=== PATIENT | female | born 1950 | race Caucasian/White ===

== ENCOUNTER → 2020-01-25 15:07 | Outpatient (BNVA) | payer MEDICARE, SELFPAY | PROVIDERS: Visit Provider Hospitalist | DX: J96.10 Chronic respiratory failure, unspecified whether with hypoxia or hypercapnia (principal); J44.9 Chronic obstructive pulmonary disease, unspecified; J84.9 Interstitial pulmonary disease, unspecified; D86.9 Sarcoidosis, unspecified; G47.33 Obstructive sleep apnea (adult) (pediatric); Z99.89 Dependence on other enabling machines and devices | CPT/HCPCS: 99212 ==

== ENCOUNTER 2020-02-02 22:46 | Emergency (ER) | payer MEDICARE, SELFPAY ==
[2020-02-02 22:48] VITALS: BP 177/61; PULSE 82; RESP 18; TEMP 37; O2SAT 97; BMI 47.2
[2020-02-03] VITALS: BP 178/67; PULSE 79; RESP 16; O2SAT 98
--- NOTE | 2020-02-03 00:11 | ECG_ITS ---
Test Reason : CP Blood Pressure : / mmHG Vent. Rate : 078 BPM Atrial Rate : 078 BPM P-R Int : 114 ms QRS Dur : 100 ms QT Int : 404 ms P-R-T Axes : 021 -44 052 degrees QTc Int : 460 ms Normal sinus rhythm Left anterior fascicular block Otherwise normal ECG Heart rate has decreased Referred By: Luciana Cisneros Electronically Signed By:TYRONE ECHEVERRIA MD
--- NOTE | 2020-02-03 00:16 | ED.CHESTPAIN ---
HPI - Chest Pain General Chief Complaint: Chest Pain Stated Complaint: CHEST PAIN Time Seen by Provider: 02/03/20 00:02 Source: patient Mode of arrival: EMS Limitations: language barrier History of Present Illness HPI narrative: Ivorian-speaking patient comes to the emergency room complaining worsening shortness of breath for 1 week. Patient states she has history of COPD and sarcoidosis, usually has baseline shortness of breath, but today got much worse. Patient noticed that the shortness of breath started getting bad approximately 1 week ago. also, patient has substernal chest pain that is worse with inspiration. Patient states the reason she came today was because she was at home, her insurance usually she since paramedics to check on her, she was found to be hypertensive and hyperglycemic, blood pressure above 200. The patient's PCP was called and due to her ongoing symptoms and the high blood pressure she was advised to come to the emergency room. Patient also states that for 1 week she has noticed that her legs have been gotten more swollen than usual. patient states she went to [facility] yesterday for the same symptoms, however she waited for almost 11 hours and could not be seen, patient decided to go home MD complaint: chest discomfort Related Data Home Medications Medication Instructions Recorded Confirmed CPAP Mask DX: G47.33 Sleep Apnea #1 ea 01/25/20 01/25/20 clonazepam 0.5 mg tablet 0.25 mg PO BEDTIME 01/25/20 01/25/20 cyclobenzaprine 10 mg tablet 10 mg PO BEDTIME 01/25/20 01/25/20 diltiazem HCl 360 mg capsule,24 360 mg PO DAILY 01/25/20 01/25/20 hr,extended release dulaglutide 0.75 mg/0.5 mL 0.75 mg SUBCUT QWEEK 01/25/20 01/25/20 subcutaneous pen injector empagliflozin 10 mg tablet 10 mg PO DAILY 01/25/20 01/25/20 ezetimibe 10 mg tablet 10 mg PO DAILY 01/25/20 01/25/20 fluticasone fur. 100 mcg-umeclid 1 inh INHALATION DAILY 01/25/20 01/25/20 62.5 mcg-vilant 25 mcg inhalat.powder ibuprofen 600 mg tablet 600 mg PO Q8H PRN 01/25/20 01/25/20 levalbuterol tartrate 45 2 puff INHALATION Q4-6H PRN 01/25/20 01/25/20 mcg/actuation aerosol inhaler mycophenolate mofetil 500 mg tablet 500 mg PO BID 01/25/20 01/25/20 omeprazole 20 mg capsule,delayed 20 mg PO DAILY 01/25/20 01/25/20 release rosuvastatin 10 mg tablet 10 mg PO DAILY 01/25/20 01/25/20 sertraline 50 mg tablet 50 mg PO DAILY 01/25/20 01/25/20 Previous Rx's Medication Instructions Recorded modafinil 100 mg tablet 100 mg PO DAILY 30 Days #30 tab 12/24/19 baclofen 10 mg tablet 10 mg PO TID 30 Days #90 tab 01/25/20 humidifiers #1 ea 01/25/20 roflumilast 250 mcg tablet 250 mcg PO DAILY 30 Days #30 tab 01/25/20 prednisone 10 mg tablet 10 mg PO DAILY #30 tab 02/01/20 Allergies Allergy/AdvReac Type Severity Reaction Status Date / Time albuterol [ALBUTEROL] Allergy Severe TACHYCARDIA Verified 01/25/20 17:15 codeine [Codeine] Allergy Severe ANAPHYLAXIS Verified 01/25/20 17:15 /HEADACHE Review of Systems Review of Systems: Constitutional : No Weight loss, No Fever, No Chills, No Night Sweats, No Fatigue, No Malaise ENT/Mouth : No Hearing loss, No Ear Pain, No Nasal Congestion, No Sinus Pain, No Hoarseness, No sore throat, No Rhinorrhea, No Swallowing Difficulty Eyes: No Eye Pain, No Swelling, No Redness, No Foreign Body, No Discharge, No Vision Changes Cardiovascular : Patient complaining of substernal chest pain, shortness of breath chronically but worsened, chronic orthopnea Respiratory : No Cough, No Sputum, No Wheezing Gastrointestinal : No Nausea, No Vomiting, No Diarrhea, No Constipation, No abdominal Pain, No Hematochezia, No Melena Genitourinary : no irregular bleeding, No Dysuria, No Urinary Frequency, No Hematuria, No Urinary Incontinence, No Urgency, No Flank Pain, No Urinary Flow Changes, No Hesitancy Musculoskeletal : No joint pain, No Myalgias, No Joint Swelling Skin : No Skin Lesions, No rash Neuro : No Weakness, No Numbness, No Paresthesias, No Loss of Consciousness, No Dizziness, No Headache Psych : No Anxiety/Panic, No Depression, No SI/HI/AH/VH, No Social Issues, Heme/Lymph: No Bruising, No Bleeding,No Lymphadenopathy Endocrine : No Polyuria, No Polydipsia, No Temperature Intolerance [facility] Past Medical History Medical History (Updated 02/03/20 @ 04:39 by Luciana Cisneros MD) CHF (congestive heart failure) Chronic respiratory failure COPD (chronic obstructive pulmonary disease) HTN (hypertension) ILD (interstitial lung disease) Muscle spasm JOVANNY on CPAP Sarcoidosis Social History Social History (Updated 01/25/20 @ 15:26 by Trina Cardenas MA) Alcohol intake: never Smoking Status: Never smoker Smoked in Last 30 Days: No Use of substances other than those prescribed or required for medical reasons: No Advance Directives: No Physical Exam Vital Signs: Vital Signs: Last Vital Signs Temp 98.5 F 02/03/20 02:00 Pulse 86 02/03/20 03:35 Resp 18 02/03/20 03:35 BP 139/73 02/03/20 03:35 Pulse Ox 96 02/03/20 03:35 Body Mass Index 47.2 Appearance: Alert. Oriented X3. No acute distress. Eyes: Pupils equal, round and reactive to light. ENT: Pharynx normal. Neck: Normal inspection. Neck supple. No lymph nodes noted. No crepitus CVS: Normal heart rate and rhythm. Pulses normal. Normal S1 and S2 Respiratory: no respiratory distress, on 2 L at baseline, bilateral wheezing rales and crackles, moderate air movement Abdomen: Soft and nontender. No rigidity. No distention. good BS x4 Skin: Skin warm and dry. acanthosis nigricans in the neck Extremities: bilateral lower extremity pitting edema +2 Neuro: Oriented X 3. No motor deficit. No sensory deficit. Moving all extermities. No slurred speech. Course Course Course Narrative: patient's troponin is 21.2, higher than her average. Patient's baseline is approximately 11. at this moment, patient has no significant chest pain, no shortness of breath, sitting comfortably at the edge of the bed. Patient was informed that the plan is to repeat troponin at 03:45 in the morning. 2nd troponin came back at the same level as the 1st 1, patient's EKG unchanged from the 1st 1. Patient asymptomatic at this time, states she has no chest pain. Patient's dyspnea is likely chronic secondary to COPD without exacerbation and sarcoidosis. Patient instructed to follow-up with her registered diet technician. Patient's D-dimer less than 200, at this time PE is not suspected. I discussed with the patient if he continues having chest pains, patient will likely need a stress test. MDM - Chest Pain Lab Data Result diagrams: 02/03/20 00:45 02/03/20 00:45 Labs: Lab Results 02/03/20 02/03/20 02/03/20 Range/Units 00:32 00:45 00:45 WBC 10.7 (4.8-10.8) X10*3/uL RBC 4.46 (4.20-5.50) X10*6/uL Hgb 13.2 (12.0-16.0) g/dl Hct 40.6 (37-47) % MCV 91.0 (80-98) fL MCH 29.6 (27.0-33.0) pg MCHC 32.5 (31.0-35.0) g/dl RDW 13.5 (11.0-16.0) % Plt Count 218 (160-400) X10*3/uL MPV 9.2 L (9.4-12.3) fL Immature Gran % (Auto) 0.8 H (0.0-0.4) % Neut % (Auto) 62.7 (45-73) % Lymph % (Auto) 25.9 (20-40) % [place] % (Auto) 7.6 (2-11) % Eos % (Auto) 2.6 (0-4) % Baso % (Auto) 0.4 (0-2) % Lymph # (Auto) 2.8 (1.2-4.9) X10*3/uL [place] # (Auto) 0.8 (0.1-1.2) X10*3/uL Eos # (Auto) 0.3 (0.0-0.4) X10*3/uL Baso # (Auto) 0.0 (0.0-0.2) X10*3/uL Abs Immat Gran (auto) 0.08 H (0.00-0.03) X10*3/uL Absolute Neuts (auto) 6.7 (2.0-8.3) X10*3/uL Absolute Nucleated RBC 0.000 (0.0-0.012) X10*3/uL Nucleated RBC % (auto) 0.0 (0.0-0.2) /100WBC D-Dimer < 200 NG/ML Sodium (135-145) mmol/L Potassium (3.3-5.1) mmol/l Chloride (96-108) mmol/L Carbon Dioxide (22-29) mmol/L Anion Gap (12-20) BUN (9-16) mg/dL Creatinine (0.5-1.4) mg/dL Estim Creat Clear Calc Estimated GFR POC Glucose 277 H (60-115) mg/dL Random Glucose (60-115) mg/dL Calcium (8.4-10.2) mg/dL Total Bilirubin (0.0-1.0) mg/dL Direct Bilirubin (0.0-0.5) mg/dL AST (5-31) U/L ALT (0-31) U/L Alkaline Phosphatase (39-117) U/L Troponin I High Sens (<3.5-17.0) ng/L B-Natriuretic Peptide (<100) pg/mL Total Protein (6.5-8.0) g/dL Albumin (3.5-5.0) g/dL 02/03/20 02/03/20 02/03/20 Range/Units 00:45 00:45 00:45 WBC (4.8-10.8) X10*3/uL RBC (4.20-5.50) X10*6/uL Hgb (12.0-16.0) g/dl Hct (37-47) % MCV (80-98) fL MCH (27.0-33.0) pg MCHC (31.0-35.0) g/dl RDW (11.0-16.0) % Plt Count (160-400) X10*3/uL MPV (9.4-12.3) fL Immature Gran % (Auto) (0.0-0.4) % Neut % (Auto) (45-73) % Lymph % (Auto) (20-40) % [place] % (Auto) (2-11) % Eos % (Auto) (0-4) % Baso % (Auto) (0-2) % Lymph # (Auto) (1.2-4.9) X10*3/uL [place] # (Auto) (0.1-1.2) X10*3/uL Eos # (Auto) (0.0-0.4) X10*3/uL Baso # (Auto) (0.0-0.2) X10*3/uL Abs Immat Gran (auto) (0.00-0.03) X10*3/uL Absolute Neuts (auto) (2.0-8.3) X10*3/uL Absolute Nucleated RBC (0.0-0.012) X10*3/uL Nucleated RBC % (auto) (0.0-0.2) /100WBC D-Dimer NG/ML Sodium 138 (135-145) mmol/L Potassium 3.1 L (3.3-5.1) mmol/l Chloride 96 (96-108) mmol/L Carbon Dioxide 31 H (22-29) mmol/L Anion Gap 14 (12-20) BUN 32 H (9-16) mg/dL Creatinine 1.15 (0.5-1.4) mg/dL Estim Creat Clear Calc 54.7 Estimated GFR 47 POC Glucose (60-115) mg/dL Random Glucose 307 H (60-115) mg/dL Calcium 8.5 (8.4-10.2) mg/dL Total Bilirubin 0.2 (0.0-1.0) mg/dL Direct Bilirubin 0.2 (0.0-0.5) mg/dL AST 15 (5-31) U/L ALT 27 (0-31) U/L Alkaline Phosphatase 86 (39-117) U/L Troponin I High Sens 21.2 H (<3.5-17.0) ng/L B-Natriuretic Peptide 46 (<100) pg/mL Total Protein 6.1 L (6.5-8.0) g/dL Albumin 3.9 (3.5-5.0) g/dL 02/03/20 Range/Units 03:32 WBC (4.8-10.8) X10*3/uL RBC (4.20-5.50) X10*6/uL Hgb (12.0-16.0) g/dl Hct (37-47) % MCV (80-98) fL MCH (27.0-33.0) pg MCHC (31.0-35.0) g/dl RDW (11.0-16.0) % Plt Count (160-400) X10*3/uL MPV (9.4-12.3) fL Immature Gran % (Auto) (0.0-0.4) % Neut % (Auto) (45-73) % Lymph % (Auto) (20-40) % [place] % (Auto) (2-11) % Eos % (Auto) (0-4) % Baso % (Auto) (0-2) % Lymph # (Auto) (1.2-4.9) X10*3/uL [place] # (Auto) (0.1-1.2) X10*3/uL Eos # (Auto) (0.0-0.4) X10*3/uL Baso # (Auto) (0.0-0.2) X10*3/uL Abs Immat Gran (auto) (0.00-0.03) X10*3/uL Absolute Neuts (auto) (2.0-8.3) X10*3/uL Absolute Nucleated RBC (0.0-0.012) X10*3/uL Nucleated RBC % (auto) (0.0-0.2) /100WBC D-Dimer NG/ML Sodium (135-145) mmol/L Potassium (3.3-5.1) mmol/l Chloride (96-108) mmol/L Carbon Dioxide (22-29) mmol/L Anion Gap (12-20) BUN (9-16) mg/dL Creatinine (0.5-1.4) mg/dL Estim Creat Clear Calc Estimated GFR POC Glucose (60-115) mg/dL Random Glucose (60-115) mg/dL Calcium (8.4-10.2) mg/dL Total Bilirubin (0.0-1.0) mg/dL Direct Bilirubin (0.0-0.5) mg/dL AST (5-31) U/L ALT (0-31) U/L Alkaline Phosphatase (39-117) U/L Troponin I High Sens 20.1 H (<3.5-17.0) ng/L B-Natriuretic Peptide (<100) pg/mL Total Protein (6.5-8.0) g/dL Albumin (3.5-5.0) g/dL ABG Data Attestation: I personally reviewed and interpreted this ABG as follows: ECG Data ECG #1: Attestation: I personally reviewed and interpreted this ECG as follows: ( heart rate 78, sinus rhythm, no T-wave inversions, no ST segment elevations or depressions.) ECG #2: Attestation: I personally reviewed and interpreted this ECG as follows: ( sinus rhythm, heart rate 82, QTC 455, no ST segment depressions or elevations, no changes from previous EKG) Discharge Plan Discharge Clinical Impression: Chronic dyspnea, Atypical chest pain Patient Disposition: Home, Self-Care Instructions: Chest Pain (ED) Additional Instructions: please follow-up with her primary care physician and with your registered diet technician. Prescriptions: No Action modafinil 100 mg tablet 100 mg PO DAILY 30 Days Qty: 30 RF: 3 mycophenolate mofetil [CellCept] 500 mg tablet 500 mg PO BID RF: 0 levalbuterol tartrate [Xopenex HFA] 45 mcg/actuation HFA aerosol inhaler 2 puff inhalation Q4-6H PRNRF: 0 Trelegy Ellipta 100-62.5-25 mcg blister with device 1 inh inhalation DAILY RF: 0 (DME) CPAP Mask DX: G47.33 Sleep Apnea 0 .Route .MEDSUPPLY Qty: 1 RF: 0 ibuprofen 600 mg tablet 600 mg PO Q8H PRNRF: 0 ezetimibe [Zetia] 10 mg tablet 10 mg PO DAILY RF: 0 clonazepam 0.5 mg tablet 0.25 mg PO BEDTIME RF: 0 diltiazem HCl 360 mg capsule,extended release 24 hr 360 mg PO DAILY RF: 0 Trulicity 0.75 mg/0.5 mL pen injector 0.75 mg subcut QWEEK RF: 0 rosuvastatin 10 mg tablet 10 mg PO DAILY RF: 0 Jardiance 10 mg tablet 10 mg PO DAILY RF: 0 sertraline 50 mg tablet 50 mg PO DAILY RF: 0 cyclobenzaprine 10 mg tablet 10 mg PO BEDTIME RF: 0 omeprazole 20 mg capsule,delayed release(DR/EC) 20 mg PO DAILY RF: 0 Daliresp 250 mcg tablet 250 mcg PO DAILY 30 Days Qty: 30 RF: 11 baclofen 10 mg tablet 10 mg PO TID 30 Days Qty: 90 RF: 3 (DME) humidifiers Misc See Rx Instructions .ROUTE .MEDSUPPLY Qty: 1 RF: 0 prednisone 10 mg tablet 10 mg PO DAILY Qty: 30 RF: 1
[2020-02-03 00:36] LABS: Glucose, Whole Blood 277 mg/dL (60-115)
[2020-02-03 00:53] LABS: MANUAL DIFF FLAG NO
[2020-02-03 00:54] LABS: Basophils Percent Auto 0.4 % (0-2); Eosinophils Absolute Auto 0.3 X10*3/uL (0.0-0.4); Eosinophils Percent Auto 2.6 % (0-4); Hematocrit 40.6 % (37-47); Hemoglobin 13.2 g/dl (12.0-16.0); Imm Gran Abs Auto 0.08 X10*3/uL (0.00-0.03); Imm Gran Pct Auto 0.8 % (0.0-0.4); Lymphocytes Absolute Auto 2.8 X10*3/uL (1.2-4.9); Lymphocytes Percent Auto 25.9 % (20-40); Mean Corpuscular HGB Conc 32.5 g/dl (31.0-35.0); Mean Corpuscular Hemoglobin 29.6 pg (27.0-33.0); Mean Platelet Volume 9.2 fL (9.4-12.3); Monocytes Absolute Auto 0.8 X10*3/uL (0.1-1.2); Monocytes Percent Auto 7.6 % (2-11); Neutrophils Absolute Auto 6.7 X10*3/uL (2.0-8.3); Neutrophils Percent Auto 62.7 % (45-73); Platelet Count 218 X10*3/uL (160-400); Red Blood Count 4.46 X10*6/uL (4.20-5.50); Red Cell Distribution Width 13.5 % (11.0-16.0); White Blood Count 10.7 X10*3/uL (4.8-10.8)
[2020-02-03 01:04] LABS: D Dimer < 200 NG/ML
--- NOTE | 2020-02-03 01:16 | CT_ITS ---
EXAMINATION: CT CHEST WITHOUT CONTRAST CLINICAL INFORMATION: Shortness of breath. COPD. Sarcoidosis. COMPARISON: Multiple prior exams are reviewed. The most recent is from 07/25/2019. TECHNIQUE: Contiguous axial thin section helical images of the chest were performed without contrast. The data set was reformatted in the coronal and sagittal planes and reviewed on an independent workstation. DLP: 369 mGy-cm. FINDINGS: The heart is of normal size. There is no pericardial effusion. There is neither mediastinal, hilar nor axillary lymphadenopathy. There are no chest wall masses. There is a small hiatal hernia. Review of lung windows demonstrates that there are neither pleural effusions nor pneumothoraces. The degree of interstitial lung disease is similar to the most recent chest CT of 02/23/2019. There are no consolidations. There are no pulmonary parenchymal nodules. Images of the upper abdomen demonstrate that the liver is of normal size and attenuation without focal lesions. Normal adrenal glands are identified. Bone windows: Neither sclerotic nor lytic bone lesions are identified. CT/CT chest wo con IMPRESSION: No acute airspace disease. Stable degree of interstitial lung disease. Small hiatal hernia. Automated exposure control (Care Dose) Adjustment of the mA and/or kv according to patient size (this includes techniques or standardized protocols for targeted exams where dose is matched to indication / reason for exam; i.e. extremities or head).
[2020-02-03 01:24] LABS: Alanine Aminotransferase 27 U/L (0-31); Albumin Level 3.9 g/dL (3.5-5.0); Alkaline Phosphatase 86 U/L (39-117); Anion Gap 14 (12-20); Aspartate Amino Transferase 15 U/L (5-31); Bilirubin Direct 0.2 mg/dL (0.0-0.5); Bilirubin Total 0.2 mg/dL (0.0-1.0); Blood Urea Nitrogen 32 mg/dL (9-16); Calcium 8.5 mg/dL (8.4-10.2); Carbon Dioxide 31 mmol/L (22-29); Chloride 96 mmol/L (96-108); Creatinine Clr Calc Pharmacy 54.7; Estimated Glomerular Filt Rate 47; Glucose Random 307 mg/dL (60-115); Potassium 3.1 mmol/l (3.3-5.1); Sodium 138 mmol/L (135-145); Total Protein 6.1 g/dL (6.5-8.0)
[2020-02-03 01:30] LABS: B Type Natriuretic Peptide 46 pg/mL (<100)
[2020-02-03 01:33] LABS: Troponin-I High Sensitivity 21.2 ng/L (<3.5-17.0)
[2020-02-03 02:00] VITALS: BP 142/56; PULSE 86; RESP 23; TEMP 36.9; O2SAT 98
[2020-02-03] MEDS: Potassium Chloride Packet 20 MEQ PACKET 40 MEQ PO (02:15)
[2020-02-03] MEDS: Aspirin Enteric Coated 325 MG TABLET.DR PO (02:16)
[2020-02-03 03:35] VITALS: BP 139/73; PULSE 86; RESP 18; O2SAT 96
[2020-02-03 04:18] LABS: Troponin-I High Sensitivity 20.1 ng/L (<3.5-17.0)
--- NOTE | 2020-02-03 04:35 | ECG_ITS ---
Test Reason : REPEAT FOR HIGH TROPONIN Blood Pressure : / mmHG Vent. Rate : 082 BPM Atrial Rate : 082 BPM P-R Int : 144 ms QRS Dur : 096 ms QT Int : 382 ms P-R-T Axes : 021 -38 050 degrees QTc Int : 446 ms Normal sinus rhythm Left anterior fascicular block Otherwise normall ECG When compared with ECG of 23-OCT-2019 00:06, No significant change was found Referred By: Luciana Cisneros Electronically Signed By: TYRONE ECHEVERRIA MD [facility]
== END 2020-02-03 05:32 | disposition home or self-care (01) ==
PROVIDERS: Emergency Provider Emergency Medicine
DX: R07.89 Other chest pain (principal); R06.00 Dyspnea, unspecified; M54.6 Pain in thoracic spine; I10 Essential (primary) hypertension; I25.10 Atherosclerotic heart disease of native coronary artery without angina pectoris; Z79.899 Other long term (current) drug therapy
CPT/HCPCS: 36415; 71250; 80048; 80076; 82947; 83880; 84484; 85025; 85379; 93005; 99284

== ENCOUNTER 2020-02-29 15:00 | Outpatient (REF) | payer MEDICARE, SELFPAY ==
[2020-02-29 17:00] LABS: MANUAL DIFF FLAG NO
[2020-02-29 17:07] LABS: Basophils Percent Auto 0.2 % (0-2); Eosinophils Percent Auto 0.4 % (0-4); Hematocrit 42.4 % (37-47); Hemoglobin 13.7 g/dl (12.0-16.0); Imm Gran Abs Auto 0.06 X10*3/uL (0.00-0.03); Imm Gran Pct Auto 0.7 % (0.0-0.4); Lymphocytes Absolute Auto 1.1 X10*3/uL (1.2-4.9); Lymphocytes Percent Auto 11.7 % (20-40); Mean Corpuscular HGB Conc 32.3 g/dl (31.0-35.0); Mean Corpuscular Hemoglobin 29.5 pg (27.0-33.0); Mean Corpuscular Volume 91.4 fL (80-98); Mean Platelet Volume 9.5 fL (9.4-12.3); Monocytes Absolute Auto 0.6 X10*3/uL (0.1-1.2); Monocytes Percent Auto 6.2 % (2-11); Neutrophils Absolute Auto 7.5 X10*3/uL (2.0-8.3); Neutrophils Percent Auto 80.8 % (45-73); Platelet Count 258 X10*3/uL (160-400); Red Blood Count 4.64 X10*6/uL (4.20-5.50); Red Cell Distribution Width 13.1 % (11.0-16.0); White Blood Count 9.2 X10*3/uL (4.8-10.8)
[2020-02-29 17:32] LABS: Anion Gap 18 (12-20); Blood Urea Nitrogen 23 mg/dL (9-16); Calcium 8.6 mg/dL (8.4-10.2); Carbon Dioxide 30 mmol/L (22-29); Chloride 95 mmol/L (96-108); Estimated Glomerular Filt Rate 56; Potassium 3.8 mmol/l (3.3-5.1); Sodium 139 mmol/L (135-145)
[2020-02-29 17:48] LABS: Erythrocyte Sedimentation Rate 25 MM/HR (0-20)
[2020-02-29 18:14] LABS: Glucose Random 421 mg/dL (60-115)
== END 2020-02-29 15:01 | disposition home or self-care (01) ==
LOC: HO.LAB 15:00
PROVIDERS: Visit Provider Hospitalist
DX: J84.9 Interstitial pulmonary disease, unspecified (principal); J44.9 Chronic obstructive pulmonary disease, unspecified; J96.11 Chronic respiratory failure with hypoxia; G47.33 Obstructive sleep apnea (adult) (pediatric); D86.9 Sarcoidosis, unspecified; M62.838 Other muscle spasm; Z99.89 Dependence on other enabling machines and devices
CPT/HCPCS: 36415; 80048; 85025; 85652; 99212

== ENCOUNTER 2020-03-24 15:44 | Outpatient (REF) | payer MEDICARE, SELFPAY ==
--- NOTE | 2020-03-24 16:06 | XR_ITS ---
EXAMINATION: XR CHEST CLINICAL INFORMATION: Condition lung disease. Follow-up. COMPARISON: Chest 07/25/2019 TECHNIQUE: 2 views of the chest were obtained. FINDINGS: Lungs are hyperexpanded with diffuse prominent interstitial markings slightly worsened previous study. The heart size and pulmonary vascularity is normal. No gross bony abnormality seen. XR/XR chest 2V IMPRESSION: Diffuse prominent interstitial markings consistent with interstitial pneumonitis or edema, worse since 07/25/2019
[2020-03-24 17:25] LABS: Hematocrit 36.4 % (37-47); Hemoglobin 11.7 g/dl (12.0-16.0); Mean Corpuscular HGB Conc 32.1 g/dl (31.0-35.0); Mean Corpuscular Hemoglobin 29.6 pg (27.0-33.0); Mean Corpuscular Volume 92.2 fL (80-98); Platelet Count 281 X10*3/uL (160-400); Red Blood Count 3.95 X10*6/uL (4.20-5.50); Red Cell Distribution Width 12.6 % (11.0-16.0)
== END 2020-03-24 15:45 | disposition home or self-care (01) ==
LOC: HO.LAB 15:44
PROVIDERS: Visit Provider Internal Medicine Geriatric Medicine
DX: I48.91 Unspecified atrial fibrillation (principal); J84.9 Interstitial pulmonary disease, unspecified
CPT/HCPCS: 36415; 71046; 85027

== ENCOUNTER → 2020-04-07 14:54 | Outpatient (BNVA) | payer MEDICARE, SELFPAY | PROVIDERS: PCP Internal Medicine Geriatric Medicine; Visit Provider Hospitalist | DX: J84.9 Interstitial pulmonary disease, unspecified (principal); J96.11 Chronic respiratory failure with hypoxia; G47.33 Obstructive sleep apnea (adult) (pediatric); D86.9 Sarcoidosis, unspecified; J41.0 Simple chronic bronchitis; I50.9 Heart failure, unspecified; M62.838 Other muscle spasm; Z99.89 Dependence on other enabling machines and devices | CPT/HCPCS: 99212 ==

== ENCOUNTER 2020-04-09 23:00 | Emergency (ER) | payer MEDICARE, SELFPAY ==
[2020-04-09 23:02] VITALS: BP 157/56; PULSE 84; RESP 16; TEMP 36.6; O2SAT 100; BMI 43.0
--- NOTE | 2020-04-10 03:03 | ECG_ITS ---
Test Reason : SOB Blood Pressure : / mmHG Vent. Rate : 092 BPM Atrial Rate : 092 BPM P-R Int : 138 ms QRS Dur : 096 ms QT Int : 386 ms P-R-T Axes : 008 -47 054 degrees QTc Int : 477 ms Normal sinus rhythm Left anterior fascicular block Abnormal ECG When compared with ECG of 03-FEB-2020 05:03, No significant change was found Referred By: Em Garcia Electronically Signed By:VERONIQUE ANDERSON MD
--- NOTE | 2020-04-10 03:03 | XR_ITS ---
EXAMINATION: XR CHEST CLINICAL INFORMATION: SOB COMPARISON: 03/24/2020 TECHNIQUE: Frontal view of the chest was obtained. FINDINGS: Lung volumes are low. Diffuse patchy interstitial opacities throughout both lungs are not significantly changed from prior. No new superimposed consolidation. Cardiac and mediastinal contours are unchanged. No pneumothorax or pleural effusion. No acute osseous findings. XR/XR chest 1V IMPRESSION: Low lung volumes with chronic diffuse interstitial airspace opacities in both lungs, consistent with an underlying interstitial lung disease. No new superimposed consolidation is identified.
--- NOTE | 2020-04-10 03:04 | US_ITS ---
EXAMINATION: US VENOUS ULTRASOUND WITH DOPPLER LOWER EXTREMITY, RIGHT CLINICAL INFORMATION: Swelling, pain. COMPARISON: 01/27/2015 TECHNIQUE: Ultrasound of the deep veins is performed from the hip to the calf with compression sonography and color and pulse Doppler assessment. Spectral analysis with color-flow imaging is performed. FINDINGS: There is normal venous compression and respiratory variation and augmented flow. The visualized common femoral vein, superficial femoral vein, profunda femoral vein, popliteal vein, and the trifurcation region shows no evidence of deep venous thrombosis. There is no significant popliteal fossa cyst. If the patient's symptoms persist, followup ultrasound in 5 days 7 days might be of value to exclude proximal propagation from a non-visualized calf vein. US/US venous duplex LE RT IMPRESSION: No DVT demonstrated in the right lower extremity.
--- NOTE | 2020-04-10 03:06 | XR_ITS ---
EXAMINATION: XR FINGER, RIGHT CLINICAL INFORMATION: 4th digit pain on ROM COMPARISON: None TECHNIQUE: Three views of the right ring finger. FINDINGS: No acute fracture or malalignment. Calcific atherosclerosis is present in the hands and digits. Minimal osteoarthritis is present at the interphalangeal joints, characterized by nonuniform joint space narrowing and tiny marginal osteophytes. No erosions. Bone mineralization is normal. XR/XR finger RT min 2V IMPRESSION: No acute fracture or malalignment at the ring finger. No acute osseous findings Minimal osteoarthritis in the interphalangeal joints.
--- NOTE | 2020-04-10 03:06 | ED.SOB ---
HPI - SOB/Dyspnea General Chief Complaint: Wound/Laceration Stated Complaint: Finger wound Time Seen by Provider: 04/09/20 23:20 Source: patient and translator and interpreter Mode of arrival: ambulatory History of Present Illness HPI Narrative: This is a 69-year-old female presents with complaints regarding concerns about the tip of her right 4th digit that she states turned black in color and is due to her frequent sugar checks. In addition, patient is complaining of increased shortness of breath on exertion without fevers, chills, nausea, vomiting, diarrhea, or urinary pain/burning/frequency. She states that her right lower extremity is more swollen than the left and that despite being on water pills she feels that they have stopped working. Related Data Home Medications Medication Instructions Recorded Confirmed CPAP Mask DX: G47.33 Sleep Apnea #1 ea 01/25/20 04/07/20 clonazepam 0.5 mg tablet 0.25 mg PO BEDTIME 01/25/20 04/07/20 diltiazem HCl 360 mg capsule,24 360 mg PO DAILY 01/25/20 04/07/20 hr,extended release dulaglutide 0.75 mg/0.5 mL 0.75 mg SUBCUT QWEEK 01/25/20 04/07/20 subcutaneous pen injector empagliflozin 10 mg tablet 10 mg PO DAILY 01/25/20 04/07/20 ezetimibe 10 mg tablet 10 mg PO DAILY 01/25/20 04/07/20 fluticasone fur. 100 mcg-umeclid 1 inh INHALATION DAILY 01/25/20 04/07/20 62.5 mcg-vilant 25 mcg inhalat.powder ibuprofen 600 mg tablet 600 mg PO Q8H PRN 01/25/20 04/07/20 levalbuterol tartrate 45 2 puff INHALATION Q4-6H PRN 01/25/20 04/07/20 mcg/actuation aerosol inhaler omeprazole 20 mg capsule,delayed 20 mg PO DAILY 01/25/20 04/07/20 release rosuvastatin 10 mg tablet 10 mg PO DAILY 01/25/20 04/07/20 sertraline 50 mg tablet 50 mg PO DAILY 01/25/20 04/07/20 zolpidem 10 mg tablet PO 02/29/20 04/07/20 Previous Rx's Medication Instructions Recorded humidifiers #1 ea 01/25/20 roflumilast 250 mcg tablet 250 mcg PO DAILY 30 Days #30 tab 01/25/20 prednisone 10 mg tablet 10 mg PO DAILY #30 tab 02/01/20 baclofen 10 mg tablet 20 mg PO TID 30 Days #180 tab 02/29/20 modafinil 100 mg tablet 200 mg PO DAILY 30 Days #60 tab 02/29/20 mycophenolate mofetil 500 mg tablet 500 mg PO BID 30 Days #60 tab 04/07/20 spironolactone 50 mg tablet 50 mg PO DAILY 30 Days #30 tab 04/07/20 Allergies Allergy/AdvReac Type Severity Reaction Status Date / Time albuterol [ALBUTEROL] Allergy Severe TACHYCARDIA Verified 04/07/20 15:55 codeine [Codeine] Allergy Severe ANAPHYLAXIS Verified 04/07/20 15:55 /HEADACHE Review of Systems Review of Systems: Pertinent positives and negatives as stated in HPI 10 point review systems is otherwise negative. [facility] Past Medical History Source: nursing notes reviewed Medical History CHF (congestive heart failure) CHF (congestive heart failure) Chronic respiratory failure COPD (chronic obstructive pulmonary disease) HTN (hypertension) ILD (interstitial lung disease) Muscle spasm JOVANNY on CPAP Sarcoidosis Family History Family History Other Diabetes Social History Social History Alcohol intake: never Smoking Status: Never smoker Advance Directives: No Physical Exam Vital Signs: Vital Signs: Last Vital Signs Temp 98.1 F 04/10/20 07:15 Pulse 96 04/10/20 07:15 Resp 16 04/10/20 07:15 BP 157/49 H 04/10/20 07:15 Pulse Ox 98 04/10/20 07:15 Body Mass Index 43.0 VITAL SIGNS: Reviewed. GENERAL: Well developed, well nourished, in no acute distress. HEAD: Normocephalic/atraumatic, EYES: PERRLA, EOMI EARS: Ext canals without abnormality NOSE: Nares patent bilateral OROPHARYNX: no oral lesions noted, posterior pharynx clear NECK: Supple, no adenopathy LUNGS: Normal breath sounds. SpO2<100> on supplemental nasal cannula CARDIOVASCULAR: Regular rate and rhythm without noted murmurs, no JVD and noted bilateral lower leg pitting edema right worse than left ABDOMEN: Soft, non-tender, non-distended with bowel sounds. No rigidity. No guarding. No palpable masses or hernias noted RIGHT 4TH DIGIT: There is a small black injury on the 5th of the finger without erythema, induration, crepitus NEUROLOGIC: Alert and oriented x 4. 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 All investigations reviewed and there is no evidence systemic infection or anemia, VBG is not consistent with COPD exacerbation, BNP and clinical exam as well as chest x-ray are inconsistent with CHF exacerbation, venous duplex conducted of the right lower extremity is negative for DVT, and COVID-19 testing is negative. Patient further endorses that she has a follow-up appointment with her primary care provider on 04/20 as well as a pending appointment with Cardiology. She was reassured that there are no acute findings today she was strongly encouraged to follow-up with cardiology as well as her primary care provider. MDM - SOB/Dyspnea Lab Data Result diagrams: 04/10/20 04:28 04/10/20 04:28 Labs: Lab Results 04/10/20 04/10/20 04/10/20 Range/Units 04:28 04:28 04:28 WBC 9.6 (4.8-10.8) X10*3/uL RBC 4.64 (4.20-5.50) X10*6/uL Hgb 13.5 (12.0-16.0) g/dl Hct 41.6 (37-47) % MCV 89.7 (80-98) fL MCH 29.1 (27.0-33.0) pg MCHC 32.5 (31.0-35.0) g/dl RDW 12.7 (11.0-16.0) % Plt Count 297 (160-400) X10*3/uL MPV 9.4 (9.4-12.3) fL Immature Gran % (Auto) 0.4 (0.0-0.4) % Neut % (Auto) 58.2 (45-73) % Lymph % (Auto) 30.2 (20-40) % Woods % (Auto) 9.1 (2-11) % Eos % (Auto) 1.8 (0-4) % Baso % (Auto) 0.3 (0-2) % Lymph # (Auto) 2.9 (1.2-4.9) X10*3/uL Woods # (Auto) 0.9 (0.1-1.2) X10*3/uL Eos # (Auto) 0.2 (0.0-0.4) X10*3/uL Baso # (Auto) 0.0 (0.0-0.2) X10*3/uL Abs Immat Gran (auto) 0.04 H (0.00-0.03) X10*3/uL Absolute Neuts (auto) 5.6 (2.0-8.3) X10*3/uL Absolute Nucleated RBC 0.000 (0.0-0.012) X10*3/uL Nucleated RBC % (auto) 0.0 (0.0-0.2) /100WBC VBG pH (7.32-7.43) VBG pCO2 mmHg VBG pO2 mmHg VBG HCO3 mmol/L VBG O2 Saturation % VBG Base Excess mmol/L Sodium 142 (135-145) mmol/L Potassium 3.7 (3.3-5.1) mmol/l Chloride 95 L (96-108) mmol/L Carbon Dioxide 30 H (22-29) mmol/L Anion Gap 21 H (12-20) BUN 24 H (9-16) mg/dL Creatinine 1.16 (0.5-1.4) mg/dL Estim Creat Clear Calc 53.2 Estimated GFR 46 Random Glucose 290 H (60-115) mg/dL Calcium 9.3 D (8.4-10.2) mg/dL Magnesium 2.4 (1.6-2.6) mg/dL Total Bilirubin 0.2 (0.0-1.0) mg/dL AST 22 D (5-31) U/L ALT 19 (0-31) U/L Alkaline Phosphatase 103 (39-117) U/L B-Natriuretic Peptide 60 (<100) pg/mL Total Protein 6.9 (6.5-8.0) g/dL Albumin 4.1 (3.5-5.0) g/dL Urine Color Urine Appearance Urine pH (5.0-8.0) Ur Specific Erwin (1.005-1.025) Urine Protein (NEG-TRACE) MG/DL Urine Glucose (UA) (NEG) MG/DL Urine Ketones (NEG) MG/DL Urine Blood (NEG) Urine Nitrite (NEG) Ur Leukocyte Esterase (NEG) Urine RBC (0) /HPF Urine WBC (0-4) /HPF Ur Squamous Epith Cells /LPF Urine Bacteria /LPF Coronavirus (PCR) (Negative) Influenza Type A (PCR) (Negative) Influenza Type B (PCR) (Negative) RSV RNA Qual (PCR) (Negative) 04/10/20 04/10/20 04/10/20 Range/Units 04:28 04:28 06:34 WBC (4.8-10.8) X10*3/uL RBC (4.20-5.50) X10*6/uL Hgb (12.0-16.0) g/dl Hct (37-47) % MCV (80-98) fL MCH (27.0-33.0) pg MCHC (31.0-35.0) g/dl RDW (11.0-16.0) % Plt Count (160-400) X10*3/uL MPV (9.4-12.3) fL Immature Gran % (Auto) (0.0-0.4) % Neut % (Auto) (45-73) % Lymph % (Auto) (20-40) % Woods % (Auto) (2-11) % Eos % (Auto) (0-4) % Baso % (Auto) (0-2) % Lymph # (Auto) (1.2-4.9) X10*3/uL Woods # (Auto) (0.1-1.2) X10*3/uL Eos # (Auto) (0.0-0.4) X10*3/uL Baso # (Auto) (0.0-0.2) X10*3/uL Abs Immat Gran (auto) (0.00-0.03) X10*3/uL Absolute Neuts (auto) (2.0-8.3) X10*3/uL Absolute Nucleated RBC (0.0-0.012) X10*3/uL Nucleated RBC % (auto) (0.0-0.2) /100WBC VBG pH 7.48 H (7.32-7.43) VBG pCO2 49 mmHg VBG pO2 82 mmHg VBG HCO3 37 mmol/L VBG O2 Saturation 94.0 % VBG Base Excess 12.1 mmol/L Sodium (135-145) mmol/L Potassium (3.3-5.1) mmol/l Chloride (96-108) mmol/L Carbon Dioxide (22-29) mmol/L Anion Gap (12-20) BUN (9-16) mg/dL Creatinine (0.5-1.4) mg/dL Estim Creat Clear Calc Estimated GFR Random Glucose (60-115) mg/dL Calcium (8.4-10.2) mg/dL Magnesium (1.6-2.6) mg/dL Total Bilirubin (0.0-1.0) mg/dL AST (5-31) U/L ALT (0-31) U/L Alkaline Phosphatase (39-117) U/L B-Natriuretic Peptide (<100) pg/mL Total Protein (6.5-8.0) g/dL Albumin (3.5-5.0) g/dL Urine Color COLORLESS Urine Appearance CLEAR Urine pH 6.0 (5.0-8.0) Ur Specific Erwin <= 1.005 (1.005-1.025) Urine Protein NEG (NEG-TRACE) MG/DL Urine Glucose (UA) >=1000 H (NEG) MG/DL Urine Ketones NEG (NEG) MG/DL Urine Blood NEG (NEG) Urine Nitrite NEG (NEG) Ur Leukocyte Esterase NEG (NEG) Urine RBC 0 (0) /HPF Urine WBC 0 (0-4) /HPF Ur Squamous Epith Cells NONE /LPF Urine Bacteria NONE /LPF Coronavirus (PCR) NEGATIVE (Negative) Influenza Type A (PCR) NEGATIVE (Negative) Influenza Type B (PCR) NEGATIVE (Negative) RSV RNA Qual (PCR) NEGATIVE (Negative) ECG Data Attestation: I personally reviewed and interpreted this ECG as follows: Prior ECG tracings: available for review (02/03/2020 no acute changes on comparison) Interpretation: Normal sinus rhythm, HR-92, no evidence of acute ischemia, HI/QRS/QTC are within normal limits. Discharge Plan Discharge Clinical Impression: Chronic obstructive pulmonary disease Qualifiers: COPD type: unspecified COPD Qualified Code(s): J44.9 - Chronic obstructive pulmonary disease, unspecified Patient Disposition: Home, Self-Care Instructions: COPD (Chronic Obstructive Pulmonary Disease) (ED), Nutrition Guidelines for People with COPD (ED) Additional Instructions: 1. Por favor, reanude todos alfonso medicamentos caseros recetados. 2. Dom un seguimiento con adams proveedor de atenci?n primaria seg?n lo programado. 3. Contin?e el seguimiento con Cardiolog?a. No dude en volver a esta mic de emergencias si presenta un empeoramiento narayan o nuevos s?ntomas. Prescriptions: No Action zolpidem [Ambien] 10 mg tablet PO RF: 0 baclofen 10 mg tablet 20 mg PO TID 30 Days Qty: 180 RF: 3 modafinil 100 mg tablet 200 mg PO DAILY 30 Days Qty: 60 RF: 3 mycophenolate mofetil [CellCept] 500 mg tablet 500 mg PO BID 30 Days Qty: 60 RF: 3 spironolactone [Aldactone] 50 mg tablet 50 mg PO DAILY 30 Days Qty: 30 RF: 5 levalbuterol tartrate [Xopenex HFA] 45 mcg/actuation HFA aerosol inhaler 2 puff inhalation Q4-6H PRNRF: 0 Trelegy Ellipta 100-62.5-25 mcg blister with device 1 inh inhalation DAILY RF: 0 (DME) CPAP Mask DX: G47.33 Sleep Apnea 0 .Route .MEDSUPPLY Qty: 1 RF: 0 ibuprofen 600 mg tablet 600 mg PO Q8H PRNRF: 0 ezetimibe [Zetia] 10 mg tablet 10 mg PO DAILY RF: 0 clonazepam 0.5 mg tablet 0.25 mg PO BEDTIME RF: 0 diltiazem HCl 360 mg capsule,extended release 24 hr 360 mg PO DAILY RF: 0 Trulicity 0.75 mg/0.5 mL pen injector 0.75 mg subcut QWEEK RF: 0 rosuvastatin 10 mg tablet 10 mg PO DAILY RF: 0 Jardiance 10 mg tablet 10 mg PO DAILY RF: 0 sertraline 50 mg tablet 50 mg PO DAILY RF: 0 omeprazole 20 mg capsule,delayed release(DR/EC) 20 mg PO DAILY RF: 0 Daliresp 250 mcg tablet 250 mcg PO DAILY 30 Days Qty: 30 RF: 11 (DME) humidifiers Misc See Rx Instructions .ROUTE .MEDSUPPLY Qty: 1 RF: 0 prednisone 10 mg tablet 10 mg PO DAILY Qty: 30 RF: 1 Referrals: Physician,Unknown [Primary Care Provider] - 2 days Print Language: Tamazight
[2020-04-10 04:43] LABS: Basophils Percent Auto 0.3 % (0-2); Eosinophils Absolute Auto 0.2 X10*3/uL (0.0-0.4); Eosinophils Percent Auto 1.8 % (0-4); Hematocrit 41.6 % (37-47); Hemoglobin 13.5 g/dl (12.0-16.0); Imm Gran Abs Auto 0.04 X10*3/uL (0.00-0.03); Imm Gran Pct Auto 0.4 % (0.0-0.4); Lymphocytes Absolute Auto 2.9 X10*3/uL (1.2-4.9); Lymphocytes Percent Auto 30.2 % (20-40); Mean Corpuscular HGB Conc 32.5 g/dl (31.0-35.0); Mean Corpuscular Hemoglobin 29.1 pg (27.0-33.0); Mean Corpuscular Volume 89.7 fL (80-98); Mean Platelet Volume 9.4 fL (9.4-12.3); Monocytes Absolute Auto 0.9 X10*3/uL (0.1-1.2); Monocytes Percent Auto 9.1 % (2-11); Neutrophils Absolute Auto 5.6 X10*3/uL (2.0-8.3); Neutrophils Percent Auto 58.2 % (45-73); Platelet Count 297 X10*3/uL (160-400); Red Blood Count 4.64 X10*6/uL (4.20-5.50); Red Cell Distribution Width 12.7 % (11.0-16.0); White Blood Count 9.6 X10*3/uL (4.8-10.8)
[2020-04-10 04:44] LABS: Glucose Urine UA >=1000 MG/DL (NEG); Leukocyte Esterase Urine NEG (NEG); MANUAL DIFF FLAG NO; Nitrite Urine NEG (NEG); Specific Gravity - Urine <= 1.005 (1.005-1.025); Urine Blood NEG (NEG); Urine Ketones NEG (NEG); Urine Protein NEG (NEG-TRACE)
[2020-04-10 04:53] LABS: Appearance Urine CLEAR; Color Urine COLORLESS
[2020-04-10 05:19] LABS: Alanine Aminotransferase 19 U/L (0-31); Albumin Level 4.1 g/dL (3.5-5.0); Alkaline Phosphatase 103 U/L (39-117); Anion Gap 21 (12-20); Aspartate Amino Transferase 22 U/L (5-31); Bilirubin Total 0.2 mg/dL (0.0-1.0); Blood Urea Nitrogen 24 mg/dL (9-16); Calcium 9.3 mg/dL (8.4-10.2); Carbon Dioxide 30 mmol/L (22-29); Chloride 95 mmol/L (96-108); Creatinine Clr Calc Pharmacy 53.2; Estimated Glomerular Filt Rate 46; Glucose Random 290 mg/dL (60-115); Magnesium 2.4 mg/dL (1.6-2.6); Potassium 3.7 mmol/l (3.3-5.1); Sodium 142 mmol/L (135-145); Total Protein 6.9 g/dL (6.5-8.0)
[2020-04-10 05:22] LABS: B Type Natriuretic Peptide 60 pg/mL (<100)
[2020-04-10 05:26] LABS: Influenza A PCR NEGATIVE (Negative); Influenza B PCR NEGATIVE (Negative); RBC Urine 0 /HPF (0); Resp Syncy Virus RNA Qual PCR NEGATIVE (Negative); SARS COV2 PCR INHOUSE NEGATIVE (Negative); WBC Urine 0 /HPF (0-4)
[2020-04-10 06:42] LABS: Base Excess VBG 12.1 mmol/L; HCO3 VBG 37 mmol/L; PCO2 VBG 49 mmHg; PO2 VBG 82 mmHg; pH VBG 7.48 (7.32-7.43)
[2020-04-10 07:15] VITALS: BP 157/49; PULSE 96; RESP 16; TEMP 36.7; O2SAT 98
== END 2020-04-10 07:53 | disposition home or self-care (01) ==
PROVIDERS: Emergency Provider Student in an Organized Health Care Education/Training Program
DX: J44.9 Chronic obstructive pulmonary disease, unspecified (principal); M79.644 Pain in right finger(s); R60.0 Localized edema; Z20.822 Contact with and (suspected) exposure to COVID-19; Z79.899 Other long term (current) drug therapy
CPT/HCPCS: 0241U; 36415; 71045; 73140; 80053; 81001; 82803; 83735; 83880; 85025; 93005; 93971; 99283; 99284

== ENCOUNTER 2020-04-17 16:56 | Emergency (ER) | payer MEDICARE, SELFPAY ==
[2020-04-17 17:04] VITALS: BP 147/66; PULSE 96; RESP 20; TEMP 36.9; O2SAT 95; BMI 42.0
--- NOTE | 2020-04-17 17:18 | XR_ITS ---
EXAMINATION: CHEST 1 VIEW CLINICAL INFORMATION: Chest pain. COMPARISON: April 10, 2020. TECHNIQUE: An AP view of the chest is provided. FINDINGS: The cardiac silhouette is not enlarged. The mediastinal and hilar contours are unremarkable. There are neither pleural effusions nor pneumothoraces. Mild interstitial prominence throughout both lungs is similar to prior exams. There are no consolidations. The osseous structures are stable. XR/XR chest 1V IMPRESSION: No evidence for acute airspace disease. Stable interstitial disease throughout both lungs..
--- NOTE | 2020-04-17 17:18 | ED.GENADULT ---
HPI - General Adult General Chief complaint: General Medical Stated complaint: RIGHT ARM/CHEST PAIN SINCE THIS AM Time Seen by Provider: 04/17/20 20:40 Source: patient Mode of arrival: ambulatory Limitations: language barrier History of Present Illness HPI narrative: 69-year-old female with past medical history of CHF, history of respiratory failure, JOVANNY on CPAP, interstitial lung disease, sarcoidosis, COPD, hypertension, hyperlipidemia and diabetes presents with 2 weeks of chest pain and diffuse abdominal pain with 1 day of radiation to the right arm. She also reports coldness and tingling to her bilateral hands and has a wound to the tip of the right 4th finger. She states the pain is worse in her chest when she takes a deep breath or moves, that the abdominal pain does not change with eating, drinking or position, and denies nausea, vomiting, dysuria, hematuria, and edema. Onset (ago): week(s) (2) Location: chest, abdomen, right and upper extremity Severity: moderate Severity scale (1-10): 7 Quality: aching and constant Pain Consistency: constant Relieving factors: none Exacerbating factors: movement Associated symptoms: chest pain Related Data Home Medications Medication Instructions Recorded Confirmed CPAP Mask DX: G47.33 Sleep Apnea #1 ea 01/25/20 04/07/20 clonazepam 0.5 mg tablet 0.25 mg PO BEDTIME 01/25/20 04/07/20 diltiazem HCl 360 mg capsule,24 360 mg PO DAILY 01/25/20 04/07/20 hr,extended release dulaglutide 0.75 mg/0.5 mL 0.75 mg SUBCUT QWEEK 01/25/20 04/07/20 subcutaneous pen injector empagliflozin 10 mg tablet 10 mg PO DAILY 01/25/20 04/07/20 ezetimibe 10 mg tablet 10 mg PO DAILY 01/25/20 04/07/20 fluticasone fur. 100 mcg-umeclid 1 inh INHALATION DAILY 01/25/20 04/07/20 62.5 mcg-vilant 25 mcg inhalat.powder ibuprofen 600 mg tablet 600 mg PO Q8H PRN 01/25/20 04/07/20 levalbuterol tartrate 45 2 puff INHALATION Q4-6H PRN 01/25/20 04/07/20 mcg/actuation aerosol inhaler omeprazole 20 mg capsule,delayed 20 mg PO DAILY 01/25/20 04/07/20 release rosuvastatin 10 mg tablet 10 mg PO DAILY 01/25/20 04/07/20 sertraline 50 mg tablet 50 mg PO DAILY 01/25/20 04/07/20 zolpidem 10 mg tablet PO 02/29/20 04/07/20 Previous Rx's Medication Instructions Recorded humidifiers #1 ea 01/25/20 roflumilast 250 mcg tablet 250 mcg PO DAILY 30 Days #30 tab 01/25/20 prednisone 10 mg tablet 10 mg PO DAILY #30 tab 02/01/20 baclofen 10 mg tablet 20 mg PO TID 30 Days #180 tab 02/29/20 modafinil 100 mg tablet 200 mg PO DAILY 30 Days #60 tab 02/29/20 mycophenolate mofetil 500 mg tablet 500 mg PO BID 30 Days #60 tab 04/07/20 spironolactone 50 mg tablet 50 mg PO DAILY 30 Days #30 tab 04/07/20 Allergies Allergy/AdvReac Type Severity Reaction Status Date / Time albuterol [ALBUTEROL] Allergy Severe TACHYCARDIA Verified 04/07/20 15:55 codeine [Codeine] Allergy Severe ANAPHYLAXIS Verified 04/07/20 15:55 /HEADACHE Review of Systems Review of Systems: Constitutional: No Weight loss, No Fever, No Chills, No Night Sweats, No Fatigue, No Malaise ENT/Mouth: No Hearing loss, No Ear Pain, No Nasal Congestion, No Sinus Pain, No Hoarseness, No sore throat, No Rhinorrhea, No Swallowing Difficulty Eyes: No Eye Pain, No Swelling, No Redness, No Foreign Body, No Discharge, No Vision Changes Cardiovascular: pos Chest Pain, pos SOB, no Dyspnea on Exertion, No Orthopnea, No Edema, No Palpitations Respiratory: No Cough, No Sputum, No Wheezing, No Smoke Exposure, No Dyspnea Gastrointestinal: pos Nausea, No Vomiting, No Diarrhea, pos abdominal Pain, No Hematochezia, No Melena Genitourinary: No irregular bleeding, No Dysuria, No Urinary Frequency, No Hematuria, No Urinary Incontinence, No Urgency, No Flank Pain, No Urinary Flow Changes, No Hesitancy Musculoskeletal: No joint pain, No Myalgias, No Joint Swelling Skin: No Skin Lesions, No rash Neuro: No Weakness, No Numbness, No Paresthesias, No Loss of Consciousness, No Dizziness, No Headache Psych: No Anxiety/Panic, No Depression, No SI/HI/AH/VH Heme/Lymph: No Bruising, No Bleeding,No Lymphadenopathy Endocrine: No Polyuria, No Polydipsia, No Temperature Intolerance Yes all other systems are reviewed and are negative [facility] Past Medical History Medical History CHF (congestive heart failure) CHF (congestive heart failure) Chronic respiratory failure COPD (chronic obstructive pulmonary disease) HTN (hypertension) ILD (interstitial lung disease) Muscle spasm JOVANNY on CPAP Sarcoidosis Family History Family History Other Diabetes Social History Social History Alcohol intake: never Smoking Status: Never smoker Smoked in Last 30 Days: No Use of substances other than those prescribed or required for medical reasons: No Advance Directives: No Advance Directives Information Provided: No Physical Exam Vital Signs: Vital Signs: Last Vital Signs Temp 98.5 F 04/17/20 17:04 Pulse 80 04/17/20 21:25 Resp 16 04/17/20 21:25 BP 131/47 L 04/17/20 21:25 Pulse Ox 99 04/17/20 21:25 Body Mass Index 42.0 Appearance: Alert. Oriented X3. No acute distress. Eyes: Pupils equal, round and reactive to light. ENT: Pharynx normal. Neck: Normal inspection. Neck supple. CVS: Normal heart rate and rhythm. Pulses normal. Respiratory: No respiratory distress. Breath sounds normal. Abdomen: Soft and tender to palpation to the epigastric and right upper quadrants. Skin: Skin warm and dry. Normal skin color. Normal skin turgor. Extremities: No lower extremity edema. Neuro: No motor deficit. No sensory deficit. Course Course Course Narrative: 69-year-old female with past medical history of CHF, history of respiratory failure, JOVANNY on CPAP, interstitial lung disease, sarcoidosis, COPD, hypertension, hyperlipidemia and diabetes presents with 2 weeks of chest pain and diffuse abdominal pain with 1 day of radiation to the right arm. She also reports coldness and tingling to her bilateral hands and has a wound to the tip of the right 4th finger. Will rule out ACS, order CT of chest and abdomen, CBC Chem 7 and urinalysis. CBC unremarkable, potassium 3.0 we will replete with 40 mEq p.o., glucose 264 will give 5 units of subcu insulin. First troponin elevated at 24 will repeat 2nd 1 in 3 hours per algorithm. EKG is normal sinus with left anterior fascicular block and prolonged QT. No indication of ST elevation or depression. BNP negative, urinalysis negative. It is suspected that the coldness, and tingling to bilateral hands are secondary to diabetic neuropathy. She does state that she was on gabapentin but she could not tolerate that medication. Will give 2 mg of morphine IV for pain management COVID-19 test is negative. Plan is to discharge home and for patient follow-up with primary care physician. japanese interpreter utilized for all correspondence. Google translate utilized for discharge instructions. Medical Decision Making Differential Diagnosis Differential Diagnosis: CA, pneumonia, COVID, acute abdomen Medical Records Medical records reviewed: Yes I reviewed the patient's medical records. Lab Data Lab results reviewed: Yes I reviewed the patient's lab results. Result diagrams: 04/17/20 18:01 04/17/20 18:01 Labs: Lab Results 04/17/20 04/17/20 04/17/20 Range/Units 18:01 18:01 18:01 WBC 10.1 (4.8-10.8) X10*3/uL RBC 5.02 (4.20-5.50) X10*6/uL Hgb 14.8 (12.0-16.0) g/dl Hct 43.6 (37-47) % MCV 86.9 (80-98) fL MCH 29.5 (27.0-33.0) pg MCHC 33.9 (31.0-35.0) g/dl RDW 12.6 (11.0-16.0) % Plt Count 301 (160-400) X10*3/uL MPV 9.4 (9.4-12.3) fL Immature Gran % (Auto) 0.7 H (0.0-0.4) % Neut % (Auto) 75.5 H (45-73) % Lymph % (Auto) 12.1 L (20-40) % [place] % (Auto) 9.3 (2-11) % Eos % (Auto) 1.9 (0-4) % Baso % (Auto) 0.5 (0-2) % Lymph # (Auto) 1.2 (1.2-4.9) X10*3/uL [place] # (Auto) 0.9 (0.1-1.2) X10*3/uL Eos # (Auto) 0.2 (0.0-0.4) X10*3/uL Baso # (Auto) 0.1 (0.0-0.2) X10*3/uL Abs Immat Gran (auto) 0.07 H (0.00-0.03) X10*3/uL Absolute Neuts (auto) 7.6 (2.0-8.3) X10*3/uL Absolute Nucleated RBC 0.000 (0.0-0.012) X10*3/uL Nucleated RBC % (auto) 0.0 (0.0-0.2) /100WBC PT 19.6 H (10.8-13.0) SEC INR 1.6 H (0.9-1.1) APTT 37.0 (24.1-38.0) SEC Sodium 141 (135-145) mmol/L Potassium 3.0 L (3.3-5.1) mmol/l Chloride 95 L (96-108) mmol/L Carbon Dioxide 31 H (22-29) mmol/L Anion Gap 18 (12-20) BUN 14 (9-16) mg/dL Creatinine 0.95 (0.5-1.4) mg/dL Estim Creat Clear Calc 64.2 Estimated GFR 58 POC Glucose (60-115) mg/dL Random Glucose 236 H (60-115) mg/dL Calcium 9.6 (8.4-10.2) mg/dL Magnesium 2.0 (1.6-2.6) mg/dL Total Bilirubin 0.7 (0.0-1.0) mg/dL Direct Bilirubin 0.2 (0.0-0.5) mg/dL AST 19 (5-31) U/L ALT 14 (0-31) U/L Alkaline Phosphatase 100 (39-117) U/L Troponin I High Sens (<3.5-17.0) ng/L B-Natriuretic Peptide (<100) pg/mL Total Protein 6.8 (6.5-8.0) g/dL Albumin 4.1 (3.5-5.0) g/dL Lipase 22 (8-78) U/L Urine Color Urine Appearance Urine pH (5.0-8.0) Ur Specific [place] (1.005-1.025) Urine Protein (NEG-TRACE) MG/DL Urine Glucose (UA) (NEG) MG/DL Urine Ketones (NEG) MG/DL Urine Blood (NEG) Urine Nitrite (NEG) Ur Leukocyte Esterase (NEG) Urine RBC (0) /HPF Urine WBC (0-4) /HPF Ur Squamous Epith Cells /LPF Urine Bacteria /LPF COVID-19 ([facility]) (Negative) COVID-19 Clin Com 04/17/20 04/17/20 04/17/20 Range/Units 18:01 18:01 18:01 WBC (4.8-10.8) X10*3/uL RBC (4.20-5.50) X10*6/uL Hgb (12.0-16.0) g/dl Hct (37-47) % MCV (80-98) fL MCH (27.0-33.0) pg MCHC (31.0-35.0) g/dl RDW (11.0-16.0) % Plt Count (160-400) X10*3/uL MPV (9.4-12.3) fL Immature Gran % (Auto) (0.0-0.4) % Neut % (Auto) (45-73) % Lymph % (Auto) (20-40) % [place] % (Auto) (2-11) % Eos % (Auto) (0-4) % Baso % (Auto) (0-2) % Lymph # (Auto) (1.2-4.9) X10*3/uL [place] # (Auto) (0.1-1.2) X10*3/uL Eos # (Auto) (0.0-0.4) X10*3/uL Baso # (Auto) (0.0-0.2) X10*3/uL Abs Immat Gran (auto) (0.00-0.03) X10*3/uL Absolute Neuts (auto) (2.0-8.3) X10*3/uL Absolute Nucleated RBC (0.0-0.012) X10*3/uL Nucleated RBC % (auto) (0.0-0.2) /100WBC PT (10.8-13.0) SEC INR (0.9-1.1) APTT (24.1-38.0) SEC Sodium (135-145) mmol/L Potassium (3.3-5.1) mmol/l Chloride (96-108) mmol/L Carbon Dioxide (22-29) mmol/L Anion Gap (12-20) BUN (9-16) mg/dL Creatinine (0.5-1.4) mg/dL Estim Creat Clear Calc Estimated GFR POC Glucose (60-115) mg/dL Random Glucose (60-115) mg/dL Calcium (8.4-10.2) mg/dL Magnesium (1.6-2.6) mg/dL Total Bilirubin (0.0-1.0) mg/dL Direct Bilirubin (0.0-0.5) mg/dL AST (5-31) U/L ALT (0-31) U/L Alkaline Phosphatase (39-117) U/L Troponin I High Sens 21.3 H (<3.5-17.0) ng/L B-Natriuretic Peptide 41 (<100) pg/mL Total Protein (6.5-8.0) g/dL Albumin (3.5-5.0) g/dL Lipase (8-78) U/L Urine Color Urine Appearance Urine pH (5.0-8.0) Ur Specific [place] (1.005-1.025) Urine Protein (NEG-TRACE) MG/DL Urine Glucose (UA) (NEG) MG/DL Urine Ketones (NEG) MG/DL Urine Blood (NEG) Urine Nitrite (NEG) Ur Leukocyte Esterase (NEG) Urine RBC (0) /HPF Urine WBC (0-4) /HPF Ur Squamous Epith Cells /LPF Urine Bacteria /LPF COVID-19 ([facility]) Negative (Negative) COVID-19 Clin Com See Note 04/17/20 04/17/20 04/17/20 Range/Units 19:26 19:33 21:01 WBC (4.8-10.8) X10*3/uL RBC (4.20-5.50) X10*6/uL Hgb (12.0-16.0) g/dl Hct (37-47) % MCV (80-98) fL MCH (27.0-33.0) pg MCHC (31.0-35.0) g/dl RDW (11.0-16.0) % Plt Count (160-400) X10*3/uL MPV (9.4-12.3) fL Immature Gran % (Auto) (0.0-0.4) % Neut % (Auto) (45-73) % Lymph % (Auto) (20-40) % [place] % (Auto) (2-11) % Eos % (Auto) (0-4) % Baso % (Auto) (0-2) % Lymph # (Auto) (1.2-4.9) X10*3/uL [place] # (Auto) (0.1-1.2) X10*3/uL Eos # (Auto) (0.0-0.4) X10*3/uL Baso # (Auto) (0.0-0.2) X10*3/uL Abs Immat Gran (auto) (0.00-0.03) X10*3/uL Absolute Neuts (auto) (2.0-8.3) X10*3/uL Absolute Nucleated RBC (0.0-0.012) X10*3/uL Nucleated RBC % (auto) (0.0-0.2) /100WBC PT (10.8-13.0) SEC INR (0.9-1.1) APTT (24.1-38.0) SEC Sodium (135-145) mmol/L Potassium (3.3-5.1) mmol/l Chloride (96-108) mmol/L Carbon Dioxide (22-29) mmol/L Anion Gap (12-20) BUN (9-16) mg/dL Creatinine (0.5-1.4) mg/dL Estim Creat Clear Calc Estimated GFR POC Glucose 264 H (60-115) mg/dL Random Glucose (60-115) mg/dL Calcium (8.4-10.2) mg/dL Magnesium (1.6-2.6) mg/dL Total Bilirubin (0.0-1.0) mg/dL Direct Bilirubin (0.0-0.5) mg/dL AST (5-31) U/L ALT (0-31) U/L Alkaline Phosphatase (39-117) U/L Troponin I High Sens 25.5 H (<3.5-17.0) ng/L B-Natriuretic Peptide (<100) pg/mL Total Protein (6.5-8.0) g/dL Albumin (3.5-5.0) g/dL Lipase (8-78) U/L Urine Color YELLOW Urine Appearance CLEAR Urine pH 6.0 (5.0-8.0) Ur Specific [place] <= 1.005 (1.005-1.025) Urine Protein NEG (NEG-TRACE) MG/DL Urine Glucose (UA) >=1000 H (NEG) MG/DL Urine Ketones NEG (NEG) MG/DL Urine Blood NEG (NEG) Urine Nitrite NEG (NEG) Ur Leukocyte Esterase NEG (NEG) Urine RBC 1-4 (0) /HPF Urine WBC 0-2 (0-4) /HPF Ur Squamous Epith Cells TRACE /LPF Urine Bacteria NONE /LPF COVID-19 ([facility]) (Negative) COVID-19 Clin Com Imaging Data CT abdomen pelvis chest: Attestation: I personally reviewed and interpreted this imaging study as follows: ECG Data Attestation: I personally reviewed and interpreted this ECG as follows: Interpretation: EXAMINATION: CT CHEST, ABDOMEN AND PELVIS WITHOUT CONTRAST CLINICAL INFORMATION: Abdominal pain, right upper quadrant and epigastric tenderness. COMPARISON: CT chest 02/03/[address] abdomen and pelvis 10/22/2018. TECHNIQUE: Multidetector volumetric imaging was performed from the thoracic inlet through the pubic symphysis without IV contrast. Sagittal and coronal reformatted images were obtained on the technologist's workstation. This CT examination was performed using dose optimization techniques as appropriate, variously including the following: *Automated exposure control. *Adjustment of mA and/or kV according to patient size (this includes techniques or standardized protocols for targeted exams where dose is matched to indication/reason for exam; i.e. extremities or head). *Use of iterative reconstruction technique. DLP: 1446 mGy-cm FINDINGS: CHEST: Lung: Interstitial lung disease is present with peripheral honeycombing and septal thickening with increased reticular nodular densities. Findings appear slightly more prominent than noted previously and superimposed CHF cannot be entirely excluded. No suspicious focal mass is seen. Mediastinum: Aortic atherosclerotic changes are present without aneurysm. Dense calcification noted in the mitral annulus. Coronary calcifications are seen. No mediastinal or hilar lymphadenopathy is seen. A small unchanged hiatal hernia is present. Pericardium/Pleura: No significant effusion. No pleural mass or thickening. Chest Wall/Axilla: Unremarkable. ABDOMEN/PELVIS: Peritoneal Space: No significant free air or free fluid identified. Liver, Gallbladder, Biliary Tree: The liver is normal in size, shape, and attenuation. No focal hepatic lesion or biliary ductal dilatation is present. The gallbladder is unremarkable with no evidence of radiopaque gallstones, gallbladder wall thickening, or obvious pericholecystic inflammatory changes. The previously seen questionable gallstones are not appreciated on the current study. Pancreas: Unremarkable. Spleen: Unremarkable. Adrenal Glands: Unremarkable. Kidneys and Ureters: The kidneys are normal in size, shape, and attenuation. Extensive renal vascular calcifications are seen. No hydronephrosis, hydroureter, or calculi seen. No perinephric stranding. Bladder: Unremarkable. Gastrointestinal Tract: The small and large bowel are unremarkable. The appendix is not seen but there is no evidence of appendicitis. Abdominal Wall: Again seen is a small ventral hernia with an unchanged small fluid collection just in front of the right lower quadrant abdominal wall. Lymph Nodes: No retroperitoneal lymphadenopathy seen. Vascular: Marked atherosclerotic change present in the aorta and iliofemoral vessels. Visceral branch vessels also have significant atherosclerotic change. The IVC is collapsed and slit-like suggesting hypovolemia. PELVIC VISCERA: An anteverted uterus is present. A densely calcified 1 cm cyst is noted in the left ovary and is unchanged. No other adnexal mass is present. No free intraperitoneal fluid is seen. OSSEUS STRUCTURES: Degenerative changes present throughout the spine. Grade 1 anterolisthesis L4 upon L5. CT/CT abdomen pelvis wo con IMPRESSION: 1. Interstitial lung disease with question of slightly more increased interstitial prominence which could represent some superimposed pulmonary vascular congestion. However, the vena cava is slit-like and collapsed indicating hypovolemia rather than volume overload. 2. Fluid collection in the lower right anterior abdominal wall is unchanged. 3. Incidental note made of extensive atherosclerotic vascular disease, small unchanged ventral hernia and densely rim calcified presumed left ovarian cyst, stable Scores Heart Score History: -1- moderately suspicious ECG: -1- non specific repolarization disturbance Age: -2- > or = 65 Risk factory: -1- 1 or 2 risk factors Troponin: -1- >1 - <3x normal limit Score: 6 Risk: 16.6% Critical Care Time Critical Care Time Critical Care Time: Yes Total Critical Care Time: 35 Attestation: I have personally provided critical care time exclusive of time spent on separately billable procedures. Time includes review of laboratory data, radiology results, discussion with consultants, and monitoring for potential decompensation. Interventions were performed as documented. Discharge Plan Discharge Clinical Impression: Sarcoidosis, Chest pain, Abdominal pain Patient Disposition: Home, Self-Care Instructions: Chest Pain (ED), Abdominal Pain (ED) Additional Instructions: Se le evalu? el dolor tor?cico, el dolor abdominal y el dolor de christopher. La tomograf?a computarizada del abdomen y el t?rax es negativa para los hallazgos agudos. El dolor de christopher puede estar relacionado con la neuropat?a diab?rai. Por favor, tiffany un seguimiento con el m?dico de atenci?n primaria y / o endocrin?logo para m?s atenci?n. Adams electrocardiograma era un ritmo sinusal normal sin indicaci?n de elevaci?n o depresi?n de ST. Las enzimas card?acas est?n ligeramente elevadas, lo que podr?a ser consistente con la enfermedad renal y de CHF. Usted debe hacer un seguimiento con adams m?dico de atenci?n primaria en las pr?ximas 2 semanas. Sulaiman por elegir bharat departamento de emergencias para la evaluaci?n. Por favor, tiffany un seguimiento con el m?dico de atenci?n primaria seg?n sea necesario. Regrese al servicio de urgencias para cualquier s?ntoma nuevo, preocupante o que empeore. You were evaluated for chest pain, abdominal pain, and hand pain. CT scan of the abdomen and chest are negative for acute findings. The hand pain may be related to diabetic neuropathy. Please follow-up with primary care physician and/or research worker kitchen for further care. Your EKG was a normal sinus rhythm without indication of ST elevation or depression. Your cardiac enzymes are mildly elevated which could be consistent with your CHF and kidney disease. You must follow-up with her primary care physician in the next 2 weeks. Thank you for choosing this emergency department for evaluation. Please follow-up with primary care physician as needed. Return to the emergency department for any new, concerning, or worsening symptoms. Prescriptions: No Action zolpidem [Ambien] 10 mg tablet PO RF: 0 baclofen 10 mg tablet 20 mg PO TID 30 Days Qty: 180 RF: 3 modafinil 100 mg tablet 200 mg PO DAILY 30 Days Qty: 60 RF: 3 mycophenolate mofetil [CellCept] 500 mg tablet 500 mg PO BID 30 Days Qty: 60 RF: 3 spironolactone [Aldactone] 50 mg tablet 50 mg PO DAILY 30 Days Qty: 30 RF: 5 levalbuterol tartrate [Xopenex HFA] 45 mcg/actuation HFA aerosol inhaler 2 puff inhalation Q4-6H PRNRF: 0 Trelegy Ellipta 100-62.5-25 mcg blister with device 1 inh inhalation DAILY RF: 0 (DME) CPAP Mask DX: G47.33 Sleep Apnea 0 .Route .MEDSUPPLY Qty: 1 RF: 0 ibuprofen 600 mg tablet 600 mg PO Q8H PRNRF: 0 ezetimibe [Zetia] 10 mg tablet 10 mg PO DAILY RF: 0 clonazepam 0.5 mg tablet 0.25 mg PO BEDTIME RF: 0 diltiazem HCl 360 mg capsule,extended release 24 hr 360 mg PO DAILY RF: 0 Trulicity 0.75 mg/0.5 mL pen injector 0.75 mg subcut QWEEK RF: 0 rosuvastatin 10 mg tablet 10 mg PO DAILY RF: 0 Jardiance 10 mg tablet 10 mg PO DAILY RF: 0 sertraline 50 mg tablet 50 mg PO DAILY RF: 0 omeprazole 20 mg capsule,delayed release(DR/EC) 20 mg PO DAILY RF: 0 Daliresp 250 mcg tablet 250 mcg PO DAILY 30 Days Qty: 30 RF: 11 (DME) humidifiers Misc See Rx Instructions .ROUTE .MEDSUPPLY Qty: 1 RF: 0 prednisone 10 mg tablet 10 mg PO DAILY Qty: 30 RF: 1 Interventions: ED Discharge Assessment Last Done: 04/17/20 22:36 Discharge Date/Time: 04/17/20 22:58
[2020-04-17 18:08] LABS: MANUAL DIFF FLAG NO
[2020-04-17 18:17] LABS: Basophils Absolute Auto 0.1 X10*3/uL (0.0-0.2); Basophils Percent Auto 0.5 % (0-2); Eosinophils Absolute Auto 0.2 X10*3/uL (0.0-0.4); Eosinophils Percent Auto 1.9 % (0-4); Hematocrit 43.6 % (37-47); Hemoglobin 14.8 g/dl (12.0-16.0); Imm Gran Abs Auto 0.07 X10*3/uL (0.00-0.03); Imm Gran Pct Auto 0.7 % (0.0-0.4); Lymphocytes Absolute Auto 1.2 X10*3/uL (1.2-4.9); Lymphocytes Percent Auto 12.1 % (20-40); Mean Corpuscular HGB Conc 33.9 g/dl (31.0-35.0); Mean Corpuscular Hemoglobin 29.5 pg (27.0-33.0); Mean Corpuscular Volume 86.9 fL (80-98); Mean Platelet Volume 9.4 fL (9.4-12.3); Monocytes Absolute Auto 0.9 X10*3/uL (0.1-1.2); Monocytes Percent Auto 9.3 % (2-11); Neutrophils Absolute Auto 7.6 X10*3/uL (2.0-8.3); Neutrophils Percent Auto 75.5 % (45-73); Platelet Count 301 X10*3/uL (160-400); Red Blood Count 5.02 X10*6/uL (4.20-5.50); Red Cell Distribution Width 12.6 % (11.0-16.0); White Blood Count 10.1 X10*3/uL (4.8-10.8)
[2020-04-17 18:19] LABS: INTERNATIONAL NORM RATIO 1.6 (0.9-1.1); Prothrombin Time 19.6 SEC (10.8-13.0)
[2020-04-17 18:30] LABS: COVID-19 Test Negative (Negative)
[2020-04-17 18:34] LABS: B Type Natriuretic Peptide 41 pg/mL (<100)
[2020-04-17 18:37] LABS: Alanine Aminotransferase 14 U/L (0-31); Albumin Level 4.1 g/dL (3.5-5.0); Alkaline Phosphatase 100 U/L (39-117); Anion Gap 18 (12-20); Aspartate Amino Transferase 19 U/L (5-31); Bilirubin Direct 0.2 mg/dL (0.0-0.5); Bilirubin Total 0.7 mg/dL (0.0-1.0); Blood Urea Nitrogen 14 mg/dL (9-16); Calcium 9.6 mg/dL (8.4-10.2); Carbon Dioxide 31 mmol/L (22-29); Chloride 95 mmol/L (96-108); Creatinine Clr Calc Pharmacy 64.2; Estimated Glomerular Filt Rate 58; Glucose Random 236 mg/dL (60-115); Lipase 22 U/L (8-78); Sodium 141 mmol/L (135-145); Total Protein 6.8 g/dL (6.5-8.0)
[2020-04-17 18:39] LABS: Troponin-I High Sensitivity 21.3 ng/L (<3.5-17.0)
--- NOTE | 2020-04-17 19:14 | PC.NURSE ---
Pt medicated per MAR, aware of plan to repeat Trop @ 2100. Pt assisted to the bathroom to provide urine sample.
--- NOTE | 2020-04-17 19:37 | PC.NURSE ---
Pt requesting food/drink. POC 264 mg/dl. 1 li NS hung per verbal order by CENTRALIZED TRAFFIC CONTROL OPERATOR.
[2020-04-17 19:38] LABS: Glucose, Whole Blood 264 mg/dL (60-115)
[2020-04-17 19:39] LABS: Glucose Urine UA >=1000 MG/DL (NEG); Leukocyte Esterase Urine NEG (NEG); Nitrite Urine NEG (NEG); Specific Gravity - Urine <= 1.005 (1.005-1.025); Urine Blood NEG (NEG); Urine Ketones NEG (NEG); Urine Protein NEG (NEG-TRACE)
[2020-04-17 19:40] LABS: Appearance Urine CLEAR; Color Urine YELLOW
[2020-04-17] MEDS: 0.9 % Sodium Chloride 1,000 ML 999 ML IVCONT (19:41)
[2020-04-17 19:46] LABS: Squamous Epithelial Cell Urine TRACE /LPF; WBC Urine 0-2 /HPF (0-4)
[2020-04-17] MEDS: Insulin Regular, Human 100 UNIT/ML 3 ML VIAL SUBCUT (20:40)
[2020-04-17] MEDS: Morphine Sulfate 2 MG/ML CARTRIDGE IVPUSH (20:55)
[2020-04-17 21:25] VITALS: BP 131/47; PULSE 80; RESP 16; O2SAT 99
[2020-04-17 21:37] LABS: Troponin-I High Sensitivity 25.5 ng/L (<3.5-17.0)
--- NOTE | 2020-04-17 22:35 | PC.NURSE ---
Pet pt, to call [facility] for a ride home, . [facility] able to come give pt a ride home. IV remved, pt provided with DC instructions.
== END 2020-04-17 22:58 | disposition home or self-care (01) ==
PROVIDERS: Nurse Practitioner Family; Emergency Provider Emergency Medicine Emergency Medical Services
DX: D86.9 Sarcoidosis, unspecified (principal); R07.89 Other chest pain; R10.9 Unspecified abdominal pain; Z79.899 Other long term (current) drug therapy; Z20.822 Contact with and (suspected) exposure to COVID-19
CPT/HCPCS: 36415; 71045; 71250; 74176; 80048; 80076; 81001; 82947; 83690; 83735; 83880; 84484; 85025; 85610; 85730; 87635; 96361; 96374; 99284; 99291; J2270

== ENCOUNTER → 2020-04-20 14:01 | Outpatient (BNVA) | payer MEDICARE, SELFPAY | PROVIDERS: PCP Internal Medicine Geriatric Medicine; Visit Provider Internal Medicine | DX: Z13.89 Encounter for screening for other disorder (principal) | CPT/HCPCS: Q3014 ==

== ENCOUNTER 2020-04-25 13:06 | Emergency (ER) | payer MEDICARE, SELFPAY ==
[2020-04-25] VITALS (7 sets, daily range): BP systolic 121–149; BP diastolic 56–66; PULSE 87–105; RESP 19–22; TEMP 36.8–37.2; O2SAT 98–100; BMI 39.3
--- NOTE | 2020-04-25 14:31 | ECG_ITS ---
Test Reason : SOB Blood Pressure : / mmHG Vent. Rate : 094 BPM Atrial Rate : 094 BPM P-R Int : 128 ms QRS Dur : 102 ms QT Int : 372 ms P-R-T Axes : 011 -47 086 degrees QTc Int : 465 ms Normal sinus rhythm Left anterior fascicular block Nonspecific ST and T wave abnormality Abnormal ECG When compared with ECG of 10-APR-2020 05:34, No significant change was found Referred By: Gila Camacho Electronically Signed By:VERONIQUE ANDERSON MD
--- NOTE | 2020-04-25 14:32 | XR_ITS ---
EXAMINATION: XR CHEST CLINICAL INFORMATION: Dyspnea COMPARISON: Previous chest x-ray and chest CT 04/17/2020 TECHNIQUE: Frontal view of the chest was obtained. FINDINGS: The cardiac and mediastinal contours are stable. The lung volumes are low. There are increased interstitial markings suggestive of interstitial lung disease. This is similar to previous exams. There is no pleural effusion or pneumothorax. No acute bone abnormality is seen. XR/XR chest 1V IMPRESSION: Low lung volumes and interstitial lung disease. No change from recent exams.
--- NOTE | 2020-04-25 14:34 | ED.SOB ---
HPI - SOB/Dyspnea General Chief Complaint: Dyspnea Stated Complaint: DIFF BREATHING Time Seen by Provider: 04/25/20 14:18 Source: patient and old records reviewed Mode of arrival: ambulatory Limitations: no limitations History of Present Illness HPI Narrative: 69 yo female with sarcodoisis, afib on xarelto, anxiety, GERD, DM comes in with 3 days of chest pain and fatigue, also notes nausea and body aches the patient reports compliance with medications sent by clinic states her sats were in the low 80s there on arrival here she was not hypoxic MD elicited complaint: shortness of breath and chest pain Pertinent past history: COPD, congestive heart failure and diabetes Onset (ago): day(s) (3) Context: recent illness Timing: constant Severity: moderate Exacerbating factors: exertion Related Data Home Medications Medication Instructions Recorded Confirmed CPAP Mask DX: G47.33 Sleep Apnea #1 ea 01/25/20 04/07/20 ezetimibe 10 mg tablet 10 mg PO DAILY 01/25/20 04/25/20 rosuvastatin 10 mg tablet 10 mg PO DAILY 01/25/20 04/25/20 ammonium lactate 1 applic TOPICAL DAILY 04/25/20 04/25/20 betamethasone dipropionate 1 appl TOPICAL DIRECTED 04/25/20 04/25/20 bisacodyl 5 mg PO BID PRN 04/25/20 04/25/20 clonazepam 1 mg PO BID PRN 04/25/20 04/25/20 diltiazem HCl 240 mg PO BID 04/25/20 04/25/20 doxycycline hyclate 100 mg PO BID 04/25/20 04/25/20 dulaglutide [Trulicity] 1.5 mg SUBCUT QWEEK 04/25/20 04/25/20 duloxetine 60 mg PO DAILY 04/25/20 04/25/20 empagliflozin [Jardiance] 10 mg PO DAILY 04/25/20 04/25/20 folic acid 1 mg PO DAILY 04/25/20 04/25/20 furosemide 80 mg PO BID 04/25/20 04/25/20 insulin aspart U-100 [Novolog 40 unit SUBCUT BIDAC 04/25/20 04/25/20 Flexpen U-100 Insulin] insulin degludec [Tresiba 80 unit SUBCUT BEDTIME 04/25/20 04/25/20 FlexTouch U-100] ivabradine [Corlanor] 5 mg PO BID 04/25/20 04/25/20 linaclotide [Linzess] 290 mcg PO DAILY 04/25/20 04/25/20 metoprolol tartrate 50 mg PO BID 04/25/20 04/25/20 modafinil 200 mg PO DAILY 04/25/20 04/25/20 mometasone 1 appl TOPICAL BID 04/25/20 04/25/20 mycophenolate mofetil 500 mg PO BID 04/25/20 04/25/20 nortriptyline 25 mg PO DAILY 04/25/20 04/25/20 omeprazole 40 mg PO DAILY 04/25/20 04/25/20 potassium chloride 30 meq PO BIDAC 04/25/20 04/25/20 prednisone 10 mg PO DAILY 04/25/20 04/25/20 rivaroxaban [Xarelto] 20 mg PO DAILY 04/25/20 04/25/20 sertraline 75 mg PO DAILY 04/25/20 04/25/20 spironolactone 50 mg PO DAILY 04/25/20 04/25/20 zolpidem 10 mg PO BEDTIME 04/25/20 04/25/20 Previous Rx's Medication Instructions Recorded humidifiers #1 ea 01/25/20 roflumilast 250 mcg tablet 250 mcg PO DAILY 30 Days #30 tab 01/25/20 baclofen 10 mg tablet 20 mg PO TID 30 Days #180 tab 02/29/20 Allergies Allergy/AdvReac Type Severity Reaction Status Date / Time albuterol [ALBUTEROL] Allergy Severe TACHYCARDIA Verified 04/25/20 14:18 codeine [Codeine] Allergy Severe ANAPHYLAXIS Verified 04/25/20 14:18 /HEADACHE Review of Systems Review of Systems: Constitutional : No Weight loss, No Fever, No Chills ENT/Mouth : No sore throat, No Rhinorrhea Eyes: No Eye Pain, No Swelling Cardiovascular : pos Chest Pain, pos SOB, no Dyspnea on Exertion, No Orthopnea, No Edema, No Palpitations Respiratory : No Cough, No Sputum Gastrointestinal : pos Nausea, No Vomiting, No Diarrhea, No abdominal Pain, No Hematochezia, No Melena Genitourinary : No Dysuria, No Urinary Frequency Musculoskeletal : No joint pain, pos Myalgias, No Joint Swelling Skin : No Skin Lesions, No rash Neuro : No Weakness, No Numbness, No Dizziness, No Headache Psych : No Anxiety/Panic, No Depression Heme/Lymph: No Bruising, No Lymphadenopathy Endocrine : No Polyuria, No Polydipsia All other systems reviewed and are negative ON LICENSE OF [facility] Past Medical History Medical History (Updated 04/25/20 @ 16:37 by Gila Camacho DO) CHF (congestive heart failure) CHF (congestive heart failure) Chronic respiratory failure COPD (chronic obstructive pulmonary disease) HTN (hypertension) ILD (interstitial lung disease) Leg edema Muscle spasm JOVANNY on CPAP Sarcoidosis Family History Family History Other Diabetes Social History Social History Alcohol intake: never Smoking Status: Never smoker Advance Directives: No Advance Directives Information Provided: No Physical Exam Vital Signs: Vital Signs: Last Vital Signs Temp 98.6 F 04/25/20 14:21 Pulse 98 04/25/20 15:58 Resp 22 H 04/25/20 14:21 BP 136/58 L 04/25/20 14:21 Pulse Ox 100 04/25/20 14:21 Body Mass Index 39.3 Appearance: Alert. Oriented X3. No acute distress. Eyes: Pupils equal, round and reactive to light. ENT: Pharynx normal. Neck: Normal inspection. Neck supple. CVS: Normal heart rate and rhythm. Pulses normal. Respiratory: No respiratory distress. Breath sounds scant wheezing exp very faint Abdomen: Soft and nontender. Skin: Skin warm and dry. Normal skin color. Normal skin turgor. Extremities: No lower extremity edema (no signs of edema). No calf ttp Neuro: Oriented X 3. No motor deficit. No sensory deficit. Course Course Course Narrative: troponin and BNP lower than baseline, K normal at this time there are no acute findings in the ED, her O2 has been 100% she is on thinners doubt PE patient deconditioned, has had repeat visits for not feeling well may need rehab MDM - SOB/Dyspnea MDM Narrative Medical decision making narrative: patient sent by clinic for shortness of breath and body aches they report her sats were in 80s but in ED she is 100%, she is not in distress has no LE edema, just had CT scan of abdomen for nausea and pain last week, worried her K is low, normally on home O2, she states every day her body bothers her with a new complaint, she can barely get around her house, she has had constant chest pain x 3 days as well. will need labs, neb treatment, CXR, COVID swab if workup negative may benefit from rehab Lab Data Result diagrams: 04/25/20 15:15 04/25/20 15:15 Labs: Lab Results 04/25/20 04/25/20 04/25/20 Range/Units 15:15 15:15 15:15 WBC 8.0 (4.8-10.8) X10*3/uL RBC 5.14 (4.20-5.50) X10*6/uL Hgb 14.8 (12.0-16.0) g/dl Hct 45.6 (37-47) % MCV 88.7 (80-98) fL MCH 28.8 (27.0-33.0) pg MCHC 32.5 (31.0-35.0) g/dl RDW 12.5 (11.0-16.0) % Plt Count 321 (160-400) X10*3/uL MPV 9.5 (9.4-12.3) fL Immature Gran % (Auto) 0.5 H (0.0-0.4) % Neut % (Auto) 61.2 (45-73) % Lymph % (Auto) 23.0 (20-40) % [place] % (Auto) 10.1 (2-11) % Eos % (Auto) 4.6 H (0-4) % Baso % (Auto) 0.6 (0-2) % Lymph # (Auto) 1.9 (1.2-4.9) X10*3/uL [place] # (Auto) 0.8 (0.1-1.2) X10*3/uL Eos # (Auto) 0.4 (0.0-0.4) X10*3/uL Baso # (Auto) 0.1 (0.0-0.2) X10*3/uL Abs Immat Gran (auto) 0.04 H (0.00-0.03) X10*3/uL Absolute Neuts (auto) 4.9 (2.0-8.3) X10*3/uL Absolute Nucleated RBC 0.000 (0.0-0.012) X10*3/uL Nucleated RBC % (auto) 0.0 (0.0-0.2) /100WBC PT 18.7 H (10.8-13.0) SEC INR 1.6 H (0.9-1.1) APTT 40.2 H (24.1-38.0) SEC Sodium 135 (135-145) mmol/L Potassium 4.1 (3.3-5.1) mmol/L Chloride 94 L (96-108) mmol/L Carbon Dioxide 28 (22-29) mmol/L Anion Gap 17 (12-20) BUN 15 (9-16) mg/dL Creatinine 0.93 (0.5-1.4) mg/dL Estim Creat Clear Calc 63.1 Estimated GFR 60 Random Glucose 220 H (60-115) mg/dL Lactic Acid (0.5-2.0) mmol/L Calcium 9.6 (8.4-10.2) mg/dL Magnesium 2.5 (1.6-2.6) mg/dL Total Bilirubin 0.3 (0.0-1.0) mg/dL Direct Bilirubin 0.2 (0.0-0.5) mg/dL AST 17 (5-31) U/L ALT 16 (0-31) U/L Alkaline Phosphatase 121 H D (39-117) U/L Lactate Dehydrogenase 291 H (122-220) U/L Troponin I High Sens (<3.5-17.0) ng/L B-Natriuretic Peptide (<100) pg/mL Total Protein 7.1 (6.5-8.0) g/dL Albumin 4.3 (3.5-5.0) g/dL Lipase (8-78) U/L COVID-19 ([facility]) (Negative) COVID-19 Clin Com 04/25/20 04/25/20 04/25/20 Range/Units 15:15 15:15 15:15 WBC (4.8-10.8) X10*3/uL RBC (4.20-5.50) X10*6/uL Hgb (12.0-16.0) g/dl Hct (37-47) % MCV (80-98) fL MCH (27.0-33.0) pg MCHC (31.0-35.0) g/dl RDW (11.0-16.0) % Plt Count (160-400) X10*3/uL MPV (9.4-12.3) fL Immature Gran % (Auto) (0.0-0.4) % Neut % (Auto) (45-73) % Lymph % (Auto) (20-40) % [place] % (Auto) (2-11) % Eos % (Auto) (0-4) % Baso % (Auto) (0-2) % Lymph # (Auto) (1.2-4.9) X10*3/uL [place] # (Auto) (0.1-1.2) X10*3/uL Eos # (Auto) (0.0-0.4) X10*3/uL Baso # (Auto) (0.0-0.2) X10*3/uL Abs Immat Gran (auto) (0.00-0.03) X10*3/uL Absolute Neuts (auto) (2.0-8.3) X10*3/uL Absolute Nucleated RBC (0.0-0.012) X10*3/uL Nucleated RBC % (auto) (0.0-0.2) /100WBC PT (10.8-13.0) SEC INR (0.9-1.1) APTT (24.1-38.0) SEC Sodium (135-145) mmol/L Potassium (3.3-5.1) mmol/L Chloride (96-108) mmol/L Carbon Dioxide (22-29) mmol/L Anion Gap (12-20) BUN (9-16) mg/dL Creatinine (0.5-1.4) mg/dL Estim Creat Clear Calc Estimated GFR Random Glucose (60-115) mg/dL Lactic Acid 1.6 (0.5-2.0) mmol/L Calcium (8.4-10.2) mg/dL Magnesium (1.6-2.6) mg/dL Total Bilirubin (0.0-1.0) mg/dL Direct Bilirubin (0.0-0.5) mg/dL AST (5-31) U/L ALT (0-31) U/L Alkaline Phosphatase (39-117) U/L Lactate Dehydrogenase (122-220) U/L Troponin I High Sens 7.1 D (<3.5-17.0) ng/L B-Natriuretic Peptide 22 (<100) pg/mL Total Protein (6.5-8.0) g/dL Albumin (3.5-5.0) g/dL Lipase 24 (8-78) U/L COVID-19 ([facility]) (Negative) COVID-19 Clin Com 04/25/20 Range/Units 15:16 WBC (4.8-10.8) X10*3/uL RBC (4.20-5.50) X10*6/uL Hgb (12.0-16.0) g/dl Hct (37-47) % MCV (80-98) fL MCH (27.0-33.0) pg MCHC (31.0-35.0) g/dl RDW (11.0-16.0) % Plt Count (160-400) X10*3/uL MPV (9.4-12.3) fL Immature Gran % (Auto) (0.0-0.4) % Neut % (Auto) (45-73) % Lymph % (Auto) (20-40) % [place] % (Auto) (2-11) % Eos % (Auto) (0-4) % Baso % (Auto) (0-2) % Lymph # (Auto) (1.2-4.9) X10*3/uL [place] # (Auto) (0.1-1.2) X10*3/uL Eos # (Auto) (0.0-0.4) X10*3/uL Baso # (Auto) (0.0-0.2) X10*3/uL Abs Immat Gran (auto) (0.00-0.03) X10*3/uL Absolute Neuts (auto) (2.0-8.3) X10*3/uL Absolute Nucleated RBC (0.0-0.012) X10*3/uL Nucleated RBC % (auto) (0.0-0.2) /100WBC PT (10.8-13.0) SEC INR (0.9-1.1) APTT (24.1-38.0) SEC Sodium (135-145) mmol/L Potassium (3.3-5.1) mmol/L Chloride (96-108) mmol/L Carbon Dioxide (22-29) mmol/L Anion Gap (12-20) BUN (9-16) mg/dL Creatinine (0.5-1.4) mg/dL Estim Creat Clear Calc Estimated GFR Random Glucose (60-115) mg/dL Lactic Acid (0.5-2.0) mmol/L Calcium (8.4-10.2) mg/dL Magnesium (1.6-2.6) mg/dL Total Bilirubin (0.0-1.0) mg/dL Direct Bilirubin (0.0-0.5) mg/dL AST (5-31) U/L ALT (0-31) U/L Alkaline Phosphatase (39-117) U/L Lactate Dehydrogenase (122-220) U/L Troponin I High Sens (<3.5-17.0) ng/L B-Natriuretic Peptide (<100) pg/mL Total Protein (6.5-8.0) g/dL Albumin (3.5-5.0) g/dL Lipase (8-78) U/L COVID-19 ([facility]) Negative (Negative) COVID-19 Clin Com See Note ECG Data Attestation: I personally reviewed and interpreted this ECG as follows: ECG interpretation date: 04/25/20 ECG interpretation time: 14:45 Interpretation: Rate: 94 Rhythm: NSR Pool: left Normal P waves. Normal DANI. widened QRS complex. poor R wave progression ST T wave : normal no YANETH qTC: normal prior studies: no acute ischemia, unchanged The study has been interpreted contemporaneously by me. . Discharge Plan Discharge Clinical Impression: Weakness Prescriptions: No Action insulin aspart U-100 [Novolog Flexpen U-100 Insulin] 100 unit/mL (3 mL) insulin pen 40 unit subcut BIDAC RF: 0 furosemide 40 mg tablet 80 mg PO BID RF: 0 potassium chloride 10 mEq capsule, extended release 30 meq PO BIDAC RF: 0 prednisone 10 mg tablet 10 mg PO DAILY RF: 0 diltiazem HCl 240 mg capsule,extended release 24hr 240 mg PO BID RF: 0 clonazepam 1 mg tablet 1 mg PO BID PRN (Reason: Anxiety) RF: 0 omeprazole 40 mg capsule,delayed release(DR/EC) 40 mg PO DAILY RF: 0 mycophenolate mofetil 500 mg tablet 500 mg PO BID RF: 0 nortriptyline 25 mg capsule 25 mg PO DAILY RF: 0 metoprolol tartrate 50 mg tablet 50 mg PO BID RF: 0 folic acid 1 mg tablet 1 mg PO DAILY RF: 0 ammonium lactate 12 % cream 1 applic topical DAILY RF: 0 bisacodyl 5 mg tablet,delayed release (DR/EC) 5 mg PO BID PRN (Reason: Constipation) RF: 0 mometasone 0.1 % ointment 1 appl topical BID RF: 0 zolpidem 10 mg tablet 10 mg PO BEDTIME RF: 0 betamethasone dipropionate 0.05 % ointment 1 appl topical DIRECTED RF: 0 sertraline 50 mg tablet 75 mg PO DAILY RF: 0 doxycycline hyclate 100 mg tablet 100 mg PO BID RF: 0 spironolactone 50 mg tablet 50 mg PO DAILY RF: 0 modafinil 100 mg tablet 200 mg PO DAILY RF: 0 duloxetine 60 mg capsule,delayed release(DR/EC) 60 mg PO DAILY RF: 0 Xarelto 20 mg tablet 20 mg PO DAILY RF: 0 Corlanor 5 mg tablet 5 mg PO BID RF: 0 Linzess 290 mcg capsule 290 mcg PO DAILY RF: 0 Tresiba FlexTouch U-100 100 unit/mL (3 mL) insulin pen 80 unit subcut BEDTIME RF: 0 Jardiance 10 mg tablet 10 mg PO DAILY RF: 0 Trulicity 1.5 mg/0.5 mL pen injector 1.5 mg subcut QWEEK RF: 0 baclofen 10 mg tablet 20 mg PO TID 30 Days Qty: 180 RF: 3 (DME) CPAP Mask DX: G47.33 Sleep Apnea 0 .Route .MEDSUPPLY Qty: 1 RF: 0 ezetimibe [Zetia] 10 mg tablet 10 mg PO DAILY RF: 0 rosuvastatin 10 mg tablet 10 mg PO DAILY RF: 0 Daliresp 250 mcg tablet 250 mcg PO DAILY 30 Days Qty: 30 RF: 11 (DME) humidifiers Misc See Rx Instructions .ROUTE .MEDSUPPLY Qty: 1 RF: 0
[2020-04-25] MEDS: methylPREDNISolone Sod Succ/PF 125 MG/2 ML VIAL 60 MG IVPUSH (15:07)
[2020-04-25 15:32] LABS: MANUAL DIFF FLAG NO
[2020-04-25 15:35] LABS: Basophils Absolute Auto 0.1 X10*3/uL (0.0-0.2); Basophils Percent Auto 0.6 % (0-2); Eosinophils Absolute Auto 0.4 X10*3/uL (0.0-0.4); Eosinophils Percent Auto 4.6 % (0-4); Hematocrit 45.6 % (37-47); Hemoglobin 14.8 g/dl (12.0-16.0); Imm Gran Abs Auto 0.04 X10*3/uL (0.00-0.03); Imm Gran Pct Auto 0.5 % (0.0-0.4); Lymphocytes Absolute Auto 1.9 X10*3/uL (1.2-4.9); Mean Corpuscular HGB Conc 32.5 g/dl (31.0-35.0); Mean Corpuscular Hemoglobin 28.8 pg (27.0-33.0); Mean Corpuscular Volume 88.7 fL (80-98); Mean Platelet Volume 9.5 fL (9.4-12.3); Monocytes Absolute Auto 0.8 X10*3/uL (0.1-1.2); Monocytes Percent Auto 10.1 % (2-11); Neutrophils Absolute Auto 4.9 X10*3/uL (2.0-8.3); Neutrophils Percent Auto 61.2 % (45-73); Platelet Count 321 X10*3/uL (160-400); Red Blood Count 5.14 X10*6/uL (4.20-5.50); Red Cell Distribution Width 12.5 % (11.0-16.0)
[2020-04-25 15:41] LABS: INTERNATIONAL NORM RATIO 1.6 (0.9-1.1); Prothrombin Time 18.7 SEC (10.8-13.0)
--- NOTE | 2020-04-25 15:42 | PC.NURSE ---
RT called for updraft
[2020-04-25 15:44] LABS: Partial Thromboplastin Time 40.2 SEC (24.1-38.0)
[2020-04-25 15:58] LABS: Alanine Aminotransferase 16 U/L (0-31); Albumin Level 4.3 g/dL (3.5-5.0); Alkaline Phosphatase 121 U/L (39-117); Anion Gap 17 (12-20); Aspartate Amino Transferase 17 U/L (5-31); Bilirubin Direct 0.2 mg/dL (0.0-0.5); Bilirubin Total 0.3 mg/dL (0.0-1.0); Blood Urea Nitrogen 15 mg/dL (9-16); Calcium 9.6 mg/dL (8.4-10.2); Carbon Dioxide 28 mmol/L (22-29); Chloride 94 mmol/L (96-108); Creatinine Clr Calc Pharmacy 63.1; Estimated Glomerular Filt Rate 60; Glucose Random 220 mg/dL (60-115); Lactate Dehydrogenase 291 U/L (122-220); Magnesium 2.5 mg/dL (1.6-2.6); Potassium 4.1 mmol/L (3.3-5.1); Sodium 135 mmol/L (135-145); Total Protein 7.1 g/dL (6.5-8.0)
[2020-04-25 15:59] LABS: Lipase 24 U/L (8-78)
[2020-04-25 16:03] LABS: COVID-19 Test Negative (Negative)
[2020-04-25 16:08] LABS: Lactic Acid 1.6 mmol/L (0.5-2.0)
[2020-04-25 16:15] LABS: B Type Natriuretic Peptide 22 pg/mL (<100); Troponin-I High Sensitivity 7.1 ng/L (<3.5-17.0)
[2020-04-25 16:19] LABS: Ferritin 116 ng/mL (10-250)
[2020-04-25 20:27] LABS: Glucose, Whole Blood 288 mg/dL (60-115)
[2020-04-25] MEDS: Insulin Glargine,Hum.rec.anlog 100 UNIT/ML 10 ML VIAL 40 UNIT SUBCUT (20:38)
[2020-04-25] MEDS: Metoprolol Tartrate 50 MG TABLET PO (20:38)
[2020-04-25] MEDS: Baclofen 10 MG TABLET 20 MG PO (20:38)
[2020-04-25] MEDS: Zolpidem Tartrate 5 MG TABLET 10 MG PO (20:39)
[2020-04-25] MEDS: Furosemide 40 MG TABLET 80 MG PO (20:39)
[2020-04-25] MEDS: Atorvastatin Calcium 40 MG TABLET PO (20:40)
[2020-04-25] MEDS: dilTIAZem HCL CD 240 MG CAP.ER.DEG PO (20:40)
[2020-04-25] MEDS: mycophenolate mofetiL 250 MG CAPSULE 500 MG PO (20:40)
--- NOTE | 2020-04-25 20:56 | MHC.CM.ED ---
Attempted to meet with pt. Poor vietnamese. Will need an coating inspector. Awaiting interpretive services. Pt to have PT evaluation in the morning. CM to follow for d/c needs.
--- NOTE | 2020-04-25 21:23 | PC.NURSE ---
CM at bedside.
[2020-04-25 22:08] LABS: Glucose, Whole Blood 289 mg/dL (60-115)
--- NOTE | 2020-04-25 22:08 | MHC.CM.ED ---
Met with patient via billing collections specialist. Pt Monegasque speaking. PCP is Dr. Josephine Rangel. Pt. has [facility] and had PCP services through [facility]-30 hr/week days and 14 hours/wk at night. Uses a cane walker and shower chair. Uses home O2 via [employer]. Uses a CPAP machine at night. Awaiting PT evaluation in the am. Requesting to have PT at night, as she is a poor sleeper and sleeps during the day. Explained to pt that PT rehabilitation normally takes place during the day, but perhaps she can request to have her therapy in the afternoons, instead of am. Pt has been to rehab before and requests NOT to be referred to [facility]. Otherwise, she asks that we refer her locally. States her daughter, Jess Byrnes, is her HCP ([phone]). CM to follow for d/c needs
[2020-04-25] MEDS: Insulin Lispro 100 UNIT/ML 3 ML VIAL SUBCUT (22:13)
--- NOTE | 2020-04-25 22:17 | MHC.CM.ED ---
HCP not on file. Per conversation with pt., will complete HCP with Jess Byrnes has HCP.
[2020-04-26] VITALS (7 sets, daily range): BP systolic 123–166; BP diastolic 60–109; PULSE 58–102; RESP 16–20; TEMP 36.7; O2SAT 97–100
--- NOTE | 2020-04-26 07:43 | PC.NURSE ---
REPORT FROM NICK. PT SLEEPING. PT CONSULT PENDING. WILL GIVE MORNING MEDS SHORTLY
[2020-04-26] MEDS: Spironolactone 25 MG TABLET 50 MG PO (08:34)
[2020-04-26] MEDS: Furosemide 40 MG TABLET 80 MG PO (08:34)
[2020-04-26] MEDS: predniSONE 10 MG TABLET PO (08:34)
[2020-04-26] MEDS: Baclofen 10 MG TABLET 20 MG PO (08:35)
[2020-04-26] MEDS: Folic Acid 1 MG TABLET PO (08:35)
[2020-04-26] MEDS: Metoprolol Tartrate 50 MG TABLET PO (08:35)
[2020-04-26] MEDS: Nortriptyline HCl 25 MG CAPSULE PO (08:35)
[2020-04-26] MEDS: Omeprazole 40 MG CAPSULE.DR PO (08:35)
[2020-04-26] MEDS: Ezetimibe 10 MG TABLET PO (08:35)
[2020-04-26] MEDS: DULoxetine HCl 60 MG CAPSULE.DR PO (08:35)
[2020-04-26 08:53] LABS: Glucose, Whole Blood 246 mg/dL (60-115)
[2020-04-26] MEDS: Insulin Lispro 100 UNIT/ML 3 ML VIAL SUBCUT (08:53)
--- NOTE | 2020-04-26 09:48 | MHC.CM.PN ---
CM met with pt with sign language interpreter to discuss be offoer, pt encouraged to go to STR however pt is declining STR and insistant on going home with services, CM given permission to speak with daughter/HCP and daughter is in agreement with pt and wants pt to also go home with services. Pt and daughter have no preference on VNA, referrals made to [facility], [facility] and [facility] per insurance provider.
--- NOTE | 2020-04-26 09:55 | PC.NURSE ---
PT WILL BE PICKED UP BY DAUGHTER AT 1045. PT/FAMILY DECLINES STR PLACEMENT
--- NOTE | 2020-04-26 09:58 | MHC.CM.PN ---
Addendum entered by Briana Potter RN 04/26/20 10:30: Pt accepted by [facility]. Original Note: Pt will discharge home with [facility], home OT/PT, daughter will transport pt at 10:45am.
== END 2020-04-26 10:45 | disposition home or self-care (01) ==
PROVIDERS: Emergency Medicine; Emergency Provider Emergency Medicine Emergency Medical Services
DX: R53.1 Weakness (principal); Z20.822 Contact with and (suspected) exposure to COVID-19; I11.0 Hypertensive heart disease with heart failure; I50.9 Heart failure, unspecified; J44.9 Chronic obstructive pulmonary disease, unspecified; D86.9 Sarcoidosis, unspecified; Z79.4 Long term (current) use of insulin; Z79.899 Other long term (current) drug therapy
CPT/HCPCS: 36415; 71045; 80048; 80076; 82728; 82947; 83605; 83615; 83690; 83735; 83880; 84484; 85025; 85610; 85730; 87040; 87635; 93005; 94640; 96374; 97162; 99284; 99285; J2930

== ENCOUNTER → 2020-05-10 14:35 | Outpatient (BNVA) | payer MEDICARE, SELFPAY | PROVIDERS: Visit Provider Hospitalist | DX: S69.91XA Unspecified injury of right wrist, hand and finger(s), initial encounter (principal); J96.11 Chronic respiratory failure with hypoxia; I50.9 Heart failure, unspecified; G47.33 Obstructive sleep apnea (adult) (pediatric); J84.9 Interstitial pulmonary disease, unspecified; D86.9 Sarcoidosis, unspecified; J41.0 Simple chronic bronchitis; Z99.89 Dependence on other enabling machines and devices | CPT/HCPCS: 99212 ==

== ENCOUNTER → 2020-05-16 14:37 | Outpatient (BNVA) | payer MEDICARE, SELFPAY | PROVIDERS: Visit Provider Surgery | DX: K59.00 Constipation, unspecified (principal); Z86.010 Personal history of colon polyps | CPT/HCPCS: 99212 ==

== ENCOUNTER 2020-05-23 13:29 | Outpatient (REF) | payer MEDICARE, SELFPAY | END 2020-05-23 13:30 | disposition home or self-care (01) | LOC: HO.HOSX 13:29 | PROVIDERS: Visit Provider Orthopaedic Surgery | DX: S61.204A Unspecified open wound of right ring finger without damage to nail, initial encounter (principal); I99.8 Other disorder of circulatory system; E11.9 Type 2 diabetes mellitus without complications | CPT/HCPCS: 99202 ==

== ENCOUNTER → 2020-06-09 14:02 | Outpatient (BNVA) | payer MEDICARE, SELFPAY | PROVIDERS: Visit Provider Surgery | DX: Z86.010 Personal history of colon polyps (principal) | CPT/HCPCS: 99212 ==

== ENCOUNTER → 2020-06-21 08:22 | Outpatient (REF) | payer MEDICARE, SELFPAY ==
--- NOTE | ~2020-06-21 | NM_ITS ---
Lexiscan Myocardial perfusion study Indication: Shortness of breath, abnormal EKG, assess for coronary disease and ischemia Technique: The patient was brought in for a Lexiscan perfusion study on 06/21/2020 and was injected 0.4 mg of Lexiscan intravenously. Within a minute of this injection 30 mCi of sestamibi was given intravenously. Images were obtained using the SPECT gamma camera interlaced with the gating device. Images were obtained in supine position. Resting perfusion study was performed on 06/27/2020. Patient was administered 30 mCi of sestamibi intravenously at rest. Images were then obtained in supine position. Total DLP 125mGy-cm. Images were processed with the software and compared side to side in short axis, horizontal long axis and vertical long axis views. Findings: Raw acquisition was reviewed. The stress perfusion study showed mildly diminished tracer uptake in the mid inferolateral wall. With CT attenuation correction this improves significantly suggestive of diaphragmatic attenuation artifact. The gated study shows normal LV systolic function with calculated LVEF of 71%. LV cavity is normal in size. The gated study shows normal wall thickening and contraction of segments. Resting study shows no significant perfusion abnormality. Gating at rest reveals normal wall motion with ejection fraction at >70%. The findings are consistent with no definite reversible or fixed perfusion defects. NM/NM chandni perf SPECT rest & str Impression: 1. Myocardial perfusion imaging study shows normal myocardial perfusion. No evidence of any ischemia or infarction. 2. Gated LVEF is > 70% during stress and rest. 3. Transient ischemic dilatation not present. EKG component of the test reported separately.
--- NOTE | 2020-06-21 08:30 | CA_ITS ---
Acquisition Time: 2020-06-21 08:33:23 Total Exercise Time: 00:02:00 Test Indications: Dyspnea Medications: SEE H Protocol: LEXISCAN Max HR: 092 BPM 60% of Pred: 152 BPM Max BP: 122/064 mmHG Max Work Load: 1.0 METS Pharmacological stress test using Lexiscan while sitting and kicking her feet. Pt tolerated well, denies any anginal sx. EKG with no arrhythmias, non-diagnostic for ischemia. Nuclear images to follow. Normotensive response to test. Test reviewed with Dr. Herr Referred By: Mick Garcia Overread By: Lynne Gayle NP
== END ==
LOC: HO.CARD 08:22
PROVIDERS: Visit Provider Internal Medicine Cardiovascular Disease
DX: I25.10 Atherosclerotic heart disease of native coronary artery without angina pectoris (principal)
CPT/HCPCS: 78452; 93017; J0280; J2785

== ENCOUNTER → 2020-06-22 10:26 | Outpatient (BNVA) | payer MEDICARE, SELFPAY | PROVIDERS: Visit Provider Hospitalist | DX: Z01.811 Encounter for preprocedural respiratory examination (principal); S69.90XA Unspecified injury of unspecified wrist, hand and finger(s), initial encounter; S61.209A Unspecified open wound of unspecified finger without damage to nail, initial encounter; I99.8 Other disorder of circulatory system; J41.0 Simple chronic bronchitis; D86.9 Sarcoidosis, unspecified; J84.9 Interstitial pulmonary disease, unspecified; G47.33 Obstructive sleep apnea (adult) (pediatric); I50.9 Heart failure, unspecified; R60.0 Localized edema; J96.11 Chronic respiratory failure with hypoxia; Z99.89 Dependence on other enabling machines and devices; Z79.899 Other long term (current) drug therapy | CPT/HCPCS: 99212 ==

== ENCOUNTER → 2020-07-20 14:36 | Outpatient (BNVA) | payer MEDICARE, SELFPAY | PROVIDERS: PCP Internal Medicine Geriatric Medicine; Visit Provider Nurse Practitioner Family | DX: Z13.89 Encounter for screening for other disorder (principal) | CPT/HCPCS: Q3014 ==

== ENCOUNTER 2020-07-31 14:26 | Emergency (ER) | payer MEDICARE, SELFPAY ==
--- NOTE | ~2020-07-31 | XR_ITS ---
EXAMINATION: XR HAND, RIGHT CLINICAL INFORMATION: Rule out osteomyelitis second finger. COMPARISON: X-ray 04/10/2020. TECHNIQUE: PA, lateral, and oblique views of the right hand. FINDINGS: In the second digit, no evidence of erosions, periosteal changes or bony destructive changes to suggest definite osteomyelitis. 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 Amputation of the fourth digit at the level of the middle phalanx. Scattered mild arthritic changes otherwise present. Ulnar negative variance. Prominent vascular calcification. XR/XR hand RT min 3V IMPRESSION: 1. No radiographic evidence of acute osteomyelitis of the second finger. MRI is more sensitive for osteomyelitis, and can be obtained as clinically warranted. 2. Fourth digit amputation at the level of the middle phalanx. 3. Arthritic changes as above.
[2020-07-31 14:42] VITALS: BP 143/62; PULSE 90; RESP 16; TEMP 36.4; O2SAT 96; BMI 39.3
[2020-07-31] MEDS: oxyCODONE HCl Immed Release 5 MG TABLET PO (15:06)
--- NOTE | 2020-07-31 16:10 | ED.EXTPRO ---
HPI - Extremity Problem General Chief complaint: Extremity Injury, Upper Stated complaint: rt hand pain (finger) Time Seen by Provider: 07/31/20 14:55 History of Present Illness HPI Narrative: Patient complains of right hand pain as well as right 4th finger pain for many weeks and months, she has had 2 surgeries for bad circulation with amputations of parts of the right 4th finger, she has seen a vascular surgeon as well as a orthopedic hand surgeon for this problem has a has an appointment with her orthopedic surgeon this week for removal of stitches and wound evaluation Her complaint is that the color of the finger is gradually getting darker and that pain has not been relieved with these amputations and she has lots of chronic pain in the hand and the finger, she denies any fever no chills Related Data Home Medications Medication Instructions Recorded Confirmed CPAP Mask DX: G47.33 Sleep Apnea #1 ea 01/25/20 06/22/20 ezetimibe 10 mg tablet 10 mg PO DAILY 01/25/20 06/22/20 rosuvastatin 10 mg tablet 10 mg PO DAILY 01/25/20 06/22/20 ammonium lactate 1 applic TOPICAL DAILY 04/25/20 06/22/20 betamethasone dipropionate 1 appl TOPICAL DIRECTED 04/25/20 06/22/20 bisacodyl 5 mg PO BID PRN 04/25/20 06/22/20 clonazepam 1 mg PO BID PRN 04/25/20 06/22/20 diltiazem HCl 240 mg PO BID 04/25/20 06/22/20 doxycycline hyclate 100 mg PO BID 04/25/20 06/09/20 dulaglutide [Trulicity] 1.5 mg SUBCUT QWEEK 04/25/20 06/22/20 duloxetine 60 mg PO DAILY 04/25/20 06/22/20 empagliflozin [Jardiance] 10 mg PO DAILY 04/25/20 06/09/20 folic acid 1 mg PO DAILY 04/25/20 06/22/20 furosemide 80 mg PO BID 04/25/20 06/22/20 insulin aspart U-100 [Novolog 40 unit SUBCUT BIDAC 04/25/20 06/22/20 Flexpen U-100 Insulin] insulin degludec [Tresiba 80 unit SUBCUT BEDTIME 04/25/20 06/22/20 FlexTouch U-100] ivabradine [Corlanor] 5 mg PO BID 04/25/20 06/22/20 linaclotide [Linzess] 290 mcg PO DAILY 04/25/20 06/22/20 metoprolol tartrate 50 mg PO BID 04/25/20 06/22/20 mometasone 1 appl TOPICAL BID 04/25/20 06/22/20 nortriptyline 25 mg PO DAILY 04/25/20 06/22/20 omeprazole 40 mg PO DAILY 04/25/20 06/22/20 potassium chloride 30 meq PO BIDAC 04/25/20 06/22/20 rivaroxaban [Xarelto] 20 mg PO DAILY 04/25/20 06/09/20 sertraline 75 mg PO DAILY 04/25/20 06/22/20 spironolactone 50 mg PO DAILY 04/25/20 06/22/20 zolpidem 10 mg PO BEDTIME 04/25/20 06/22/20 buprenorphine 5 mcg/hour weekly 1 patch TOPICAL QWEEK 06/22/20 06/22/20 transdermal patch Previous Rx's Medication Instructions Recorded humidifiers #1 ea 01/25/20 roflumilast 250 mcg tablet 250 mcg PO DAILY 30 Days #30 tab 01/25/20 prednisone 10 mg tablet 10 mg PO DAILY #28 tab 05/10/20 amoxicillin 875 mg-potassium 1 tab PO BID #20 tab 05/23/20 clavulanate 125 mg tablet baclofen 10 mg tablet 20 mg PO TID 30 Days #180 tab 06/07/20 modafinil 100 mg tablet 200 mg PO DAILY 28 Days #56 tab 06/07/20 doxycycline hyclate 100 mg capsule 100 mg PO BID 14 Days #28 cap 06/22/20 ipratropium bromide 0.02 % 1.25 ml INHALATION Q8H PRN #62.5 ml 07/04/20 solution for inhalation mycophenolate mofetil 500 mg tablet 500 mg PO BID #56 tab 07/04/20 sennosides 8.6 mg tablet 8.6 mg PO BEDTIME PRN #30 tab 07/20/20 doxycycline hyclate 100 mg PO BID 7 Days #14 cap 07/31/20 oxycodone 5 mg PO Q6H PRN #14 tab 07/31/20 Allergies Allergy/AdvReac Type Severity Reaction Status Date / Time albuterol [ALBUTEROL] Allergy Severe TACHYCARDIA Verified 07/20/20 14:38 codeine [Codeine] Allergy Severe ANAPHYLAXIS Verified 07/20/20 14:38 /HEADACHE Review of Systems Review of Systems: Positive his right hand and finger pain as well as discoloration of right ring finger and parts of the right hand Negatives are no fever no chills no dizziness no weakness no chest pain no shortness of breath no abdominal pain Yes all other systems are reviewed and are negative [facility] Past Medical History Source: nursing notes reviewed Medical History (Updated 07/31/20 @ 16:20 by MAYRA Friend) Arrhythmia CHF (congestive heart failure) Chronic respiratory failure Constipation COPD (chronic obstructive pulmonary disease) History of adenomatous polyp of colon HTN (hypertension) Hx of flexible sigmoidoscopy ILD (interstitial lung disease) Leg edema Muscle spasm On anticoagulant therapy JOVANNY on CPAP Pre-op chest exam Sarcoidosis Surgical History H/O colonoscopy Family History Family History Other Diabetes Social History Social History Alcohol intake: never Smoking Status: Never smoker Advance Directives: No Advance Directives Information Provided: Yes Physical Exam Vital Signs: Vital Signs: Last Vital Signs Temp 97.5 F 07/31/20 14:42 Pulse 90 07/31/20 14:42 Resp 16 07/31/20 14:42 BP 143/62 H 07/31/20 14:42 Pulse Ox 96 07/31/20 14:42 Body Mass Index 39.3 Distress Head is normocephalic atraumatic Neck is supple Respiratory no distress Extremity exam the right 4th finger has a partial amputation and a surgical wound with sutures in place, there is also a surgical wound in the palm of the hand, the color is a dusky bluish purplish dark color, there is some watery fluid a scant amount coming from the suture line on the palm, there is disc creased sensation in all fingertips Course Course Course Narrative: Patient has venous insufficiency in her hand as well as the right 4th finger and has had 2 surgeries with progressive amputation and will follow with both vascular surgeon and hand surgeon, she has hand surgery appointment this week for further evaluation X-ray did not reveal any osteomyelitis, there was no significant redness, and as there was some scant discharge of a yellowish watery fluid I started doxycycline antibiotic and patient will follow with her specialists Discharge Plan Discharge Clinical Impression: Venous insufficiency Patient Disposition: Home, Self-Care Additional Instructions: I am concerned about the color and I am worried that the circulation is very poor As there was a little bit of drainage we started antibiotic doxycycline It is very important that you follow with the hand surgeon this week Return any time for fever or chills or any worse condition For 2nd opinion you can follow with Dr. Rome hand doctor for improved medication for pain control follow with hand surgeon, or pain management or primary doctor Prescriptions: New oxycodone 5 mg tablet 5 mg PO Q6H PRN (Reason: pain) Qty: 14 RF: 0 doxycycline hyclate 100 mg capsule 100 mg PO BID 7 Days Qty: 14 RF: 0 No Action prednisone 10 mg tablet 10 mg PO DAILY Qty: 28 RF: 8 baclofen 10 mg tablet 20 mg PO TID 30 Days Qty: 180 RF: 4 modafinil 100 mg tablet 200 mg PO DAILY 28 Days Qty: 56 RF: 3 ipratropium bromide 0.02 % solution 1.25 ml inhalation Q8H PRN (Reason: shortness of breath or wheezing) Qty: 62.5 RF: 0 mycophenolate mofetil 500 mg tablet 500 mg PO BID Qty: 56 RF: 3 insulin aspart U-100 [Novolog Flexpen U-100 Insulin] 100 unit/mL (3 mL) insulin pen 40 unit subcut BIDAC RF: 0 furosemide 40 mg tablet 80 mg PO BID RF: 0 potassium chloride 10 mEq capsule, extended release 30 meq PO BIDAC RF: 0 diltiazem HCl 240 mg capsule,extended release 24hr 240 mg PO BID RF: 0 clonazepam 1 mg tablet 1 mg PO BID PRN (Reason: Anxiety) RF: 0 omeprazole 40 mg capsule,delayed release(DR/EC) 40 mg PO DAILY RF: 0 nortriptyline 25 mg capsule 25 mg PO DAILY RF: 0 metoprolol tartrate 50 mg tablet 50 mg PO BID RF: 0 folic acid 1 mg tablet 1 mg PO DAILY RF: 0 ammonium lactate 12 % cream 1 applic topical DAILY RF: 0 bisacodyl 5 mg tablet,delayed release (DR/EC) 5 mg PO BID PRN (Reason: Constipation) RF: 0 mometasone 0.1 % ointment 1 appl topical BID RF: 0 zolpidem 10 mg tablet 10 mg PO BEDTIME RF: 0 betamethasone dipropionate 0.05 % ointment 1 appl topical DIRECTED RF: 0 sertraline 50 mg tablet 75 mg PO DAILY RF: 0 doxycycline hyclate 100 mg tablet 100 mg PO BID RF: 0 spironolactone 50 mg tablet 50 mg PO DAILY RF: 0 duloxetine 60 mg capsule,delayed release(DR/EC) 60 mg PO DAILY RF: 0 Xarelto 20 mg tablet 20 mg PO DAILY RF: 0 Corlanor 5 mg tablet 5 mg PO BID RF: 0 Linzess 290 mcg capsule 290 mcg PO DAILY RF: 0 Tresiba FlexTouch U-100 100 unit/mL (3 mL) insulin pen 80 unit subcut BEDTIME RF: 0 Jardiance 10 mg tablet 10 mg PO DAILY RF: 0 Trulicity 1.5 mg/0.5 mL pen injector 1.5 mg subcut QWEEK RF: 0 amoxicillin-pot clavulanate [Augmentin] 875-125 mg tablet 1 tab PO BID Qty: 20 RF: 0 sennosides [Natural Senna Laxative] 8.6 mg tablet 8.6 mg PO BEDTIME PRN (Reason: constipation) Qty: 30 RF: 1 (DME) CPAP Mask DX: G47.33 Sleep Apnea 0 .Route .MEDSUPPLY Qty: 1 RF: 0 ezetimibe [Zetia] 10 mg tablet 10 mg PO DAILY RF: 0 rosuvastatin 10 mg tablet 10 mg PO DAILY RF: 0 Daliresp 250 mcg tablet 250 mcg PO DAILY 30 Days Qty: 30 RF: 11 (DME) humidifiers Misc See Rx Instructions .ROUTE .MEDSUPPLY Qty: 1 RF: 0 buprenorphine 5 mcg/hour patch weekly 1 patch topical QWEEK RF: 0 doxycycline hyclate 100 mg capsule 100 mg PO BID 14 Days Qty: 28 RF: 0
[2020-07-31 16:22] VITALS: BP 120/38; PULSE 92; RESP 14; TEMP 36.6; O2SAT 96
[2020-07-31 16:36] VITALS: BP 128/56
== END 2020-07-31 16:37 | disposition home or self-care (01) ==
PROVIDERS: Emergency Provider Emergency Medicine Emergency Medical Services
DX: I87.2 Venous insufficiency (chronic) (peripheral) (principal); M79.641 Pain in right hand; Z79.899 Other long term (current) drug therapy
CPT/HCPCS: 73130; 99284

== ENCOUNTER → 2020-08-05 14:40 | Outpatient (BNVA) | payer MEDICARE, SELFPAY | PROVIDERS: Visit Provider Hospitalist | DX: R60.0 Localized edema (principal); I50.9 Heart failure, unspecified; J96.11 Chronic respiratory failure with hypoxia; G47.33 Obstructive sleep apnea (adult) (pediatric); J84.9 Interstitial pulmonary disease, unspecified; D86.9 Sarcoidosis, unspecified; J41.0 Simple chronic bronchitis; Z99.89 Dependence on other enabling machines and devices | CPT/HCPCS: 99212 ==

== ENCOUNTER 2020-08-12 07:56 | Day surgery (SDC) | payer MEDICARE, SELFPAY ==
--- NOTE | 2020-08-11 09:09 | P.CONAN_ITS ---
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 Breathing is at baseline, same as yesterday at Pulmo appointment. Pt speaking in short sentences without obvious dyspnea. No cough. Case reviewed with Dr Crook. 06/24/20 - Pt family cx'd d/t pt admit overnight to [facility] - gangrenous finger/amputation. Readmitted for I&D/abx. COVID + 07/24/20 while inpt. Negative repeat test 07/24, but already put with COVID + roommate. Quarantine finished 08/03/20 Chronic opioids PMFSH Active Problems Active Problems: All Active Problems (Updated 08/08/20 @ 09:17 by Brayan Espinoza MD) Pre-op chest exam (Acute) Wound, open, finger, complicated (Acute) Vascular insufficiency of extremity (Acute) Finger injury (Acute) Constipation (Acute) History of adenomatous polyp of colon (Acute) Leg edema (Acute) CHF (congestive heart failure) (Acute) Chronic respiratory failure (Acute) JOVANNY on CPAP (Acute) ILD (interstitial lung disease) (Acute) Sarcoidosis (Acute) Muscle spasm (Acute) COPD (chronic obstructive pulmonary disease) (Acute) Past Medical History Medical History Arrhythmia CHF (congestive heart failure) Chronic respiratory failure Constipation COPD (chronic obstructive pulmonary disease) Diabetes History of adenomatous polyp of colon HTN (hypertension) Hx of flexible sigmoidoscopy ILD (interstitial lung disease) Leg edema Muscle spasm On anticoagulant therapy JOVANNY on CPAP Pre-op chest exam Sarcoidosis Family History Family History Other Diabetes Surgical History Surgical History H/O colonoscopy Hx of appendectomy Hx of section Hx of umbilical hernia repair Social History Social History Alcohol intake: never Smoking Status: Former smoker Use of substances other than those prescribed or required for medical reasons: No Are you DNR?: No Advance Directives: No Advance Directives Information Provided: Yes Meds Allergies Allergy/AdvReac Type Severity Reaction Status Date / Time albuterol [ALBUTEROL] Allergy Severe TACHYCARDIA Verified 08/12/20 08:08 codeine [Codeine] Allergy Severe ANAPHYLAXIS Verified 08/12/20 08:08 /HEADACHE Home Medications Medication Instructions Recorded Confirmed Last Taken Type CPAP Mask DX: G47.33 Sleep Apnea #1 ea 01/25/20 08/08/20 Unknown History ezetimibe 10 mg tablet 10 mg PO DAILY 01/25/20 08/08/20 Unknown History rosuvastatin 10 mg tablet 10 mg PO DAILY 01/25/20 08/08/20 Unknown History ammonium lactate 1 applic TOPICAL DAILY 04/25/20 08/08/20 Unknown History betamethasone dipropionate 1 appl TOPICAL DIRECTED 04/25/20 08/08/20 Unknown History bisacodyl 5 mg PO BID PRN 04/25/20 08/08/20 Unknown History clonazepam 1 mg PO BID PRN 04/25/20 08/08/20 Unknown History diltiazem HCl 240 mg PO BID 04/25/20 08/08/20 Unknown History doxycycline hyclate 100 mg PO BID 04/25/20 08/08/20 Unknown History dulaglutide [Trulicity] 1.5 mg SUBCUT QWEEK 04/25/20 08/08/20 Unknown History duloxetine 60 mg PO DAILY 04/25/20 08/08/20 Unknown History empagliflozin [Jardiance] 10 mg PO DAILY 04/25/20 08/08/20 Unknown History folic acid 1 mg PO DAILY 04/25/20 08/08/20 Unknown History furosemide 80 mg PO BID 04/25/20 08/08/20 Unknown History insulin aspart U-100 [Novolog 40 unit SUBCUT BIDAC 04/25/20 08/08/20 Unknown History Flexpen U-100 Insulin] insulin degludec [Tresiba 80 unit SUBCUT BEDTIME 04/25/20 08/08/20 Unknown History FlexTouch U-100] ivabradine [Corlanor] 5 mg PO BID 04/25/20 08/08/20 Unknown History linaclotide [Linzess] 290 mcg PO DAILY 04/25/20 08/08/20 Unknown History metoprolol tartrate 50 mg PO BID 04/25/20 08/08/20 Unknown History mometasone 1 appl TOPICAL BID 04/25/20 08/08/20 Unknown History nortriptyline 25 mg PO DAILY 04/25/20 08/08/20 Unknown History omeprazole 40 mg PO DAILY 04/25/20 08/08/20 Unknown History potassium chloride 30 meq PO BIDAC 04/25/20 08/08/20 Unknown History rivaroxaban [Xarelto] 20 mg PO DAILY 04/25/20 08/08/20 Unknown History sertraline 75 mg PO DAILY 04/25/20 08/08/20 Unknown History spironolactone 50 mg PO DAILY 04/25/20 08/08/20 Unknown History zolpidem 10 mg PO BEDTIME 04/25/20 08/08/20 Unknown History buprenorphine 5 mcg/hour weekly 1 patch TOPICAL QWEEK 06/22/20 08/08/20 Unknown History transdermal patch Exam Exam Date and Time: August 11, 2020 0909 Pertinent Lab Results Pertinent Lab Results: Laboratory Tests 04/25/20 04/25/20 15:15 15:15 WBC 8.0 Hgb 14.8 Hct 45.6 Plt Count 321 Sodium 135 Potassium 4.1 Chloride 94 L Carbon Dioxide 28 BUN 15 Creatinine 0.93 Narrative Narrative: EKG 04/2020 Vent. Rate : 094 BPM Atrial Rate : 094 BPM P-R Int : 128 ms QRS Dur : 102 ms QT Int : 372 ms P-R-T Axes : 011 -47 086 degrees QTc Int : 465 ms Normal sinus rhythm Left anterior fascicular block Nonspecific ST and T wave abnormality Abnormal ECG When compared with ECG of 10-APR-2020 05:34, No significant change was found Lexiscan stress 06/21/20 Pharmacological stress test using Lexiscan while sitting and kicking her feet. Pt tolerated well, denies any anginal sx. EKG with no arrhythmias, non-diagnostic for ischemia. Nuclear images to follow. Normotensive response to test. Test reviewed with Dr. Herr Echo 02/2020 Endocardium not well visualized, therefore cannot exclude WMA. Severe concentric LVH. Nml LV function LV sys function is hyperdynamic with EF >70% Indeterminate diastolic function No previous Echo for comparison Assessment and Plan Assessment Anesthesia Assessment: Chart Reviewed Documented by User: Ora Rubio 08/12/20 08:41 PMFSH Past Medical History Medical History Arrhythmia CHF (congestive heart failure) Chronic respiratory failure Constipation COPD (chronic obstructive pulmonary disease) Diabetes History of adenomatous polyp of colon HTN (hypertension) Hx of flexible sigmoidoscopy ILD (interstitial lung disease) Leg edema Muscle spasm On anticoagulant therapy JOVANNY on CPAP Pre-op chest exam Sarcoidosis Family History Family History Other Diabetes Family history of problems with anesthesia: No Surgical History Surgical History H/O colonoscopy Hx of appendectomy Hx of section Hx of umbilical hernia repair History of Problems with Anesthesia: No Social History Social History Alcohol intake: never Smoking Status: Former smoker Use of substances other than those prescribed or required for medical reasons: No Are you DNR?: No Advance Directives: No Advance Directives Information Provided: Yes Meds Allergies Allergy/AdvReac Type Severity Reaction Status Date / Time albuterol [ALBUTEROL] Allergy Severe TACHYCARDIA Verified 08/12/20 08:08 codeine [Codeine] Allergy Severe ANAPHYLAXIS Verified 08/12/20 08:08 /HEADACHE Home Medications Medication Instructions Recorded Confirmed Last Taken Type CPAP Mask DX: G47.33 Sleep Apnea #1 ea 01/25/20 08/08/20 Unknown History ezetimibe 10 mg tablet 10 mg PO DAILY 01/25/20 08/08/20 Unknown History rosuvastatin 10 mg tablet 10 mg PO DAILY 01/25/20 08/08/20 Unknown History ammonium lactate 1 applic TOPICAL DAILY 04/25/20 08/08/20 Unknown History betamethasone dipropionate 1 appl TOPICAL DIRECTED 04/25/20 08/08/20 Unknown History bisacodyl 5 mg PO BID PRN 04/25/20 08/08/20 Unknown History clonazepam 1 mg PO BID PRN 04/25/20 08/08/20 Unknown History diltiazem HCl 240 mg PO BID 04/25/20 08/08/20 Unknown History doxycycline hyclate 100 mg PO BID 04/25/20 08/08/20 Unknown History dulaglutide [Trulicity] 1.5 mg SUBCUT QWEEK 04/25/20 08/08/20 Unknown History duloxetine 60 mg PO DAILY 04/25/20 08/08/20 Unknown History empagliflozin [Jardiance] 10 mg PO DAILY 04/25/20 08/08/20 Unknown History folic acid 1 mg PO DAILY 04/25/20 08/08/20 Unknown History furosemide 80 mg PO BID 04/25/20 08/08/20 Unknown History insulin aspart U-100 [Novolog 40 unit SUBCUT BIDAC 04/25/20 08/08/20 Unknown History Flexpen U-100 Insulin] insulin degludec [Tresiba 80 unit SUBCUT BEDTIME 04/25/20 08/08/20 Unknown History FlexTouch U-100] ivabradine [Corlanor] 5 mg PO BID 04/25/20 08/08/20 Unknown History linaclotide [Linzess] 290 mcg PO DAILY 04/25/20 08/08/20 Unknown History metoprolol tartrate 50 mg PO BID 04/25/20 08/08/20 Unknown History mometasone 1 appl TOPICAL BID 04/25/20 08/08/20 Unknown History nortriptyline 25 mg PO DAILY 04/25/20 08/08/20 Unknown History omeprazole 40 mg PO DAILY 04/25/20 08/08/20 Unknown History potassium chloride 30 meq PO BIDAC 04/25/20 08/08/20 Unknown History rivaroxaban [Xarelto] 20 mg PO DAILY 04/25/20 08/08/20 Unknown History sertraline 75 mg PO DAILY 04/25/20 08/08/20 Unknown History spironolactone 50 mg PO DAILY 04/25/20 08/08/20 Unknown History zolpidem 10 mg PO BEDTIME 04/25/20 08/08/20 Unknown History buprenorphine 5 mcg/hour weekly 1 patch TOPICAL QWEEK 06/22/20 08/08/20 Unknown History transdermal patch Exam Height,Weight and Vital Signs: Vital Signs Temp Pulse Resp BP Pulse Ox 05/21/21 08:27 97.6 F 98 18 158/69 H 97 Pertinent Lab Results Pertinent Lab Results: Lab Results 08/12/20 Range/Units 08:29 POC Glucose 236 H (60-115) mg/dL Airway Mallampati Class: II TM Dist: >3cm Neck ROM: Full Denture: Upper Heart: RRR Lungs: CTAB Assessment and Plan Assessment Anesthesia Assessment: Anesthesia Plan Discussed and Chart Reviewed Final Anesthetic Review NPO: Yes ASA Class: III Final Preanesthetic Review: No Changes in Pt Med Stat, Meds/Allgs Chart Reviewed, Consent Obtained/Reviewed and Anes Risks/Benef Reviewed Patient Risk: High Procedure Risk: Low Assessment/Block/Sedation in SS: Assess/Block/Sedation-SS Anesthetic Plan Anesthetic Plan: MAC: Disposition: Standard PACU
[2020-08-12 08:27] VITALS: BP 158/69; PULSE 98; RESP 18; TEMP 36.4; O2SAT 97; BMI 37.1
[2020-08-12 08:33] LABS: Glucose, Whole Blood 236 mg/dL (60-115)
--- NOTE | 2020-08-12 08:38 | MHC.SHP ---
Pre-Procedural Eval Section A The patient is an INPATIENT: No The History & Physical has been completed within 30 days and I have reviewed it.: No Section B Chief Complaint: hx of colonic polyps,constipation Details of Present Illness: has hx of malignant polyp removed from rectum flex sig in November 2019 unremarkable Relevant Family History (Specify if Yes): No Relevant Social History: None Present Medications: see Short Stay Collaborative assessment Medical History: Significant History (obeisyt, CHF, chronic resp failure) History of Previous Operations: No relevant previous surgery Allergies: Allergies Allergy/AdvReac Type Severity Reaction Status Date / Time albuterol [ALBUTEROL] Allergy Severe TACHYCARDIA Verified 08/12/20 08:08 codeine [Codeine] Allergy Severe ANAPHYLAXIS Verified 08/12/20 08:08 /HEADACHE Review of Systems Sugical H&P ROS: Negative: Constitution, Cardiovascular, Neurological, Psychiatric, Hem-Onc, Allergic/Immunologic, Gastrointestinal, Genitourinary, Musculoskeletal, Integumentary, Endocrine and Eyes/Ears/Nose/Throat and Yes, Specify: Respiratory (chronic SOB) Exam Surgical H&P Exam: Normal: HEENT, Normal: Heart, Normal: Lungs, Normal: Extremities, Normal: Abdomen, Normal: Skin and Normal: Neurological Plan Diagnosis/Plan: Unchanged I have reviewed the history and physical and performed a pertinent physical examination on my patient. No changes have occurred unless specified.
[2020-08-12] MEDS: Lactated Ringers 1,000 ML 20 ML IVCONT (08:39)
[2020-08-12 09:26] VITALS: BP 115/54; PULSE 88; RESP 16; TEMP 37.1; O2SAT 93
--- NOTE | 2020-08-12 09:27 | P.OP_ITS ---
Operative Note Operative Note Date of Service: 08/12/20 Narrative: Preop diagnosis: History of malignant rectal polyp Postop diagnose: Normal flexible sigmoidoscopy findings, no lesions or any recurrent polyp seen up to level 30 cm Procedure: Flexible sigmoidoscopy to level 30 cm Surgeon: Maurice Molina MD The patient is a 70-year-old female who had undergone polypectomy last year in [place] for polyp that turned out to be a malignant rectal polyp. I had done a flexible sigmoidoscopy last November 2019. I had her to have another follow-up sigmoidoscopy which was scheduled for May of this year. She was unable to do this because of her anxiety with regards all her medical problems. She understood the technique of flexible sigmoidoscopy and she was aware of the risks, benefits and alternatives. She was brought to the operating room and placed in left lateral decubitus position under monitored anesthesia care. A surgical time-out was done. A full digital rectal was done and there were no palpable anal canal lesions. The tip of the umbilicus colonoscopy gently introduced all the way to level 30 cm. Then proceeded to withdraw this slowly with careful examination of the colonic mucosa being done from this level all the way to the rectum and anus. She did have some stools in the rectal vault and I had to do irrigation to clear this. I did not see any lesions or any evidence of any recurrent polyp. I made several passes throughout the rectum and the sigmoid. I felt I had adequately IUD colonic mucosa and it was unlikely that any lesion may have been missed. I withdrew the scope with desufflation. The procedure was then completed The patient tolerated the procedure well. There were no complications noted. I will see her in the office about the findings and plan on repeating the flexible sigmoidoscopy in about 6 months.
[2020-08-12 09:41] VITALS: BP 150/61; PULSE 95; RESP 16; TEMP 37.1; O2SAT 99
== END 2020-08-12 10:25 | disposition home or self-care (01) ==
PROVIDERS: Visit Provider Surgery
PROC: 0DJD8ZZ Inspection of Lower Intestinal Tract, Via Natural or Artificial Opening Endoscopic (ICD-10-PCS; CPT 45330; principal; 2020-08-12 09:00)
DX: Z12.11 Encounter for screening for malignant neoplasm of colon (principal); Z85.048 Personal history of other malignant neoplasm of rectum, rectosigmoid junction, and anus; Z86.010 Personal history of colon polyps; K59.00 Constipation, unspecified; I50.32 Chronic diastolic (congestive) heart failure; I11.0 Hypertensive heart disease with heart failure; I48.0 Paroxysmal atrial fibrillation; J96.10 Chronic respiratory failure, unspecified whether with hypoxia or hypercapnia; J44.9 Chronic obstructive pulmonary disease, unspecified; E11.9 Type 2 diabetes mellitus without complications; D86.9 Sarcoidosis, unspecified; Z79.01 Long term (current) use of anticoagulants; G47.33 Obstructive sleep apnea (adult) (pediatric); Z99.89 Dependence on other enabling machines and devices; Z88.8 Allergy status to other drugs, medicaments and biological substances; Z79.4 Long term (current) use of insulin; Z79.899 Other long term (current) drug therapy
CPT/HCPCS: 45330; 82947

== ENCOUNTER → 2020-08-18 10:47 | Outpatient (BNVA) | payer MEDICARE, SELFPAY | PROVIDERS: PCP Internal Medicine Geriatric Medicine; Visit Provider Surgery | DX: Z86.010 Personal history of colon polyps (principal) | CPT/HCPCS: 99212 ==

== ENCOUNTER → 2020-08-25 09:29 | Outpatient (BNVA) | payer MEDICARE, SELFPAY | PROVIDERS: Visit Provider Nurse Practitioner Family | DX: Z13.89 Encounter for screening for other disorder (principal) | CPT/HCPCS: Q3014 ==

== ENCOUNTER 2020-09-19 13:14 | Emergency (ER) | payer MEDICARE, SELFPAY ==
--- NOTE | ~2020-09-19 | CT_ITS ---
EXAMINATION: CT OF THE HEAD WITHOUT CONTRAST CLINICAL INFORMATION: Weakness and fatigue COMPARISON: 07/24/2019 TECHNIQUE: Noncontrast CT scan of the head was obtained from the base of the skull to the vertex. This CT examination was performed using dose optimization techniques as appropriate, variously including the following: *Automated exposure control *Adjustment of mA and/or kV according to patient size (this includes techniques or standardized protocols for targeted exams where dose is matched to indication/reason for exam; i.e. extremities or head) *Use of iterative reconstruction technique DLP: 797 mGy-cm FINDINGS: The ventricles and cisterns are normal in size, shape and configuration. There are no extra-axial surface collections or evidence of hemorrhage. Midline structures are central. The hernandez/white differentiation is maintained. The orbits appear normal bilaterally. The paranasal sinuses are clear. No fractures are seen. CT/CT abdomen pelvis w con IMPRESSION: Unremarkable examination. EXAMINATION: CT ABDOMEN AND PELVIS WITH CONTRAST CLINICAL INFORMATION: Fatigue, pain. Question colitis. COMPARISON: 04/17/2020. TECHNIQUE: Contiguous axial thin section helical images of the abdomen and pelvis were performed following the administration of oral contrast and 85 mL of intravenous Omnipaque 350. The data set was reformatted in the coronal and sagittal planes and reviewed on an independent workstation. FINDINGS: LUNG BASES: Advanced interstitial lung disease at the lung bases with early honeycombing.. LIVER, GALLBLADDER, BILIARY TREE: Within normal limits. No focal lesion. PANCREAS: No mass or inflammatory changes. SPLEEN: No focal lesion or enlargement. ADRENAL GLANDS AND KIDNEYS: No focal lesion. No mass, calculus or hydronephrosis. PELVIS: There is no pelvic mass. Pelvic organs within normal limits. URETERS AND BLADDER: Nonspecific bladder wall thickening. No stones or discrete lesion.. BOWEL LOOPS: Nonspecific thickening of the distal esophagus partially imaged. Nonspecific thickening of the gastric wall circumferentially diffusely. No definitive findings of acute inflammatory changes within the small and large bowel.. LYMPHOVASCULAR STRUCTURES: No pathologic enlargement. BONES: No lytic or sclerotic lesions. No fracture. Anterior abdominal wall postsurgical changes with small triangular collection noted in the midline superficially similar to baseline. Nonspecific subcutaneous infiltration noted as well. Small eventration with ventral herniation of small bowel only. IMPRESSION: No definitive findings of colitis. Stable fluid collection anterior abdominal wall. Nonspecific thickening of the distal esophagus and gastric wall. Recommend endoscopic correlation. No new findings.
--- NOTE | ~2020-09-19 | XR_ITS ---
EXAMINATION: XR ABDOMEN WITH DECUBITUS VIEWS CLINICAL INDICATION: Evaluate for perforation COMPARISON: Previous chest x-ray most recent April 2020 TECHNIQUE: PA chest and supine and upright views of the abdomen and pelvis FINDINGS: Chest: The cardiac and mediastinal contours are stable. The lung volumes are low. There are increased interstitial markings suggestive of interstitial lung disease. There is no pleural effusion or pneumothorax. There is no evidence of free air. There are degenerative changes of the spine. Abdominal series There is a nonspecific bowel gas pattern with air-fluid levels seen in nondilated small and large bowel.There is no evidence of free air. There are vascular calcifications. There are degenerative changes of the spine. XR/XR abdomen w decubitus IMPRESSION: Chest: Interstitial lung disease. No evidence for acute disease in the chest. Abdomen and pelvis: No evidence of free air. Nonspecific bowel gas pattern with air-fluid levels seen in nondilated bowel.
[2020-09-19 13:31] VITALS: BP 118/47; BP 98/63; PULSE 0; PULSE 103; RESP 18; TEMP 37.1; O2SAT 97; BMI 37.5
--- NOTE | 2020-09-19 14:58 | ECG_ITS ---
Test Reason : WEAKNESS Blood Pressure : / mmHG Vent. Rate : 102 BPM Atrial Rate : 102 BPM P-R Int : 134 ms QRS Dur : 102 ms QT Int : 358 ms P-R-T Axes : 009 -48 109 degrees QTc Int : 466 ms Sinus tachycardia Left anterior fascicular block Septal infarct , age undetermined ST & T wave abnormality, consider lateral ischemia Abnormal ECG When compared with ECG of 25-APR-2020 14:40, No significant change was found Referred By: Thuan Sampson Electronically Signed By:VERONIQUE ANDERSON MD
--- NOTE | 2020-09-19 15:19 | PC.NURSE ---
Pt resting quietly. Family at bedside. Tech drawing blood work. VSS
[2020-09-19 15:29] VITALS: BP 149/60; PULSE 105; RESP 18; O2SAT 93
[2020-09-19 15:38] LABS: MANUAL DIFF FLAG NO
[2020-09-19 15:43] LABS: Basophils Percent Auto 0.4 % (0-2); Eosinophils Absolute Auto 0.4 X10*3/uL (0.0-0.4); Eosinophils Percent Auto 5.6 % (0-4); Hematocrit 38.2 % (37-47); Hemoglobin 12.4 g/dl (12.0-16.0); Imm Gran Abs Auto 0.02 X10*3/uL (0.00-0.03); Imm Gran Pct Auto 0.3 % (0.0-0.4); Lymphocytes Absolute Auto 1.9 X10*3/uL (1.2-4.9); Lymphocytes Percent Auto 25.7 % (20-40); Mean Corpuscular HGB Conc 32.5 g/dl (31.0-35.0); Mean Corpuscular Hemoglobin 28.8 pg (27.0-33.0); Mean Corpuscular Volume 88.6 fL (80-98); Mean Platelet Volume 8.7 fL (9.4-12.3); Monocytes Absolute Auto 0.7 X10*3/uL (0.1-1.2); Monocytes Percent Auto 9.8 % (2-11); Neutrophils Absolute Auto 4.3 X10*3/uL (2.0-8.3); Neutrophils Percent Auto 58.2 % (45-73); Platelet Count 217 X10*3/uL (160-400); Red Blood Count 4.31 X10*6/uL (4.20-5.50); Red Cell Distribution Width 13.3 % (11.0-16.0); White Blood Count 7.3 X10*3/uL (4.8-10.8)
[2020-09-19 15:52] LABS: INTERNATIONAL NORM RATIO 1.6 (0.9-1.1); Prothrombin Time 18.6 SEC (10.8-13.0)
[2020-09-19 15:54] LABS: OBS1 NEGATIVE (NEGATIVE)
[2020-09-19 15:54] LABS: Partial Thromboplastin Time 34.2 SEC (24.1-38.0)
[2020-09-19 15:55] LABS: OBS Int Ctl Valid YES
[2020-09-19] MEDS: Famotidine/PF 20 MG/2 ML VIAL IVPUSH (16:00)
[2020-09-19] MEDS: 0.9 % Sodium Chloride 1,000 ML 999 ML IV (16:00)
[2020-09-19 16:05] LABS: Alanine Aminotransferase 14 U/L (0-31); Albumin Level 3.5 g/dL (3.5-5.0); Alkaline Phosphatase 123 U/L (39-117); Anion Gap 22 (12-20); Aspartate Amino Transferase 19 U/L (5-31); Bilirubin Direct 0.2 mg/dL (0.0-0.5); Bilirubin Total 0.2 mg/dL (0.0-1.0); Blood Urea Nitrogen 21 mg/dL (9-16); Calcium 9.1 mg/dL (8.4-10.2); Carbon Dioxide 22 mmol/L (22-29); Chloride 98 mmol/L (96-108); Creatinine Clr Calc Pharmacy 76.2; Estimated Glomerular Filt Rate > 60; Glucose Random 311 mg/dL (60-115); Lipase 22 U/L (8-78); Potassium 3.6 mmol/L (3.3-5.1); Sodium 138 mmol/L (135-145); Total Protein 5.6 g/dL (6.5-8.0)
[2020-09-19 16:21] VITALS: BP 132/34; PULSE 104; RESP 16; O2SAT 95
--- NOTE | 2020-09-19 17:06 | ED_ITS ---
HPI - General Adult General Chief complaint: Weakness Stated complaint: increased weakness x 3 days Time Seen by Provider: 09/19/20 14:00 Source: patient Mode of arrival: ambulatory Limitations: no limitations History of Present Illness HPI narrative: patient presents to ED for weakness for couple days due to abdo geraldo pain with green diarrhea. Patient states diarrhea resolved yesterday. Patient states this morning she vomited twice. Patient states abdominal pain. Patient states history of gastritis. Related Data Home Medications Medication Instructions Recorded Confirmed CPAP Mask DX: G47.33 Sleep Apnea #1 ea 01/25/20 08/18/20 ezetimibe 10 mg tablet 10 mg PO DAILY 01/25/20 08/18/20 rosuvastatin 10 mg tablet 10 mg PO DAILY 01/25/20 08/18/20 betamethasone dipropionate 1 appl TOPICAL DIRECTED 04/25/20 08/18/20 bisacodyl 5 mg PO BID PRN 04/25/20 08/18/20 clonazepam 1 mg PO BID PRN 04/25/20 08/18/20 diltiazem HCl 240 mg PO BID 04/25/20 08/18/20 doxycycline hyclate 100 mg PO BID 04/25/20 08/18/20 dulaglutide [Trulicity] 1.5 mg SUBCUT QWEEK 04/25/20 08/18/20 duloxetine 60 mg PO DAILY 04/25/20 08/18/20 folic acid 1 mg PO DAILY 04/25/20 08/18/20 furosemide 80 mg PO BID 04/25/20 08/18/20 insulin aspart U-100 [Novolog 40 unit SUBCUT BIDAC 04/25/20 08/18/20 Flexpen U-100 Insulin] insulin degludec [Tresiba 80 unit SUBCUT BEDTIME 04/25/20 08/18/20 FlexTouch U-100] ivabradine [Corlanor] 5 mg PO BID 04/25/20 08/18/20 linaclotide [Linzess] 290 mcg PO DAILY 04/25/20 08/18/20 metoprolol tartrate 50 mg PO BID 04/25/20 08/18/20 mometasone 1 appl TOPICAL BID 04/25/20 08/18/20 nortriptyline 25 mg PO DAILY 04/25/20 08/18/20 omeprazole 40 mg PO DAILY 04/25/20 08/18/20 potassium chloride 30 meq PO BIDAC 04/25/20 08/18/20 rivaroxaban [Xarelto] 20 mg PO DAILY 04/25/20 08/18/20 sertraline 75 mg PO DAILY 04/25/20 08/18/20 spironolactone 50 mg PO DAILY 04/25/20 08/18/20 zolpidem 10 mg PO BEDTIME 04/25/20 08/18/20 buprenorphine 5 mcg/hour weekly 1 patch TOPICAL QWEEK 06/22/20 08/18/20 transdermal patch Previous Rx's Medication Instructions Recorded humidifiers #1 ea 01/25/20 roflumilast 250 mcg tablet 250 mcg PO DAILY 30 Days #30 tab 01/25/20 prednisone 10 mg tablet 10 mg PO DAILY #28 tab 05/10/20 amoxicillin 875 mg-potassium 1 tab PO BID #20 tab 05/23/20 clavulanate 125 mg tablet baclofen 10 mg tablet 20 mg PO TID 30 Days #180 tab 06/07/20 modafinil 100 mg tablet 200 mg PO DAILY 28 Days #56 tab 06/07/20 doxycycline hyclate 100 mg capsule 100 mg PO BID 14 Days #28 cap 06/22/20 ipratropium bromide 0.02 % 1.25 ml INHALATION Q8H PRN #62.5 ml 07/04/20 solution for inhalation mycophenolate mofetil 500 mg tablet 500 mg PO BID #56 tab 07/04/20 doxycycline hyclate 100 mg PO BID 7 Days #14 cap 07/31/20 doxycycline hyclate 100 mg PO BID 7 Days #14 cap 07/31/20 oxycodone 5 mg PO Q6H PRN #14 tab 07/31/20 oxycodone 5 mg PO Q6H PRN #14 tab 07/31/20 naloxegol 12.5 mg tablet 12.5 mg PO QAM #30 tab 08/25/20 sennosides 8.6 mg tablet 8.6 mg PO BEDTIME PRN #60 tab 08/25/20 Allergies Allergy/AdvReac Type Severity Reaction Status Date / Time albuterol [ALBUTEROL] Allergy Severe TACHYCARDIA Verified 08/25/20 09:30 codeine [Codeine] Allergy Severe ANAPHYLAXIS Verified 08/25/20 09:30 /HEADACHE Review of Systems Review of Systems: Yes all other systems are reviewed and are negative Constitutional: Constitutional: Reports as per HPI and Reports no additional constitutional complaints Eyes: Eyes: Reports as per HPI and Reports no additional eye complaints ENT: Reports system reviewed and no additional complaints, except as documented and Reports as per HPI Cardiovascular: Cardiovascular: Reports as per HPI and Reports no additional cardiovascular complaints Respiratory: Respiratory: Reports as per HPI and Reports no additional respiratory complaints Gastrointestinal: Gastrointestinal: Reports as per HPI, Reports no additional gastrointestinal complaints, Reports abdominal pain, Reports diarrhea (green. resolved), Reports nausea and Reports vomiting Genitourinary: Genitourinary: Reports no additional female genitourinary complaints and Reports as per HPI Musculoskeletal: Musculoskeletal: Reports no additional musculoskeletal complaints and Reports as per HPI Neurologic: Reports system reviewed and no additional complaints, except as documented and Reports as per HPI Psychiatric: Psychiatric: Reports no additional psychiatric complaints and Reports as per HPI PMFSH Past Medical History Medical History Arrhythmia CHF (congestive heart failure) Chronic respiratory failure Constipation COPD (chronic obstructive pulmonary disease) Diabetes History of adenomatous polyp of colon HTN (hypertension) Hx of flexible sigmoidoscopy ILD (interstitial lung disease) Leg edema Muscle spasm On anticoagulant therapy JOVANNY on CPAP Pre-op chest exam Sarcoidosis Surgical History H/O colonoscopy Hx of appendectomy Hx of section Hx of umbilical hernia repair Family History Family History Other Diabetes Social History Social History Alcohol intake: never Advance Directives: No Advance Directives Information Provided: No Physical Exam Vital Signs: Vital Signs: Last Vital Signs Temp 98.8 F 09/19/20 13:31 Pulse 100 09/19/20 20:00 Resp 18 09/19/20 20:00 BP 115/55 L 09/19/20 20:00 Pulse Ox 97 09/19/20 20:00 Body Mass Index 37.5 Const: General: cooperative, healthy appearing, comfortable, no acute distress, well developed, alert, awake and Physically active Orientation/co nsciousness: patient oriented x3 HENMT: Head: Yes normal to inspection, Yes No palpable skull fracture present, Yes normocephalic, Yes atraumatic and No abrasion Eyes: General: appearance normal, both eyes and all related structures Neck: Neck: Yes normal visual inspection, Yes full ROM, Yes no lymphadenopathy, Yes no meningeal signs, Yes trachea midline, Yes supple and No tender Chest: Chest palpation & inspection: normal inspection of the chest and normal palpation of entire chest wall Resp: Effort & Inspection: normal respiratory effort and able to speak in complete sentences Auscultation: clear to auscultation bilaterally Cardio: Jugular venous distension: no JVD Heart sounds: S1 normal heart sound present and S2 normal heart sound present GI: Inspection: Yes normal to inspection and No abdominal wall ecchymosis Palpation (GI): Soft to palpation, not firm, Tenderness to palpation present (GI) in the epigastrum, no guarding and not rigid : General: No CVA tenderness Back/Spine/Pelvis: Back: no CVA tenderness, No CVA tenderness and No back tenderness Skin: General skin exam: no rashes or lesions noted and elasticity normal Neuro: Other: negative facial droop. Negative for slurred speech. General: patient oriented x3, gait normal, moves all extremities, Normal light touch and pain sensation, no meningeal signs, no focal motor deficits and CN's II-XI intact bilaterally Cranial nerves: Yes CN's II-XII intact bilaterally Extrem: General: Yes normal to inspection and Yes full ROM Psych: Appearance: grossly normal, well kempt and not disheveled Course Course Course Narrative: Patient will have medical evaluation and be giving PPI and fluids. Patient with history of ulcers/gastritis abdominal pain was due KUB supine upright check for perforation. Rectal exam negative for black stool or noé blood. Rectal exam due to patient stating abdominal pain with ulcers in the past. Reevaluation(s) Reevaluation #1: Patient 1st troponin came back positive. EKG negative STEMI. H&H is stable. Vital signs are stable. Patient is hemodynamically stable. Waiting for C diff results. Patient will be sent for CT scan to rule out any colitis. Patient would like to eat food. Patient given GI cocktail. Time: 15:27 Reevaluation #2: C diff came back negative. Stool guaiac came back negative. Abdominal CT came back normal. UA negative for UTI. Head CT came back normal. Patient ready to be discharged. patient ate three sandwiches and drink soda in the ER Time: 22:03 Medical Decision Making MDM Narrative Medical decision making narrative: gastritis Lab Data Result diagrams: 09/19/20 15:27 09/19/20 15:27 Labs: Lab Results 09/19/20 09/19/20 09/19/20 Range/Units 15:21 15:27 15:27 WBC 7.3 (4.8-10.8) X10*3/uL RBC 4.31 (4.20-5.50) X10*6/uL Hgb 12.4 (12.0-16.0) g/dl Hct 38.2 (37-47) % MCV 88.6 (80-98) fL MCH 28.8 (27.0-33.0) pg MCHC 32.5 (31.0-35.0) g/dl RDW 13.3 (11.0-16.0) % Plt Count 217 D (160-400) X10*3/uL MPV 8.7 L (9.4-12.3) fL Immature Gran % (Auto) 0.3 (0.0-0.4) % Neut % (Auto) 58.2 (45-73) % Lymph % (Auto) 25.7 (20-40) % [place] % (Auto) 9.8 (2-11) % Eos % (Auto) 5.6 H (0-4) % Baso % (Auto) 0.4 (0-2) % Lymph # (Auto) 1.9 (1.2-4.9) X10*3/uL [place] # (Auto) 0.7 (0.1-1.2) X10*3/uL Eos # (Auto) 0.4 (0.0-0.4) X10*3/uL Baso # (Auto) 0.0 (0.0-0.2) X10*3/uL Abs Immat Gran (auto) 0.02 (0.00-0.03) X10*3/uL Absolute Neuts (auto) 4.3 (2.0-8.3) X10*3/uL Absolute Nucleated RBC 0.000 (0.0-0.012) X10*3/uL Nucleated RBC % (auto) 0.0 (0.0-0.2) /100WBC PT 18.6 H (10.8-13.0) SEC INR 1.6 H (0.9-1.1) APTT 34.2 (24.1-38.0) SEC Sodium (135-145) mmol/L Potassium (3.3-5.1) mmol/L Chloride (96-108) mmol/L Carbon Dioxide (22-29) mmol/L Anion Gap (12-20) BUN (9-16) mg/dL Creatinine (0.5-1.4) mg/dL Estim Creat Clear Calc Estimated GFR Random Glucose (60-115) mg/dL Calcium (8.4-10.2) mg/dL Total Bilirubin (0.0-1.0) mg/dL Direct Bilirubin (0.0-0.5) mg/dL AST (5-31) U/L ALT (0-31) U/L Alkaline Phosphatase (39-117) U/L Troponin I High Sens (<3.5-17.0) ng/L Total Protein (6.5-8.0) g/dL Albumin (3.5-5.0) g/dL Lipase (8-78) U/L Urine Color Urine Appearance Urine pH (5.0-8.0) Ur Specific [place] (1.005-1.025) Urine Protein (NEG-TRACE) MG/DL Urine Glucose (UA) (NEG) MG/DL Urine Ketones (NEG) MG/DL Urine Blood (NEG) Urine Nitrite (NEG) Ur Leukocyte Esterase (NEG) Urine RBC (0) /HPF Urine WBC (0-4) /HPF Ur Squamous Epith Cells /LPF Amorphous Sediment /LPF Urine Bacteria /LPF Stool Occult Blood NEGATIVE (NEGATIVE) Stool Leukocytes, Qual (NEGATIVE) C. difficile Tox B Gene (Negative) Blood Type Antibody Screen 09/19/20 09/19/20 09/19/20 Range/Units 15:27 15:27 15:56 WBC (4.8-10.8) X10*3/uL RBC (4.20-5.50) X10*6/uL Hgb (12.0-16.0) g/dl Hct (37-47) % MCV (80-98) fL MCH (27.0-33.0) pg MCHC (31.0-35.0) g/dl RDW (11.0-16.0) % Plt Count (160-400) X10*3/uL MPV (9.4-12.3) fL Immature Gran % (Auto) (0.0-0.4) % Neut % (Auto) (45-73) % Lymph % (Auto) (20-40) % [place] % (Auto) (2-11) % Eos % (Auto) (0-4) % Baso % (Auto) (0-2) % Lymph # (Auto) (1.2-4.9) X10*3/uL [place] # (Auto) (0.1-1.2) X10*3/uL Eos # (Auto) (0.0-0.4) X10*3/uL Baso # (Auto) (0.0-0.2) X10*3/uL Abs Immat Gran (auto) (0.00-0.03) X10*3/uL Absolute Neuts (auto) (2.0-8.3) X10*3/uL Absolute Nucleated RBC (0.0-0.012) X10*3/uL Nucleated RBC % (auto) (0.0-0.2) /100WBC PT (10.8-13.0) SEC INR (0.9-1.1) APTT (24.1-38.0) SEC Sodium 138 (135-145) mmol/L Potassium 3.6 (3.3-5.1) mmol/L Chloride 98 (96-108) mmol/L Carbon Dioxide 22 (22-29) mmol/L Anion Gap 22 H (12-20) BUN 21 H (9-16) mg/dL Creatinine 0.74 (0.5-1.4) mg/dL Estim Creat Clear Calc 76.2 Estimated GFR > 60 Random Glucose 311 H D (60-115) mg/dL Calcium 9.1 (8.4-10.2) mg/dL Total Bilirubin 0.2 (0.0-1.0) mg/dL Direct Bilirubin 0.2 (0.0-0.5) mg/dL AST 19 (5-31) U/L ALT 14 (0-31) U/L Alkaline Phosphatase 123 H (39-117) U/L Troponin I High Sens 18.8 H* (<3.5-17.0) ng/L Total Protein 5.6 L D (6.5-8.0) g/dL Albumin 3.5 (3.5-5.0) g/dL Lipase 22 (8-78) U/L Urine Color Urine Appearance Urine pH (5.0-8.0) Ur Specific [place] (1.005-1.025) Urine Protein (NEG-TRACE) MG/DL Urine Glucose (UA) (NEG) MG/DL Urine Ketones (NEG) MG/DL Urine Blood (NEG) Urine Nitrite (NEG) Ur Leukocyte Esterase (NEG) Urine RBC (0) /HPF Urine WBC (0-4) /HPF Ur Squamous Epith Cells /LPF Amorphous Sediment /LPF Urine Bacteria /LPF Stool Occult Blood (NEGATIVE) Stool Leukocytes, Qual (NEGATIVE) C. difficile Tox B Gene (Negative) Blood Type O Positive Antibody Screen NEGATIVE 09/19/20 09/19/20 09/19/20 Range/Units 18:44 19:39 19:39 WBC (4.8-10.8) X10*3/uL RBC (4.20-5.50) X10*6/uL Hgb (12.0-16.0) g/dl Hct (37-47) % MCV (80-98) fL MCH (27.0-33.0) pg MCHC (31.0-35.0) g/dl RDW (11.0-16.0) % Plt Count (160-400) X10*3/uL MPV (9.4-12.3) fL Immature Gran % (Auto) (0.0-0.4) % Neut % (Auto) (45-73) % Lymph % (Auto) (20-40) % [place] % (Auto) (2-11) % Eos % (Auto) (0-4) % Baso % (Auto) (0-2) % Lymph # (Auto) (1.2-4.9) X10*3/uL [place] # (Auto) (0.1-1.2) X10*3/uL Eos # (Auto) (0.0-0.4) X10*3/uL Baso # (Auto) (0.0-0.2) X10*3/uL Abs Immat Gran (auto) (0.00-0.03) X10*3/uL Absolute Neuts (auto) (2.0-8.3) X10*3/uL Absolute Nucleated RBC (0.0-0.012) X10*3/uL Nucleated RBC % (auto) (0.0-0.2) /100WBC PT (10.8-13.0) SEC INR (0.9-1.1) APTT (24.1-38.0) SEC Sodium (135-145) mmol/L Potassium (3.3-5.1) mmol/L Chloride (96-108) mmol/L Carbon Dioxide (22-29) mmol/L Anion Gap (12-20) BUN (9-16) mg/dL Creatinine (0.5-1.4) mg/dL Estim Creat Clear Calc Estimated GFR Random Glucose (60-115) mg/dL Calcium (8.4-10.2) mg/dL Total Bilirubin (0.0-1.0) mg/dL Direct Bilirubin (0.0-0.5) mg/dL AST (5-31) U/L ALT (0-31) U/L Alkaline Phosphatase (39-117) U/L Troponin I High Sens 16.7 (<3.5-17.0) ng/L Total Protein (6.5-8.0) g/dL Albumin (3.5-5.0) g/dL Lipase (8-78) U/L Urine Color YELLOW Urine Appearance CLEAR Urine pH 6.0 (5.0-8.0) Ur Specific [place] 1.010 (1.005-1.025) Urine Protein NEG (NEG-TRACE) MG/DL Urine Glucose (UA) >=1000 H (NEG) MG/DL Urine Ketones >=80 (NEG) MG/DL Urine Blood NEG (NEG) Urine Nitrite NEG (NEG) Ur Leukocyte Esterase NEG (NEG) Urine RBC 0 (0) /HPF Urine WBC 0 (0-4) /HPF Ur Squamous Epith Cells NONE /LPF Amorphous Sediment TRACE /LPF Urine Bacteria NONE /LPF Stool Occult Blood (NEGATIVE) Stool Leukocytes, Qual (NEGATIVE) C. difficile Tox B Gene NEGATIVE (Negative) Blood Type Antibody Screen 09/19/20 Range/Units 19:39 WBC (4.8-10.8) X10*3/uL RBC (4.20-5.50) X10*6/uL Hgb (12.0-16.0) g/dl Hct (37-47) % MCV (80-98) fL MCH (27.0-33.0) pg MCHC (31.0-35.0) g/dl RDW (11.0-16.0) % Plt Count (160-400) X10*3/uL MPV (9.4-12.3) fL Immature Gran % (Auto) (0.0-0.4) % Neut % (Auto) (45-73) % Lymph % (Auto) (20-40) % [place] % (Auto) (2-11) % Eos % (Auto) (0-4) % Baso % (Auto) (0-2) % Lymph # (Auto) (1.2-4.9) X10*3/uL [place] # (Auto) (0.1-1.2) X10*3/uL Eos # (Auto) (0.0-0.4) X10*3/uL Baso # (Auto) (0.0-0.2) X10*3/uL Abs Immat Gran (auto) (0.00-0.03) X10*3/uL Absolute Neuts (auto) (2.0-8.3) X10*3/uL Absolute Nucleated RBC (0.0-0.012) X10*3/uL Nucleated RBC % (auto) (0.0-0.2) /100WBC PT (10.8-13.0) SEC INR (0.9-1.1) APTT (24.1-38.0) SEC Sodium (135-145) mmol/L Potassium (3.3-5.1) mmol/L Chloride (96-108) mmol/L Carbon Dioxide (22-29) mmol/L Anion Gap (12-20) BUN (9-16) mg/dL Creatinine (0.5-1.4) mg/dL Estim Creat Clear Calc Estimated GFR Random Glucose (60-115) mg/dL Calcium (8.4-10.2) mg/dL Total Bilirubin (0.0-1.0) mg/dL Direct Bilirubin (0.0-0.5) mg/dL AST (5-31) U/L ALT (0-31) U/L Alkaline Phosphatase (39-117) U/L Troponin I High Sens (<3.5-17.0) ng/L Total Protein (6.5-8.0) g/dL Albumin (3.5-5.0) g/dL Lipase (8-78) U/L Urine Color Urine Appearance Urine pH (5.0-8.0) Ur Specific [place] (1.005-1.025) Urine Protein (NEG-TRACE) MG/DL Urine Glucose (UA) (NEG) MG/DL Urine Ketones (NEG) MG/DL Urine Blood (NEG) Urine Nitrite (NEG) Ur Leukocyte Esterase (NEG) Urine RBC (0) /HPF Urine WBC (0-4) /HPF Ur Squamous Epith Cells /LPF Amorphous Sediment /LPF Urine Bacteria /LPF Stool Occult Blood (NEGATIVE) Stool Leukocytes, Qual NEGATIVE (NEGATIVE) C. difficile Tox B Gene (Negative) Blood Type Antibody Screen ECG Data Interpretation: sinus tachycardia. Ventricular rate 102. QRS 102. ID interval 134. QTC 466. Left anterior fascicular block. Negative STEMI Discharge Plan Discharge Clinical Impression: Gastroenteritis, Gastritis Patient Disposition: Home, Self-Care Instructions: Gastritis (ED), Gastroenteritis (ED) Additional Instructions: Pinto electrocardiograma y an?lisis de allison resultaron negativos para un ataque card?aco. La tomograf?a computarizada abdominal result? normal. Tu diferencia de C result? negativa. El an?lisis de orina result? negativo para UTI. La tomograf?a computarizada de la cris result? normal. Recomiende paul dieta para mocosos que consista en pl?woody, pur? de manzana, tostadas y arroz. Regrese al servicio de urgencias de inmediato si tiene ca?da facial, dolor abdominal intenso, p?rdida de la visi?n, par?lisis de las extremidades, dificultad para hablar, allison en las heces, v?mitos con allison, emesis de caf? molido, orina c on allison o cualquier otro s?ntoma preocupante. Please follow-up with PCP Prescriptions: No Action prednisone 10 mg tablet 10 mg PO DAILY Qty: 28 RF: 8 baclofen 10 mg tablet 20 mg PO TID 30 Days Qty: 180 RF: 4 modafinil 100 mg tablet 200 mg PO DAILY 28 Days Qty: 56 RF: 3 ipratropium bromide 0.02 % solution 1.25 ml inhalation Q8H PRN (Reason: shortness of breath or wheezing) Qty: 62.5 RF: 0 mycophenolate mofetil 500 mg tablet 500 mg PO BID Qty: 56 RF: 3 insulin aspart U-100 [Novolog Flexpen U-100 Insulin] 100 unit/mL (3 mL) insulin pen 40 unit subcut BIDAC RF: 0 furosemide 40 mg tablet 80 mg PO BID RF: 0 potassium chloride 10 mEq capsule, extended release 30 meq PO BIDAC RF: 0 diltiazem HCl 240 mg capsule,extended release 24hr 240 mg PO BID RF: 0 clonazepam 1 mg tablet 1 mg PO BID PRN (Reason: Anxiety) RF: 0 omeprazole 40 mg capsule,delayed release(DR/EC) 40 mg PO DAILY RF: 0 nortriptyline 25 mg capsule 25 mg PO DAILY RF: 0 metoprolol tartrate 50 mg tablet 50 mg PO BID RF: 0 folic acid 1 mg tablet 1 mg PO DAILY RF: 0 bisacodyl 5 mg tablet,delayed release (DR/EC) 5 mg PO BID PRN (Reason: Constipation) RF: 0 mometasone 0.1 % ointment 1 appl topical BID RF: 0 zolpidem 10 mg tablet 10 mg PO BEDTIME RF: 0 betamethasone dipropionate 0.05 % ointment 1 appl topical DIRECTED RF: 0 sertraline 50 mg tablet 75 mg PO DAILY RF: 0 doxycycline hyclate 100 mg tablet 100 mg PO BID RF: 0 spironolactone 50 mg tablet 50 mg PO DAILY RF: 0 duloxetine 60 mg capsule,delayed release(DR/EC) 60 mg PO DAILY RF: 0 Xarelto 20 mg tablet 20 mg PO DAILY RF: 0 Corlanor 5 mg tablet 5 mg PO BID RF: 0 Linzess 290 mcg capsule 290 mcg PO DAILY RF: 0 Tresiba FlexTouch U-100 100 unit/mL (3 mL) insulin pen 80 unit subcut BEDTIME RF: 0 Trulicity 1.5 mg/0.5 mL pen injector 1.5 mg subcut QWEEK RF: 0 oxycodone 5 mg tablet 5 mg PO Q6H PRN (Reason: pain) Qty: 14 RF: 0 doxycycline hyclate 100 mg capsule 100 mg PO BID 7 Days Qty: 14 RF: 0 oxycodone 5 mg tablet 5 mg PO Q6H PRN (Reason: pain) Qty: 14 RF: 0 doxycycline hyclate 100 mg capsule 100 mg PO BID 7 Days Qty: 14 RF: 0 amoxicillin-pot clavulanate [Augmentin] 875-125 mg tablet 1 tab PO BID Qty: 20 RF: 0 (DME) CPAP Mask DX: G47.33 Sleep Apnea 0 .Route .MEDSUPPLY Qty: 1 RF: 0 ezetimibe [Zetia] 10 mg tablet 10 mg PO DAILY RF: 0 rosuvastatin 10 mg tablet 10 mg PO DAILY RF: 0 Daliresp 250 mcg tablet 250 mcg PO DAILY 30 Days Qty: 30 RF: 11 (DME) humidifiers Misc See Rx Instructions .ROUTE .MEDSUPPLY Qty: 1 RF: 0 buprenorphine 5 mcg/hour patch weekly 1 patch topical QWEEK RF: 0 doxycycline hyclate 100 mg capsule 100 mg PO BID 14 Days Qty: 28 RF: 0 Movantik 12.5 mg tablet 12.5 mg PO QAM Qty: 30 RF: 0 sennosides [Natural Senna Laxative] 8.6 mg tablet 8.6 mg PO BEDTIME PRN (Reason: constipation) Qty: 60 RF: 1
[2020-09-19] MEDS: iohexoL 350 MG/ML 100 ML INFUS..BTL IV (17:37)
[2020-09-19] MEDS: PHENobarb/Hyoscy/Atropine/Scop 10 ML ELIXIR PO (18:03)
[2020-09-19] MEDS: Magnesium Hydrox/Alum Hydrox 30 ML ORAL.SUSP PO (18:04)
[2020-09-19] MEDS: Lidocaine HCl Viscous 2 % 15 ML SOLUTION MUCOUS MEM (18:04)
--- NOTE | 2020-09-19 18:06 | PC.NURSE ---
GI cocktail given. Pt appears to be in NAD. Resting in bed. Awaiting results of CT scan.
--- NOTE | 2020-09-19 19:12 | PC.NURSE ---
pt up to restroom for stool sample. Pt ambulating slowly with steady even gait to restroom. with pt Pt in NAD.
[2020-09-19 19:14] LABS: Troponin-I High Sensitivity 16.7 ng/L (<3.5-17.0)
[2020-09-19 19:50] LABS: Glucose Urine UA >=1000 MG/DL (NEG); Leukocyte Esterase Urine NEG (NEG); Nitrite Urine NEG (NEG); Urine Blood NEG (NEG); Urine Ketones >=80 MG/DL (NEG); Urine Protein NEG (NEG-TRACE)
[2020-09-19 19:53] LABS: Appearance Urine CLEAR; Color Urine YELLOW
[2020-09-19 19:56] LABS: Troponin-I High Sensitivity 18.8 ng/L (<3.5-17.0)
[2020-09-19 20:00] VITALS: BP 115/55; PULSE 100; RESP 18; O2SAT 97
[2020-09-19 20:00] LABS: Amorphous Sediment Urine TRACE /LPF; RBC Urine 0 /HPF (0); WBC Urine 0 /HPF (0-4)
[2020-09-19 20:49] LABS: Leukocytes Stool Qualitative NEGATIVE (NEGATIVE)
[2020-09-19 21:15] LABS: CDiff Gene PCR NEGATIVE (Negative)
--- NOTE | 2020-09-19 21:38 | PC.NURSE ---
PT IS AWAITING FOR DISCHARGE. NS INFUSED W/O DIFFICULTY. WILL CONTINUE TO MONITOR PT.
--- NOTE | 2020-09-19 22:23 | PC.NURSE ---
PA IN ROOM FOR INSTRUCTIONS WITH PRECISE WINDER AT BEDSIDE TO TRANSLATE. IV REMOVED INTACT. PT LEFT WITH FAMILY TO WR IN NAD.
== END 2020-09-19 22:25 | disposition home or self-care (01) ==
PROVIDERS: Physician Assistant; Emergency Provider Internal Medicine; PCP Internal Medicine Geriatric Medicine
DX: K52.9 Noninfective gastroenteritis and colitis, unspecified (principal); K29.70 Gastritis, unspecified, without bleeding; E11.9 Type 2 diabetes mellitus without complications; I11.0 Hypertensive heart disease with heart failure; I50.9 Heart failure, unspecified; J44.9 Chronic obstructive pulmonary disease, unspecified; Z79.4 Long term (current) use of insulin; Z79.899 Other long term (current) drug therapy
CPT/HCPCS: 36415; 70450; 74021; 74177; 80053; 80076; 81001; 82248; 82272; 83690; 84484; 85025; 85610; 85730; 86850; 86900; 86901; 87045; 87046; 87493; 89055; 93005; 96361; 96374; 99284; 99285; Q9967

== ENCOUNTER → 2020-09-23 10:02 | Outpatient (BNVA) | payer MEDICARE, SELFPAY | PROVIDERS: PCP Internal Medicine Geriatric Medicine; Visit Provider Nurse Practitioner Family | DX: K59.00 Constipation, unspecified (principal); K21.9 Gastro-esophageal reflux disease without esophagitis; R19.7 Diarrhea, unspecified | CPT/HCPCS: 99212 ==

== ENCOUNTER → 2020-10-10 14:39 | Outpatient (BNVA) | payer MEDICARE, SELFPAY | PROVIDERS: PCP Internal Medicine Geriatric Medicine; Visit Provider Hospitalist | DX: J41.0 Simple chronic bronchitis (principal); J84.9 Interstitial pulmonary disease, unspecified; J96.11 Chronic respiratory failure with hypoxia; D86.9 Sarcoidosis, unspecified; G47.33 Obstructive sleep apnea (adult) (pediatric); Z99.89 Dependence on other enabling machines and devices | CPT/HCPCS: 99212 ==

== ENCOUNTER 2020-10-26 21:37 | Inpatient (IN) | payer MEDICARE, SELFPAY ==
--- NOTE | ~2020-10-26 | XR_ITS ---
EXAMINATION: XR CHEST CLINICAL INFORMATION: Hypoxia, sinus tachycardia COMPARISON: Chest 11/06/2020 TECHNIQUE: Frontal view of the chest was obtained. FINDINGS: There is diffuse patchy airspace disease both lungs worse since 11/06/2020. Right jugular central catheter, endotracheal tube and enteric tube are in satisfactory position. Heart size is normal. No gross bony abnormality seen. There is bilateral neck subcutaneous emphysema and right chest wall emphysema. A small 10% right pneumothorax is noted. XR/XR chest 1V IMPRESSION: There is a small right pneumothorax and bilateral subcutaneous emphysema. There is bilateral subcutaneous emphysema. Support lines and catheters are stable.
--- NOTE | ~2020-10-26 | XR_ITS ---
EXAMINATION: XR CHEST CLINICAL INFORMATION: High peak pressures COMPARISON: Chest radiograph earlier today at 11:[address] scan chest earlier today TECHNIQUE: Frontal view of the chest was obtained. FINDINGS: ET tube about 1.7 cm above the pastora. NG tube with tip below diaphragm. Right IJ line with tip in SVC see RA junction. A right-sided chest tube is present with tip abutting the mediastinum. There is mild cardiac enlargement. Pneumomediastinum is not as apparent on current study. Subcutaneous emphysema has decreased slightly. The large right-sided pneumothorax seen on the CT scan has resolved with placement of above mentioned chest tube. Heart size remains upper limits of normal in size. Bilateral airspace disease has decreased when compared to the chest radiograph earlier today XR/XR chest 1V IMPRESSION: 1. ET tube 1.7 cm above pastora. 2. Resolved right-sided pneumothorax status post chest tube placement. 3. Continued presence of subcutaneous emphysema. 4. Decrease in extent of bilateral airspace disease.
--- NOTE | ~2020-10-26 | CT_ITS ---
EXAMINATION: CT HEAD WITHOUT CONTRAST CLINICAL INFORMATION: Altered mental status COMPARISON: Previous exam most recent 11/09/2020 TECHNIQUE: Contiguous axial imaging was performed from the skull base to vertex without intravenous administration of contrast. This CT examination was performed using dose optimization techniques as appropriate, variously including the following: *Automated exposure control *Adjustment of mA and/or kV according to patient size (this includes techniques or standardized protocols for targeted exams where dose is matched to indication/reason for exam; i.e. extremities or head) *Use of iterative reconstruction technique DLP: 1973 mGy-cm FINDINGS: There is no evidence of an extra-axial collection. There is no evidence of intra-axial or extra-axial hemorrhage. Ventricles and extra-axial CSF spaces are appropriate. There is mild nonspecific periventricular white matter disease. No mass, mass effect or infarct is seen. There is soft tissue opacification of the bilateral mastoid air cells and middle ear is suggestive of otomastoiditis. Visualized paranasal sinuses are clear. No skull fracture or bone lesion is seen. CT/CT head/brain wo con IMPRESSION: No acute findings. Mild nonspecific periventricular white matter disease and bilateral otomastoiditis.
--- NOTE | ~2020-10-26 | XR_ITS ---
EXAMINATION: XR CHEST CLINICAL INFORMATION: Tube placement. COMPARISON: Chest radiograph done earlier the same day. TECHNIQUE: Frontal view of the chest was obtained. FINDINGS: Redemonstration of an endotracheal tube with its tip approximately 2.1 cm proximal to the pastora. Interval placement of a right-sided central venous catheter with its tip in the region of the right atrium. No pleural effusion or pneumothorax. Diffuse bilateral airspace opacities are redemonstrated. Stable cardiomediastinal silhouette. XR/XR chest 1V IMPRESSION: 1. Endotracheal tube with its tip approximately 2.1 cm proximal to the pastora. 2. Interval placement of a right-sided central venous catheter with its tip in the region of the right atrium. No pleural effusion or pneumothorax. 3. Diffuse bilateral airspace opacities appear unchanged.
--- NOTE | ~2020-10-26 | XR_ITS ---
EXAMINATION: XR CHEST CLINICAL INFORMATION: Chest tube follow-up. COMPARISON: Chest x-ray 11/10/2020 at 3:17 PM TECHNIQUE: Frontal view of the chest was obtained. FINDINGS: The defibrillator patch has been removed from the right upper lobe. There is no visible pneumothorax seen. There is a right chest tube along the medial right upper lobe, stable. Right central venous catheter, endotracheal tube and enteric tube are stable. There are bilateral patchy opacities seen in hypoexpanded lungs with no focal infiltrate. XR/XR chest 1V IMPRESSION: No visible right pneumothorax. No cyst change in support lines and catheters and right chest tube. Hypoexpanded lungs with bilateral patchy opacities in both lungs likely infiltrates are stable.
--- NOTE | ~2020-10-26 | CT_ITS ---
EXAMINATION: CT CHEST WITHOUT CONTRAST CLINICAL INFORMATION: Follow-up pneumothorax. COMPARISON: Chest radiographs dated 11/08/2020; CT chest dated 11/03/2020. TECHNIQUE: Multidetector volumetric CT imaging of the chest was done. Axial MIP volume rendering provided. Sagittal and coronal reformatted images were obtained. This CT examination was performed using dose optimization techniques as appropriate, variously including the following: *Automated exposure control *Adjustment of mA and/or kV according to patient size (this includes techniques or standardized protocols for targeted exams where dose is matched to indication/reason for exam; i.e. extremities or head) *Use of iterative reconstruction technique DLP: 627 mGy-cm FINDINGS: LUNGS: There are moderate right and small to moderate left pneumothoraces. The lungs are partially collapsed bilaterally, with diffuse groundglass change. There is mosaic attenuation at the bases. There are paraseptal emphysematous changes, most pronounced at the posterior left base. The central airways appear patent. An endotracheal tube is seen, with tip positioned approximately 2.5 cm superior to the pastora. MEDIASTINUM: There is a large pneumomediastinum, with extension from the upper mediastinum caudal circumferential to the suprarenal abdominal aorta. No thoracic aortic aneurysm is seen. There is moderate atherosclerotic calcification of the great vessel origins, thoracic aorta and coronary arteries. There appears to have been a prior mitral valvuloplasty. There are stable enlarged mediastinal lymph nodes, one of the largest in the subcarinal region showing a short axis diameter 1.9 cm (2:30). No hilar lymphadenopathy is seen. PLEURA: There is no significant right pleural effusion. A minimal left pleural effusion is seen towards the medial apex. No pleural mass or thickening. AXILLA: There is moderately severe subcutaneous emphysema seen within the bilateral cervical regions and within the upper bilateral chest wall regions, right greater than left. UPPER ABDOMEN: The adrenal glands are unremarkable. There are extensive bilateral renal vascular calcifications. A nasogastric tube is seen, with tip situated within the gastric body. There are subcutaneous calcifications in the right paramedian back soft tissues, possibly related to remote trauma. OSSEOUS STRUCTURES: There is multi-level marked thoracic spondylosis and degenerative disc disease. No acute or aggressive osseous abnormality is seen. CT/CT chest wo con IMPRESSION: Findings are consistent with moderate right and small to moderate left pneumothoraces. There is partial collapse of the bilateral lungs, with areas of diffuse groundglass attenuation and mosaic attenuation change towards the bases. There appear to be underlying paraseptal emphysematous changes. There is moderately severe pneumomediastinum. There is moderately severe subcutaneous emphysema within the bilateral cervical regions and within the bilateral upper chest wall regions, right greater than left. The endotracheal tube tip resides approximately 2.5 cm superior to the pastora. This critical result was discussed with Mikey Caballero M.D. at 10:45 AM on 11/08/2020, and it was ascertained that the content and urgency of the report was understood at the time of direct communication.
--- NOTE | ~2020-10-26 | CT_ITS ---
CT head/brain wo con CLINICAL INFORMATION: Reason for Exam lethargy COMPARISON: No prior CT scan available for comparison. TECHNIQUE: Department standard protocol. This CT examination was performed using dose optimization techniques as appropriate, variously including the following: *Automated exposure control *Adjustment of mA and/or kV according to patient size (this includes techniques or standardized protocols for targeted exams where dose is matched to indication/reason for exam; i.e. extremities or head) *Use of iterative reconstruction technique DLP: 735 mGy-cm FINDINGS: CEREBRAL HEMISPHERES: There is no evidence of intra-axial or extra-axial mass, hemorrhage or acute infarct. BRAIN PARENCHYMA: Normal hernandez-white matter differentiation. SUBDURAL SPACE: No bleed. BASAL GANGLIA AND PINEAL GLAND: Unremarkable VENTRICLES: Symmetric and normal in size. CEREBELLUM AND BRAINSTEM: No space-occupying mass, hemorrhage or acute infarct. CEREBELLOPONTINE ANGLES: No lesion found. ORBITS: No intraorbital mass. VESSELS: Unremarkable SKULL BASE: Unremarkable INCLUDED SINUSES AT SKULL BASE: Clear SKULL AND SKIN: No fracture or bone lesion found. CT/CT head/brain wo con IMPRESSION: No CT evidence of intracranial space-occupying mass, bleed or infarct. Normal CT scan does not rule out the possibility of hyperacute infarct in the first 12 hours. If patient symptoms persist may consider correlation with MRI, which is more sensitive for early acute infarct.
--- NOTE | ~2020-10-26 | CT_ITS ---
EXAMINATION: CT HEAD WITH/WITHOUT CONTRAST CLINICAL INFORMATION: History of herpes pneumonia. Rule out herpes encephalitis. COMPARISON: None TECHNIQUE: Contiguous axial imaging was performed from the skull base to vertex before and after the administration of 100 mL of Omnipaque [address] examination was performed using dose optimization techniques as appropriate, variously including the following: *Automated exposure control *Adjustment of mA and/or kV according to patient size (this includes techniques or standardized protocols for targeted exams where dose is matched to indication/reason for exam; i.e. extremities or head) *Use of iterative reconstruction technique DLP: 1940 mGy-cm FINDINGS: There is no evidence of acute intracranial hemorrhage or territorial infarction. No abnormal mass effect or midline shift is seen. Arriaga to white matter differentiation is well preserved. No extra-axial fluid collections are identified. There is no abnormal enhancement. The ventricles are normal in size. Postcontrast there is no abnormal attenuation seen in the brain parenchyma especially in the basal ganglia or the temporal lobes. No dural enhancement seen either. Normal enhancement is seen in major intracranial vessels. Bone windows reveal benign hyperostosis frontalis interna. No scalp soft tissue swelling seen. There is complete opacification of bilateral middle ear and mastoid sinuses from otomastoiditis. The paranasal sinuses are well-aerated and clear. CT/CT head/brain wo/w con IMPRESSION: No acute intracranial process seen. No enhancing mass, mass effect or edema. Bilateral otomastoiditis.
--- NOTE | ~2020-10-26 | XR_ITS ---
EXAMINATION: XR CHEST CLINICAL INFORMATION: Pneumonia. Pneumothorax. COMPARISON: 11/11/2020 TECHNIQUE: Frontal view of the chest was obtained. FINDINGS: Endotracheal tube terminates 2 cm above the pastora. Enteric tube extends into the stomach. Cardiac leads overlie the chest. Right internal jugular central venous catheter terminates near the cavoatrial junction. Lung volumes are low. Diffuse bilateral opacities are noted, increased in the right lung when compared to prior. No pleural effusion or pneumothorax. The cardiomediastinal silhouette is unchanged, with a calcified aorta. XR/XR chest 1V IMPRESSION: Endotracheal tube terminating 2 cm above the pastora. Diffuse bilateral opacities which are increased on the right when compared to prior.
--- NOTE | ~2020-10-26 | XR_ITS ---
EXAMINATION: XR CHEST CLINICAL INFORMATION: Intubated. COMPARISON: CT chest dated 11/03/2020. TECHNIQUE: Frontal view of the chest was obtained. FINDINGS: Endotracheal tube with its tip approximately 2 cm proximal to the pastora. Diffuse prominent bilateral airspace opacities, increased when compared to the prior CT. No pleural effusion or pneumothorax. Stable cardiomediastinal silhouette. XR/XR chest 1V IMPRESSION: 1. Diffuse dense bilateral airspace consolidations, increased when compared to the prior CT. Findings can be seen in the setting of an infectious or inflammatory process, including viral pneumonia. 2. Endotracheal tube with its tip approximately 2 cm proximal to the pastora.
--- NOTE | ~2020-10-26 | XR_ITS ---
EXAMINATION: XR CHEST CLINICAL INFORMATION: Hypoxia COMPARISON: November 13, 2020 and November 11, 2020 TECHNIQUE: AP portable view of the chest was obtained. FINDINGS: Right internal jugular central venous catheter seen with tip in the superior right atrium. Enteric tube is seen traversing below the diaphragm. Endotracheal tube is seen with its tip 3 cm above the pastora. Heart normal size. No pneumothorax or significant pleural effusion is seen. There are again noted to be patchy regions of parenchymal density most prominent within the upper lobes and in the right lower lung which have improved some degree compared to study of November 13, 2020. XR/XR chest 1V IMPRESSION: Bilateral regions of patchy parenchymal disease which have improved to some degree since previous study but still remain. Support catheters in place.
--- NOTE | ~2020-10-26 | CT_ITS ---
EXAMINATION: CT ANGIOGRAM OF THE CHEST WITH AND WITHOUT CONTRAST (CT PULMONARY ANGIOGRAM FOR PE) CLINICAL INFORMATION: Reason for Exam Fever, hypoxia, elevated D-dimer rule out PE COMPARISON: 04/17/2020 TECHNIQUE: Prior to contrast administration, noncontrast localization images were obtained. Subsequently, multidetector volumetric imaging was performed from the thoracic inlet to below the diaphragms following the administration of 65 mL Omnipaque 350 intravenous contrast. No contrast reaction reported Sagittal, coronal, and MIP oblique sagittal reformatted images were obtained on the CT workstation, uploaded to PACS, and reviewed. This CT examination was performed using dose optimization techniques as appropriate, variously including the following: *Automated exposure control *Adjustment of mA and/or kV according to patient size (this includes techniques or standardized protocols for targeted exams where dose is matched to indication/reason for exam; i.e. extremities or head) *Use of iterative reconstruction technique Total exam dose-length product 507 mGy-cm FINDINGS: QUALITY OF STUDY/CONTRAST BOLUS: Satisfactory. PULMONARY ARTERIES: No central or segmental pulmonary emboli. THORACIC AORTA: No aneurysm or dissection. LUNG: Again seen is diffuse interlobular and intralobular septal thickening with subpleural reticulation, without significant architectural distortion, honeycombing or traction bronchiectasis. Bilateral stents of geographic groundglass opacities are new from the prior examination having the appearance of the 'crazy paving.' PLEURA: Trace bilateral pleural effusions. No pneumothorax. MEDIASTINUM: Cardiomegaly. Triple vessel coronary calcifications. No evidence of septal bowing or right heart strain. cNo reflux of contrast into the hepatic veins to suggest elevated right heart pressures. There is an enlarged subcarinal lymph node, measuring at least 1.2 cm short axis. No additional pathologically enlarged mediastinal or hilar lymph nodes are evident by size criteria. CHEST WALL/AXILLA: No axillary or internal mammary lymphadenopathy. OSSEOUS STRUCTURES: No acute or suspicious osseous abnormality. UPPER ABDOMEN: Small sliding-type hiatal hernia. CT/CT angio chest PE protocol IMPRESSION: * No evidence of pulmonary embolism. * New bilateral geographic groundglass opacities complicate the patient's chronic interstitial lung disease creating a crazy paving appearance. This finding is nonspecific and can be seen in the setting of nonspecific interstitial pneumonitis,, atypical infections, pulmonary edema, pulmonary hemorrhage, and addition to the classic pulmonary alveolar proteinosis. * Mildly enlarged subcarinal lymph nodes likely reactive. VTE: negative
--- NOTE | ~2020-10-26 | XR_ITS ---
EXAMINATION: XR CHEST CLINICAL INFORMATION: Status of pneumo. COMPARISON: 11/09/2020 TECHNIQUE: Frontal view of the chest was obtained. FINDINGS: Endotracheal tube terminates 3.5 cm above the pastora. Enteric tube extends into the stomach. Cardiac leads overlie the chest. Right-sided pigtail catheter in place. Right internal jugular central venous catheter terminates near the cavoatrial junction. Lung volumes are low. Diffuse patchy bilateral airspace opacities are again seen, similar in appearance to prior. No pneumothorax. No effusion. The cardiomediastinal silhouette is unchanged. XR/XR chest 1V IMPRESSION: Endotracheal tube terminating 3.5 cm above the pastora. Similar appearance of diffuse bilateral airspace opacities.
--- NOTE | ~2020-10-26 | XR_ITS ---
EXAMINATION: XR CHEST CLINICAL INFORMATION: Worsening hypoxemia, new leukocytosis. COMPARISON: Chest radiographs and 04/10/2020 TECHNIQUE: Portable upright AP view of the chest was obtained. FINDINGS: Patient slightly rotated and radiograph mildly underpenetrated. There are low lung volumes. Diffuse bilateral pulmonary opacities are present. No overt effusion appreciated. Cardiopericardial silhouette upper limits of normal size. XR/XR chest 1V IMPRESSION: Low lung volumes with diffuse bilateral pulmonary opacities.
--- NOTE | ~2020-10-26 | XR_ITS ---
EXAMINATION: XR CHEST CLINICAL INFORMATION: Trouble ventilating. Hypoxia. COMPARISON: 11/10/2020 TECHNIQUE: Frontal view of the chest was obtained. FINDINGS: Endotracheal tube terminates 2 cm above the pastora. Enteric tube extends into the stomach. Cardiac leads overlie the chest. Right internal jugular central venous catheter terminates near the cavoatrial junction. The right-sided chest tube has been removed. Lung volumes are low. Patchy diffuse bilateral airspace opacities. These are similar to prior. No pleural effusion. No pneumothorax. The cardiomediastinal silhouette is unchanged, with a calcified aorta. XR/XR chest 1V IMPRESSION: Endotracheal tube terminating 2 cm above the pastora. Low lung volumes with diffuse bilateral airspace opacities, similar in appearance to previous.
--- NOTE | ~2020-10-26 | XR_ITS ---
EXAMINATION: XR CHEST CLINICAL INFORMATION: Repositioned on the chest tube. COMPARISON: Chest 11/08/2020. TECHNIQUE: Frontal view of the chest was obtained. FINDINGS: The lungs are hypoexpanded with diffuse patchy infiltrates in both lungs. Heart size is normal. Pulmonary vascularity is normal. Position of right chest tube, right jugular central catheter, endotracheal tube and enteric tube are in satisfactory position. There is no pneumothorax. The subcutaneous emphysema is improved. XR/XR chest 1V IMPRESSION: Stable exam. No change.
--- NOTE | ~2020-10-26 | XR_ITS ---
EXAMINATION: XR CHEST CLINICAL INFORMATION: OG tube placement. COMPARISON: Most recent chest radiograph dated 11/05/2020. TECHNIQUE: Frontal view of the chest was obtained. FINDINGS: Endotracheal tube with its tip approximately 2.4 cm proximal to the pastora. Enterogastric tube in appropriate position with the tip extending beneath the left hemidiaphragm and beyond the imaged field of view. Redemonstration of a right-sided central venous catheter with its tip in the region of the cavoatrial junction, unchanged. Diffuse patchy bilateral airspace opacities are redemonstrated, slightly decreased in prominence when compared to the prior examination. No pleural effusion or pneumothorax. Stable cardiac mediastinal silhouette. XR/XR chest 1V IMPRESSION: 1. Interval placement of an enterogastric tube in appropriate position with its tip beneath the left hemidiaphragm and extending beyond the imaged field of view. 2. Endotracheal tube with its tip approximately 2.4 cm proximal to the pastora. Right-sided central venous catheter in appropriate position. 3. Diffuse bilateral airspace opacities, decreased when compared to the prior examination. Findings can be seen in the setting of an infectious or inflammatory process, including viral pneumonia.
--- NOTE | ~2020-10-26 | CT_ITS ---
EXAMINATION: CT CHEST WITHOUT CONTRAST CLINICAL INFORMATION: Follow up interstitial lung disease exacerbation. COMPARISON: Most recent chest radiograph dated 11/02/2020 and CTA chest dated 10/27/2020. TECHNIQUE: Multidetector volumetric CT imaging of the chest was done. Axial MIP volume rendering provided. Sagittal and coronal reformatted images were obtained. This CT examination was performed using dose optimization techniques as appropriate, variously including the following: *Automated exposure control *Adjustment of mA and/or kV according to patient size (this includes techniques or standardized protocols for targeted exams where dose is matched to indication/reason for exam; i.e. extremities or head) *Use of iterative reconstruction technique DLP: 350 mGy-cm FINDINGS: INFECTION CONTROL MANAGER: Diffuse bilateral airspace opacities. LUNGS: Diffuse bilateral ground-glass airspace opacities, increased when compared to the prior examination and now comprising near the entirety of the lung pace. No large, confluent airspace consolidation. Bronchiectasis and mild cystic spaces are redemonstrated. No large pulmonary mass. MEDIASTINUM: Stable heart size. Redemonstration of a valvuloplasty. No pericardial effusion. No thoracic aortic dilatation. Atherosclerotic calcifications. Redemonstration of superior mediastinal lymphadenopathy with the largest in the subcarinal region measuring 2 x 3.2 cm, unchanged. Small amount of air within the superior mediastinum. PLEURA: Resolution of the previously seen trace bilateral pleural effusions. No pneumothorax. AXILLA: No lymphadenopathy. UPPER ABDOMEN: Prominent vascular calcifications. OSSEOUS STRUCTURES: Unremarkable. CT/CT chest wo con IMPRESSION: 1. Diffuse bilateral ground-glass airspace opacities, increased when compared to the prior examination and now involving nearly the entirety of the lung pace. Findings can be seen in the setting of an infectious or inflammatory process. 2. Small amount of pneumomediastinum, new when compared to the prior examination. Findings could indicate the sequela of peripheral bronchial injury. No pneumothorax. 3. Resolution of previously seen trace bilateral pleural effusions.
--- NOTE | ~2020-10-26 | XR_ITS ---
EXAMINATION: XR CHEST CLINICAL INFORMATION: Status post left chest tube placement. COMPARISON: CT chest and chest radiograph of the same date. TECHNIQUE: Frontal view of the chest was obtained. The patient is somewhat rotated. FINDINGS: There is at least top normal cardiac size. There is atherosclerotic calcification of the thoracic aorta. Again, there is a pneumomediastinum. An approximately 5% right apical pneumothorax is seen. There is a trace left apical pneumothorax suspected. A right thoracostomy tube is seen, with tip situated in the medial right hemithorax. There is stable position of further support tubes and catheters, with the endotracheal tube tip situated approximately 3.0 cm superior to the pastora. There is diffuse groundglass attenuation within the lung pace. Cervical and chest wall subcutaneous emphysema is redemonstrated. XR/XR chest 1V IMPRESSION: There is a diminished right pneumothorax status-post right thoracostomy tube placement, now measuring approximately 5%. A trace left pneumothorax is noted. There is pneumomediastinum and cervical and chest wall emphysema. Diffuse groundglass changes are again seen in the lungs.
--- NOTE | ~2020-10-26 | XR_ITS ---
EXAMINATION: XR CHEST CLINICAL INFORMATION: Chest tube follow-up. COMPARISON: Chest 11/10/2020 and chest 11/09/2020. TECHNIQUE: Frontal view of the chest was obtained. FINDINGS: There is a right anterior chest wall catheter, stable. Endotracheal tube, nasogastric tube and the right central catheter is stable. Both lungs are hypoexpanded. No visible pneumothorax seen. The subcutaneous emphysema has completely resolved. XR/XR chest 1V IMPRESSION: Stable lines and catheters. No visible pneumothorax.
[2020-10-26 21:47] VITALS: BP 156/60; PULSE 120; RESP 26; TEMP 39.3; O2SAT 94; BMI 35.3
[2020-10-26 22:05] VITALS: BP 138/48; PULSE 118; RESP 22; TEMP 38.3
--- NOTE | 2020-10-26 22:07 | ECG_ITS ---
Test Reason : SHORTNESS OF BREATH Blood Pressure : / mmHG Vent. Rate : 121 BPM Atrial Rate : 121 BPM P-R Int : 126 ms QRS Dur : 100 ms QT Int : 326 ms P-R-T Axes : 014 -47 080 degrees QTc Int : 462 ms Sinus tachycardia Left anterior fascicular block Nonspecific ST and T wave abnormality Abnormal ECG When compared with ECG of 19-SEP-2020 15:16, No significant changes seen Referred By: Drew Bailey Electronically Signed By:Tr Colon
--- NOTE | 2020-10-26 22:09 | ED_ITS ---
HPI - General Adult General Chief complaint: Dyspnea Stated complaint: Sob Time Seen by Provider: 10/26/20 22:05 Source: patient and family (Cousin, Austyn) Mode of arrival: ambulatory Limitations: no limitations History of Present Illness HPI narrative: 70-year-old female who presents emergency department for evalu ation of fever, cough and shortness of breath x2 days. Patient states that she has a cough which is productive of green sputum and occasionally red sputum. She states that she has had shortness of breath which is gotten progressively worse and dyspnea on exertion which is also got progressively worse. She complains of a tightness in the center of her chest which is moderate in intensity worse with breathing. She states she has had shaking chills as well. The patient does have a history of COPD, sarcoidosis of the lungs and interstitial lung disease. On presentation to the emergency department was found to be febrile with a temperature of 102.7?, tachycardic with a pulse of 120, to tachypneic with respiratory of 26. Blood pressure was 156/60. O2 saturation was 80% on 2 L of oxygen and 94% on a 100% non-rebreather mask. Related Data Home Medications Medication Instructions Recorded Confirmed CPAP Mask DX: G47.33 Sleep Apnea #1 ea 01/25/20 10/10/20 ezetimibe 10 mg tablet (Zetia) 10 mg PO DAILY 01/25/20 10/10/20 rosuvastatin 10 mg tablet 10 mg PO DAILY 01/25/20 10/10/20 betamethasone dipropionate 0.05 % 1 appl TOPICAL DIRECTED 04/25/20 10/10/20 topical ointment bisacodyl 5 mg tablet,delayed 5 mg PO BID PRN 04/25/20 10/10/20 release clonazepam 1 mg tablet 1 mg PO BID PRN 04/25/20 10/10/20 diltiazem HCl 240 mg 240 mg PO BID 04/25/20 10/10/20 capsule,extended release 24 hr doxycycline hyclate 100 mg tablet 100 mg PO BID 04/25/20 10/10/20 dulaglutide 1.5 mg/0.5 mL 1.5 mg SUBCUT QWEEK 04/25/20 10/10/20 subcutaneous pen injector ([facility]) duloxetine 60 mg capsule,delayed 60 mg PO DAILY 04/25/20 10/10/20 release folic acid 1 mg tablet 1 mg PO DAILY 04/25/20 10/10/20 furosemide 40 mg tablet 80 mg PO BID 04/25/20 10/10/20 insulin aspart U-100 100 unit/mL 40 unit SUBCUT BIDAC 04/25/20 10/10/20 (3 mL) subcutaneous pen (Novolog Flexpen U-100 Insulin aspart) insulin degludec 100 unit/mL (3 80 unit SUBCUT BEDTIME 04/25/20 10/10/20 mL) subcutaneous pen (Tresiba FlexTouch U-100 insulin) ivabradine 5 mg tablet (Corlanor) 5 mg PO BID 04/25/20 10/10/20 metoprolol tartrate 50 mg tablet 50 mg PO BID 04/25/20 10/10/20 mometasone 0.1 % topical ointment 1 appl TOPICAL BID 04/25/20 10/10/20 nortriptyline 25 mg capsule 25 mg PO DAILY 04/25/20 10/10/20 potassium chloride 10 mEq 30 meq PO BIDAC 04/25/20 10/10/20 capsule,extended release rivaroxaban 20 mg tablet (Xarelto) 20 mg PO DAILY 04/25/20 10/10/20 sertraline 50 mg tablet 75 mg PO DAILY 04/25/20 10/10/20 zolpidem 10 mg tablet 10 mg PO BEDTIME 04/25/20 10/10/20 buprenorphine 5 mcg/hour weekly 1 patch TOPICAL QWEEK 06/22/20 10/10/20 transdermal patch clopidogrel 75 mg tablet 75 mg PO DAILY 10/10/20 10/10/20 fluticasone fur. 200 mcg-umeclid ea INHALATION DAILY 10/10/20 10/10/20 62.5 mcg-vilant 25 mcg inhalat.powder Previous Rx's Medication Instructions Recorded humidifiers #1 ea 01/25/20 prednisone 10 mg tablet 10 mg PO DAILY #28 tab 05/10/20 baclofen 10 mg tablet 20 mg PO TID 30 Days #180 tab 06/07/20 doxycycline hyclate 100 mg capsule 100 mg PO BID 14 Days #28 cap 06/22/20 ipratropium bromide 0.02 % 1.25 ml INHALATION Q8H PRN #62.5 ml 07/04/20 solution for inhalation doxycycline hyclate 100 mg capsule 100 mg PO BID 7 Days #14 cap 07/31/20 doxycycline hyclate 100 mg capsule 100 mg PO BID 7 Days #14 cap 07/31/20 oxycodone 5 mg tablet 5 mg PO Q6H PRN #14 tab 07/31/20 oxycodone 5 mg tablet 5 mg PO Q6H PRN #14 tab 07/31/20 famotidine 20 mg tablet (Pepcid) 20 mg PO BEDTIME #30 tab 09/23/20 lubiprostone 24 mcg capsule 24 mcg PO DAILY #30 cap 09/23/20 (Amitiza) pantoprazole 40 mg tablet,delayed 40 mg PO DAILY #30 tab 09/23/20 release modafinil 100 mg tablet 200 mg PO DAILY 28 Days #56 tab 09/27/20 spironolactone 50 mg tablet 50 mg PO DAILY #28 tab 09/27/20 pregabalin 50 mg capsule (Lyrica) 50 mg PO BEDTIME 30 Days #30 cap 10/10/20 mycophenolate mofetil 500 mg tablet 500 mg PO BID #56 tab 10/24/20 Allergies Allergy/AdvReac Type Severity Reaction Status Date / Time albuterol [ALBUTEROL] Allergy Severe TACHYCARDIA Verified 10/10/20 15:13 Review of Systems Review of Systems: Yes all other systems are reviewed and are negative PMFSH Past Medical History Medical History Amputated great toe of left foot Amputation of right ring finger Arrhythmia CHF (congestive heart failure) Chronic respiratory failure Constipation COPD (chronic obstructive pulmonary disease) Diabetes History of adenomatous polyp of colon HTN (hypertension) Hx of flexible sigmoidoscopy ILD (interstitial lung disease) Leg edema Muscle spasm On anticoagulant therapy JOVANNY on CPAP Pre-op chest exam Sarcoidosis Surgical History H/O colonoscopy Hx of appendectomy Hx of section Hx of umbilical hernia repair Family History Family History Other Diabetes Social History Social History Alcohol intake: never Patient Tobacco Use Status: Former Tobacco user Tobacco use type: Cigarette Years Smoked: 32 years Advance Directives: No Advance Directives Information Provided: Yes Physical Exam Vital Signs: Vital Signs: Last Vital Signs Temp 98.4 F 10/27/20 01:08 Pulse 104 H 10/27/20 01:08 Resp 19 10/27/20 01:08 BP 123/55 L 10/27/20 01:08 Pulse Ox 100 10/27/20 01:08 Body Mass Index 35.3 Const: General: cooperative, alert, awake and other (In acute respiratory distress) Orientation/consciousness: oriented to person Limitations: no limitations HENMT: Head: Yes normal to inspection, Yes normocephalic and Yes atraumatic Ears: external ears normal General nose exam: Normal external nose present Face and sinus: Yes normal facial exam Mouth: Normal oral and palatal mucosa present Throat: Yes posterior oropharynx normal Eyes: General: appearance normal, both eyes and all related structures Pupils: Equal, round and reactive pupils present Neck: Neck: Yes normal visual inspection, Yes no lymphadenopathy, Yes trachea midline and Yes supple Chest: Chest palpation & inspection: normal inspection of the chest and normal palpation of entire chest wall Resp: Effort & Inspection: respiratory distress, tachypneic and uses accessory muscles Auscultation: crackles (Diffuse), rhonchi (Diffuse), no wheezes and diminished lung sounds (Bilaterally at the bases) Cardio: Rate: tachycardic Rhythm: regular rhythm Heart sounds: S1 normal heart sound present, S2 normal heart sound present and no murmurs GI: Inspection: Yes normal to inspection Palpation (GI): Soft to palpation, nontender and no guarding Auscultation: normal bowel sounds : General: Yes no CVA tenderness Back/Spine/Pelvis: Back: no CVA tenderness Skin: General skin exam: no rashes or lesions noted Neuro: General: oriented to person Cranial nerves: Yes CN's II-XII intact bilaterally and Yes Equal, round and reactive pupils present Cognition (Neuro): normal cognition Motor exam (neuro): 5/5 motor strength present throughout Extrem: General: Yes normal to inspection Psych: Appearance: grossly normal Speech and movement: Normal speech and movement present Affect: normal affect Attitude: cooperative Course Course Course Narrative: 70-year-old female who presents emergency department for evaluation of fever, cough, worsening shortness of breath and dyspnea on exertion x2 days. Patient has history of COPD, interstitial lung disease, sarcoidosis CHF and obstructive sleep apnea. The patient has not been vaccinated for COVID-19. On presentation the patient was in respiratory dist ress with tachypnea and using accessory muscles. She was severely hypoxic with an O2 saturation of 80% on on 2 L of oxygen with improvement to 94% on 100% non rebreather mask. Patient was also tachycardic. Lung exam revealed diffuse rhonchi and crackles with diminished sounds at the bases. Differential includes was not limited to pulmonary edema, COPD exacerbation, COVID-19 pneumonia, bacterial pneumonia. Laboratory evaluation was ordered. Patient will be placed on high-flow oxygen and treated with ceftriaxone and azithromycin IV. Also give the patient fluid bolus of 30 milliliters/kilogram. 0142: The following laboratory values were elevated WBC 12.4, lactic acid 2.4, glucose 200, AST 35, alk-phos 141, troponin I high sensitivity 439, BNP 464, D- dimer 1875. The patient's COVID-[address] pulmonary angiogram PE protocol was negative for pulmonary embolism however the patient had new bilateral geographic ground-glass opacities complicating the patient's chronic interstitial lung disease creating increasing paving appearance. This is consistent with an atypical pneumonia versus viral pneumonia. The patient's COVID-19 test was negative. The patient was treated with IV ceftriaxone and IV Zithromax. The patient gait improved on high-flow oxygen. I will discuss the patient's presentation with the covering hospitalist. 0154: I did discuss the patient's presentation with the covering hospitalist, given her underlying lung disease, he requested that I present the patient to the covering service transformer repair supervisor. 0208: The patient was accepted into the ICU by . At this time, he recommended against giving dexamethasone. Medical Decision Making Lab Data Result diagrams: 10/26/20 22:27 10/26/20 22:27 Labs: Lab Results 10/26/20 10/26/20 10/26/20 Range/Units 22:26 22:26 22:27 WBC 12.4 H (4.8-10.8) X10*3/uL RBC 4.22 (4.20-5.50) X10*6/uL Hgb 12.4 (12.0-16.0) g/dl Hct 37.9 (37-47) % MCV 89.8 (80-98) fL MCH 29.4 (27.0-33.0) pg MCHC 32.7 (31.0-35.0) g/dl RDW 14.0 (11.0-16.0) % Plt Count 208 (160-400) X10*3/uL MPV 9.0 L (9.4-12.3) fL Immature Gran % (Auto) 0.6 H (0.0-0.4) % Neut % (Auto) 84.2 H (45-73) % Lymph % (Auto) 5.3 L (20-40) % Jenkins % (Auto) 9.2 (2-11) % Eos % (Auto) 0.5 (0-4) % Baso % (Auto) 0.2 (0-2) % Lymph # (Auto) 0.7 L (1.2-4.9) X10*3/uL Jenkins # (Auto) 1.1 (0.1-1.2) X10*3/uL Eos # (Auto) 0.1 (0.0-0.4) X10*3/uL Baso # (Auto) 0.0 (0.0-0.2) X10*3/uL Abs Immat Gran (auto) 0.07 H (0.00-0.03) X10*3/uL Absolute Neuts (auto) 10.5 H (2.0-8.3) X10*3/uL Absolute Nucleated RBC 0.000 (0.0-0.012) X10*3/uL Nucleated RBC % (auto) 0.0 (0.0-0.2) /100WBC PT 13.2 H (9.9-13.0) SEC INR 1.2 H (0.9-1.1) APTT 28.2 (24.1-38.0) SEC D-Dimer 1875 NG/ML Sodium (135-145) mmol/L Potassium (3.3-5.1) mmol/L Chloride (96-108) mmol/L Carbon Dioxide (22-29) mmol/L Anion Gap (12-20) BUN (9-16) mg/dL Creatinine (0.5-1.4) mg/dL Estim Creat Clear Calc Estimated GFR Random Glucose (60-115) mg/dL Lactic Acid 2.4 H* (0.5-2.0) mmol/L Calcium (8.4-10.2) mg/dL Total Bilirubin (0.0-1.0) mg/dL Direct Bilirubin (0.0-0.5) mg/dL AST (5-31) U/L ALT (0-31) U/L Alkaline Phosphatase (39-117) U/L Troponin I High Sens (<3.5-17.0) ng/L B-Natriuretic Peptide (<100) pg/mL Total Protein (6.5-8.0) g/dL Albumin (3.5-5.0) g/dL COVID-19 ([facility]) (Negative) COVID-19 Clin Com 10/26/20 10/26/20 10/26/20 Range/Units 22:27 22:27 22:27 WBC (4.8-10.8) X10*3/uL RBC (4.20-5.50) X10*6/uL Hgb (12.0-16.0) g/dl Hct (37-47) % MCV (80-98) fL MCH (27.0-33.0) pg MCHC (31.0-35.0) g/dl RDW (11.0-16.0) % Plt Count (160-400) X10*3/uL MPV (9.4-12.3) fL Immature Gran % (Auto) (0.0-0.4) % Neut % (Auto) (45-73) % Lymph % (Auto) (20-40) % Jenkins % (Auto) (2-11) % Eos % (Auto) (0-4) % Baso % (Auto) (0-2) % Lymph # (Auto) (1.2-4.9) X10*3/uL Jenkins # (Auto) (0.1-1.2) X10*3/uL Eos # (Auto) (0.0-0.4) X10*3/uL Baso # (Auto) (0.0-0.2) X10*3/uL Abs Immat Gran (auto) (0.00-0.03) X10*3/uL Absolute Neuts (auto) (2.0-8.3) X10*3/uL Absolute Nucleated RBC (0.0-0.012) X10*3/uL Nucleated RBC % (auto) (0.0-0.2) /100WBC PT (9.9-13.0) SEC INR (0.9-1.1) APTT (24.1-38.0) SEC D-Dimer NG/ML Sodium 136 (135-145) mmol/L Potassium 3.9 (3.3-5.1) mmol/L Chloride 91 L (96-108) mmol/L Carbon Dioxide 31 H (22-29) mmol/L Anion Gap 18 (12-20) BUN 14 (9-16) mg/dL Creatinine 0.75 (0.5-1.4) mg/dL Estim Creat Clear Calc 72.7 Estimated GFR > 60 Random Glucose 200 H D (60-115) mg/dL Lactic Acid (0.5-2.0) mmol/L Calcium 8.9 (8.4-10.2) mg/dL Total Bilirubin 0.8 (0.0-1.0) mg/dL Direct Bilirubin 0.5 (0.0-0.5) mg/dL AST 35 H D (5-31) U/L ALT 28 (0-31) U/L Alkaline Phosphatase 141 H (39-117) U/L Troponin I High Sens 439.6 H* D (<3.5-17.0) ng/L B-Natriuretic Peptide 464 H (<100) pg/mL Total Protein 6.4 L (6.5-8.0) g/dL Albumin 3.6 (3.5-5.0) g/dL COVID-19 ([facility]) Negative (Negative) COVID-19 Clin Com See Note ECG Data Attestation: I personally reviewed and interpreted this ECG as follows: Interpretation: 2151: Sinus tachycardia with a rate of 121, normal DC, prolonged QRS of 100 milliseconds, normal QTC interval, no ST segment elevation or depression, no PACs, no PVCs, no T-wave abnormalities. Critical Care Time Critical Care Time Total Critical Care Time: 75 Attestation: Critical Care: The patient was critically ill with a high probability of imminent or life threatening deterioration. I spent greater than 30 minutes of discontinuous time evaluating the patient,delivering critical care at the bedside, discussing and evaluating pertinent data with consultants. Critical care time does not include time spent performing separately billable procedures or teaching. Total time spent performing critical care was 75 minutes. Discharge Plan Discharge Patient Disposition: Admitted As Inpatient Prescriptions: No Action prednisone 10 mg tablet 10 mg PO DAILY Qty: 28 RF: 8 baclofen 10 mg tablet 20 mg PO TID 30 Days Qty: 180 RF: 4 ipratropium bromide 0.02 % solution 1.25 ml inhalation Q8H PRN (Reason: shortness of breath or wheezing) Qty: 62.5 RF: 0 modafinil 100 mg tablet 200 mg PO DAILY 28 Days Qty: 56 RF: 3 spironolactone 50 mg tablet 50 mg PO DAILY Qty: 28 RF: 6 mycophenolate mofetil 500 mg tablet 500 mg PO BID Qty: 56 RF: 3 insulin aspart U-100 [Novolog Flexpen U-100 Insulin] 100 unit/mL (3 mL) insulin pen 40 unit subcut BIDAC RF: 0 furosemide 40 mg tablet 80 mg PO BID RF: 0 potassium chloride 10 mEq capsule, extended release 30 meq PO BIDAC RF: 0 diltiazem HCl 240 mg capsule,extended release 24hr 240 mg PO BID RF: 0 clonazepam 1 mg tablet 1 mg PO BID PRN (Reason: Anxiety) RF: 0 nortriptyline 25 mg capsule 25 mg PO DAILY RF: 0 metoprolol tartrate 50 mg tablet 50 mg PO BID RF: 0 folic acid 1 mg tablet 1 mg PO DAILY RF: 0 bisacodyl 5 mg tablet,delayed release (DR/EC) 5 mg PO BID PRN (Reason: Constipation) RF: 0 mometasone 0.1 % ointment 1 appl topical BID RF: 0 zolpidem 10 mg tablet 10 mg PO BEDTIME RF: 0 betamethasone dipropionate 0.05 % ointment 1 appl topical DIRECTED RF: 0 sertraline 50 mg tablet 75 mg PO DAILY RF: 0 doxycycline hyclate 100 mg tablet 100 mg PO BID RF: 0 duloxetine 60 mg capsule,delayed release(DR/EC) 60 mg PO DAILY RF: 0 Xarelto 20 mg tablet 20 mg PO DAILY RF: 0 Corlanor 5 mg tablet 5 mg PO BID RF: 0 Tresiba FlexTouch U-100 100 unit/mL (3 mL) insulin pen 80 unit subcut BEDTIME RF: 0 Trulicity 1.5 mg/0.5 mL pen injector 1.5 mg subcut QWEEK RF: 0 oxycodone 5 mg tablet 5 mg PO Q6H PRN (Reason: pain) Qty: 14 RF: 0 doxycycline hyclate 100 mg capsule 100 mg PO BID 7 Days Qty: 14 RF: 0 oxycodone 5 mg tablet 5 mg PO Q6H PRN (Reason: pain) Qty: 14 RF: 0 doxycycline hyclate 100 mg capsule 100 mg PO BID 7 Days Qty: 14 RF: 0 lubiprostone [Amitiza] 24 mcg capsule 24 mcg PO DAILY Qty: 30 RF: 3 pantoprazole 40 mg tablet,delayed release (DR/EC) 40 mg PO DAILY Qty: 30 RF: 4 famotidine [Pepcid] 20 mg tablet 20 mg PO BEDTIME Qty: 30 RF: 3 clopidogrel 75 mg tablet 75 mg PO DAILY RF: 0 Trelegy Ellipta 200-62.5-25 mcg blister with device inhalation DAILY RF: 0 pregabalin [Lyrica] 50 mg capsule 50 mg PO BEDTIME 30 Days Qty: 30 RF: 3 (DME) CPAP Mask DX: G47.33 Sleep Apnea 0 .Route .MEDSUPPLY Qty: 1 RF: 0 ezetimibe [Zetia] 10 mg tablet 10 mg PO DAILY RF: 0 rosuvastatin 10 mg tablet 10 mg PO DAILY RF: 0 (DME) humidifiers Misc See Rx Instructions .ROUTE .MEDSUPPLY Qty: 1 RF: 0 buprenorphine 5 mcg/hour patch weekly 1 patch topical QWEEK RF: 0 doxycycline hyclate 100 mg capsule 100 mg PO BID 14 Days Qty: 28 RF: 0
--- NOTE | 2020-10-26 22:37 | PC.NURSE ---
pt is now on 50%/40L high flow O2, pts o2 sat 93%
--- NOTE | 2020-10-26 22:43 | PC.NURSE ---
patients fio2 increased to 55%/ 40%O2- patients O2 sat now 94%
[2020-10-26 22:53] VITALS: PULSE 115; RESP 20; O2SAT 95
[2020-10-26 22:53] LABS: Basophils Percent Auto 0.2 % (0-2); Eosinophils Absolute Auto 0.1 X10*3/uL (0.0-0.4); Eosinophils Percent Auto 0.5 % (0-4); Hematocrit 37.9 % (37-47); Hemoglobin 12.4 g/dl (12.0-16.0); Imm Gran Abs Auto 0.07 X10*3/uL (0.00-0.03); Imm Gran Pct Auto 0.6 % (0.0-0.4); Lymphocytes Absolute Auto 0.7 X10*3/uL (1.2-4.9); Lymphocytes Percent Auto 5.3 % (20-40); MANUAL DIFF FLAG NO; Mean Corpuscular HGB Conc 32.7 g/dl (31.0-35.0); Mean Corpuscular Hemoglobin 29.4 pg (27.0-33.0); Mean Corpuscular Volume 89.8 fL (80-98); Monocytes Absolute Auto 1.1 X10*3/uL (0.1-1.2); Monocytes Percent Auto 9.2 % (2-11); Neutrophils Absolute Auto 10.5 X10*3/uL (2.0-8.3); Neutrophils Percent Auto 84.2 % (45-73); Platelet Count 208 X10*3/uL (160-400); Red Blood Count 4.22 X10*6/uL (4.20-5.50); White Blood Count 12.4 X10*3/uL (4.8-10.8)
[2020-10-26 22:56] LABS: INTERNATIONAL NORM RATIO 1.2 (0.9-1.1); Prothrombin Time 13.2 SEC (9.9-13.0)
[2020-10-26 22:58] LABS: Partial Thromboplastin Time 28.2 SEC (24.1-38.0)
[2020-10-26] MEDS: cefTRIAXone sodium 1 GM in 0.9 % Sodium Chloride 100 ML IV (22:58)
[2020-10-26] MEDS: Acetaminophen 325 MG TABLET 975 MG PO (22:58)
--- NOTE | 2020-10-26 23:01 | PC.NURSE ---
iv inserted labs drawn, ginner helper sinus tach 117, pt currently 55%fio2, 40% O2 with a O2 sat of 96%, pressure stable, 1st bag of NS hanging, ceftriaxone running per order, covid swab obtained, will continue to monitor.
[2020-10-26 23:03] LABS: COVID-19 Test Negative (Negative)
[2020-10-26 23:08] LABS: D Dimer 1875 NG/ML
[2020-10-26 23:12] LABS: Alanine Aminotransferase 28 U/L (0-31); Albumin Level 3.6 g/dL (3.5-5.0); Alkaline Phosphatase 141 U/L (39-117); Anion Gap 18 (12-20); Aspartate Amino Transferase 35 U/L (5-31); Bilirubin Direct 0.5 mg/dL (0.0-0.5); Bilirubin Total 0.8 mg/dL (0.0-1.0); Blood Urea Nitrogen 14 mg/dL (9-16); Calcium 8.9 mg/dL (8.4-10.2); Carbon Dioxide 31 mmol/L (22-29); Chloride 91 mmol/L (96-108); Creatinine Clr Calc Pharmacy 72.7; Estimated Glomerular Filt Rate > 60; Glucose Random 200 mg/dL (60-115); Potassium 3.9 mmol/L (3.3-5.1); Sodium 136 mmol/L (135-145); Total Protein 6.4 g/dL (6.5-8.0)
[2020-10-26 23:15] LABS: Lactic Acid 2.4 mmol/L (0.5-2.0)
[2020-10-26 23:40] LABS: Troponin-I High Sensitivity 439.6 ng/L (<3.5-17.0)
[2020-10-26] MEDS: Azithromycin 500 MG in 0.9 % Sodium Chloride 250 ML 125 MG IV (23:41)
[2020-10-26 23:43] VITALS: BP 125/55; PULSE 116; RESP 24; TEMP 37.4; O2SAT 100
[2020-10-27] VITALS (32 sets, daily range): BP systolic 112–169; BP diastolic 36–80; PULSE 100–126; RESP 18–38; TEMP 36.1–37.6; O2SAT 88–100; BMI 35.6
[2020-10-27 00:08] LABS: B Type Natriuretic Peptide 464 pg/mL (<100)
--- NOTE | 2020-10-27 00:17 | PC.NURSE ---
pt off to CT scan
--- NOTE | 2020-10-27 00:45 | PC.NURSE ---
pt back from CT
[2020-10-27 00:46] LABS: Reflex Lactate? Lactic Acid Added
[2020-10-27] MEDS: iohexoL 350 MG/ML 100 ML INFUS..BTL 65 ML IV (00:49)
[2020-10-27 02:59] LABS: Venous Blood Gas Refer to POC result
[2020-10-27 03:01] LABS: VBG Base Excess 1.3 mmol/L; VBG HCO3 25 mmol/L (22-26); VBG pCO2 38 mmHg; VBG pH 7.42 (7.32-7.43); VBG pO2 41 mmHg
--- NOTE | 2020-10-27 03:03 | PC.NURSE ---
nurse to nurse report given to Asia AGRAWAL in ICU
--- NOTE | 2020-10-27 03:05 | PC.NURSE ---
this nurse spoke with RT regarding transporting pt to ICU, RT says per ICU PROCESS SUPERVISOR pt to be put on non-rebreather 15L/min for transport and to be reconnected to high-flow 02 upon arrival to ICU. This nurse awaiting RT to help transport pt.
--- NOTE | 2020-10-27 03:07 | PM.CCHP ---
History of Present Illness Date of Service: 10/27/20 Chief Complaint: Dyspnea This is a 70-year-old female with a past medical history of COPD (2 L at home ), sarcoidosis,? interstitial lung disease,? JOVANNY, congestive heart failure,? hypertension, and diabetes who presented to the emergency room with complaints of dyspnea.? She also reported fever, cough and shortness of breath x2 days.? On presentation to the emergency room patient was febrile? to 102.7 tachypneic,? tachycardic,? and hypoxic requiring high-flow. Laboratory data significant for WBC? 12.4,? D-Dimer 1875, Troponin 439.6 , BNP 464, lactic 2.4.? EKG: Sinus tachycardia Chest CTA:? 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 Arrhythmia CHF (congestive heart failure) Chronic respiratory failure Constipation COPD (chronic obstructive pulmonary disease) Diabetes History of adenomatous polyp of colon HTN (hypertension) Hx of flexible sigmoidoscopy ILD (interstitial lung disease) Leg edema Muscle spasm On anticoagulant therapy JOVANNY on CPAP Pre-op chest exam Sarcoidosis Family History Family History Other Diabetes Surgical History Surgical History H/O colonoscopy Hx of appendectomy Hx of section Hx of umbilical hernia repair Social History Social History Alcohol intake: never Patient Tobacco Use Status: Former Tobacco user Tobacco use type: Cigarette Years Smoked: 32 years Advance Directives: No Advance Directives Information Provided: Yes Meds Allergies Allergy/AdvReac Type Severity Reaction Status Date / Time albuterol [ALBUTEROL] Allergy Severe TACHYCARDIA Verified 10/10/20 15:13 Active Medications: Current Medications Generic Name Dose Route Start Last Admin Trade Name Freq PRN Reason Stop Dose Admin Furosemide 40 mg 10/27/20 02:55 Furosemide 40 Mg/4 Ml Vial IVPUSH 10/27/20 02:56 ONCE ONE Protocol Heparin Sodium (Porcine) 5,000 unit 10/27/20 03:00 Heparin Sodium,Porcine 5,000 Unit/Ml Vial SUBCUT Q8H [facility] Home Medications Medication Instructions Recorded Confirmed Last Taken Type CPAP Mask DX: G47.33 Sleep Apnea #1 ea 01/25/20 10/10/20 Unknown History ezetimibe 10 mg tablet (Zetia) 10 mg PO DAILY 01/25/20 10/10/20 Unknown History rosuvastatin 10 mg tablet 10 mg PO DAILY 01/25/20 10/10/20 Unknown History betamethasone dipropionate 0.05 % 1 appl TOPICAL DIRECTED 04/25/20 10/10/20 Unknown History topical ointment bisacodyl 5 mg tablet,delayed 5 mg PO BID PRN 04/25/20 10/10/20 Unknown History release clonazepam 1 mg tablet 1 mg PO BID PRN 04/25/20 10/10/20 Unknown History diltiazem HCl 240 mg 240 mg PO BID 04/25/20 10/10/20 Unknown History capsule,extended release 24 hr doxycycline hyclate 100 mg tablet 100 mg PO BID 04/25/20 10/10/20 Unknown History dulaglutide 1.5 mg/0.5 mL 1.5 mg SUBCUT QWEEK 04/25/20 10/10/20 Unknown History subcutaneous pen injector (Trulicity) duloxetine 60 mg capsule,delayed 60 mg PO DAILY 04/25/20 10/10/20 Unknown History release folic acid 1 mg tablet 1 mg PO DAILY 04/25/20 10/10/20 Unknown History furosemide 40 mg tablet 80 mg PO BID 04/25/20 10/10/20 Unknown History insulin aspart U-100 100 unit/mL 40 unit SUBCUT BIDAC 04/25/20 10/10/20 Unknown History (3 mL) subcutaneous pen (Novolog Flexpen U-100 Insulin aspart) insulin degludec 100 unit/mL (3 80 unit SUBCUT BEDTIME 04/25/20 10/10/20 Unknown History mL) subcutaneous pen (Tresiba FlexTouch U-100 insulin) ivabradine 5 mg tablet (Corlanor) 5 mg PO BID 04/25/20 10/10/20 Unknown History metoprolol tartrate 50 mg tablet 50 mg PO BID 04/25/20 10/10/20 Unknown History mometasone 0.1 % topical ointment 1 appl TOPICAL BID 04/25/20 10/10/20 Unknown History nortriptyline 25 mg capsule 25 mg PO DAILY 04/25/20 10/10/20 Unknown History potassium chloride 10 mEq 30 meq PO BIDAC 04/25/20 10/10/20 Unknown History capsule,extended release rivaroxaban 20 mg tablet (Xarelto) 20 mg PO DAILY 04/25/20 10/10/20 08/10/20 History sertraline 50 mg tablet 75 mg PO DAILY 04/25/20 10/10/20 Unknown History zolpidem 10 mg tablet 10 mg PO BEDTIME 04/25/20 10/10/20 Unknown History buprenorphine 5 mcg/hour weekly 1 patch TOPICAL QWEEK 06/22/20 10/10/20 Unknown History transdermal patch clopidogrel 75 mg tablet 75 mg PO DAILY 10/10/20 10/10/20 Unknown History fluticasone fur. 200 mcg-umeclid ea INHALATION DAILY 10/10/20 10/10/20 Unknown History 62.5 mcg-vilant 25 mcg inhalat.powder Physical Exam Vital Signs: Vital Signs: Last Vital Signs Temp 98.4 F 10/27/20 01:08 Pulse 104 H 10/27/20 01:08 Resp 19 10/27/20 01:08 BP 123/55 L 10/27/20 01:08 Pulse Ox 100 10/27/20 01:08 Body Mass Index 35.3 HEENT: PERRLA, EOMI.? External ears normal, hearing decreased.? Nose patent.? Mouth with moist mucous membranes. ?Neck: Supple, Full range of motion. ?Lungs: Scattered crackles on auscultation. ?Heart: Tachycardic, S1 S2 regular. No murmurs, rubs or gallops. ?Abdomen: Soft, positive bowel sounds.? No masses or tenderness. ?Extremities: Trace edema bilaterally, amp of right ring finger, amp great left toe. ?Skin: Warm and dry, no rash. ?Neuro: Alert and oriented x 3. Moves all extremities symmetrically. ?Psych: Normal mood and affect Results Labs CBC and Chem 7: 10/26/20 22:27 10/27/20 02:49 Labs: Laboratory Results - last 24 hr 10/26/20 10/26/20 10/26/20 22:26 22:26 22:27 MCV 89.8 MCH 29.4 MCHC 32.7 RDW 14.0 Plt Count 208 MPV 9.0 L Immature Gran % (Auto) 0.6 H Neut % (Auto) 84.2 H Lymph % (Auto) 5.3 L Pender % (Auto) 9.2 Eos % (Auto) 0.5 Baso % (Auto) 0.2 Lymph # (Auto) 0.7 L Pender # (Auto) 1.1 Eos # (Auto) 0.1 Baso # (Auto) 0.0 Abs Immat Gran (auto) 0.07 H Absolute Neuts (auto) 10.5 H Absolute Nucleated RBC 0.000 Nucleated RBC % (auto) 0.0 PT 13.2 H INR 1.2 H APTT 28.2 D-Dimer 1875 VBG pH VBG pCO2 VBG pO2 VBG HCO3 VBG O2 Saturation VBG Base Excess Anion Gap Estim Creat Clear Calc Estimated GFR Random Glucose Lactic Acid 2.4 H* Calcium Total Bilirubin Direct Bilirubin AST ALT Alkaline Phosphatase Troponin I High Sens B-Natriuretic Peptide Total Protein Albumin COVID-19 ([facility]) COVID-[employer] Com 10/26/20 10/26/20 10/26/20 22:27 22:27 22:27 MCV MCH MCHC RDW Plt Count MPV Immature Gran % (Auto) Neut % (Auto) Lymph % (Auto) Pender % (Auto) Eos % (Auto) Baso % (Auto) Lymph # (Auto) Pender # (Auto) Eos # (Auto) Baso # (Auto) Abs Immat Gran (auto) Absolute Neuts (auto) Absolute Nucleated RBC Nucleated RBC % (auto) PT INR APTT D-Dimer VBG pH VBG pCO2 VBG pO2 VBG HCO3 VBG O2 Saturation VBG Base Excess Anion Gap 18 Estim Creat Clear Calc 72.7 Estimated GFR > 60 Random Glucose 200 H D Lactic Acid Calcium 8.9 Total Bilirubin 0.8 Direct Bilirubin 0.5 AST 35 H D ALT 28 Alkaline Phosphatase 141 H Troponin I High Sens 439.6 H* D B-Natriuretic Peptide 464 H Total Protein 6.4 L Albumin 3.6 COVID-19 ([facility]) Negative COVID-19 Clin Com See Note 10/27/20 02:52 MCV MCH MCHC RDW Plt Count MPV Immature Gran % (Auto) Neut % (Auto) Lymph % (Auto) Pender % (Auto) Eos % (Auto) Baso % (Auto) Lymph # (Auto) Pender # (Auto) Eos # (Auto) Baso # (Auto) Abs Immat Gran (auto) Absolute Neuts (auto) Absolute Nucleated RBC Nucleated RBC % (auto) PT INR APTT D-Dimer VBG pH 7.42 VBG pCO2 38 VBG pO2 41 VBG HCO3 25 VBG O2 Saturation 61.0 VBG Base Excess 1.3 Anion Gap Estim Creat Clear Calc Estimated GFR Random Glucose Lactic Acid Calcium Total Bilirubin Direct Bilirubin AST ALT Alkaline Phosphatase Troponin I High Sens B-Natriuretic Peptide Total Protein Albumin COVID-19 ([facility]) COVID-19 Clin Com Imaging Radiologist's Impressions: Impressions Chest CTA 10/27/20 00:00 IMPRESSION: * No evidence of pulmonary embolism. * New bilateral geographic groundglass opacities complicate the patient's chronic interstitial lung disease creating a crazy paving appearance. This finding is nonspecific and can be seen in the setting of nonspecific interstitial pneumonitis,, atypical infections, pulmonary edema, pulmonary hemorrhage, and addition to the classic pulmonary alveolar proteinosis. * Mildly enlarged subcarinal lymph nodes likely reactive. VTE: negative Assessment and Plan (1) Acute respiratory failure with hypoxemia: Status: Acute This is a? 70-year-old with a significant past medical history of lung diseases? including COPD, sarcoidosis and interstitial lung disease? who was admitted with multifocal pneumonia and heart failure exacerbation Neuro:? No acute issues.?? Cardiac:?? ?Congestive heart failure exacerbation:? patient?s BNP elevated? as well as elevated troponin.? No changes in the EKG. Will give lasix. Repeat troponin to rule out NSTEMI vs demand ischemia elevated lactic:? likely related to? heart failure exacerbation.? There is no evidence of septic shock at this time ?Pulmonary:?? ?Acute hypoxic respiratory failure: She was tachypneic as well as hypoxic to the 70s in the emergency room ? Requiring high-flow. ? Her D-dimer was significantly elevated.? CTA negative for pulmonary embolism, but did show some significant bilateral? ground-glass opacities.? COVID testing was negative,? but due to? significant changes in the CT as well as patient presentation there is a high chance of false negative. will continue to have COVID isolation. Repeat covid testing at a later time.? Renal:? ? ? No acute issues??? Endo:? ? History of diabetes mellitus - Check POCS as protocol . GI: ? No acute issues ID:? multifocal pneumonia. Received Ceftriaxone and? azithromycin in ED. Will cont abx. Heme/Onc:? No acute issues. Psych:? No acute issues. Miscellaneous:? No acute issues. Prophylaxis: Heparin,? does not require? GI prophylaxis at this time Diet: ? diabetic diet ?Critical care time: x 60 minutes of critical care time? Case discussed with attending Dr Richardson (2) Atypical pneumonia: Status: Acute (3) Acute exacerbation of CHF (congestive heart failure): Status: Acute (4) Elevated troponin: Status: Acute (5) Wound, open, finger, complicated: Status: Acute (6) COPD (chronic obstructive pulmonary disease): Qualifiers: COPD type: chronic bronchitis Chronic bronchitis type: simple Qualified Code(s): J41.0 - Simple chronic bronchitis Status: Acute Critical Care Time Critical Care Time (minutes): 60
[2020-10-27 03:14] LABS: Appearance Urine HAZY; Color Urine AMBER; Glucose Urine UA 500 MG/DL (NEG); Leukocyte Esterase Urine NEG (NEG); Nitrite Urine NEG (NEG); UACC Culture Trigger NO; Urine Blood NEG (NEG); Urine Ketones 40 MG/DL (NEG); Urine Protein 2+ MG/DL (NEG-TRACE)
[2020-10-27 03:20] LABS: Amorphous Sediment Urine 1+ /LPF; Bacteria Urine 1+ /LPF; RBC Urine 0-2 /HPF (0); Squamous Epithelial Cell Urine 2+ /LPF; UACC CULT YES
[2020-10-27 03:25] LABS: Troponin-I High Sensitivity 597.8 ng/L (<3.5-17.0)
--- NOTE | 2020-10-27 03:30 | PC.NURSE ---
Troponin 597.8 HOSIERY KNITTER Asia paige ICU CUSTOMER RESPONSE REPRESENTATIVE Javy paige
[2020-10-27 03:32] LABS: Anion Gap 15 (12-20); Blood Urea Nitrogen 15 mg/dL (9-16); Calcium 8.1 mg/dL (8.4-10.2); Carbon Dioxide 31 mmol/L (22-29); Chloride 93 mmol/L (96-108); Creatinine Clr Calc Pharmacy 71.7; Estimated Glomerular Filt Rate > 60; Glucose Random 276 mg/dL (60-115); Magnesium 1.9 mg/dL (1.6-2.6); Phosphorus 3.6 mg/dL (2.7-4.5); Potassium 4.2 mmol/L (3.3-5.1); Sodium 135 mmol/L (135-145)
[2020-10-27] MEDS: Heparin Sodium,Porcine 5,000 UNIT/ML VIAL 5000 UNIT SUBCUT ×2 (04:08→10:58)
[2020-10-27] MEDS: Furosemide 40 MG/4 ML VIAL IVPUSH (04:09)
--- NOTE | 2020-10-27 08:25 | PHA.MEDREC ---
Pharmacy Consult ? Medication Reconciliation Pharmacy has completed the medication reconciliation. 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 She did not know how to contact her SECURITY SYSTEM TECHNICIAN. Patient was able to verify that she takes Trulicity, tresiba and novolog. Patient said to call her pharmacy for the rest of the medication. She does have a recent claim history for most of her medications. Sara Dennison, LaxmiD
--- NOTE | 2020-10-27 09:30 | MHC.IC ---
PATIENT ADMITTED WITH NEGATIVE COVID TEST, BUT CHEST IMAGING AND SYMPTOMS SUSPICIOUS FOR COVID. KEEP PATIENT ON [place] AND CONTACT PRECAUTIONS AT THIS TIME. MD WILL RE TEST IN NEAR FUTURE
--- NOTE | 2020-10-27 09:39 | P.CDIC_ITS ---
CDI Concurrent Query Service Date: 10/27/20 Documentation Clarification: Please clarify if you are treating a proba ble/suspected/likely or confirmed: Acute diastolic and/or systolic Congestive heart failure Acute on chronic diastolic and/or systolic Congestive heart failure Chronic diastolic and/or systolic Congestive heart failure Please specify if known, or undetermined Provider Response: Other Other Diagnosis: Acute on chronic diastolic congestive heart failure PLEASE DO NOT DELETE/MODIFY EXISTING CONTENT Additional information is needed in order to code to the highest accuracy and appropriate Severity of Illness (SOI). Please clarify the information noted below in your progress notes and discharge summary. Risk Factors/Clinical Indicators/Treatments Acute CHF BNP 464 H History of Congestive heart failure Home med: Furosemide 80 mg PO BID Oxygen, Ceftriaxone, Azithromycin, IV Furosemide CDS: Vanessa Marshall CCS, CDIS Contact Number: [phone] Please Review the information above and exercise your independent professional judgment in responding to the query. If you concur, pleas document in the PROGRESS NOTES and DISCHARGE SUMMARY. If you do not agree with the query, please document in the query above. THIS QUERY IS PART OF THE PERMANENT MEDICAL RECORD
--- NOTE | 2020-10-27 09:45 | CA_ITS ---
Transthoracic Echocardiogram Patient (Last, First, Middle): Leena Lundberg M Gender: Female Date of : 1950 Age: 70 Procedure Date: 10/27/2020 Procedure Type: Transthoracic Echocardiogram Location: ICU Height: 157.48 cm Weight: 88. kg BSA: 1.89 m2 Heart Rate: bpm BP: 112 / 49 mmHg Crane Hoist Or Lift Operator: DESMOND Referring MD: Ho Richardson MD Symptoms: hypoxia Study Quality: Fair Conclusions: - Normal left ventricular size and systolic function. There is mildly increased left ventricular wall thickness. - Normal right ventricular cavity size and systolic function. - Left atrium is mild to moderately dilated. The right atrium is mildly dilated. - There is mild aortic valve stenosis. - There is mean gradient across mitral valve of 12 mm Hg at a heart rate of 124 beats per minute. The gradient is exaggerated due to tachycardia and limited echo should be repeated to reassess for mitral stenosis as heart rate improves. - There is mild tricuspid valve regurgitation. - Moderate to severe pulmonary hypertension is present. Findings Left Ventricle Normal left ventricular size and systolic function. There is mildly increased left ventricular wall thickness. The visually estimated ejection fraction is between 65-70%. There is no evidence of regional wall motion abnormalities. Abnormal diastolic function is noted. Spectral Doppler is indicative of an impaired relaxation filling pattern. Filling pressures are indeterminate, Right Ventricle Normal right ventricular cavity size and systolic function. Atria Left atrium is mild to moderately dilated. The right atrium is mildly dilated. Aortic Valve There is mild calcification of the aortic valve. There is mild aortic valve stenosis. There is no aortic valve regurgitation. Mitral Valve There is no mitral valve regurgitation. There is moderate to severe mitral annular calcification present. There is mean gradient across mitral valve of 12 mm Hg at a heart rate of 124 beats per minute. The gradient is exaggerated due to tachycardia and limited echo should be repeated to reassess for mitral stenosis as heart rate improves. Pulmonic Valve The pulmonic valve is likely normal. Tricuspid Valve Normal tricuspid valve structure. There is mild tricuspid valve regurgitation. Normal right atrial pressure. Moderate to severe pulmonary hypertension is present. Great Vessels All visible segments of the aorta are normal in size. The visualized portions of the pulmonary artery and branches are normal. Venous The inferior vena cava is normal in size and collapses greater than 50% with inspiration. Pericardium/Pleural There is no evidence of pericardial effusion. Prior Study Comparison Changes noted compared to prior study dated: 04/05/2015. LA is dilated, RA is dilated. Moderate to severe pulmonary hypertension present. Mean gradient across MV of 12 at heart rate of 124 beats/min. Measurements 2D Linear Measurements IVSd: 0.92 0.6-0.9/0.6-1.0 cm LVIDd: 4.27 3.9-5.3/4.2-5.9 cm LVIDd Index: 2.26 2.4-3.2/2.2-3.1 cm/m2 LVIDs: 2.94 2.0-3.6 cm LVPWd: 0.96 0.7-1.1 cm Ao Root: 3.00 2.1-3.5 cm LA Diam: 4.00 2.7-3.8/3.0-4.0 cm LAIDs Index: 2.12 1.5-2.3 cm/m2 LV Mass: 161.65 67-162/88-224 g LV Mass Index: 85.53 43-95/49-115 g/m2 LVOT Diam: 2.00 3.0+(-)1.3 cm Mitral Valve MV VTI: 0.47 MV Pk Cristobal: 2.37 MV Mn Cristobal: 1.63 MV Pk Grad: 22.00 MV Mn Grad: 12.00 E'Lateral: 8.05 E'Medial: 7.40 PHT: 125.00 MVA PHT: 1.76 Decel [place]: 4.63 Aortic Valve AoV Pk Cristobal: 2.18 AoV Mn Cristobal: 1.39 AoV VTI: 0.29 AoV Pk Grad: 19.00 Aov Mn Grad: 10.00 HEATHER Cont.VTI: 2.49 LVOT LVOT Pk Cristobal: 1.48 LVOT Mn Cristobal: 0.99 LVOT VTI: 0.23 LVOT Pk Grad: 9.00 LVOT Mn Grad: 4.00 LVOT Diam: 2.00 LVOT Area: 3.14 Diastolic Function E'Medial: 7.40 E' Laterial: 8.05 Right Ventricle TAPSE (mm): 1.89 Tricuspid Valve TR Pk Cristobal: 3.52 TR Pk Grad: 50.00 RA Press: 8.00 RVSP: 58.00 Great Vessels Aorta Ao Root-2D: 3.00 2.0-3.7 cm Ao Asc: 2.90 2.1-3.4 cm Updated in Other Vendor System with Status of Final Tr Colon MD electronically signed on 10/27/2020 4:29:43 PM with status of Final
[2020-10-27] MEDS: methylPREDNISolone Sod Succ 125 MG/2 ML VIAL 60 MG IVPUSH ×3 (10:58→21:15)
[2020-10-27] MEDS: acetaZOLAMIDE sodium 500 MG VIAL 250 MG IVPUSH ×2 (10:58→21:12)
[2020-10-27] MEDS: Albumin Human 25 % 100 ML IV ×3 (11:02→21:13)
[2020-10-27 11:17] LABS: Glucose, Whole Blood 385 mg/dL (60-115)
[2020-10-27] MEDS: Clopidogrel Bisulfate 75 MG TABLET PO (12:19)
[2020-10-27] MEDS: dilTIAZem HCL CD 240 MG CAP.ER.DEG PO (12:19)
[2020-10-27] MEDS: Insulin Lispro 100 UNIT/ML 3 ML VIAL SUBCUT ×3 (12:21→21:14)
--- NOTE | 2020-10-27 15:25 | MHC.CM.PN ---
Pt admitted to ICU on NIPPV support d/t PNA. Pt is Maltese speaking only and states to contact her dtr/HCP Jess. Per Jess, pt resides alone and has LABORATORY MECHANICAL TECHNICIAN services through [facility] both am and pm. Pt has [employer] for O2 needs and family assists pt with transportation and any other need she may have. Pt has a walker, w/c and various adaptive eqt at home. [facility] also manages pt with RN CM visits and clinical oversight. HCP on file and verified with pt and Jess: IMM completed D/C PLAN: Home with existing supports - family to transport
[2020-10-27] MEDS: LORazepam 2 MG/ML VIAL 0.5 MG IVPUSH ×2 (18:03→21:13)
[2020-10-27] MEDS: Insulin Glargine,Hum.rec.anlog 100 UNIT/ML 10 ML VIAL 40 UNIT SUBCUT (18:04)
[2020-10-27 18:13] LABS: Glucose, Whole Blood 435 mg/dL (60-115)
[2020-10-27] MEDS: Rivaroxaban 20 MG TABLET PO (18:21)
[2020-10-27 20:23] LABS: Glucose, Whole Blood 448 mg/dL (60-115)
[2020-10-27] MEDS: cefTRIAXone sodium 1 GM in 0.9 % Sodium Chloride 50 ML IV (21:14)
[2020-10-27] MEDS: Azithromycin 500 MG in 0.9 % Sodium Chloride 250 ML 125 MG IV (21:14)
[2020-10-28] VITALS (32 sets, daily range): BP systolic 99–157; BP diastolic 35–108; PULSE 90–193; RESP 19–35; TEMP 36.1–37.3; O2SAT 87–100; BMI 34.4
--- NOTE | 2020-10-28 | ECG_ITS ---
Test Reason : CHEST PAIN Blood Pressure : / mmHG Vent. Rate : 097 BPM Atrial Rate : 097 BPM P-R Int : 130 ms QRS Dur : 102 ms QT Int : 374 ms P-R-T Axes : 010 -39 038 degrees QTc Int : 474 ms Normal sinus rhythm Left axis deviation Abnormal ECG When compared with ECG of 26-OCT-2020 21:52, ST no longer depressed in Lateral leads T wave inversion no longer evident in Lateral leads Referred By: Ho Richardson Electronically Signed By:Tr Colon
[2020-10-28 00:06] LABS: Influenza A PCR NEGATIVE (Negative); Influenza B PCR NEGATIVE (Negative); Resp Syncy Virus RNA Qual PCR NEGATIVE (Negative); SARS COV2 PCR INHOUSE NEGATIVE (Negative)
[2020-10-28] MEDS: methylPREDNISolone Sod Succ 125 MG/2 ML VIAL 60 MG IVPUSH ×4 (03:24→23:19)
[2020-10-28] MEDS: Albumin Human 25 % 100 ML IV (03:24)
--- NOTE | 2020-10-28 04:07 | PC.NURSE ---
Upon initial assessment at 2000- pt anxious, RR 30s, HR 110s, using accessory muscles. 0.5 mg IVP ativan x1 with some effect. Currently on HFNC, titrated to maintain SpO2 > 88%. MENCHACA using bedpan/BSC- tubbs catheter placed, [place]x [place] [address]- COVID swab done, results negative, precautions taken down. Otherwise, VSS, pt aware of plan of care, medicated per emar.
[2020-10-28 06:09] LABS: VBG Base Excess -2.1 mmol/L; VBG HCO3 23 mmol/L (22-26); VBG pCO2 44 mmHg; VBG pH 7.33 (7.32-7.43); VBG pO2 76 mmHg
[2020-10-28 06:21] LABS: Basophils Percent Auto 0.1 % (0-2); Hematocrit 31.1 % (37-47); Hemoglobin 9.9 g/dl (12.0-16.0); Imm Gran Abs Auto 0.06 X10*3/uL (0.00-0.03); Imm Gran Pct Auto 0.6 % (0.0-0.4); Lymphocytes Absolute Auto 0.4 X10*3/uL (1.2-4.9); Lymphocytes Percent Auto 3.6 % (20-40); MANUAL DIFF FLAG SCAN; Mean Corpuscular HGB Conc 31.8 g/dl (31.0-35.0); Mean Corpuscular Hemoglobin 29.6 pg (27.0-33.0); Mean Corpuscular Volume 92.8 fL (80-98); Mean Platelet Volume 9.4 fL (9.4-12.3); Monocytes Absolute Auto 0.4 X10*3/uL (0.1-1.2); Monocytes Percent Auto 4.2 % (2-11); Neutrophils Absolute Auto 8.9 X10*3/uL (2.0-8.3); Neutrophils Percent Auto 91.5 % (45-73); Platelet Count 184 X10*3/uL (160-400); Red Blood Count 3.35 X10*6/uL (4.20-5.50); Red Cell Distribution Width 14.1 % (11.0-16.0); SCAN SMEAR FLAG 1; White Blood Count 9.7 X10*3/uL (4.8-10.8)
[2020-10-28 06:22] LABS: Venous Blood Gas Refer to POC result
[2020-10-28 06:50] LABS: Alanine Aminotransferase 21 U/L (0-31); Albumin Level 4.2 g/dL (3.5-5.0); Alkaline Phosphatase 128 U/L (39-117); Anion Gap 24 (12-20); Aspartate Amino Transferase 30 U/L (5-31); Bilirubin Total 0.4 mg/dL (0.0-1.0); Blood Urea Nitrogen 23 mg/dL (9-16); Calcium 9.2 mg/dL (8.4-10.2); Carbon Dioxide 21 mmol/L (22-29); Chloride 95 mmol/L (96-108); Estimated Glomerular Filt Rate 58; Glucose Random 455 mg/dL (60-115); Magnesium 2.3 mg/dL (1.6-2.6); Phosphorus 4.2 mg/dL (2.7-4.5); Potassium 3.6 mmol/L (3.3-5.1); Sodium 136 mmol/L (135-145); Total Protein 6.6 g/dL (6.5-8.0)
[2020-10-28 06:52] LABS: SLIDE REVIEW VERIFIED
[2020-10-28] MEDS: Insulin Lispro 100 UNIT/ML 3 ML VIAL SUBCUT ×4 (07:09→21:07)
[2020-10-28] MEDS: acetaZOLAMIDE sodium 500 MG VIAL 250 MG IVPUSH ×2 (08:13→21:01)
[2020-10-28] MEDS: LORazepam 2 MG/ML VIAL 0.5 MG IVPUSH ×3 (08:14→23:19)
[2020-10-28] MEDS: dilTIAZem HCL CD 240 MG CAP.ER.DEG PO (08:14)
[2020-10-28] MEDS: Clopidogrel Bisulfate 75 MG TABLET PO (08:14)
[2020-10-28] MEDS: Metoprolol Tartrate 5 MG/5 ML VIAL IVPUSH ×2 (09:32→10:08)
[2020-10-28] MEDS: Insulin Glargine,Hum.rec.anlog 100 UNIT/ML 10 ML VIAL 60 UNIT SUBCUT (09:38)
[2020-10-28] MEDS: Potassium Chloride Packet 20 MEQ PACKET 60 MEQ PO (09:39)
[2020-10-28] MEDS: Metoprolol Succinate ER 100 MG TAB.ER.24H PO (10:16)
[2020-10-28] MEDS: Aspirin 325 MG TABLET PO (10:18)
[2020-10-28 12:01] LABS: Glucose, Whole Blood 340 mg/dL (60-115)
[2020-10-28] MEDS: Calcium Carbonate 750 MG TAB.CHEW 1500 MG PO (12:07)
--- NOTE | 2020-10-28 12:17 | PC.NURSE ---
Addendum entered by Tashia Moreno RN 10/28/20 14:12: at about 1310, pt began c/o more chest pain and a heaviness in her chest. MD aware, ordered fentanyl- given per EMAR, trop and ekg. Original Note: at 0924 pt Hr up to 170s-190s. MD aware, order for 5mg IV lopressor given with some effect. Pt was put on bed valencia per request, after turning, pt stated she had chest pain and felt like someone was sitting on my chest , HR 140s, pt desatting to mid 80s. Respiratory and MD to bed side, order for aspirin and 5mg IV lopressor given, respiratory increased High Flow increased to 60L, 100%. HR began trending down- now in 90s, pain gone and pt satting 92% and higher..
[2020-10-28] MEDS: fentaNYL citrate/PF 100 MCG/2 ML VIAL 50 MCG IVPUSH (13:13)
--- NOTE | 2020-10-28 15:28 | PM.CCPN ---
Subjective Subjective Date of Service: 10/28/20 Interval History: 70-year-old lady with underlying history of interstitial lung disease/pulmonary fibrosis, sarcoidosis, COPD, on supplemental oxygen 2 L, diastolic dysfunction, JOVANNY on CPAP admitted on 10/26/2020 with chronic dyspnea, particularly worse to days prior to admission, the time associated with fevers and nonproductive cough. On ER evaluation she was noted to be hypoxic requiring supplemental oxygen with high-flow nasal cannula, tachypneic, and febrile to 102.7. Her COVID test was negative. Her CT chest demonstrated acute pulmonary infiltrates on chronic interstitial lung disease. She has been started on empiric antibiotics and admitted to intensive care unit. Patient was initially isolated for the first 24 hours until her 2nd COVID test came back negative secondary to suspicion for initially false negative COVID test. Her 2D echocardiogram demonstrated no new wall motion changes or excessive intravascular fluid. She has been started on systemic glucocorticoids for concern for exacerbation of underlying interstitial lung disease. No events overnight. Critical Care Time (minutes): 45 Physical Exam Vital Signs: Vital Signs: Last Vital Signs Temp 98.8 F 10/28/20 15:00 Pulse 97 10/28/20 15:00 Resp 35 H 10/28/20 15:00 BP 139/64 10/28/20 15:00 Pulse Ox 95 10/28/20 15:00 Oxygen Flow Rate 40 10/27/20 02:27 Body Mass Index 34.4 Const: General: no acute distress, alert and awake Eyes: Sclerae: sclerae normal EOM: EOMs intact bilaterally Neck: Neck: Yes no lymphadenopathy, Yes trachea midline and Yes supple Resp: Effort & Inspection: normal respiratory effort and no respiratory distress Auscultation: crackles (Bilateral inspiratory) Cardio: Rate: regular rate Rhythm: regular rhythm Heart sounds: no gallops, no murmurs and no rubs GI: Palpation (GI): Soft to palpation and Other GI palpation findings present ( Nontender) Auscultation: normal bowel sounds Extrem: General: Yes no pedal edema, No clubbing and No cyanosis Objective Data Labs CBC & Chem 7: 10/28/20 05:59 10/28/20 05:59 Labs: Laboratory Results - last 24 hr 10/27/20 10/27/20 10/27/20 16:20 20:17 23:21 WBC RBC Hgb Hct MCV MCH MCHC RDW Plt Count MPV Immature Gran % (Auto) Neut % (Auto) Lymph % (Auto) [place] % (Auto) Eos % (Auto) Baso % (Auto) Lymph # (Auto) [place] # (Auto) Eos # (Auto) Baso # (Auto) Abs Immat Gran (auto) Absolute Neuts (auto) Absolute Nucleated RBC Nucleated RBC % (auto) Smear Tech's Comments VBG pH VBG pCO2 VBG pO2 VBG HCO3 VBG O2 Saturation VBG Base Excess Sodium Potassium Chloride Carbon Dioxide Anion Gap BUN Creatinine Estim Creat Clear Calc Estimated GFR POC Glucose 435 H* 448 H* Random Glucose Calcium Phosphorus Magnesium Total Bilirubin AST ALT Alkaline Phosphatase Total Protein Albumin Coronavirus (PCR) NEGATIVE Influenza Type A (PCR) NEGATIVE Influenza Type B (PCR) NEGATIVE RSV RNA Qual (PCR) NEGATIVE 10/28/20 10/28/20 10/28/20 05:59 05:59 06:00 WBC 9.7 RBC 3.35 L D Hgb 9.9 L D Hct 31.1 L MCV 92.8 MCH 29.6 MCHC 31.8 RDW 14.1 Plt Count 184 MPV 9.4 Immature Gran % (Auto) 0.6 H Neut % (Auto) 91.5 H Lymph % (Auto) 3.6 L [place] % (Auto) 4.2 Eos % (Auto) 0.0 Baso % (Auto) 0.1 Lymph # (Auto) 0.4 L [place] # (Auto) 0.4 Eos # (Auto) 0.0 Baso # (Auto) 0.0 Abs Immat Gran (auto) 0.06 H Absolute Neuts (auto) 8.9 H Absolute Nucleated RBC 0.000 Nucleated RBC % (auto) 0.0 Smear Tech's Comments VERIFIED VBG pH 7.33 VBG pCO2 44 VBG pO2 76 VBG HCO3 23 VBG O2 Saturation 92.0 VBG Base Excess -2.1 Sodium 136 Potassium 3.6 Chloride 95 L Carbon Dioxide 21 L Anion Gap 24 H BUN 23 H D Creatinine 0.96 Estim Creat Clear Calc 57.0 Estimated GFR 58 POC Glucose Random Glucose 455 H* Calcium 9.2 D Phosphorus 4.2 Magnesium 2.3 Total Bilirubin 0.4 AST 30 ALT 21 Alkaline Phosphatase 128 H Total Protein 6.6 Albumin 4.2 D Coronavirus (PCR) Influenza Type A (PCR) Influenza Type B (PCR) RSV RNA Qual (PCR) 10/28/20 11:55 WBC RBC Hgb Hct MCV MCH MCHC RDW Plt Count MPV Immature Gran % (Auto) Neut % (Auto) Lymph % (Auto) [place] % (Auto) Eos % (Auto) Baso % (Auto) Lymph # (Auto) [place] # (Auto) Eos # (Auto) Baso # (Auto) Abs Immat Gran (auto) Absolute Neuts (auto) Absolute Nucleated RBC Nucleated RBC % (auto) Smear Tech's Comments VBG pH VBG pCO2 VBG pO2 VBG HCO3 VBG O2 Saturation VBG Base Excess Sodium Potassium Chloride Carbon Dioxide Anion Gap BUN Creatinine Estim Creat Clear Calc Estimated GFR POC Glucose 340 H Random Glucose Calcium Phosphorus Magnesium Total Bilirubin AST ALT Alkaline Phosphatase Total Protein Albumin Coronavirus (PCR) Influenza Type A (PCR) Influenza Type B (PCR) RSV RNA Qual (PCR) Microbiology Microbiology Results: Microbiology 10/27/20 Unknown Urine clean catch - Urine hernandez top Urine Culture - Final 10/26/20 22:43 Blood - Venous Blood Culture - Preliminary No growth after 24 hours. 10/26/20 22:26 Blood - Venous Blood Culture - Preliminary No growth after 24 hours. Quality Stroke Does the patient have a stroke diagnosis?: No VTE Prior VTE?: No VTE Risk Level:: Medical - moderate - high VTE Device Contraindication: Treatment Not Indicated VTE Drug Contraindication: N/A - Med Ordered Progress Note: A&P Assessment and plan (1) Acute respiratory failure with hypoxemia: Status: Acute Assessment and Plan: Assessment: 70-year-old lady with underlying IPF, sarcoidosis, COPD, diastolic congestive heart failure, AFib, diabetes admitted with acute on chronic hypoxic respiratory failure Plan: Neuro: No acute issues. Cardiac: Underlying atrial fibrillation with [id number] ventricular response. Continue with Cardizem and metoprolol. Underlying diastolic dysfunction, 2D echocardiogram without evidence of ongoing acute exacerbation. Pulmonary: Acute on chronic hypoxic respiratory failure secondary to pneumonia and exacerbation of complex interaction of underlying COPD, sarcoidosis, and pulmonary fibrosis. Patient has been started on azithromycin and ceftriaxone for the pneumonia component and systemic glucocorticoids for exacerbation of underlying sarcoidosis/pulmonary fibrosis. It AP as a major component to the acuteness of her presentation is likely worsening pulmonary fibrosis. Continue to titrate off supplemental oxygen as tolerated. Renal: No acute issues. Endo: No acute issues. Underlying diabetes mellitus. GI: No acute issues. ID: Underlying community-acquired pneumonia, continue on azithromycin and ceftriaxone. Heme/Onc: No acute issues. Psych: No acute issues. Miscellaneous: No acute issues. Prophylaxis: Xarelto Diet: Regular Critical care time spent: 45 minutes (2) CHF (congestive heart failure): Status: Acute (3) Chronic respiratory failure: Status: Acute (4) COPD (chronic obstructive pulmonary disease): Status: Acute (5) Sarcoidosis: Status: Acute (6) ILD (interstitial lung disease): Status: Acute (7) Diabetes: Status: Acute (8) HTN (hypertension): Status: Acute (9) Afib: Status: Acute (10) Wound, open, finger, complicated: Status: Acute (11) Vascular insufficiency of extremity: Status: Acute
[2020-10-28 15:33] LABS: Troponin-I High Sensitivity 213.9 ng/L (<3.5-17.0)
[2020-10-28] MEDS: Rivaroxaban 20 MG TABLET PO (16:07)
[2020-10-28 16:21] LABS: Glucose, Whole Blood 423 mg/dL (60-115)
[2020-10-28 20:52] LABS: Glucose, Whole Blood 459 mg/dL (60-115)
[2020-10-28] MEDS: cefTRIAXone sodium 1 GM in 0.9 % Sodium Chloride 50 ML IV (21:03)
[2020-10-28] MEDS: Azithromycin 500 MG in 0.9 % Sodium Chloride 250 ML 125 MG IV (21:41)
[2020-10-28 23:30] LABS: Glucose, Whole Blood 367 mg/dL (60-115)
[2020-10-29] VITALS (31 sets, daily range): BP systolic 121–152; BP diastolic 49–70; PULSE 81–95; RESP 17–32; TEMP 36–37.1; O2SAT 90–99; BMI 34.9
[2020-10-29] MEDS: Insulin Glargine,Hum.rec.anlog 100 UNIT/ML 10 ML VIAL 10 UNIT SUBCUT (00:10)
--- NOTE | 2020-10-29 02:43 | PC.NURSE ---
Pt A&O X3. In bed with HOB up 30 degrees. Orthopnea noted. MENCHACA noted. Resp rate mid 20's-28. Pt was anxious and received ativan 0.5mg IV with good effect. POC 459 at HS. Pt received Lispro 20 units subq. POC repeated 2330 and was 367. Lantus insulin 10 units subq given as ordered.
[2020-10-29] MEDS: methylPREDNISolone Sod Succ 125 MG/2 ML VIAL 60 MG IVPUSH (05:13)
[2020-10-29 05:24] LABS: VBG HCO3 26 mmol/L (22-26); VBG pCO2 42 mmHg; VBG pH 7.39 (7.32-7.43); VBG pO2 72 mmHg
[2020-10-29 05:32] LABS: Venous Blood Gas Refer to POC result
[2020-10-29 05:46] LABS: Basophils Percent Auto 0.1 % (0-2); Hematocrit 31.7 % (37-47); Hemoglobin 10.2 g/dl (12.0-16.0); Imm Gran Abs Auto 0.05 X10*3/uL (0.00-0.03); Imm Gran Pct Auto 0.5 % (0.0-0.4); Lymphocytes Absolute Auto 0.3 X10*3/uL (1.2-4.9); Lymphocytes Percent Auto 3.3 % (20-40); MANUAL DIFF FLAG SCAN; Mean Corpuscular HGB Conc 32.2 g/dl (31.0-35.0); Mean Corpuscular Hemoglobin 29.7 pg (27.0-33.0); Mean Corpuscular Volume 92.2 fL (80-98); Mean Platelet Volume 9.7 fL (9.4-12.3); Monocytes Absolute Auto 0.5 X10*3/uL (0.1-1.2); Monocytes Percent Auto 4.6 % (2-11); Neutrophils Absolute Auto 9.4 X10*3/uL (2.0-8.3); Neutrophils Percent Auto 91.5 % (45-73); Platelet Count 215 X10*3/uL (160-400); Red Blood Count 3.44 X10*6/uL (4.20-5.50); SCAN SMEAR FLAG 1; White Blood Count 10.2 X10*3/uL (4.8-10.8)
[2020-10-29 06:11] LABS: SLIDE REVIEW VERIFIED
[2020-10-29 06:16] LABS: Albumin Level 3.8 g/dL (3.5-5.0); Anion Gap 19 (12-20); Blood Urea Nitrogen 36 mg/dL (9-16); Calcium 9.3 mg/dL (8.4-10.2); Carbon Dioxide 25 mmol/L (22-29); Chloride 100 mmol/L (96-108); Creatinine Clr Calc Pharmacy 68.2; Estimated Glomerular Filt Rate > 60; Glucose Random 389 mg/dL (60-115); Magnesium 2.5 mg/dL (1.6-2.6); Phosphorus 3.5 mg/dL (2.7-4.5); Potassium 3.6 mmol/L (3.3-5.1); Sodium 140 mmol/L (135-145)
[2020-10-29 07:24] LABS: Glucose, Whole Blood 362 mg/dL (60-115)
[2020-10-29] MEDS: Insulin Lispro 100 UNIT/ML 3 ML VIAL SUBCUT ×4 (07:48→21:07)
[2020-10-29] MEDS: Clopidogrel Bisulfate 75 MG TABLET PO (08:08)
[2020-10-29] MEDS: acetaZOLAMIDE sodium 500 MG VIAL 250 MG IVPUSH ×2 (08:08→21:00)
[2020-10-29] MEDS: dilTIAZem HCL CD 240 MG CAP.ER.DEG PO (08:08)
[2020-10-29] MEDS: Metoprolol Succinate ER 100 MG TAB.ER.24H PO (08:08)
[2020-10-29] MEDS: Insulin Glargine,Hum.rec.anlog 100 UNIT/ML 10 ML VIAL 60 UNIT SUBCUT (08:11)
--- NOTE | 2020-10-29 10:20 | P.PNCC_ITS ---
Subjective Subjective Date of Service: 10/29/20 Interval History: 70-year-old lady with underlying history of interstitial lung disease/pulmonary fibrosis, sarcoidosis, COPD, on supplemental oxygen 2 L, diastolic dysfunction, JOVANNY on CPAP admitted on 10/26/2020 with chronic dyspnea, particularly worse two days prior to admission. At that time associated with fevers and nonproductive cough. On ER evaluation she was noted to be hypoxic requiring supplemental oxygen with high-flow nasal cannula, tachypneic, and febrile to 102.7. Her COVID test was negative. Her CT chest demonstrated acute pulmonary infiltrates on chronic interstitial lung disease. She has been started on empiric antibiotics and admitted to intensive care unit. Patient was initially isolated for the first 24 hours until her 2nd COVID test came back negative secondary to suspicion for initially false negative COVID test. Her 2D echocardiogram demonstrated no new wall motion changes or excessive intravascular fluid. She has been started on systemic glucocorticoids for concern for exacerbation of underlying interstitial lung disease. No events overnight. Critical Care Time (minutes): 45 Physical Exam Vital Signs: Vital Signs: Last Vital Signs Temp 98.1 F 10/29/20 10:00 Pulse 85 10/29/20 10:00 Resp 24 H 10/29/20 10:00 BP 152/62 H 10/29/20 10:00 Pulse Ox 96 10/29/20 10:00 Oxygen Flow Rate 40 10/27/20 02:27 Body Mass Index 34.9 Const: General: no acute distress, alert and awake Eyes: Sclerae: sclerae normal EOM: EOMs intact bilaterally Neck: Neck: Yes no lymphadenopathy, Yes trachea midline and Yes supple Resp: Effort & Inspection: normal respiratory effort and no respiratory distress Auscultation: crackles (Bilateral inspiratory) Cardio: Rate: regular rate Rhythm: regular rhythm Heart sounds: no gallops, no murmurs and no rubs GI: Palpation (GI): Soft to palpation and Other GI palpation findings present ( Nontender) Auscultation: normal bowel sounds Extrem: General: Yes no pedal edema, No clubbing and No cyanosis Objective Data Labs CBC & Chem 7: 10/29/20 05:11 10/29/20 05:11 Labs: Laboratory Results - last 24 hr 10/28/20 10/28/20 10/28/20 11:55 14:14 16:16 WBC RBC Hgb Hct MCV MCH MCHC RDW Plt Count MPV Immature Gran % (Auto) Neut % (Auto) Lymph % (Auto) [place] % (Auto) Eos % (Auto) Baso % (Auto) Lymph # (Auto) [place] # (Auto) Eos # (Auto) Baso # (Auto) Abs Immat Gran (auto) Absolute Neuts (auto) Absolute Nucleated RBC Nucleated RBC % (auto) Smear Tech's Comments VBG pH VBG pCO2 VBG pO2 VBG HCO3 VBG O2 Saturation VBG Base Excess Sodium Potassium Chloride Carbon Dioxide Anion Gap BUN Creatinine Estim Creat Clear Calc Estimated GFR POC Glucose 340 H 423 H* Random Glucose Calcium Phosphorus Magnesium Troponin I High Sens 213.9 H* D Albumin 10/28/20 10/28/20 10/29/20 20:43 23:26 05:11 WBC 10.2 RBC 3.44 L Hgb 10.2 L Hct 31.7 L MCV 92.2 MCH 29.7 MCHC 32.2 RDW 14.0 Plt Count 215 MPV 9.7 Immature Gran % (Auto) 0.5 H Neut % (Auto) 91.5 H Lymph % (Auto) 3.3 L [place] % (Auto) 4.6 Eos % (Auto) 0.0 Baso % (Auto) 0.1 Lymph # (Auto) 0.3 L [place] # (Auto) 0.5 Eos # (Auto) 0.0 Baso # (Auto) 0.0 Abs Immat Gran (auto) 0.05 H Absolute Neuts (auto) 9.4 H Absolute Nucleated RBC 0.000 Nucleated RBC % (auto) 0.0 Smear Tech's Comments VERIFIED VBG pH VBG pCO2 VBG pO2 VBG HCO3 VBG O2 Saturation VBG Base Excess Sodium Potassium Chloride Carbon Dioxide Anion Gap BUN Creatinine Estim Creat Clear Calc Estimated GFR POC Glucose 459 H* 367 H* Random Glucose Calcium Phosphorus Magnesium Troponin I High Sens Albumin 10/29/20 10/29/20 10/29/20 05:11 05:15 07:18 WBC RBC Hgb Hct MCV MCH MCHC RDW Plt Count MPV Immature Gran % (Auto) Neut % (Auto) Lymph % (Auto) [place] % (Auto) Eos % (Auto) Baso % (Auto) Lymph # (Auto) [place] # (Auto) Eos # (Auto) Baso # (Auto) Abs Immat Gran (auto) Absolute Neuts (auto) Absolute Nucleated RBC Nucleated RBC % (auto) Smear Tech's Comments VBG pH 7.39 VBG pCO2 42 VBG pO2 72 VBG HCO3 26 VBG O2 Saturation 91.0 VBG Base Excess 1.0 Sodium 140 Potassium 3.6 Chloride 100 Carbon Dioxide 25 Anion Gap 19 BUN 36 H D Creatinine 0.79 Estim Creat Clear Calc 68.2 Estimated GFR > 60 POC Glucose 362 H* Random Glucose 389 H* Calcium 9.3 Phosphorus 3.5 Magnesium 2.5 Troponin I High Sens Albumin 3.8 Microbiology Microbiology Results: Microbiology 10/26/20 22:43 Blood - Venous Blood Culture - Preliminary No growth after 48 hours. 10/26/20 22:26 Blood - Venous Blood Culture - Preliminary No growth after 48 hours. 10/27/20 Unknown Urine clean catch - Urine hernandez top Urine Culture - Final Quality Stroke Does the patient have a stroke diagnosis?: No VTE Prior VTE?: No VTE Risk Level:: Medical - moderate - high VTE Device Contraindication: Treatment Not Indicated VTE Drug Contraindication: N/A - Med Ordered Progress Note: A&P Assessment and plan (1) Afib: Status: Acute Assessment and Plan: Assessment: 70-year-old lady with underlying IPF, sarcoidosis, COPD, diastolic congestive heart failure, AFib, diabetes admitted with acute on chronic hypoxic respiratory failure Plan: Neuro: No acute issues. Cardiac: Underlying atrial fibrillation with [id number] ventricular response. Continue with Cardizem and metoprolol. Underlying diastolic dysfunction, 2D echocardiogram without evidence of ongoing acute exacerbation. Pulmonary: Acute on chronic hypoxic respiratory failure secondary to pneumonia and exacerbation of complex interaction of underlying COPD, sarcoidosis, and pulmonary fibrosis. Patient has been started on azithromycin and ceftriaxone for the pneumonia component and systemic glucocorticoids for exacerbation of underlying sarcoidosis/pulmonary fibrosis soft hours poor response, with Solu- Medrol to 250 mg 4 times a day for the next 3 days. It appears that a major component to the acuteness of her presentation is worsening pulmonary fibrosis. Continue to titrate off supplemental oxygen as tolerated. Renal: No acute issues. Endo: No acute issues. Underlying diabetes mellitus. GI: No acute issues. ID: Underlying community-acquired pneumonia, continue on azithromycin and ceftriaxone for total of 7 days Heme/Onc: No acute issues. Psych: No acute issues. Miscellaneous: No acute issues. Prophylaxis: Xarelto Diet: Regular Critical care time spent: 45 minutes (2) HTN (hypertension): Status: Acute (3) Diabetes: Status: Acute (4) Acute respiratory failure with hypoxemia: Status: Acute (5) ILD (interstitial lung disease): Status: Acute (6) Chronic respiratory failure: Status: Acute (7) CHF (congestive heart failure): Status: Acute (8) Sarcoidosis: Status: Acute (9) Vascular insufficiency of extremity: Status: Acute (10) COPD (chronic obstructive pulmonary disease): Status: Acute
[2020-10-29 11:43] LABS: Glucose, Whole Blood 347 mg/dL (60-115)
[2020-10-29] MEDS: Acetaminophen 325 MG TABLET 650 MG PO (14:31)
[2020-10-29 16:36] LABS: Glucose, Whole Blood 304 mg/dL (60-115)
[2020-10-29] MEDS: Rivaroxaban 20 MG TABLET PO (17:02)
[2020-10-29] MEDS: cefTRIAXone sodium 1 GM in 0.9 % Sodium Chloride 50 ML IV (20:57)
[2020-10-29] MEDS: Insulin Glargine,Hum.rec.anlog 100 UNIT/ML 10 ML VIAL 40 UNIT SUBCUT (20:59)
[2020-10-29 21:03] LABS: Glucose, Whole Blood 353 mg/dL (60-115)
[2020-10-29] MEDS: Azithromycin 500 MG in 0.9 % Sodium Chloride 250 ML 125 MG IV (22:30)
[2020-10-29] MEDS: LORazepam 2 MG/ML VIAL 0.5 MG IVPUSH (23:16)
[2020-10-30] VITALS (32 sets, daily range): BP systolic 124–170; BP diastolic 33–94; PULSE 73–112; RESP 15–30; TEMP 36.2–37.1; O2SAT 90–100; BMI 33.8
[2020-10-30] MEDS: LORazepam 2 MG/ML VIAL 0.5 MG IVPUSH (01:53)
[2020-10-30 05:13] LABS: VBG Base Excess 3.6 mmol/L; VBG HCO3 28 mmol/L (22-26); VBG pCO2 41 mmHg; VBG pH 7.43 (7.32-7.43); VBG pO2 53 mmHg
[2020-10-30 05:19] LABS: Venous Blood Gas Refer to POC result
[2020-10-30 05:34] LABS: Hematocrit 31.9 % (37-47); Hemoglobin 10.2 g/dl (12.0-16.0); Imm Gran Abs Auto 0.06 X10*3/uL (0.00-0.03); Imm Gran Pct Auto 0.6 % (0.0-0.4); Lymphocytes Absolute Auto 0.4 X10*3/uL (1.2-4.9); MANUAL DIFF FLAG SCAN; Mean Corpuscular Hemoglobin 29.1 pg (27.0-33.0); Mean Corpuscular Volume 91.1 fL (80-98); Mean Platelet Volume 9.4 fL (9.4-12.3); Monocytes Absolute Auto 0.3 X10*3/uL (0.1-1.2); Monocytes Percent Auto 3.6 % (2-11); Neutrophils Absolute Auto 8.7 X10*3/uL (2.0-8.3); Neutrophils Percent Auto 91.8 % (45-73); Platelet Count 254 X10*3/uL (160-400); SCAN SMEAR FLAG 1; White Blood Count 9.5 X10*3/uL (4.8-10.8)
[2020-10-30 05:39] LABS: SLIDE REVIEW VERIFIED
[2020-10-30 06:00] LABS: Alanine Aminotransferase 114 U/L (0-31); Albumin Level 3.6 g/dL (3.5-5.0); Alkaline Phosphatase 279 U/L (39-117); Anion Gap 13 (12-20); Aspartate Amino Transferase 122 U/L (5-31); Bilirubin Total 0.3 mg/dL (0.0-1.0); Blood Urea Nitrogen 31 mg/dL (9-16); Calcium 8.9 mg/dL (8.4-10.2); Carbon Dioxide 28 mmol/L (22-29); Chloride 104 mmol/L (96-108); Creatinine Clr Calc Pharmacy 78.5; Estimated Glomerular Filt Rate > 60; Glucose Random 206 mg/dL (60-115); Magnesium 2.6 mg/dL (1.6-2.6); Phosphorus 3.5 mg/dL (2.7-4.5); Potassium 3.6 mmol/L (3.3-5.1); Sodium 141 mmol/L (135-145); Total Protein 6.2 g/dL (6.5-8.0)
[2020-10-30] MEDS: Acetaminophen 325 MG TABLET 650 MG PO ×2 (06:40→21:39)
[2020-10-30 07:40] LABS: Glucose, Whole Blood 193 mg/dL (60-115)
[2020-10-30] MEDS: Insulin Lispro 100 UNIT/ML 3 ML VIAL SUBCUT ×4 (07:45→21:43)
[2020-10-30] MEDS: Insulin Glargine,Hum.rec.anlog 100 UNIT/ML 10 ML VIAL 60 UNIT SUBCUT (10:09)
--- NOTE | 2020-10-30 10:41 | P.PNCC_ITS ---
Subjective Subjective Date of Service: 10/30/20 Interval History: ICU day 4 for acute hypoxic respiratory failure, IPF, COPD, sarcoidosis, community-acquired pneumonia. 70-year-old lady with underlying history of interstitial lung disease/pulmonary fibrosis, sarcoidosis, COPD, on supplemental oxygen 2 L, diastolic dysfunction, JOVANNY on CPAP admitted on 10/26/2020 with chronic dyspnea, particularly worse two days prior to admission. At that time associated with fevers and nonproductive c ough. On ER evaluation she was noted to be hypoxic requiring supplemental oxygen with high-flow nasal cannula, tachypneic, and febrile to 102.7. Her COVID test was negative. Her CT chest demonstrated acute pulmonary infiltrates on chronic interstitial lung disease. She has been started on empiric antibiotics and admitted to intensive care unit. Patient was initially isolated for the first 24 hours until her 2nd COVID test came back negative secondary to suspicion for initially false negative COVID test. Her 2D echocardiogram demonstrated no new wall motion changes or excessive intravascular fluid. She has been started on systemic glucocorticoids for concern for exacerbation of underlying interstitial lung disease. No events overnight. This a.m. with worsening lethargy, arousable. Critical Care Time (minutes): 45 Physical Exam Vital Signs: Vital Signs: Last Vital Signs Temp 97.5 F 10/30/20 10:00 Pulse 73 10/30/20 10:00 Resp 18 10/30/20 10:00 BP 125/54 L 10/30/20 10:00 Pulse Ox 92 10/30/20 10:00 Oxygen Flow Rate 40 10/27/20 02:27 Body Mass Index 33.8 Const: General: no acute distress and lethargic Orientation/consciousness: lethargic Eyes: Sclerae: sclerae normal EOM: EOMs intact bilaterally Neck: Neck: Yes no lymphadenopathy, Yes trachea midline and Yes supple Resp: Effort & Inspection: normal respiratory effort and no respiratory distress Auscultation: crackles (Inspiratory bilateral) Cardio: Rate: regular rate Rhythm: regular rhythm Heart sounds: no gallops, no murmurs and no rubs GI: Palpation (GI): Soft to palpation and Other GI palpation findings present ( Nontender) Auscultation: normal bowel sounds Extrem: General: Yes no pedal edema, No clubbing and No cyanosis Objective Data Labs CBC & Chem 7: 10/30/20 05:06 10/30/20 05:06 Labs: Laboratory Results - last 24 hr 10/29/20 10/29/20 10/29/20 11:35 16:30 20:57 WBC RBC Hgb Hct MCV MCH MCHC RDW Plt Count MPV Immature Gran % (Auto) Neut % (Auto) Lymph % (Auto) [place] % (Auto) Eos % (Auto) Baso % (Auto) Lymph # (Auto) [place] # (Auto) Eos # (Auto) Baso # (Auto) Abs Immat Gran (auto) Absolute Neuts (auto) Absolute Nucleated RBC Nucleated RBC % (auto) Smear Tech's Comments VBG pH VBG pCO2 VBG pO2 VBG HCO3 VBG O2 Saturation VBG Base Excess Sodium Potassium Chloride Carbon Dioxide Anion Gap BUN Creatinine Estim Creat Clear Calc Estimated GFR POC Glucose 347 H 304 H 353 H* Random Glucose Calcium Phosphorus Magnesium Total Bilirubin AST ALT Alkaline Phosphatase Total Protein Albumin 10/30/20 10/30/20 10/30/20 05:04 05:06 05:06 WBC 9.5 RBC 3.50 L Hgb 10.2 L Hct 31.9 L MCV 91.1 MCH 29.1 MCHC 32.0 RDW 14.0 Plt Count 254 MPV 9.4 Immature Gran % (Auto) 0.6 H Neut % (Auto) 91.8 H Lymph % (Auto) 4.0 L [place] % (Auto) 3.6 Eos % (Auto) 0.0 Baso % (Auto) 0.0 Lymph # (Auto) 0.4 L [place] # (Auto) 0.3 Eos # (Auto) 0.0 Baso # (Auto) 0.0 Abs Immat Gran (auto) 0.06 H Absolute Neuts (auto) 8.7 H Absolute Nucleated RBC 0.000 Nucleated RBC % (auto) 0.0 Smear Tech's Comments VERIFIED VBG pH 7.43 VBG pCO2 41 VBG pO2 53 VBG HCO3 28 H VBG O2 Saturation 79.0 VBG Base Excess 3.6 Sodium 141 Potassium 3.6 Chloride 104 Carbon Dioxide 28 Anion Gap 13 BUN 31 H Creatinine 0.68 Estim Creat Clear Calc 78.5 Estimated GFR > 60 POC Glucose Random Glucose 206 H D Calcium 8.9 Phosphorus 3.5 Magnesium 2.6 Total Bilirubin 0.3 AST 122 H ALT 114 H Alkaline Phosphatase 279 H D Total Protein 6.2 L Albumin 3.6 10/30/20 07:36 WBC RBC Hgb Hct MCV MCH MCHC RDW Plt Count MPV Immature Gran % (Auto) Neut % (Auto) Lymph % (Auto) [place] % (Auto) Eos % (Auto) Baso % (Auto) Lymph # (Auto) [place] # (Auto) Eos # (Auto) Baso # (Auto) Abs Immat Gran (auto) Absolute Neuts (auto) Absolute Nucleated RBC Nucleated RBC % (auto) Smear Tech's Comments VBG pH VBG pCO2 VBG pO2 VBG HCO3 VBG O2 Saturation VBG Base Excess Sodium Potassium Chloride Carbon Dioxide Anion Gap BUN Creatinine Estim Creat Clear Calc Estimated GFR POC Glucose 193 H Random Glucose Calcium Phosphorus Magnesium Total Bilirubin AST ALT Alkaline Phosphatase Total Protein Albumin Microbiology Microbiology Results: Microbiology 10/26/20 22:43 Blood - Venous Blood Culture - Preliminary No growth after 48 hours. 10/26/20 22:26 Blood - Venous Blood Culture - Preliminary No growth after 48 hours. 10/27/20 Unknown Urine clean catch - Urine hernandez top Urine Culture - Final Quality Stroke Does the patient have a stroke diagnosis?: No VTE Prior VTE?: No VTE Risk Level:: Medical - moderate - high VTE Device Contraindication: Treatment Not Indicated VTE Drug Contraindication: N/A - Med Ordered Progress Note: A&P Assessment and plan (1) Afib: Status: Acute Assessment and Plan: Assessment: 70-year-old lady with underlying IPF, sarcoidosis, COPD, diastolic congestive heart failure, AFib, diabetes admitted with acute on chronic hypoxic respiratory failure Plan: Neuro: Lethargy, may be related to high does Solu-Medrol. Will check ammonia level and CT head. Cardiac: Underlying atrial fibrillation with [id number] ventricular response. Continue with Cardizem and metoprolol. Underlying diastolic dysfunction, 2D echocardiogram without evidence of ongoing acute exacerbation. Pulmonary: Acute on chronic hypoxic respiratory failure secondary to pneumonia and exacerbation of complex interaction of underlying COPD, sarcoidosis, and pulmonary fibrosis. Patient has been started on azithromycin and ceftriaxone for the pneumonia component and systemic glucocorticoids for exacerbation of underlying sarcoidosis/pulmonary fibrosis suffer with poor response, Solu-Medrol increased to 250 mg 4 times a day now on day 2/3 days. It appears that a major component to the acuteness of her presentation is worsening pulmonary fibrosis. Continue to titrate off supplemental oxygen as tolerated. Renal: No acute issues. Endo: No acute issues. Underlying diabetes mellitus. GI: No acute issues. ID: Underlying community-acquired pneumonia, continue on azithromycin and ceftriaxone for total of 7 days. Procalcitonin ordered. Heme/Onc: No acute issues. Psych: No acute issues. Miscellaneous: No acute issues. Prophylaxis: Xarelto Diet: Regular Critical care time spent: 45 minutes (2) HTN (hypertension): Status: Acute (3) Diabetes: Status: Acute (4) Acute exacerbation of CHF (congestive heart failure): Status: Acute (5) Acute respiratory failure with hypoxemia: Status: Acute (6) Vascular insufficiency of extremity: Status: Acute (7) ILD (interstitial lung disease): Status: Acute (8) Sarcoidosis: Status: Acute
--- NOTE | 2020-10-30 11:04 | PC.NURSE ---
Addendum entered by Alejandro Lyle RN 10/30/20 11:49: Ammonia level 74, gave x1 suppository per MD. Will assess mental status and consider lactulose if able to take PO. Original Note: Pt lethargic this AM, opens eyes to voice for less than 5 sec, VSS, follows some commands and then falls back asleep. Able to squeeze my hands, weak, bilat. Pt has gag/cough. Pupills 2mm reactive to light. [address] for brain imaging, placed on CPAP, tolerated well. Back on highflow FiO2 70% 50L/min saO2 91%. Bed locked and in lowest position, call lara in reach.
[2020-10-30 11:08] LABS: Ammonia 74 umol/L (13-55)
[2020-10-30 11:30] LABS: Glucose, Whole Blood 199 mg/dL (60-115)
[2020-10-30] MEDS: Heparin Sodium,Porcine 5,000 UNIT/ML VIAL 5000 UNIT SUBCUT ×2 (14:09→21:40)
[2020-10-30] MEDS: hydrALAZINE HCl 20 MG/ML VIAL 10 MG IVPUSH (16:32)
[2020-10-30 16:48] LABS: Glucose, Whole Blood 256 mg/dL (60-115)
[2020-10-30 20:50] LABS: Glucose, Whole Blood 266 mg/dL (60-115)
[2020-10-30] MEDS: Calcium Carbonate 750 MG TAB.CHEW PO (21:38)
[2020-10-30] MEDS: Lactulose 20 GM/30 ML SOLUTION 30 GM PO (21:39)
[2020-10-30] MEDS: cefTRIAXone sodium 1 GM in 0.9 % Sodium Chloride 50 ML IV (21:40)
[2020-10-30] MEDS: Azithromycin 500 MG in 0.9 % Sodium Chloride 250 ML 125 MG IV (21:40)
[2020-10-30] MEDS: Insulin Glargine,Hum.rec.anlog 100 UNIT/ML 10 ML VIAL 40 UNIT SUBCUT (21:41)
--- NOTE | 2020-10-30 23:37 | PC.NURSE ---
Assumed care at 15:00. Patient was initially alert and oriented x4, became more lethargic through the late afternoon, but remained arousable to tactile stimuli; discussed with MD and continuing to monitor. Patient continues to be oriented x4 at close of shift, but is impulsive and repeatedly pulls off high flow system, oxygen sensor, as well as attempts to get OOB without assistance, but is redirectable, has telesitter in room, was re-oriented, educated to call for assistance and that she is currently on bed rest. Patient was noted to have a productive cough and coughed up amaral thick sputum, was encouraged to cough up sputum with good effect, and is protecting airway. Patient continues on high flow 70% and 50 LPM. Her Lung sounds have fine crackles throughtout to auscultation and are dim at bases. Discussed with RT and patient was provided with A [place] and education regarding use of device and its purpose, and patient demonstrated good technique. Patient SpO2 after pulmonary toileting exercises was 95-98% when she was not pulling off her high flow system. Patient with somewhat high blood pressures subsequent to the holding of her metoprolol earlier today. Her SBP was in the 160's for some time, and increased to 170 mmHg, and this was discussed with MD, and patient was given new order for apresoline PRN for SBP >160, administered once with good effect. Sinus rhythm to slow sinus tachycardia on monitor. Patient this evening with acidic reflux type pain in the upper middle abdomen, Discussed with [employer], and new order for tums, was given PRN tylenol and tums with good effect. Patient started Lactulose this evening for Ammonia of 74; was given education about purpose and importance of Lactulose, as she reports previous bad experience with it, and patient consented to take it mixed with gingerale. Prior to this, she has had three small BMs today on the bed [place]. good appetite, had two applesauces, ice cream, and 50% of dinner. [place] outputs about 30-50 cc/hour, totaled 850 ccs over 12 hours
[2020-10-31] VITALS (34 sets, daily range): BP systolic 121–178; BP diastolic 48–110; PULSE 82–128; RESP 14–37; TEMP 36.3–37.1; O2SAT 88–100; BMI 35.1
[2020-10-31 05:13] LABS: VBG Base Excess 4.4 mmol/L; VBG HCO3 27 mmol/L (22-26); VBG pCO2 35 mmHg; VBG pH 7.49 (7.32-7.43); VBG pO2 51 mmHg
[2020-10-31 05:21] LABS: Venous Blood Gas Refer to POC result
[2020-10-31 05:50] LABS: MANUAL DIFF FLAG NO
[2020-10-31 06:01] LABS: Basophils Percent Auto 0.1 % (0-2); Hematocrit 36.5 % (37-47); Hemoglobin 11.9 g/dl (12.0-16.0); Imm Gran Abs Auto 0.04 X10*3/uL (0.00-0.03); Imm Gran Pct Auto 0.4 % (0.0-0.4); Lymphocytes Absolute Auto 0.4 X10*3/uL (1.2-4.9); Lymphocytes Percent Auto 4.4 % (20-40); Mean Corpuscular HGB Conc 32.6 g/dl (31.0-35.0); Mean Corpuscular Hemoglobin 29.4 pg (27.0-33.0); Mean Corpuscular Volume 90.1 fL (80-98); Mean Platelet Volume 9.2 fL (9.4-12.3); Monocytes Absolute Auto 0.5 X10*3/uL (0.1-1.2); Monocytes Percent Auto 5.1 % (2-11); Neutrophils Absolute Auto 8.5 X10*3/uL (2.0-8.3); Platelet Count 299 X10*3/uL (160-400); Red Blood Count 4.05 X10*6/uL (4.20-5.50); Red Cell Distribution Width 13.7 % (11.0-16.0); White Blood Count 9.5 X10*3/uL (4.8-10.8)
[2020-10-31] MEDS: Heparin Sodium,Porcine 5,000 UNIT/ML VIAL 5000 UNIT SUBCUT ×3 (06:20→21:11)
[2020-10-31 06:32] LABS: Alanine Aminotransferase 108 U/L (0-31); Albumin Level 3.4 g/dL (3.5-5.0); Alkaline Phosphatase 271 U/L (39-117); Anion Gap 21 (12-20); Aspartate Amino Transferase 103 U/L (5-31); Bilirubin Total < 0.2 mg/dL (0.0-1.0); Blood Urea Nitrogen 25 mg/dL (9-16); Calcium 8.7 mg/dL (8.4-10.2); Carbon Dioxide 20 mmol/L (22-29); Chloride 105 mmol/L (96-108); Creatinine Clr Calc Pharmacy 78.8; Estimated Glomerular Filt Rate > 60; Glucose Random 126 mg/dL (60-115); Magnesium 2.7 mg/dL (1.6-2.6); Phosphorus 3.4 mg/dL (2.7-4.5); Potassium 4.6 mmol/L (3.3-5.1); Sodium 141 mmol/L (135-145); Total Protein 6.5 g/dL (6.5-8.0)
[2020-10-31 06:40] LABS: Procalcitonin 0.11 ng/mL
[2020-10-31 07:49] LABS: Glucose, Whole Blood 100 mg/dL (60-115)
[2020-10-31] MEDS: dilTIAZem HCL CD 240 MG CAP.ER.DEG PO (08:29)
[2020-10-31] MEDS: Insulin Glargine,Hum.rec.anlog 100 UNIT/ML 10 ML VIAL 60 UNIT SUBCUT (08:30)
[2020-10-31] MEDS: Metoprolol Succinate ER 100 MG TAB.ER.24H PO (08:30)
[2020-10-31] MEDS: Clopidogrel Bisulfate 75 MG TABLET PO (08:30)
[2020-10-31] MEDS: HYDROmorphone HCl 0.5 MG/0.5 ML SYRINGE IVPUSH (09:14)
--- NOTE | 2020-10-31 10:15 | P.PNCC_ITS ---
Subjective Subjective Date of Service: 10/31/20 Critical Care Time (minutes): 70 Comment: Mrs. Lundberg was admitted to ICU on October 27 with acute hypoxemic respiratory failure presumed secondary to exacerbation of interstitial lung disease, +/- community-acquired pneumonia. 70-year-old lady with underlying history of interstitial lung disease/pulmonary fibrosis, sarcoidosis, COPD, on supplemental oxygen 2 L, diastolic dysfunction, afib, DM, and JOVANNY on CPAP. The patient presented to the ED late on 10/26/2020 with two day h/o worsening chronic dyspnea, associated with fevers and nonproductive cough.? In the ED she febrile to 102.7, tachypneic, and hypoxemic requiring HFNC.? COVID RANDALL negative.? CTPA demonstrated severe diffuse ground glass pulmonary infiltrates, similar to but quantitatively worse than seen on her chest CT from 04/17/20.? The CT also showed right heart enlargement but no PE.? She was started on empiric ceftriaxone and Zithromax and steroids and admitted to ICU. She had a negative COVID PCR test on 10/27.? Echocardiogram on 10/27 showed normal LV size and systolic function, with mildly increased wall thickness, normal RV cavity size and function; mildly dilated left and right atria; mild , possible MS, mild TR, and normal IVC with > 50% insp collapse, with RVSP 58mm. FiO2 requirement shalom up to 90% on the HFNC.? Steroids were bumped up to 240 mg qid on 10/29 for a 3-day pulse.? She was lethargic yesterday, and an ammonia level was 74; she was started on lactulose. This morning she looks tired, but nontoxic.? She?s eating her breakfast with good manual dexterity.? WOB is mildly increased, aside from the RR.? HR is 90, SR.? BP 164/69.? On HFNC 40L/60%, RR was 26, Sat 100%.? CVBG this morning showed 7.49/35/+4.? With the FiO2 down to 50%, Sat was 95%.? When she took the HFNC off, Sat was 80% on room air.? She?s been afebrile her entire ICU course.? No JVD at 30-40?.? Chest is clear to auscultation, with normal expiratory phase.? Heart tones are soft, I heard no murmur or gallops.? Abdomen is benign.? She has no peripheral edema. LABORATORY DATA:? As below.? Notably, WBC normalized after admission.? Renal ratio has risen mildly.? POCs are in the 100s this morning.? Transaminases mildly elevated.? No ammonia level drawn this morning.? SARS-CoV-2 IgG is negative. IMPRESSION: 1. Severe bilateral diffuse acute ground-glass pulmonary infiltrates.? She seems to have responded well to the pulse steroids. ?Most likely represents an exacerbation of interstitial lung disease and/or sarcoid.? Cannot definitively rule out infectious pneumonia.? But if it was an infectious etiology, the patient would most certainly be much sicker, certainly intubated, PCT would be elevated, and given the extent of disease on the CT, if it was bacterial pneumonia, she would probably be .? So given that she?s had 5 days of ceftriaxone and Zithromax, those can be discontinued.? Cannot definitively rule out COVID from her clinical course alone, nor from the CT scan.? The two negative COVID tests are certainly suggestive that this is not COVID and the negative CZGA-[id number]-8 IgG done today could be early, given that her symptom onset day was approximately October 24.? I will repeat it on Nov 04. 2. Acute on chronic hypoxemic respiratory failure.? Secondary to above.? Rx with high-flow and opiates prn. 3. H/o CHF.? No current evidence of heart failure.? BNP was 464 on admission.? Recheck tomorrow. 4. Afib.? Currently on diltiazem and metoprolol.? Now in SR. 5. DM.? Hyperglycemia now controlled on bid Lantus and sliding scale. 6. YULIANA.? Could be a little dry, or could be mild cardiorenal syndrome.? Her right heart is definitely enlarged on the CTPA.? Check urine sodium. 7. Lethargy and hyperammonemia.? She?s had 8 BM?s since the lactulose started.? Hold today, repeat ammonia level tomorrow. 8. Nutrition.? Taking good po diet. Critical care time (including chart rev and hosp course summary):? 70+ min. Physical Exam Vital Signs: Vital Signs: Last Vital Signs Temp 98.8 F 10/31/20 10:00 Pulse 102 H 10/31/20 10:00 Resp 26 H 10/31/20 10:00 BP 138/49 L 10/31/20 10:00 Pulse Ox 93 10/31/20 10:00 Oxygen Flow Rate 40 10/27/20 02:27 Body Mass Index 35.1 Objective Data Labs CBC & Chem 7: 10/31/20 05:07 10/31/20 05:07 Labs: Laboratory Results - last 24 hr 10/30/20 10/30/20 10/30/20 10:49 11:21 16:41 WBC RBC Hgb Hct MCV MCH MCHC RDW Plt Count MPV Immature Gran % (Auto) Neut % (Auto) Lymph % (Auto) [place] % (Auto) Eos % (Auto) Baso % (Auto) Lymph # (Auto) [place] # (Auto) Eos # (Auto) Baso # (Auto) Abs Immat Gran (auto) Absolute Neuts (auto) Absolute Nucleated RBC Nucleated RBC % (auto) VBG pH VBG pCO2 VBG pO2 VBG HCO3 VBG O2 Saturation VBG Base Excess Sodium Potassium Chloride Carbon Dioxide Anion Gap BUN Creatinine Estim Creat Clear Calc Estimated GFR POC Glucose 199 H 256 H Random Glucose Calcium Phosphorus Magnesium Total Bilirubin AST ALT Alkaline Phosphatase Ammonia 74 H Total Protein Albumin Procalcitonin 10/30/20 10/31/20 10/31/20 20:47 05:05 05:07 WBC 9.5 RBC 4.05 L Hgb 11.9 L Hct 36.5 L MCV 90.1 MCH 29.4 MCHC 32.6 RDW 13.7 Plt Count 299 MPV 9.2 L Immature Gran % (Auto) 0.4 Neut % (Auto) 90.0 H Lymph % (Auto) 4.4 L [place] % (Auto) 5.1 Eos % (Auto) 0.0 Baso % (Auto) 0.1 Lymph # (Auto) 0.4 L [place] # (Auto) 0.5 Eos # (Auto) 0.0 Baso # (Auto) 0.0 Abs Immat Gran (auto) 0.04 H Absolute Neuts (auto) 8.5 H Absolute Nucleated RBC 0.000 Nucleated RBC % (auto) 0.0 VBG pH 7.49 H VBG pCO2 35 VBG pO2 51 VBG HCO3 27 H VBG O2 Saturation 80.0 VBG Base Excess 4.4 Sodium Potassium Chloride Carbon Dioxide Anion Gap BUN Creatinine Estim Creat Clear Calc Estimated GFR POC Glucose 266 H Random Glucose Calcium Phosphorus Magnesium Total Bilirubin AST ALT Alkaline Phosphatase Ammonia Total Protein Albumin Procalcitonin 10/31/20 10/31/20 10/31/20 05:07 05:07 07:33 WBC RBC Hgb Hct MCV MCH MCHC RDW Plt Count MPV Immature Gran % (Auto) Neut % (Auto) Lymph % (Auto) [place] % (Auto) Eos % (Auto) Baso % (Auto) Lymph # (Auto) [place] # (Auto) Eos # (Auto) Baso # (Auto) Abs Immat Gran (auto) Absolute Neuts (auto) Absolute Nucleated RBC Nucleated RBC % (auto) VBG pH VBG pCO2 VBG pO2 VBG HCO3 VBG O2 Saturation VBG Base Excess Sodium 141 Potassium 4.6 D Chloride 105 Carbon Dioxide 20 L Anion Gap 21 H BUN 25 H Creatinine 0.69 Estim Creat Clear Calc 78.8 Estimated GFR > 60 POC Glucose 100 Random Glucose 126 H D Calcium 8.7 Phosphorus 3.4 Magnesium 2.7 H Total Bilirubin < 0.2 AST 103 H ALT 108 H Alkaline Phosphatase 271 H Ammonia Total Protein 6.5 Albumin 3.4 L Procalcitonin 0.11 Microbiology Microbiology Results: Microbiology 10/26/20 22:43 Blood - Venous Blood Culture - Preliminary No growth after 48 hours. 10/26/20 22:26 Blood - Venous Blood Culture - Preliminary No growth after 48 hours. 10/27/20 Unknown Urine clean catch - Urine hernandez top Urine Culture - Final Quality Stroke Does the patient have a stroke diagnosis?: No VTE Prior VTE?: No VTE Risk Level:: Medical - moderate - high VTE Device Contraindication: Treatment Not Indicated VTE Drug Contraindication: N/A - Med Ordered Critical Care Time Critical Care Time (minutes): 60
[2020-10-31 10:40] LABS: SARS COV2 IgG Negative (Negative)
[2020-10-31 11:40] LABS: Glucose, Whole Blood 113 mg/dL (60-115)
[2020-10-31] MEDS: Lactated Ringers 1,000 ML 60 ML IVCONT (13:50)
--- NOTE | 2020-10-31 14:17 | MHC.CM.PN ---
Pt remains in ICU on high flow O2: Original d/c plan was for home with [employer], family support and existing [facility] for O2 needs. Pt may need aggressive respiratory management following hospital stay: CM to follow for changes to d/c plan.
--- NOTE | 2020-10-31 15:26 | PC.NURSE ---
Skin assessment completed on patient today. On admission patient had a diabetic ulcer on left great toe-grade 1- betadine applied to wound. 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 Did not heal well has dried incision site-betadine applied to wound. No other skin issues noted.
[2020-10-31 16:44] LABS: Glucose, Whole Blood 132 mg/dL (60-115)
[2020-10-31] MEDS: Acetaminophen 325 MG TABLET 650 MG PO (17:02)
--- NOTE | 2020-10-31 18:52 | PC.NURSE ---
Afebrile, VSS. Pt alert and oriented, stated she's tired, pt resting throughout day. Fine crackles bilateral lower lobes, high flow titrated flow to 40L, 45% Granado removed at 1330, pt voided in bedpan. SR on tele, heparin for DVT prophylaxis, Wound nurse to bedside- Left big toe diabetic ulcer, continue providine, Family updated at bedside.
[2020-10-31] MEDS: Calcium Carbonate 750 MG TAB.CHEW PO (20:24)
[2020-10-31] MEDS: Azithromycin 500 MG in 0.9 % Sodium Chloride 250 ML 125 MG IV (21:11)
[2020-10-31] MEDS: cefTRIAXone sodium 1 GM in 0.9 % Sodium Chloride 50 ML IV (21:11)
[2020-10-31] MEDS: Insulin Glargine,Hum.rec.anlog 100 UNIT/ML 10 ML VIAL 40 UNIT SUBCUT (21:11)
[2020-10-31] MEDS: Insulin Lispro 100 UNIT/ML 3 ML VIAL SUBCUT (21:12)
[2020-10-31 22:16] LABS: Glucose, Whole Blood 184 mg/dL (60-115)
[2020-10-31] MEDS: Morphine Sulfate 2 MG/ML CARTRIDGE IVPUSH (23:30)
[2020-11-01] VITALS (33 sets, daily range): BP systolic 122–171; BP diastolic 43–73; PULSE 83–110; RESP 18–32; TEMP 36.3–37.2; O2SAT 83–100
[2020-11-01] MEDS: HYDROmorphone HCl 0.5 MG/0.5 ML SYRINGE IVPUSH ×2 (02:02→20:06)
[2020-11-01 05:38] LABS: VBG HCO3 28 mmol/L (22-26); VBG pCO2 33 mmHg; VBG pH 7.54 (7.32-7.43); VBG pO2 47 mmHg
[2020-11-01 05:39] LABS: Venous Blood Gas Refer to POC result
[2020-11-01] MEDS: Heparin Sodium,Porcine 5,000 UNIT/ML VIAL 5000 UNIT SUBCUT ×3 (05:49→21:14)
[2020-11-01 06:03] LABS: Hematocrit 37.1 % (37-47); Hemoglobin 12.2 g/dl (12.0-16.0); Mean Corpuscular HGB Conc 32.9 g/dl (31.0-35.0); Mean Corpuscular Volume 88.1 fL (80-98); Mean Platelet Volume 9.3 fL (9.4-12.3); Platelet Count 344 X10*3/uL (160-400); Red Blood Count 4.21 X10*6/uL (4.20-5.50); Red Cell Distribution Width 13.6 % (11.0-16.0); White Blood Count 9.4 X10*3/uL (4.8-10.8)
[2020-11-01 06:15] LABS: Ammonia 46 umol/L (13-55)
[2020-11-01 06:27] LABS: B Type Natriuretic Peptide 675 pg/mL (<100)
[2020-11-01 06:35] LABS: Anion Gap 15 (12-20); Blood Urea Nitrogen 23 mg/dL (9-16); Calcium 8.4 mg/dL (8.4-10.2); Carbon Dioxide 26 mmol/L (22-29); Chloride 105 mmol/L (96-108); Creatinine Clr Calc Pharmacy 92.1; Estimated Glomerular Filt Rate > 60; Glucose Random 127 mg/dL (60-115); Magnesium 2.5 mg/dL (1.6-2.6); Potassium 3.4 mmol/L (3.3-5.1); Sodium 143 mmol/L (135-145)
[2020-11-01 07:19] LABS: Glucose, Whole Blood 110 mg/dL (60-115)
[2020-11-01] MEDS: Metoprolol Succinate ER 100 MG TAB.ER.24H PO (08:45)
[2020-11-01] MEDS: dilTIAZem HCL CD 240 MG CAP.ER.DEG PO (08:45)
[2020-11-01] MEDS: Insulin Glargine,Hum.rec.anlog 100 UNIT/ML 10 ML VIAL 60 UNIT SUBCUT (08:45)
[2020-11-01] MEDS: Fluticasone Propionate Nasal 16 GM SPRAY 1 SPRAY NOSTRIL-B ×2 (08:45→21:27)
[2020-11-01] MEDS: Clopidogrel Bisulfate 75 MG TABLET PO (08:45)
[2020-11-01 11:33] LABS: Glucose, Whole Blood 153 mg/dL (60-115)
[2020-11-01] MEDS: methylPREDNISolone Sod Succ 40 MG/ML VIAL IVPUSH ×2 (11:49→20:07)
[2020-11-01] MEDS: Insulin Lispro 100 UNIT/ML 3 ML VIAL SUBCUT ×3 (11:49→21:15)
--- NOTE | 2020-11-01 14:33 | PM.CCPN ---
Subjective Subjective Date of Service: 11/01/20 Critical Care Time (minutes): 0 Comment: Mrs. Lundberg was admitted to ICU on October 27 with acute hypoxemic respiratory failure presumed secondary to exacerbation of interstitial lung disease, +/- community-acquired pneumonia. 70-year-old lady with underlying history of interstitial lung disease/pulmonary fibrosis, sarcoidosis, COPD, on supplemental oxygen 2 L, diastolic dysfunction, afib, DM, and JOVANNY on CPAP. The patient presented to the ED late on 10/26/2020 with two day h/o worsening chronic dyspnea, associated with fevers and nonproductive cough.? In the ED she febrile to 102.7, tachypneic, and hypoxemic requiring HFNC.? COVID RANDALL negative.? CTPA demonstrated severe diffuse ground glass pulmonary infiltrates, similar to but quantitatively worse than seen on her chest CT from 04/17/20.? The CT also showed right heart enlargement but no PE.? She was started on empiric ceftriaxone and Zithromax and steroids and admitted to ICU. She had a negative COVID PCR test on 10/27.? Echocardiogram on 10/27 showed normal LV size and systolic function, with mildly increased wall thickness, normal RV cavity size and function; mildly dilated left and right atria; mild , possible MS, mild TR, and normal IVC with > 50% insp collapse, with RVSP 58mm. FiO2 requirement shalom up to 90% on the HFNC.? Steroids were bumped up to 240 mg qid on 10/29 for a 3-day pulse.? She was lethargic on 10/30, and an ammonia level was 74, so she was started on lactulose.? Yesterday, FiO2 got down as low as 40% for a few hours.? She got one dose of Dilaudid for work of breathing. Today she is OOB in the easy chair, looks much better, much more animated, asking to go home.? Breathing easy with RR low-mid 20?s on HFNC 45L/45%, with Sat 100%.? With the HFNC turned down to 40L/35%, Sat is 93%.? VBG HR is 90, SR.? BP 122/44.? VBG this morning showed 7.54/33/+6.? She?s been afebrile her entire ICU course.? No JVD at 30-40?.? Chest is clear to auscultation, with normal expiratory phase.? Regular rate and rhythm, normal-sounding S1 and S2, no murmur or gallops.? Abdomen is benign.? She has no peripheral edema. LABORATORY DATA:? As below.? Notably, WBC normalized after admission.? Renal indices down slightly.? Potassium is down to 3.4. ?POCs are in the 100s today.? ?Ammonia level is normal.? BNP is up to 675 (from 464 on admission). IMPRESSION: 1. Severe bilateral diffuse acute ground-glass pulmonary infiltrates.? She?s responded very well to the pulse steroids.? Most likely represents an exacerbation of interstitial lung disease and/or sarcoid.? Cannot definitively rule out infectious pneumonia, but if it was an infectious etiology, the patient would most certainly have been much sicker, certainly intubated, PCT would have been elevated, and given the extent of disease on the CT, if it was bacterial pneumonia, she would probably be .? Notwithstanding, she was given 5 days of ceftriaxone and Zithromax, those were discontinued yesterday.? Cannot definitively rule out COVID from her clinical course alone, nor from the CT scan.? The two negative COVID tests are certainly suggestive that this is not COVID, and the negative QPTY-UTLGR-8 IgG done yesterday could be early, given that her symptom onset day was approximately October 24.? I will repeat the COVID IgG on Nov 04. 2. Acute on chronic hypoxemic respiratory failure.? Secondary to above.? Rx with high-flow and opiates prn. 3. H/o CHF.? No current clinical evidence of heart failure.? But given that BNP is rising, I?ll give her a trial of Lasix.? Recheck BNP tomorrow. 4. Afib.? Currently on diltiazem and metoprolol.? Now in SR. 5. DM.? Hyperglycemia now controlled on bid Lantus and sliding scale. 6. YULIANA.? Increased renal ratio, probably mild cardiorenal syndrome.? Her right heart is definitely enlarged on the CTPA (in contrast to what the radiologist read). 7. Hypokalemia.? Replete. 8. Lethargy and hyperammonemia.? Resolved.? I?ll restart the Provigil she takes at home. 9. Nutrition.? Taking good po diet. Time: . Physical Exam Vital Signs: Vital Signs: Last Vital Signs Temp 98.5 F 11/01/20 12:00 Pulse 92 11/01/20 14:00 Resp 27 H 11/01/20 14:00 BP 143/70 H 11/01/20 14:00 Pulse Ox 100 11/01/20 14:00 Oxygen Flow Rate 40 10/27/20 02:27 Body Mass Index 35.1 Objective Data Labs CBC & Chem 7: 11/01/20 05:32 11/01/20 05:32 Labs: Laboratory Results - last 24 hr 10/31/20 10/31/20 10/31/20 13:31 16:41 20:40 WBC RBC Hgb Hct MCV MCH MCHC RDW Plt Count MPV Absolute Nucleated RBC Nucleated RBC % (auto) VBG pH VBG pCO2 VBG pO2 VBG HCO3 VBG O2 Saturation VBG Base Excess Sodium Potassium Chloride Carbon Dioxide Anion Gap BUN Creatinine Estim Creat Clear Calc Estimated GFR POC Glucose 132 H 184 H Random Glucose Calcium Phosphorus Magnesium Ammonia B-Natriuretic Peptide Ur Random Sodium 78.0 11/01/20 11/01/20 11/01/20 05:29 05:32 05:32 WBC 9.4 RBC 4.21 Hgb 12.2 Hct 37.1 MCV 88.1 MCH 29.0 MCHC 32.9 RDW 13.6 Plt Count 344 MPV 9.3 L Absolute Nucleated RBC 0.000 Nucleated RBC % (auto) 0.0 VBG pH 7.54 H VBG pCO2 33 VBG pO2 47 VBG HCO3 28 H VBG O2 Saturation 75.0 VBG Base Excess 6.0 Sodium Potassium Chloride Carbon Dioxide Anion Gap BUN Creatinine Estim Creat Clear Calc Estimated GFR POC Glucose Random Glucose Calcium Phosphorus Magnesium Ammonia 46 B-Natriuretic Peptide Ur Random Sodium 11/01/20 11/01/20 11/01/20 05:32 05:32 07:16 WBC RBC Hgb Hct MCV MCH MCHC RDW Plt Count MPV Absolute Nucleated RBC Nucleated RBC % (auto) VBG pH VBG pCO2 VBG pO2 VBG HCO3 VBG O2 Saturation VBG Base Excess Sodium 143 Potassium 3.4 D Chloride 105 Carbon Dioxide 26 Anion Gap 15 BUN 23 H Creatinine 0.59 Estim Creat Clear Calc 92.1 Estimated GFR > 60 POC Glucose 110 Random Glucose 127 H Calcium 8.4 Phosphorus 3.0 Magnesium 2.5 Ammonia B-Natriuretic Peptide 675 H Ur Random Sodium 11/01/20 11:29 WBC RBC Hgb Hct MCV MCH MCHC RDW Plt Count MPV Absolute Nucleated RBC Nucleated RBC % (auto) VBG pH VBG pCO2 VBG pO2 VBG HCO3 VBG O2 Saturation VBG Base Excess Sodium Potassium Chloride Carbon Dioxide Anion Gap BUN Creatinine Estim Creat Clear Calc Estimated GFR POC Glucose 153 H Random Glucose Calcium Phosphorus Magnesium Ammonia B-Natriuretic Peptide Ur Random Sodium Microbiology Microbiology Results: Microbiology 10/26/20 22:43 Blood - Venous Blood Culture - Final No growth after 5 days. 10/26/20 22:26 Blood - Venous Blood Culture - Final No growth after 5 days. 10/27/20 Unknown Urine clean catch - Urine hernandez top Urine Culture - Final Quality Stroke Does the patient have a stroke diagnosis?: No VTE Prior VTE?: No VTE Risk Level:: Medical - moderate - high VTE Device Contraindication: Treatment Not Indicated VTE Drug Contraindication: N/A - Med Ordered
[2020-11-01] MEDS: Calcium Carbonate 750 MG TAB.CHEW PO (14:38)
[2020-11-01] MEDS: LORazepam 0.5 MG TABLET PO (15:57)
--- NOTE | 2020-11-01 16:17 | MHC.CM.PN ---
Spoke with pt's granddtr Jess to update on pt progress and discuss potential changes to d/c plan: Jess continues to advocate and support a return to home with existing [employer]IC[employer] care and family support. Informed Jess that pt may need more assistance at home then prior to admission - Jess states this would not be an issue or barrier. CM to follow
[2020-11-01] MEDS: Omeprazole 40 MG CAPSULE.DR PO (16:19)
[2020-11-01 16:30] LABS: Glucose, Whole Blood 206 mg/dL (60-115)
[2020-11-01] MEDS: Furosemide 40 MG TABLET PO (16:30)
[2020-11-01] MEDS: Potassium Chloride Packet 20 MEQ PACKET 40 MEQ PO ×2 (16:30→20:08)
--- NOTE | 2020-11-01 17:30 | PC.NURSE ---
VSS, afebrile. Pt alert and oriented, anxious at time, prn ativan given with good effect. Satting 90%+, able to titrate highflow to 35%, 40L. Up to recliner- 2 assist and bedside commode, pt tolerates fairly, desatts but recovers well. SR-St on tele, tolerating meals. Some c/o heartburn- prilosec and tums given per emar. family updated bedside.
[2020-11-01 21:07] LABS: Glucose, Whole Blood 209 mg/dL (60-115)
[2020-11-01] MEDS: Insulin Glargine,Hum.rec.anlog 100 UNIT/ML 10 ML VIAL 40 UNIT SUBCUT (21:14)
[2020-11-02] VITALS (32 sets, daily range): BP systolic 123–164; BP diastolic 42–78; PULSE 87–109; RESP 15–28; TEMP 35.9–36.8; O2SAT 89–100; BMI 35.6
[2020-11-02] MEDS: Heparin Sodium,Porcine 5,000 UNIT/ML VIAL 5000 UNIT SUBCUT ×3 (05:41→21:26)
[2020-11-02] MEDS: Omeprazole 40 MG CAPSULE.DR PO (05:41)
[2020-11-02 05:48] LABS: VBG HCO3 30 mmol/L (22-26); VBG pCO2 35 mmHg; VBG pH 7.54 (7.32-7.43); VBG pO2 40 mmHg
[2020-11-02 05:49] LABS: MANUAL DIFF FLAG NO
[2020-11-02 05:53] LABS: Basophils Percent Auto 0.1 % (0-2); Eosinophils Absolute Auto 0.1 X10*3/uL (0.0-0.4); Eosinophils Percent Auto 0.5 % (0-4); Hematocrit 37.7 % (37-47); Hemoglobin 12.3 g/dl (12.0-16.0); Imm Gran Abs Auto 0.04 X10*3/uL (0.00-0.03); Imm Gran Pct Auto 0.3 % (0.0-0.4); Lymphocytes Percent Auto 7.7 % (20-40); Mean Corpuscular HGB Conc 32.6 g/dl (31.0-35.0); Mean Corpuscular Volume 88.9 fL (80-98); Mean Platelet Volume 9.1 fL (9.4-12.3); Monocytes Absolute Auto 1.1 X10*3/uL (0.1-1.2); Monocytes Percent Auto 8.4 % (2-11); Neutrophils Absolute Auto 10.6 X10*3/uL (2.0-8.3); Platelet Count 353 X10*3/uL (160-400); Red Blood Count 4.24 X10*6/uL (4.20-5.50); White Blood Count 12.8 X10*3/uL (4.8-10.8)
[2020-11-02 06:25] LABS: Alanine Aminotransferase 54 U/L (0-31); Albumin Level 3.3 g/dL (3.5-5.0); Alkaline Phosphatase 206 U/L (39-117); Anion Gap 10 (12-20); Aspartate Amino Transferase 21 U/L (5-31); Bilirubin Total 0.6 mg/dL (0.0-1.0); Blood Urea Nitrogen 23 mg/dL (9-16); Calcium 8.2 mg/dL (8.4-10.2); Carbon Dioxide 32 mmol/L (22-29); Chloride 106 mmol/L (96-108); Creatinine Clr Calc Pharmacy 92.8; Estimated Glomerular Filt Rate > 60; Glucose Random 80 mg/dL (60-115); Magnesium 2.3 mg/dL (1.6-2.6); Potassium 2.8 mmol/L (3.3-5.1); Sodium 145 mmol/L (135-145); Total Protein 5.4 g/dL (6.5-8.0)
[2020-11-02 07:30] LABS: Glucose, Whole Blood 59 mg/dL (60-115)
[2020-11-02 07:32] LABS: Venous Blood Gas Refer to POC result
[2020-11-02] MEDS: dilTIAZem HCL CD 240 MG CAP.ER.DEG PO (07:37)
[2020-11-02] MEDS: Metoprolol Succinate ER 100 MG TAB.ER.24H PO (07:37)
[2020-11-02] MEDS: Furosemide 40 MG TABLET PO ×2 (07:38→18:45)
[2020-11-02] MEDS: predniSONE 20 MG TABLET 80 MG PO (07:38)
[2020-11-02] MEDS: Clopidogrel Bisulfate 75 MG TABLET PO (07:38)
[2020-11-02] MEDS: modafiniL 100 MG TABLET 200 MG PO (07:38)
[2020-11-02] MEDS: Nortriptyline HCl 25 MG CAPSULE PO (07:39)
[2020-11-02 07:52] LABS: Glucose, Whole Blood 96 mg/dL (60-115)
--- NOTE | 2020-11-02 09:55 | MHC.CM.PN ---
Pt remains on hi flow in ICU: Per MD, it may not be possible for pt tolerate 'normal' O2 delivery amounts. This would be a barrier for a return to home as pt would not be able to have hi flow. Referrals made to [facility] centers with known RT services Will continue to follow
[2020-11-02] MEDS: Potassium Chloride Packet 20 MEQ PACKET 40 MEQ PO (09:56)
[2020-11-02 11:21] LABS: Glucose, Whole Blood 53 mg/dL (60-115)
[2020-11-02] MEDS: Dextrose 10 % 1,000 ML 50 ML IVCONT (11:33)
[2020-11-02 11:49] LABS: Glucose, Whole Blood 114 mg/dL (60-115)
[2020-11-02] MEDS: Fluticasone Propionate Nasal 16 GM SPRAY 1 SPRAY NOSTRIL-B ×2 (13:06→22:36)
[2020-11-02] MEDS: HYDROmorphone HCl 0.5 MG/0.5 ML SYRINGE IVPUSH ×2 (13:43→14:33)
--- NOTE | 2020-11-02 15:33 | P.PNCC_ITS ---
Subjective Subjective Date of Service: 11/02/20 Critical Care Time (minutes): 60 Comment: Mrs. Lundberg was admitted to ICU on October 27 with acute hypoxemic respiratory failure presumed secondary to exacerbation of interstitial lung disease, +/- community-acquired pneumonia. 70-year-old lady with underlying history of interstitial lung disease/pulmonary fibrosis, sarcoidosis, COPD, on supplemental oxygen 2 L, diastolic dysfunction, afib, DM, and JOVANNY on CPAP. The patient presented to the ED late on 10/26/2020 with two day h/o worsening chronic dyspnea, associated with fevers and nonproductive cough.? In the ED she febrile to 102.7, tachypneic, and hypoxemic requiring HFNC.? COVID RANDALL negative.? CTPA demonstrated severe diffuse ground glass pulmonary infiltrates, similar to but quantitatively worse than seen on her chest CT from 04/17/20.? The CT also showed right heart enlargement but no PE.? She was started on empiric ceftriaxone and Zithromax and steroids and admitted to ICU. She had a negative COVID PCR test on 10/27.? Echocardiogram on 10/27 showed normal LV size and systolic function, with mildly increased wall thickness, normal RV cavity size and function; mildly dilated left and right atria; mild , possible MS, mild TR, and normal IVC with > 50% insp collapse, with RVSP 58mm. FiO2 requirement shalom up to 90% on the HFNC.? Steroids were bumped up to 240 mg qid on 10/29 for a 3-day pulse.? Her oxygenation improved dramatically, and yesterday she got down to high-flow nasal cannula 40 L/35%. ?She got a few doses of lactulose for high ammonia level, which subsequently resolved. ?I started her yesterday on Lasix bec of the high BNP.? This morning, I started her back on the Provigil that she was taking at home. Today though she had severe MENCHACA, sat dropped to 60?s, and we were unable to get her OOB.? Her WOB is increased, RR is mid 20?s on HFNC 50L/50%, with Sat mid- 90?s. ?VBG this morning showed 7.54/35/+8.? Heart rate 100, blood pressure is 140/50. ?She?s been afebrile her entire ICU course.? No JVD at 30-40?.? Chest is clear to auscultation, with normal expiratory phase.? Regular rate and rhythm, normal-sounding S1 and S2, no murmur or gallops.? Abdomen is benign.? She has no peripheral edema. LABORATORY DATA:? As below.? Notably, WBC is bumped to 12.8 today.? Potassium dropped to 2.8.? BUN and creatinine stable 23/0.59.? POC down to 59. CXR today: ?Low lung volumes. ?Increased interstitial markings suggestive of interstitial lung disease. ?Overall prob unchanged from prior CXR of Apr 25. IMPRESSION: 1. Severe bilateral diffuse acute ground-glass pulmonary infiltrates.? She?s responded very well to the pulse steroids.? Most likely represents an exa cerbation of interstitial lung disease and/or sarcoid.? Cannot definitively rule out infectious pneumonia, but if it was an infectious etiology, the patient would have been much sicker, certainly intubated, PCT would have been elevated, and given the extent of disease on the CT, if it was bacterial pneumonia, she would probably be .? Notwithstanding, she was given 5 days of ceftriaxone and Zithromax, which were discontinued 10/31.? Cannot definitively rule out COVID from her clinical course alone, nor from the CT scan.? The two negative COVID tests are certainly suggestive that this is not COVID, and the negative [id number]-[id number]-7 IgG done yesterday could be early, given that her symptom onset day was approximately October 24.? I will repeat the COVID IgG on Nov 04. 2. Acute on chronic hypoxemic respiratory failure.? Secondary to above.? Rx with high-flow and opiates prn. 3. H/o CHF.? No current clinical evidence of heart failure.? But given that BNP is rising, she was started on a trial of Lasix.? Recheck BNP tomorrow. 4. Afib.? Currently on diltiazem and metoprolol.? Now in SR. 5. DM.? She is on a significant dose of Lantus.? Hypoglycemic today because not eating.? Had to start her on D10W. ?Holding her insulin today. ?Hypoglycemia should resolve by tomorrow. 6. YULIANA.? Increased renal ratio, probably mild cardiorenal syndrome.? Her right heart is definitely enlarged on the CTPA (in contrast to what the radiologist read). 7. Hypokalemia.? Replete. 8. Metabolic alkalosis.? Started Diamox. 9. Lethargy and hyperammonemia.? Resolved.? Restarted the Provigil that she takes at home. 10. ID.? Increased WBC today, but no fever.? No CVL or Granado.? New CXR is unrevealing. Recheck tomorrow. 11. Nutrition.? Taking po diet.? Little appetite today. Critical care time (w mult visits to the bedside): ?60+ min Physical Exam Vital Signs: Vital Signs: Last Vital Signs Temp 98.2 F 11/02/20 11:35 Pulse 106 H 11/02/20 14:48 Resp 25 H 11/02/20 15:21 BP 141/56 H 11/02/20 14:48 Pulse Ox 97 11/02/20 14:48 Oxygen Flow Rate 40 10/27/20 02:27 Body Mass Index 35.6 Objective Data Labs CBC & Chem 7: 11/02/20 05:42 11/02/20 05:42 Labs: Laboratory Results - last 24 hr 11/01/20 11/01/20 11/02/20 16:25 21:04 05:40 WBC RBC Hgb Hct MCV MCH MCHC RDW Plt Count MPV Immature Gran % (Auto) Neut % (Auto) Lymph % (Auto) [place] % (Auto) Eos % (Auto) Baso % (Auto) Lymph # (Auto) [place] # (Auto) Eos # (Auto) Baso # (Auto) Abs Immat Gran (auto) Absolute Neuts (auto) Absolute Nucleated RBC Nucleated RBC % (auto) VBG pH 7.54 H VBG pCO2 35 VBG pO2 40 VBG HCO3 30 H VBG O2 Saturation 65.0 VBG Base Excess 8.0 Sodium Potassium Chloride Carbon Dioxide Anion Gap BUN Creatinine Estim Creat Clear Calc Estimated GFR POC Glucose 206 H 209 H Random Glucose Calcium Magnesium Total Bilirubin AST ALT Alkaline Phosphatase Total Protein Albumin 11/02/20 11/02/20 11/02/20 05:42 05:42 07:21 WBC 12.8 H RBC 4.24 Hgb 12.3 Hct 37.7 MCV 88.9 MCH 29.0 MCHC 32.6 RDW 14.0 Plt Count 353 MPV 9.1 L Immature Gran % (Auto) 0.3 Neut % (Auto) 83.0 H Lymph % (Auto) 7.7 L [place] % (Auto) 8.4 Eos % (Auto) 0.5 Baso % (Auto) 0.1 Lymph # (Auto) 1.0 L [place] # (Auto) 1.1 Eos # (Auto) 0.1 Baso # (Auto) 0.0 Abs Immat Gran (auto) 0.04 H Absolute Neuts (auto) 10.6 H Absolute Nucleated RBC 0.000 Nucleated RBC % (auto) 0.0 VBG pH VBG pCO2 VBG pO2 VBG HCO3 VBG O2 Saturation VBG Base Excess Sodium 145 Potassium 2.8 L Chloride 106 Carbon Dioxide 32 H Anion Gap 10 L BUN 23 H Creatinine 0.59 Estim Creat Clear Calc 92.8 Estimated GFR > 60 POC Glucose 59 L* Random Glucose 80 D Calcium 8.2 L Magnesium 2.3 Total Bilirubin 0.6 AST 21 D ALT 54 H Alkaline Phosphatase 206 H D Total Protein 5.4 L Albumin 3.3 L 11/02/20 11/02/20 11/02/20 07:48 11:14 11:46 WBC RBC Hgb Hct MCV MCH MCHC RDW Plt Count MPV Immature Gran % (Auto) Neut % (Auto) Lymph % (Auto) [place] % (Auto) Eos % (Auto) Baso % (Auto) Lymph # (Auto) [place] # (Auto) Eos # (Auto) Baso # (Auto) Abs Immat Gran (auto) Absolute Neuts (auto) Absolute Nucleated RBC Nucleated RBC % (auto) VBG pH VBG pCO2 VBG pO2 VBG HCO3 VBG O2 Saturation VBG Base Excess Sodium Potassium Chloride Carbon Dioxide Anion Gap BUN Creatinine Estim Creat Clear Calc Estimated GFR POC Glucose 96 53 L* 114 Random Glucose Calcium Magnesium Total Bilirubin AST ALT Alkaline Phosphatase Total Protein Albumin Microbiology Microbiology Results: Microbiology 10/26/20 22:43 Blood - Venous Blood Culture - Final No growth after 5 days. 10/26/20 22:26 Blood - Venous Blood Culture - Final No growth after 5 days. 10/27/20 Unknown Urine clean catch - Urine hernandez top Urine Culture - Final Quality Stroke Does the patient have a stroke diagnosis?: No VTE Prior VTE?: No VTE Risk Level:: Medical - moderate - high VTE Device Contraindication: Treatment Not Indicated VTE Drug Contraindication: N/A - Med Ordered Critical Care Time Critical Care Time (minutes): 60
[2020-11-02] MEDS: acetaZOLAMIDE sodium 500 MG VIAL 250 MG IVPUSH ×2 (15:35→21:26)
[2020-11-02 16:16] LABS: Glucose, Whole Blood 215 mg/dL (60-115)
[2020-11-02 21:26] LABS: Glucose, Whole Blood 302 mg/dL (60-115)
[2020-11-02] MEDS: Insulin Lispro 100 UNIT/ML 3 ML VIAL SUBCUT (21:26)
[2020-11-02] MEDS: Insulin Glargine,Hum.rec.anlog 100 UNIT/ML 10 ML VIAL 20 UNIT SUBCUT (23:20)
[2020-11-03] VITALS (34 sets, daily range): BP systolic 89–148; BP diastolic 38–132; PULSE 85–131; RESP 17–28; TEMP 36.4–37.1; O2SAT 89–100; BMI 34.4
[2020-11-03] MEDS: HYDROmorphone HCl 0.5 MG/0.5 ML SYRINGE IVPUSH ×2 (02:44→09:13)
[2020-11-03 05:18] LABS: VBG Base Excess 2.6 mmol/L; VBG HCO3 26 mmol/L (22-26); VBG pCO2 37 mmHg; VBG pH 7.45 (7.32-7.43); VBG pO2 27 mmHg
[2020-11-03] MEDS: Omeprazole 40 MG CAPSULE.DR PO (05:21)
[2020-11-03] MEDS: Heparin Sodium,Porcine 5,000 UNIT/ML VIAL 5000 UNIT SUBCUT ×3 (05:21→22:02)
[2020-11-03 05:25] LABS: Venous Blood Gas Refer to POC result
[2020-11-03 05:39] LABS: MANUAL DIFF FLAG NO
[2020-11-03 05:47] LABS: Basophils Percent Auto 0.1 % (0-2); Eosinophils Percent Auto 8.4 % (0-4); Hematocrit 38.2 % (37-47); Hemoglobin 12.2 g/dl (12.0-16.0); Imm Gran Abs Auto 0.11 X10*3/uL (0.00-0.03); Imm Gran Pct Auto 0.9 % (0.0-0.4); Lymphocytes Absolute Auto 1.1 X10*3/uL (1.2-4.9); Lymphocytes Percent Auto 8.8 % (20-40); Mean Corpuscular HGB Conc 31.9 g/dl (31.0-35.0); Mean Platelet Volume 9.3 fL (9.4-12.3); Monocytes Absolute Auto 0.7 X10*3/uL (0.1-1.2); Monocytes Percent Auto 5.7 % (2-11); Neutrophils Absolute Auto 9.3 X10*3/uL (2.0-8.3); Neutrophils Percent Auto 76.1 % (45-73); Platelet Count 344 X10*3/uL (160-400); Red Cell Distribution Width 14.5 % (11.0-16.0); White Blood Count 12.3 X10*3/uL (4.8-10.8)
[2020-11-03 06:09] LABS: Alanine Aminotransferase 42 U/L (0-31); Albumin Level 3.4 g/dL (3.5-5.0); Alkaline Phosphatase 204 U/L (39-117); Anion Gap 11 (12-20); Aspartate Amino Transferase 18 U/L (5-31); Bilirubin Total 0.6 mg/dL (0.0-1.0); Blood Urea Nitrogen 19 mg/dL (9-16); Calcium 8.5 mg/dL (8.4-10.2); Carbon Dioxide 28 mmol/L (22-29); Chloride 107 mmol/L (96-108); Creatinine Clr Calc Pharmacy 79.1; Estimated Glomerular Filt Rate > 60; Glucose Random 91 mg/dL (60-115); Potassium 4.3 mmol/L (3.3-5.1); Sodium 142 mmol/L (135-145); Total Protein 5.7 g/dL (6.5-8.0)
[2020-11-03 06:10] LABS: B Type Natriuretic Peptide 370 pg/mL (<100)
[2020-11-03 07:24] LABS: Glucose, Whole Blood 62 mg/dL (60-115)
[2020-11-03 07:50] LABS: Glucose, Whole Blood 90 mg/dL (60-115)
--- NOTE | 2020-11-03 08:54 | MHC.CLN ---
F/U ADDED GLUCERNA BID R/T POOR PO INTAKE PER MD
[2020-11-03] MEDS: acetaZOLAMIDE sodium 500 MG VIAL 250 MG IVPUSH (09:10)
[2020-11-03] MEDS: Nortriptyline HCl 25 MG CAPSULE PO (09:11)
[2020-11-03] MEDS: predniSONE 20 MG TABLET 80 MG PO (09:12)
[2020-11-03] MEDS: modafiniL 100 MG TABLET 200 MG PO (09:25)
[2020-11-03] MEDS: Clopidogrel Bisulfate 75 MG TABLET PO (09:25)
[2020-11-03] MEDS: Furosemide 40 MG TABLET PO ×2 (10:19→16:50)
[2020-11-03 11:18] LABS: Glucose, Whole Blood 57 mg/dL (60-115)
[2020-11-03] MEDS: Dextrose 10 % 1,000 ML 50 ML IVCONT (11:30)
[2020-11-03 12:05] LABS: Glucose, Whole Blood 152 mg/dL (60-115)
[2020-11-03] MEDS: Metoprolol Succinate ER 100 MG TAB.ER.24H PO (12:38)
[2020-11-03] MEDS: bisacodyL 5 MG TABLET.DR 10 MG PO (12:45)
[2020-11-03] MEDS: dilTIAZem HCL CD 240 MG CAP.ER.DEG PO (15:56)
[2020-11-03 16:09] LABS: Glucose, Whole Blood 319 mg/dL (60-115)
[2020-11-03] MEDS: methylPREDNISolone Sod Succ 125 MG/2 ML VIAL 80 MG IVPUSH ×2 (16:37→22:01)
--- NOTE | 2020-11-03 16:49 | P.PNCC_ITS ---
Subjective Subjective Date of Service: 11/03/20 Critical Care Time (minutes): 60 Comment: Mrs. Lundberg was admitted to ICU on October 27 with acute hypoxemic respiratory failure presumed secondary to exacerbation of interstitial lung disease, +/- community-acquired pneumonia. 70-year-old lady with underlying history of interstitial lung disease/pulmonary fibrosis, sarcoidosis, COPD, on supplemental oxygen 2 L, diastolic dysfunction, afib, DM, and JOVANNY on CPAP. The patient presented to the ED late on 10/26/2020 with two day h/o worsening chronic dyspnea, associated with fevers and nonproductive cough.? In the ED she febrile to 102.7, tachypneic, and hypoxemic requiring HFNC.? COVID RANDALL negative.? CTPA demonstrated severe diffuse ground glass pulmonary infiltrates, similar to but quantitatively worse than seen on her chest CT from 04/17/20.? The CT also showed right heart enlargement but no PE.? She was started on empiric ceftriaxone and Zithromax and steroids and admitted to ICU. She had a negative COVID PCR test on 10/27.? Echocardiogram on 10/27 showed normal LV size and systolic function, with mildly increased wall thickness, normal RV cavity size and function; mildly dilated left and right atria; mild , possible MS, mild TR, and normal IVC with > 50% insp collapse, with RVSP 58mm. FiO2 requirement shalom up to 90% on the HFNC.? Steroids were bumped up to 240 mg qid on 10/29 for a 3-day pulse.? She was lethargic on 10/30, and an ammonia level was 74, so she was started on lactulose.? On 11/01, FiO2 got down as low as 40% for a few hours.? She was restarted on Lasix and on the Provigil she?s on at home.? The pulse steroid dose was ended, and yesterday we switched her to Prednisone 80 mg daily. Yesterday she was more SOB, cheryle with exertion, with Sat?s dropping into the 60?s.? FiO2 and High Flow rate had to be increased.? We were not able to get her OOB.? Today, she?s a little better.? We?re able to mobilize her and get her into the easy chair by pretreating with opiate and putting on the NRBFM on top of her HFNC.? She?s fully awake and more animated than yesterday.? WOB is mildly increased.? On HFNC 60L/50%, RR is 26, Sat is 95%. ?VBG this morning showed 7.45/37/+2. ?HR is 110, BP about 120/50.? She?s been afebrile her entire ICU course.? No JVD at 30-40?.? Chest is clear to auscultation, with normal expiratory phase.? Regular rate and rhythm, normal-sounding S1 and S2, no murmur or gallops.? Abdomen is benign.? She has no peripheral edema. Fluid balance net neg -1700 cc x 24 hrs. LABORATORY DATA:? As below.? Notably, WBC stable.? Renal indices down slightly.? POCs are fluctuating bec of changing steroid dosing.? BNP is down to 370. IMPRESSION: 1. Severe bilateral diffuse acute ground-glass pulmonary infiltrates. ?Most likely represents an exacerbation of interstitial lung disease and/or sarcoid.? She responded very well to the pulse steroids, but over the last two days has gotten worse.? I?m going to go back to Solumedrol 80 mg qid, and repeat her chest CT today. ??? Cannot definitively rule out infectious pneumonia, but if it was an infectious etiology, the patient would have been much sicker, certainly intubated, and PCT would have been elevated.? Notwithstanding, she was given 5 days of ceftriaxone and Zithromax, those were discontinued 11/01.? Cannot definitively rule out COVID from her clinical course alone, nor from the CT scan.? The two negative COVID tests are certainly suggestive that this is not COVID, and the negative [id number]-[id number] IgG done 11/01 could be early, given that her symptom onset day was approximately October 24.? I will repeat the COVID IgG tomorrow. 2. Acute on chronic hypoxemic respiratory failure.? Secondary to above.? Rx with high-flow and opiates prn. 3. H/o CHF.? No current clinical evidence of heart failure.? But given that her BNP was rising, we give her a trial of Lasix.? She?s on 40mg bid and responding nicely.? Recheck BNP daily. 4. Afib.? Currently on diltiazem and metoprolol.? Now in SR. 5. DM.? Hyperglycemia was controlled on bid Lantus and sliding scale.? But she became hypoglycemic when we cut the steroids.? Holding the Lantus for now.? D10W prn. 6. YULIANA.? Increased renal ratio, probably mild cardiorenal syndrome.? Her right heart is definitely enlarged on the CTPA (in contrast to what the radiologist read). 7. Hypokalemia.? Replete. 8. Lethargy and hyperammonemia.? Resolved.? The Provigil might be starting to make a difference. 9. Nutrition.? Taking reasonable po diet. Critical care time: ?60 min. Physical Exam Vital Signs: Vital Signs: Last Vital Signs Temp 98.7 F 11/03/20 16:00 Pulse 108 H 11/03/20 16:00 Resp 28 H 11/03/20 16:00 BP 104/41 L 11/03/20 16:00 Pulse Ox 95 11/03/20 16:00 Oxygen Flow Rate 40 10/27/20 02:27 Body Mass Index 34.4 Objective Data Labs CBC & Chem 7: 11/03/20 05:10 11/03/20 05:10 Labs: Laboratory Results - last 24 hr 11/02/20 11/03/20 11/03/20 21:14 05:09 05:10 WBC RBC Hgb Hct MCV MCH MCHC RDW Plt Count MPV Immature Gran % (Auto) Neut % (Auto) Lymph % (Auto) [place] % (Auto) Eos % (Auto) Baso % (Auto) Lymph # (Auto) [place] # (Auto) Eos # (Auto) Baso # (Auto) Abs Immat Gran (auto) Absolute Neuts (auto) Absolute Nucleated RBC Nucleated RBC % (auto) VBG pH 7.45 H VBG pCO2 37 VBG pO2 27 VBG HCO3 26 VBG O2 Saturation 34.0 VBG Base Excess 2.6 Sodium Potassium Chloride Carbon Dioxide Anion Gap BUN Creatinine Estim Creat Clear Calc Estimated GFR POC Glucose 302 H Random Glucose Calcium Total Bilirubin AST ALT Alkaline Phosphatase B-Natriuretic Peptide 370 H Total Protein Albumin 11/03/20 11/03/20 11/03/20 05:10 05:10 07:18 WBC 12.3 H RBC 4.20 Hgb 12.2 Hct 38.2 MCV 91.0 MCH 29.0 MCHC 31.9 RDW 14.5 Plt Count 344 MPV 9.3 L Immature Gran % (Auto) 0.9 H Neut % (Auto) 76.1 H Lymph % (Auto) 8.8 L [place] % (Auto) 5.7 Eos % (Auto) 8.4 H Baso % (Auto) 0.1 Lymph # (Auto) 1.1 L [place] # (Auto) 0.7 Eos # (Auto) 1.0 H Baso # (Auto) 0.0 Abs Immat Gran (auto) 0.11 H Absolute Neuts (auto) 9.3 H Absolute Nucleated RBC 0.000 Nucleated RBC % (auto) 0.0 VBG pH VBG pCO2 VBG pO2 VBG HCO3 VBG O2 Saturation VBG Base Excess Sodium 142 Potassium 4.3 D Chloride 107 Carbon Dioxide 28 Anion Gap 11 L BUN 19 H Creatinine 0.68 Estim Creat Clear Calc 79.1 Estimated GFR > 60 POC Glucose 62 Random Glucose 91 Calcium 8.5 Total Bilirubin 0.6 AST 18 ALT 42 H Alkaline Phosphatase 204 H B-Natriuretic Peptide Total Protein 5.7 L Albumin 3.4 L 11/03/20 11/03/20 11/03/20 07:47 11:08 12:02 WBC RBC Hgb Hct MCV MCH MCHC RDW Plt Count MPV Immature Gran % (Auto) Neut % (Auto) Lymph % (Auto) [place] % (Auto) Eos % (Auto) Baso % (Auto) Lymph # (Auto) [place] # (Auto) Eos # (Auto) Baso # (Auto) Abs Immat Gran (auto) Absolute Neuts (auto) Absolute Nucleated RBC Nucleated RBC % (auto) VBG pH VBG pCO2 VBG pO2 VBG HCO3 VBG O2 Saturation VBG Base Excess Sodium Potassium Chloride Carbon Dioxide Anion Gap BUN Creatinine Estim Creat Clear Calc Estimated GFR POC Glucose 90 57 L* 152 H Random Glucose Calcium Total Bilirubin AST ALT Alkaline Phosphatase B-Natriuretic Peptide Total Protein Albumin 11/03/20 16:03 WBC RBC Hgb Hct MCV MCH MCHC RDW Plt Count MPV Immature Gran % (Auto) Neut % (Auto) Lymph % (Auto) [place] % (Auto) Eos % (Auto) Baso % (Auto) Lymph # (Auto) [place] # (Auto) Eos # (Auto) Baso # (Auto) Abs Immat Gran (auto) Absolute Neuts (auto) Absolute Nucleated RBC Nucleated RBC % (auto) VBG pH VBG pCO2 VBG pO2 VBG HCO3 VBG O2 Saturation VBG Base Excess Sodium Potassium Chloride Carbon Dioxide Anion Gap BUN Creatinine Estim Creat Clear Calc Estimated GFR POC Glucose 319 H Random Glucose Calcium Total Bilirubin AST ALT Alkaline Phosphatase B-Natriuretic Peptide Total Protein Albumin Microbiology Microbiology Results: Microbiology 10/26/20 22:43 Blood - Venous Blood Culture - Final No growth after 5 days. 10/26/20 22:26 Blood - Venous Blood Culture - Final No growth after 5 days. 10/27/20 Unknown Urine clean catch - Urine hernandez top Urine Culture - Final Quality Stroke Does the patient have a stroke diagnosis?: No VTE Prior VTE?: No VTE Risk Level:: Medical - moderate - high VTE Device Contraindication: Treatment Not Indicated VTE Drug Contraindication: N/A - Med Ordered Critical Care Time Critical Care Time (minutes): 60
[2020-11-03] MEDS: HYDROmorphone HCl 1 MG/ML SYRINGE IVPUSH ×2 (16:50→22:01)
[2020-11-03 18:16] LABS: Glucose, Whole Blood 362 mg/dL (60-115)
[2020-11-03 18:16] LABS: Hematocrit 38.6 % (37-47); Hemoglobin 12.4 g/dl (12.0-16.0); Mean Corpuscular HGB Conc 32.1 g/dl (31.0-35.0); Mean Corpuscular Hemoglobin 29.3 pg (27.0-33.0); Mean Corpuscular Volume 91.3 fL (80-98); Mean Platelet Volume 9.4 fL (9.4-12.3); Platelet Count 320 X10*3/uL (160-400); Red Blood Count 4.23 X10*6/uL (4.20-5.50); Red Cell Distribution Width 14.6 % (11.0-16.0); White Blood Count 11.6 X10*3/uL (4.8-10.8)
[2020-11-03] MEDS: Insulin Lispro 100 UNIT/ML 3 ML VIAL SUBCUT ×2 (18:20→19:57)
[2020-11-03] MEDS: Fluticasone Propionate Nasal 16 GM SPRAY 1 SPRAY NOSTRIL-B (19:57)
[2020-11-03] MEDS: LORazepam 0.5 MG TABLET PO (19:58)
[2020-11-03] MEDS: Melatonin 3 MG TABLET 6 MG PO (20:07)
[2020-11-03] MEDS: Insulin Glargine,Hum.rec.anlog 100 UNIT/ML 10 ML VIAL 20 UNIT SUBCUT (20:08)
[2020-11-03 21:32] LABS: Glucose, Whole Blood 404 mg/dL (60-115)
[2020-11-04] VITALS (32 sets, daily range): BP systolic 97–146; BP diastolic 39–98; PULSE 80–108; RESP 13–30; TEMP 36.3–37.1; O2SAT 86–100
[2020-11-04 05:17] LABS: VBG Base Excess -0.3 mmol/L; VBG HCO3 24 mmol/L (22-26); VBG pCO2 38 mmHg; VBG pO2 34 mmHg
[2020-11-04] MEDS: Heparin Sodium,Porcine 5,000 UNIT/ML VIAL 5000 UNIT SUBCUT ×2 (05:19→21:46)
[2020-11-04] MEDS: Omeprazole 40 MG CAPSULE.DR PO (05:19)
[2020-11-04] MEDS: methylPREDNISolone Sod Succ 125 MG/2 ML VIAL 80 MG IVPUSH ×4 (05:19→22:15)
[2020-11-04 05:36] LABS: Basophils Percent Auto 0.1 % (0-2); Hematocrit 38.2 % (37-47); Hemoglobin 12.1 g/dl (12.0-16.0); Imm Gran Abs Auto 0.08 X10*3/uL (0.00-0.03); Imm Gran Pct Auto 0.7 % (0.0-0.4); Lymphocytes Absolute Auto 0.4 X10*3/uL (1.2-4.9); Lymphocytes Percent Auto 3.4 % (20-40); MANUAL DIFF FLAG SCAN; Mean Corpuscular HGB Conc 31.7 g/dl (31.0-35.0); Mean Corpuscular Hemoglobin 29.2 pg (27.0-33.0); Mean Corpuscular Volume 92.3 fL (80-98); Mean Platelet Volume 9.5 fL (9.4-12.3); Monocytes Absolute Auto 0.3 X10*3/uL (0.1-1.2); Monocytes Percent Auto 2.8 % (2-11); Neutrophils Absolute Auto 10.5 X10*3/uL (2.0-8.3); Platelet Count 353 X10*3/uL (160-400); Red Blood Count 4.14 X10*6/uL (4.20-5.50); Red Cell Distribution Width 14.4 % (11.0-16.0); SCAN SMEAR FLAG 1; White Blood Count 11.3 X10*3/uL (4.8-10.8)
[2020-11-04 05:38] LABS: Venous Blood Gas Refer to POC result
[2020-11-04 05:48] LABS: INTERNATIONAL NORM RATIO 1.1 (0.9-1.1); Prothrombin Time 12.3 SEC (9.9-13.0)
[2020-11-04 05:57] LABS: Alanine Aminotransferase 44 U/L (0-31); Albumin Level 3.2 g/dL (3.5-5.0); Alkaline Phosphatase 233 U/L (39-117); Anion Gap 15 (12-20); Aspartate Amino Transferase 18 U/L (5-31); Bilirubin Total 0.5 mg/dL (0.0-1.0); Blood Urea Nitrogen 29 mg/dL (9-16); Calcium 8.4 mg/dL (8.4-10.2); Carbon Dioxide 24 mmol/L (22-29); Chloride 105 mmol/L (96-108); Creatinine Clr Calc Pharmacy 72.7; Estimated Glomerular Filt Rate > 60; Glucose Random 289 mg/dL (60-115); Magnesium 2.5 mg/dL (1.6-2.6); Potassium 5.2 mmol/L (3.3-5.1); Sodium 139 mmol/L (135-145); Total Protein 5.7 g/dL (6.5-8.0)
[2020-11-04 05:58] LABS: SLIDE REVIEW VERIFIED
[2020-11-04 06:01] LABS: B Type Natriuretic Peptide 482 pg/mL (<100)
[2020-11-04 06:14] LABS: SARS COV2 IgG Negative (Negative)
[2020-11-04 07:47] LABS: Glucose, Whole Blood 279 mg/dL (60-115)
[2020-11-04 07:50] LABS: Glucose, Whole Blood 263 mg/dL (60-115)
[2020-11-04] MEDS: Insulin Lispro 100 UNIT/ML 3 ML VIAL SUBCUT ×4 (08:19→20:21)
[2020-11-04] MEDS: Insulin Glargine,Hum.rec.anlog 100 UNIT/ML 10 ML VIAL 20 UNIT SUBCUT ×2 (08:20→20:21)
[2020-11-04] MEDS: Metoprolol Succinate ER 100 MG TAB.ER.24H PO (08:21)
[2020-11-04] MEDS: dilTIAZem HCL CD 240 MG CAP.ER.DEG PO (08:21)
[2020-11-04] MEDS: Clopidogrel Bisulfate 75 MG TABLET PO (08:21)
[2020-11-04] MEDS: Nortriptyline HCl 25 MG CAPSULE PO (08:21)
[2020-11-04] MEDS: Furosemide 40 MG TABLET PO (08:22)
[2020-11-04] MEDS: Fluticasone Propionate Nasal 16 GM SPRAY 1 SPRAY NOSTRIL-B ×2 (08:26→20:22)
--- NOTE | 2020-11-04 10:00 | MHC.CM.PN ---
Pt remains in ICU on hi flow O2 d/t ILD and PNA. CT of chest on 11/03 shows worsening appearance. Covid negative x 3. unsure if pt's worsening status is d/t end stage ILD or other etiology - states a goals of care meeting with family should occur. Pt's d/c plan was for a return to home with extensive existing services vs STR. Will awaiting findings from family meeting. Pt may be a Hospice candidate. Of note, pt was NOT vaccinated for COVID 19.
[2020-11-04] MEDS: modafiniL 100 MG TABLET 200 MG PO (10:34)
[2020-11-04 11:18] LABS: Glucose, Whole Blood 433 mg/dL (60-115)
[2020-11-04] MEDS: HYDROmorphone HCl 1 MG/ML SYRINGE IVPUSH ×2 (11:25→13:18)
[2020-11-04] MEDS: Lidocaine HCl 2 % Jelly 5 ML TUBE 1 APPL TOPICAL (14:30)
[2020-11-04] MEDS: Lidocaine HCl 4 % MPF 5 ML AMPUL 3 ML INHALE (14:46)
[2020-11-04] MEDS: Phenylephrine HCL 10 MG/ML VIAL IVPUSH (15:20)
[2020-11-04] MEDS: dexmedeTOMIDidine HCL/NS 400 MCG/100 ML INFUS..BTL 10.66 MCG IVCONT (15:20)
--- NOTE | 2020-11-04 15:36 | P.PNCC_ITS ---
Subjective Subjective Date of Service: 11/04/20 Critical Care Time (minutes): 120 Comment: Mrs. Lundberg was admitted to ICU on October 27 with acute hypoxemic respiratory failure presumed secondary to exacerbation of interstitial lung disease, +/- community-acquired pneumonia. 70-year-old lady with underlying history of interstitial lung disease/pulmonary fibrosis, sarcoidosis, COPD, on supplemental oxygen 2 L, diastolic dysfunction, afib, DM, and JOVANNY on CPAP. The patient presented to the ED late on 10/26/2020 with two day h/o worsening chronic dyspnea, associated with fevers and nonproductive cough (i.e. symptom onset day was approx. 10/24).? In the ED she febrile to 102.7, tachypneic, and hypoxemic requiring HFNC.? COVID RANDALL negative.? CTPA demonstrated severe diffuse ground glass pulmonary infiltrates, similar to but quantitatively worse than seen on her chest CT from 04/17/20.? The CT also showed right heart enlargement but no PE.? She was started on empiric ceftriaxone and Zithromax and steroids and admitted to ICU. She had a negative COVID PCR test on 10/27.? She had negative COVID IgG tests on 10/31 and 11/04.? Echocardiogram on 10/27 showed normal LV size and systolic fun ction, with mildly increased wall thickness, normal RV cavity size and function; mildly dilated left and right atria; mild , possible MS, mild TR, and normal IVC with > 50% insp collapse, with RVSP 58mm. FiO2 requirement shalom up to 90% on the HFNC.? Steroids were bumped up to 240 mg qid on 10/29 for a 3-day pulse.? She was lethargic on 10/30, and an ammonia level was 74, so she was started on lactulose.? On 11/01, FiO2 got down as low as 35% for a few hours.? She was restarted on Lasix and on the Provigil she?s on at home.? The pulse steroid dose was ended, and on 11/02 we switched her to Prednisone 80 mg daily. That day, the patient was more SOB, cheryle with exertion, with Sat?s dropping into the 60?s.? FiO2 and High Flow rate had to be increased.? We were not able to get her OOB.? Yesterday 11/03, she was a little better, but still requiring higher oxygen support.? We were able to mobilize her and get her into the easy chair by pretreating with opiate and putting on the NRBFM on top of her HFNC.? We changed the steroids back to Solu-Medrol 80mg qid. This morning she?s fully awake.? Maybe slightly confused (presumably 2? steroids) like she has been all week.? WOB is mildly increased.? On HFNC 50L/70%, RR is 20-24, Sat is 92-95%.? VBG this morning showed 7.40/38/0.? HR is 95, BP about 129/54.? She?s been afebrile her entire ICU course.? No JVD at 30- 40?.? Chest is clear to auscultation, with normal expiratory phase.? Regular rate and rhythm, normal-sounding S1 and S2, no murmur or gallops.? Abdomen is benign.? She has no peripheral edema. Fluid balance net neg -750 cc x 24 hrs. LABORATORY DATA:? As below.? Notably, WBC stable.? BUN/creat up to 29/0.7.up.? POCs are fluctuating bec of changing steroid dosing.? BNP up to 480.? PCT 0.1. IMAGING:? Repeat Chest CT last nite showed much worse ground-glass airspace opacities diffusely throughout both lungs, with very little normal lung parenchyma visible. IMPRESSION: 1. Severe bilateral diffuse acute ground-glass pulmonary infiltrates.? Most likely represents an exacerbation of interstitial lung disease and/or sarcoid.? She initially responded very well to the pulse steroids, but over the last two days has gotten worse.? We went back to Solumedrol 80 mg qid.? Repeat chest CT yesterday was shockingly worse.? It?s surprising that she has not needed to be intubated yet. ??? Very unlikely that her pulmonary infiltrates are secondary to an infectious pneumonia.? If it was an infectious etiology, the patient would have been much sicker, certainly intubated, and PCT would have been elevated.? Notwithstanding, she was given 5 days of ceftriaxone and Zithromax.? Those were discontinued 11/01.? Cannot definitively rule out COVID from her clinical course alone, but t he CT is not typical, she has two negative COVID swabs, and now she has two negative [id number] IgGs, the last one of which was done on day# 11 post symptom onset. 2. Acute on chronic hypoxemic respiratory failure.? Secondary to above.? Rx with high-flow and opiates prn. 3. H/o CHF.? No current clinical evidence of heart failure.? But given that her BNP was rising, we gave her a trial of Lasix, which she responded to nicely, with a drop in the BNP.? But her renal indices shalom today, so we stopped the diuresis, at least for now.? Furthermore, she has no systemic edema.? Recheck BNP periodically. 4. Afib.? Currently on diltiazem and metoprolol.? Now in SR. 5. DM.? Hyperglycemia was controlled on bid Lantus and sliding scale.? But she became hypoglycemic when we cut the steroids, so we?re holding the Lantus.? Now that she?s back on hgh dose steroids, her POCs are rising again.? Giving her SS insulin and we?ll go back up on the Lantus tonite. 6. YULIANA.? Increased renal ratio, probably mild cardiorenal syndrome.? Her right heart is definitely enlarged on the CTPA (in contrast to what the radiologist read). 7. Lethargy and hyperammonemia.? Resolved.? The Provigil might be making a difference. 8. Nutrition.? Taking po diet to the best of her ability. ADDENDUM at 4pm:? I assisted Dr. Espinoza with topical anesthesia and medical management during his bronchoscopy at the bedside.? I administered Precedex by infusion and by bolus and monitored her airway and breathing during the procedure.? The procedure was accomplished expeditiously with no complications.? At the end of the procedure, the patient is fully awake, talking, and breathing easy (about the same as she was preop). I had multiple conversations with the patient, the patient?s healthcare proxy today (the patient's daughter), along with the patient's and other family members, and took part in conversations with them held by Dr. Espinoza.? We emphasized the seriousness of her condition, and that she might , and that her survival was not guaranteed.? I am certain that the health care proxy and the got the message.? I also spoke separately with them at great length about what we should do in case the patient's oxygenation deteriorates and she needs to be intubated and go on mechanical ventilation, and what that would mean prognostically.? I explained to them how they should reach their decision.? They will think about it and let us know.? In the meantime, the patient remains full support, and we will intubate the trachea if necessary. Critical care time:? 120+ min. Physical Exam Vital Signs: Vital Signs: Last Vital Signs Temp 98.0 F 11/04/20 12:00 Pulse 97 11/04/20 15:00 Resp 20 11/04/20 15:11 BP 127/98 H 11/04/20 15:00 Pulse Ox 93 11/04/20 15:00 Oxygen Flow Rate 40 10/27/20 02:27 Body Mass Index 34.4 Objective Data Labs CBC & Chem 7: 11/04/20 05:11 11/04/20 05:11 Labs: Laboratory Results - last 24 hr 11/03/20 11/03/20 11/03/20 16:03 18:10 18:13 WBC 11.6 H RBC 4.23 Hgb 12.4 Hct 38.6 MCV 91.3 MCH 29.3 MCHC 32.1 RDW 14.6 Plt Count 320 MPV 9.4 Immature Gran % (Auto) Neut % (Auto) Lymph % (Auto) [place] % (Auto) Eos % (Auto) Baso % (Auto) Lymph # (Auto) [place] # (Auto) Eos # (Auto) Baso # (Auto) Abs Immat Gran (auto) Absolute Neuts (auto) Absolute Nucleated RBC 0.000 Nucleated RBC % (auto) 0.0 Smear Tech's Comments PT INR VBG pH VBG pCO2 VBG pO2 VBG HCO3 VBG O2 Saturation VBG Base Excess Sodium Potassium Chloride Carbon Dioxide Anion Gap BUN Creatinine Estim Creat Clear Calc Estimated GFR POC Glucose 319 H 362 H* Random Glucose Calcium Phosphorus Magnesium Total Bilirubin AST ALT Alkaline Phosphatase B-Natriuretic Peptide Total Protein Albumin Procalcitonin SARS-CoV-2 IgG Ab 11/03/20 11/04/20 11/04/20 19:51 05:09 05:11 WBC 11.3 H RBC 4.14 L Hgb 12.1 Hct 38.2 MCV 92.3 MCH 29.2 MCHC 31.7 RDW 14.4 Plt Count 353 MPV 9.5 Immature Gran % (Auto) 0.7 H Neut % (Auto) 93.0 H Lymph % (Auto) 3.4 L [place] % (Auto) 2.8 Eos % (Auto) 0.0 Baso % (Auto) 0.1 Lymph # (Auto) 0.4 L [place] # (Auto) 0.3 Eos # (Auto) 0.0 Baso # (Auto) 0.0 Abs Immat Gran (auto) 0.08 H Absolute Neuts (auto) 10.5 H Absolute Nucleated RBC 0.000 Nucleated RBC % (auto) 0.0 Smear Tech's Comments VERIFIED PT INR VBG pH 7.40 VBG pCO2 38 VBG pO2 34 VBG HCO3 24 VBG O2 Saturation 49.0 VBG Base Excess -0.3 Sodium Potassium Chloride Carbon Dioxide Anion Gap BUN Creatinine Estim Creat Clear Calc Estimated GFR POC Glucose 404 H* Random Glucose Calcium Phosphorus Magnesium Total Bilirubin AST ALT Alkaline Phosphatase B-Natriuretic Peptide Total Protein Albumin Procalcitonin SARS-CoV-2 IgG Ab 11/04/20 11/04/20 11/04/20 05:11 05:11 05:11 WBC RBC Hgb Hct MCV MCH MCHC RDW Plt Count MPV Immature Gran % (Auto) Neut % (Auto) Lymph % (Auto) [place] % (Auto) Eos % (Auto) Baso % (Auto) Lymph # (Auto) [place] # (Auto) Eos # (Auto) Baso # (Auto) Abs Immat Gran (auto) Absolute Neuts (auto) Absolute Nucleated RBC Nucleated RBC % (auto) Smear Tech's Comments PT 12.3 INR 1.1 VBG pH VBG pCO2 VBG pO2 VBG HCO3 VBG O2 Saturation VBG Base Excess Sodium 139 Potassium 5.2 H D Chloride 105 Carbon Dioxide 24 Anion Gap 15 BUN 29 H D Creatinine 0.74 Estim Creat Clear Calc 72.7 Estimated GFR > 60 POC Glucose Random Glucose 289 H D Calcium 8.4 Phosphorus 4.0 Magnesium 2.5 Total Bilirubin 0.5 AST 18 ALT 44 H Alkaline Phosphatase 233 H B-Natriuretic Peptide Total Protein 5.7 L Albumin 3.2 L Procalcitonin SARS-CoV-2 IgG Ab Negative 11/04/20 11/04/20 11/04/20 05:11 05:11 07:19 WBC RBC Hgb Hct MCV MCH MCHC RDW Plt Count MPV Immature Gran % (Auto) Neut % (Auto) Lymph % (Auto) [place] % (Auto) Eos % (Auto) Baso % (Auto) Lymph # (Auto) [place] # (Auto) Eos # (Auto) Baso # (Auto) Abs Immat Gran (auto) Absolute Neuts (auto) Absolute Nucleated RBC Nucleated RBC % (auto) Smear Tech's Comments PT INR VBG pH VBG pCO2 VBG pO2 VBG HCO3 VBG O2 Saturation VBG Base Excess Sodium Potassium Chloride Carbon Dioxide Anion Gap BUN Creatinine Estim Creat Clear Calc Estimated GFR POC Glucose 279 H Random Glucose Calcium Phosphorus Magnesium Total Bilirubin AST ALT Alkaline Phosphatase B-Natriuretic Peptide 482 H Total Protein Albumin Procalcitonin 0.10 SARS-CoV-2 IgG Ab 11/04/20 11/04/20 07:47 11:00 WBC RBC Hgb Hct MCV MCH MCHC RDW Plt Count MPV Immature Gran % (Auto) Neut % (Auto) Lymph % (Auto) [place] % (Auto) Eos % (Auto) Baso % (Auto) Lymph # (Auto) [place] # (Auto) Eos # (Auto) Baso # (Auto) Abs Immat Gran (auto) Absolute Neuts (auto) Absolute Nucleated RBC Nucleated RBC % (auto) Smear Tech's Comments PT INR VBG pH VBG pCO2 VBG pO2 VBG HCO3 VBG O2 Saturation VBG Base Excess Sodium Potassium Chloride Carbon Dioxide Anion Gap BUN Creatinine Estim Creat Clear Calc Estimated GFR POC Glucose 263 H 433 H* Random Glucose Calcium Phosphorus Magnesium Total Bilirubin AST ALT Alkaline Phosphatase B-Natriuretic Peptide Total Protein Albumin Procalcitonin SARS-CoV-2 IgG Ab Microbiology Microbiology Results: Microbiology 10/26/20 22:43 Blood - Venous Blood Culture - Final No growth after 5 days. 10/26/20 22:26 Blood - Venous Blood Culture - Final No growth after 5 days. 10/27/20 Unknown Urine clean catch - Urine hernandez top Urine Culture - Final Quality Stroke Does the patient have a stroke diagnosis?: No VTE Prior VTE?: No VTE Risk Level:: Medical - moderate - high VTE Device Contraindication: Treatment Not Indicated VTE Drug Contraindication: N/A - Med Ordered Critical Care Time Critical Care Time (minutes): 120
[2020-11-04 16:26] LABS: Glucose, Whole Blood 277 mg/dL (60-115)
--- NOTE | 2020-11-04 16:41 | MHC.SHP ---
Pre-Procedural Eval Section A Date of Service: 11/04/20 The patient is an INPATIENT: Yes The History & Physical has been completed within 30 days and I have reviewed it.: Yes Section B Chief Complaint: Pneumonia Allergies: Allergies Allergy/AdvReac Type Severity Reaction Status Date / Time albuterol [ALBUTEROL] Allergy Severe TACHYCARDIA Verified 10/10/20 15:13 Plan I have reviewed the history and physical and performed a pertinent physical examination on my patient. No changes have occurred unless specified.
--- NOTE | 2020-11-04 16:41 | PM.OP ---
Brief Operative Note Date of Service: 11/04/20 Pre-op diagnosis: pnuemonitis Post-op diagnosis: same Procedure: Bronchoscopy with washings Surgeon: Brayan Espinoza MD Anesthesia: MAC Was an Boil Off Worker used for this Procedure?: No Estimated blood loss (mL): 0 Pathology: none sent Condition: critical Disposition: ICU
--- NOTE | 2020-11-04 17:53 | PC.NURSE ---
Pt A&Ox3, required highflow 50L/min FiO2 70%, RR 24, received dilaudid x2 today 1mg each for increased WOB. SaO2 89-96%. Received bronch today at bedside per MD without complications. See sheet in chart. Pt awake moving all extrem, breathing on own, conversing. Started on bactrim. Bed locked and in lowest position, high fowlers.
[2020-11-04 20:16] LABS: Glucose, Whole Blood 277 mg/dL (60-115)
--- NOTE | 2020-11-04 20:21 | OP_ITS ---
SURGEON: Brayan Espinoza MD PREOPERATIVE DIAGNOSIS: Pneumonitis. POSTOPERATIVE DIAGNOSIS: Pneumonitis without any evidence of any diffuse alveolar hemorrhage or purulent secretions. PROCEDURE PERFORMED: ESTIMATED BLOOD LOSS: COMPLICATIONS: ANESTHESIA: The patient received monitored airway conscious sedation with Precedex. ASSISTANTS: SPECIMENS: ASA CLASSIFICATION: 4. CONSENT: The patient was seen as an inpatient and informed consent was reviewed with the patient. The patient understands the procedure and the alternative therapies. The patient understands the risks and benefits of the procedure including requiring mechanical ventilation and also . The patient is agreeable to undergo the procedure and she has signed the consent. DESCRIPTION OF PROCEDURE: After the patient was adequately sedated, the flexible digital bronchoscope was introduced via the right nostril to the level of the larynx. The patient did have thrush mainly in the posterior pharynx and also in the larynx. After instilling additional 2% lidocaine of 5 mL, the bronchoscope was navigated past the vocal cords to the level of the trachea, tracheal mucosa appeared normal. The tracheobronchial tree was examined up to the segmental level. No significant secretions noted. Her airways appeared to be completely normal. She did have some evidence of bronchomalacia. No purulent secretions. No pus. No evidence of any active bleeding. Bronchial washings were collected bilaterally and specimens were sent for cytology in addition for Gram stain, and Pneumocystis jirovecii PCR. The bronchoscope was then removed. The total endoscopic time approximately 5 minutes. The patient tolerated the procedure well on high flow. She was able to be decreased on the oxygen. The patient was in guarded condition prior to the procedure and she continues to be in a guarded condition. INTERPRETATION: Successful bronchoscopy demonstrates normal airways without any evidence of any bacterial infections or evidence of diffuse alveolar hemorrhage. Bilateral washings were collected. MD EZIO Florence/DALILA / [id number]
[2020-11-04] MEDS: Insulin Glargine,Hum.rec.anlog 100 UNIT/ML 10 ML VIAL SUBCUT (20:41)
[2020-11-04] MEDS: Melatonin 3 MG TABLET 6 MG PO (21:47)
[2020-11-04] MEDS: LORazepam 0.5 MG TABLET PO (23:44)
[2020-11-05] VITALS (43 sets, daily range): BP systolic 102–153; BP diastolic 39–67; PULSE 69–125; RESP 13–40; TEMP 36.1–37.3; O2SAT 84–100; BMI 34.7
[2020-11-05] MEDS: Heparin Sodium,Porcine 5,000 UNIT/ML VIAL 5000 UNIT SUBCUT ×3 (05:14→22:13)
[2020-11-05] MEDS: methylPREDNISolone Sod Succ 125 MG/2 ML VIAL 80 MG IVPUSH ×4 (05:14→22:13)
[2020-11-05] MEDS: Omeprazole 40 MG CAPSULE.DR PO (05:15)
[2020-11-05 05:21] LABS: VBG Base Excess 1.4 mmol/L; VBG HCO3 25 mmol/L (22-26); VBG pCO2 37 mmHg; VBG pH 7.43 (7.32-7.43); VBG pO2 54 mmHg
[2020-11-05 05:35] LABS: Hematocrit 35.5 % (37-47); Hemoglobin 11.4 g/dl (12.0-16.0); Mean Corpuscular HGB Conc 32.1 g/dl (31.0-35.0); Mean Corpuscular Hemoglobin 29.2 pg (27.0-33.0); Mean Corpuscular Volume 90.8 fL (80-98); Mean Platelet Volume 9.5 fL (9.4-12.3); Platelet Count 386 X10*3/uL (160-400); Red Blood Count 3.91 X10*6/uL (4.20-5.50); Red Cell Distribution Width 14.5 % (11.0-16.0); White Blood Count 16.2 X10*3/uL (4.8-10.8)
[2020-11-05 05:53] LABS: Anion Gap 14 (12-20); Blood Urea Nitrogen 32 mg/dL (9-16); Calcium 8.4 mg/dL (8.4-10.2); Carbon Dioxide 25 mmol/L (22-29); Chloride 106 mmol/L (96-108); Creatinine Clr Calc Pharmacy 76.2; Estimated Glomerular Filt Rate > 60; Glucose Random 328 mg/dL (60-115); Phosphorus 3.3 mg/dL (2.7-4.5); Potassium 4.8 mmol/L (3.3-5.1); Sodium 140 mmol/L (135-145)
[2020-11-05 06:49] LABS: Venous Blood Gas Refer to POC result
[2020-11-05 07:20] LABS: Glucose, Whole Blood 268 mg/dL (60-115)
[2020-11-05] MEDS: Insulin Lispro 100 UNIT/ML 3 ML VIAL SUBCUT ×3 (07:28→16:56)
[2020-11-05] MEDS: Insulin Glargine,Hum.rec.anlog 100 UNIT/ML 10 ML VIAL 30 UNIT SUBCUT (07:28)
[2020-11-05] MEDS: LORazepam 0.5 MG TABLET PO (07:29)
[2020-11-05] MEDS: Nortriptyline HCl 25 MG CAPSULE PO (08:15)
[2020-11-05] MEDS: Clopidogrel Bisulfate 75 MG TABLET PO (08:15)
[2020-11-05] MEDS: modafiniL 100 MG TABLET 200 MG PO (08:15)
[2020-11-05] MEDS: dilTIAZem HCL CD 240 MG CAP.ER.DEG PO (08:15)
[2020-11-05] MEDS: Fluticasone Propionate Nasal 16 GM SPRAY 1 SPRAY NOSTRIL-B (08:16)
[2020-11-05] MEDS: Metoprolol Succinate ER 100 MG TAB.ER.24H PO (08:16)
[2020-11-05] MEDS: fentaNYL citrate/PF 100 MCG/2 ML VIAL 50 MCG IVPUSH ×2 (08:22→09:06)
[2020-11-05] MEDS: HYDROmorphone HCl 1 MG/ML SYRINGE IVPUSH (09:56)
[2020-11-05] MEDS: fentaNYL citrate/NS 1,000 MCG/100 ML PLAST..BAG 5 MCG IVCONT (10:16)
--- NOTE | 2020-11-05 10:30 | PC.NURSE ---
Addendum entered by Khadra Christiansen RN 11/05/20 17:46: HIGH FLOW SETTINGS ADJUSTED TO 55L/90% FOR GOAL 02 >90% PRECEDEX GTT CUT IN HALF. SEE EMAR. HR 76, RR 16. PATIENT RESTING COMFORTABLY AT THIS TIME. WILL CONTINUE TO MONITOR. Addendum entered by Khadra Christiansen RN 11/05/20 14:39: PT REQUESTING CPAP MASK TO BE REMOVED. [employer] CALLED BEDSIDE. DAUGHTER BEDSIDE WELL. EDUCATED ON THE IMPORTANCE OF CPAP MASK, PT CONTINUES TO REQUEST IT OFF. PT EDUCATED ON POSSIBILITY OF INTUBATION. MD CALLED AND NOTIFIED OF SITUATION. CPAP OFF AND CHANGED OVER TO HIGH FLOW 55L/100% AND 100% NRB AT 1437. CONTINUE WITH FENTANYL AND PRECEDEX GTT PER MD. SEE EMAR. WILL CONTINUE TO MONITOR. Addendum entered by Khadra Christiansen RN 11/05/20 11:52: PRECEDEX GTT STARTED PER MD FOR INCREASED ANXIETY. SEE EMAR. WILL CONTINUE TO MONITOR. Original Note: INCREASED WOB NOTED. RR 36-40. HR 120-130S. DIAPHORETIC. 100% NRB APPLIED TO HIGH FLOW. RT CALLED. PRN FENTANYL X 2 AND DILAUDID X 1 ADMINISTERED WITH MINIMAL EFFECT. SEE EMAR. MD CALLED AND NOTIFIED OF SITUATION. RT APPLIED BIPAP AND PLACED ON CPAP 10 ON 70%. FENTANYL GTT STARTED AT 50 MCG/HR PER MD ORDER. CURRENT 02: 91%, RR 24, HR 118. WILL CONTINUE TO MONITOR.
[2020-11-05 11:31] LABS: Glucose, Whole Blood 371 mg/dL (60-115)
[2020-11-05] MEDS: dexmedeTOMIDidine HCL/NS 400 MCG/100 ML INFUS..BTL IVCONT (11:40)
--- NOTE | 2020-11-05 12:23 | P.PNCC_ITS ---
Subjective Subjective Date of Service: 11/05/20 Critical Care Time (minutes): 70 Comment: Mrs. Lundberg was admitted to ICU on October 27 with acute hypoxemic respiratory failure presumed secondary to exacerbation of interstitial lung disease, +/- community-acquired pneumonia. 70-year-old lady with underlying history of interstitial lung disease/pulmonary fibrosis, sarcoidosis, COPD, on supplemental oxygen 2 L, diastolic dysfunction, afib, DM, and JOVANNY on CPAP. The patient presented to the ED late on 10/26/2020 with two day h/o worsening chronic dyspnea, associated with fevers and nonproductive cough (i.e. symptom onset day was approx. 10/24).? In the ED she febrile to 102.7, tachypneic, and hypoxemic requiring HFNC.? COVID RANDALL negative.? CTPA demonstrated severe diffuse ground glass pulmonary infiltrates, similar to but quantitatively worse than seen on her chest CT from 04/17/20.? The CT also showed right heart enlargement but no PE.? She was started on empiric ceftriaxone and Zithromax and steroids and admitted to ICU. She had a negative COVID PCR test on 10/27.? She had negative COVID IgG tests on 10/31 and 11/04.? Echocardiogram on 10/27 showed normal LV size and systolic func tion, with mildly increased wall thickness, normal RV cavity size and function; mildly dilated left and right atria; mild , possible MS, mild TR, and normal IVC with > 50% insp collapse, with RVSP 58mm. FiO2 requirement shlaom up to 90% on the HFNC.? Steroids were bumped up to 240 mg qid on 10/29 for a 3-day pulse.? She was lethargic on 10/30, and an ammonia level was 74, so she was started on lactulose.? On 11/01, FiO2 got down as low as 35% for a few hours.? She was restarted on Lasix and on the Provigil she?s on at home.? The pulse steroid dose was ended, and on 11/02 we switched her to Prednisone 80 mg daily. Subsequently, the patient?s oxygenation worsened and she became more SOB, cheryle with exertion, with Sat?s dropping into the 60?s.? FiO2 and High Flow rate had to be increased.? She required more opiate doses, cheryle w nursing maneuvers.? On 11/03, we changed the steroids back to Solu-Medrol 80mg qid.? Repeat chest CT that nite showed much worse ground-glass airspace opacities diffusely throughout both lungs, with very little normal lung parenchyma visible. Yesterday, Dr. Espinoza and I spoke with the patient, her , and her daughter (the HCP) about the seriousness of her situation, and we emphasized the significant chance that she would not survive.? Dr. Espinoza did a quick bronchoscopy to r/o DAH.? The airways were surprisingly clear.? No blood, no pus, no tracheobronchitis.? BAL spec sent for PCP.? In the meantime, we started her on Bactrim.? She continues on Solu-Medrol 80mg qid. Overnite last night, her oxygen deteriorated and her FiO2 on high-flow had to be bumped up to 100%. ?This morning, her respiratory rate shalom to 40, HR was up to120, and she had to go on CPAP. ?She?s fully awake, seems oriented, is not happy with the mask.? On CPAP 10/70%, RR is 28, Vt 650-800, Ve 17-20L, Sat 92%.? Work of breathing is mildly increased, not terrible.? VBG early this morning s howed 7.43/37/+1.? HR down to 111, BP 137/57.? She?s been afebrile her entire ICU course.? No JVD at 30-40?.? Chest is still clear to auscultation, with normal expiratory phase.? Regular rate and rhythm, normal-sounding S1 and S2, no murmur or gallops.? Abdomen is benign.? She has no peripheral edema. Fluid balance net +1200cc x 24 hrs. LABORATORY DATA:? As below.? Notably, WBC up to 16.? BUN/creat steady.? Potassium and phosphorus are down.? POCs still high bec of the increase in the steroid dosing.? BNP up to 480.? PCT yesterday was 0.1. MICROBIOLOGY:? Bronchoscopy BAL specimen from yesterday g stain shows IMPRESSION: 1. Severe bilateral diffuse acute ground-glass pulmonary infiltrates.? Most lik evon represents an exacerbation of interstitial lung disease and/or sarcoid.? She initially responded very well to the pulse steroids, but over the last two days has gotten worse.? We went back to Solumedrol 80 mg qid.? Repeat chest CT was shockingly worse.? It?s surprising that she has not needed to be intubated yet.? We started her yesterday on Bactrim pending the PCP stain. ??? Very unlikely that her pulmonary infiltrates are secondary to an infectious pneumonia.? If it was an infectious etiology, the patient would have been much sicker, certainly intubated, and PCT would have been elevated.? Notwithstanding, she was given 5 days of ceftriaxone and Zithromax.? Those were discontinued 11/01.? Cannot definitively rule out COVID from her clinical course alone, but the CT is not typical, she has two negative COVID swabs, and now she has two negative SPBY-YORCD-9 IgGs, the last one of which was done on day# 11 post symptom onset. 2. Acute on chronic hypoxemic respiratory failure.? Secondary to above.? Rx with NIV and opiates prn.? Spoke with the daughter this morning and confirmed with her that if/when the patient needs to be intubated, we will do that. 3. H/o CHF.? No current clinical evidence of heart failure.? But given that her BNP was rising, we gave her a trial of Lasix, which she responded to nicely, with a drop in the BNP.? But her renal indices shalom yesterday, so we stopped the diuresis, at least for now.? Furthermore, she has no systemic edema.? Recheck BNP tomorrow. 4. Afib.? Currently on diltiazem and metoprolol.? Now in SR. 5. DM.? Hyperglycemia was controlled on bid Lantus and sliding scale.? But she became hypoglycemic when we cut the steroids, so we held the Lantus.? Then we went back on high dose steroids, and her POCs shalom again.? We?re escalating the Lantus dose and giving her SS insulin. 6. YULIANA.? Increased renal ratio, probably mild cardiorenal syndrome.? Her right heart is definitely enlarged on the CTPA (in contrast to what the radiologist read). 7. Nutrition.? Now on CPAP.? Once she?s intubated, we?ll put a feeding tube in. I had multiple conversations yesterday with the patient, the patient?s healthcare proxy (the patient's daughter Jess), along with the patient's and other family members, and took part in conversations with them held by Dr. Espinoza.? We emphasized the seriousness of her condition, that she might well , that her survival was not guaranteed.? I emphasized that mult times, and I confirmed with the patient?s daughter and the that they understood that.? I also spoke separately with them at great length about what we should do in case the patient's oxygenation deteriorates and she needs to be intubated and go on mechanical ventilation, and what that would mean progn ostically.? I explained to them how they should reach their decision. I spoke with Jess and the today.? They confirmed that they understand that her chance of survival is low.? They affirmed to me that if she needs to be intubated, we should go ahead and do that. Critical care time:? 70+ min. Physical Exam Vital Signs: Vital Signs: Last Vital Signs Temp 97.0 F 11/05/20 12:00 Pulse 110 H 11/05/20 12:00 Resp 25 H 11/05/20 12:00 BP 137/57 L 11/05/20 12:00 Pulse Ox 91 L 11/05/20 12:00 Oxygen Flow Rate 40 10/27/20 02:27 Body Mass Index 34.7 Objective Data Labs CBC & Chem 7: 11/05/20 05:17 11/05/20 05:17 Labs: Laboratory Results - last 24 hr 11/04/20 11/04/20 11/04/20 05:11 16:18 20:13 WBC RBC Hgb Hct MCV MCH MCHC RDW Plt Count MPV Absolute Nucleated RBC Nucleated RBC % (auto) VBG pH VBG pCO2 VBG pO2 VBG HCO3 VBG O2 Saturation VBG Base Excess Sodium Potassium Chloride Carbon Dioxide Anion Gap BUN Creatinine Estim Creat Clear Calc Estimated GFR POC Glucose 277 H 277 H Random Glucose Calcium Phosphorus Procalcitonin 0.10 11/05/20 11/05/20 11/05/20 05:14 05:17 05:17 WBC 16.2 H RBC 3.91 L Hgb 11.4 L Hct 35.5 L MCV 90.8 MCH 29.2 MCHC 32.1 RDW 14.5 Plt Count 386 MPV 9.5 Absolute Nucleated RBC 0.000 Nucleated RBC % (auto) 0.0 VBG pH 7.43 VBG pCO2 37 VBG pO2 54 VBG HCO3 25 VBG O2 Saturation 80.0 VBG Base Excess 1.4 Sodium 140 Potassium 4.8 Chloride 106 Carbon Dioxide 25 Anion Gap 14 BUN 32 H Creatinine 0.71 Estim Creat Clear Calc 76.2 Estimated GFR > 60 POC Glucose Random Glucose 328 H Calcium 8.4 Phosphorus 3.3 Procalcitonin 11/05/20 11/05/20 07:03 11:26 WBC RBC Hgb Hct MCV MCH MCHC RDW Plt Count MPV Absolute Nucleated RBC Nucleated RBC % (auto) VBG pH VBG pCO2 VBG pO2 VBG HCO3 VBG O2 Saturation VBG Base Excess Sodium Potassium Chloride Carbon Dioxide Anion Gap BUN Creatinine Estim Creat Clear Calc Estimated GFR POC Glucose 268 H 371 H* Random Glucose Calcium Phosphorus Procalcitonin Microbiology Microbiology Results: Microbiology 11/04/20 16:18 Bronchial Washings Routine Culture - Preliminary Culture in progress. 10/26/20 22:43 Blood - Venous Blood Culture - Final No growth after 5 days. 10/26/20 22:26 Blood - Venous Blood Culture - Final No growth after 5 days. 10/27/20 Unknown Urine clean catch - Urine hernandez top Urine Culture - Final Quality Stroke Does the patient have a stroke diagnosis?: No VTE Prior VTE?: No VTE Risk Level:: Medical - moderate - high VTE Device Contraindication: Treatment Not Indicated VTE Drug Contraindication: N/A - Med Ordered Critical Care Time Critical Care Time (minutes): 60
[2020-11-05 16:46] LABS: Glucose, Whole Blood 152 mg/dL (60-115)
[2020-11-05] MEDS: fentaNYL citrate/NS 1,000 MCG/100 ML PLAST..BAG 10 MCG IVCONT (19:00)
--- NOTE | 2020-11-05 20:25 | P.PCNCC_ITS ---
Procedures Date of Service Date of Service: 11/05/20 Central Line Placement A quick time-out was made for clarification and proper patient identification, patient was positioned, landmarks were identified, US used to locate a large compressible IJ. The right neck was widely prepped and draped in a full sterile fashion. Ultrasound was used to locate again the right IJ, the vein was cannulated on the 1st pass with an 18 gauge thin needle, dark nonpulsatile blood return was obtained. The wire was threaded, a small incision was made at its base and dilator inserted. A triple-lumen central venous catheter was advanced into the vein up to the hub without problems, wired was removed. Ports had good blood return and flushed x3. The catheter was secured with 3 sutures at 3 sites, a Biopatch and dry sterile dressing were applied.Post procedure chest x- ray showed the line to be in good position without pneumothorax. No bleeding or complications noted.: Central Line Comments: A verbal consent was obtained from the patient's daughter over the phone who is the healthcare proxy and the patient's and the patient herself a she still was awake prior to this procedure and prior to intubation.
--- NOTE | 2020-11-05 20:28 | W.PM.CCHP ---
Procedures Date of Service Date of Service: 11/05/20 Intubation Intubation Comments: Given that the patient developed progressive respiratory fatigue, somnolence and hypoxia despite our intervention, elective intubation was decided, consent was obtained from the patient herself as well as the who is present and the daughter and healthcare proxy over the phone. The patient was preoxygenated, etomidate 30 mg and succinylcholine 100 mg were used for sedation and paralysis respectively Using the GlideScope, the close was identified and using a 4.0 Blade, an ETT tube 7.5 was inserted via direct vision in a nontraumatic way. Post intubation, breath sounds were equal and bilateral, CO2 test in show positive color change to yellow, SpO2 maintained. The tube was secured at 23 cm at the upper lip. Patient tolerated the procedure well without complications. Postop x-ray showed endotracheal tube approximately 2cm above the pastora. Case was discussed in detail with Dr. Vega. He is aware of all the above as well as the plan of care for this patient. Time out performed: Yes Sedative: etomidate Mg given: 30 Paralytic: succinylcholine Mg given: 100 ET tube size: 7.5
[2020-11-05 20:51] LABS: Glucose, Whole Blood 96 mg/dL (60-115)
[2020-11-05] MEDS: Succinylcholine Chloride 200 MG/10 ML VIAL 100 MG IVPUSH (20:56)
[2020-11-05 20:57] LABS: VBG Base Excess 0.7 mmol/L; VBG HCO3 28 mmol/L (22-26); VBG pCO2 64 mmHg; VBG pH 7.25 (7.32-7.43); VBG pO2 65 mmHg
[2020-11-05] MEDS: propofoL 1,000 MG/100 ML VIAL 25.89 MG IVCONT ×2 (20:57→22:13)
[2020-11-05] MEDS: Etomidate 20 MG/10 ML VIAL 30 MG IVPUSH (20:57)
--- NOTE | 2020-11-05 22:40 | PC.NURSE ---
At approx 1900- pt w/ increased WOB, abdominal breathing, hypoxic on max HFNC, breaking speech to breathe. Consent obtained for elective intubation and CVC from pt/family/HCP by PA. At 1930, 30 mg IVP etomidate and 100 mg IVP succinylcholine given per PA. ETT #7.5, 21 cm at lip. Vent settings- PCV f 18, Pi 32, PEEP 5, FiO2 titrated to maintain SpO2 > 92%. TLC to R IJ placed. Placement of lines/tubes confirmed by pCXR. Propofol/fentanyl gtts ordered and titrated for vent synchrony. Levophed ordered and titrated to maintain MAP > 65. Granado catheter placed. Multiple attempts to place NG/OGT but unable, PA aware. Restraints in place for airway safety.
[2020-11-05] MEDS: fentaNYL citrate/NS 1,000 MCG/100 ML PLAST..BAG 20 MCG IVCONT (23:26)
[2020-11-06] VITALS (32 sets, daily range): BP systolic 106–142; BP diastolic 42–62; PULSE 65–104; RESP 14–21; TEMP 36.4–37.4; O2SAT 88–95; BMI 35.3
[2020-11-06 00:11] LABS: Glucose, Whole Blood 145 mg/dL (60-115)
[2020-11-06 00:34] LABS: Venous Blood Gas Refer to POC result
[2020-11-06] MEDS: propofoL 1,000 MG/100 ML VIAL 20.71 MG IVCONT (02:09)
[2020-11-06] MEDS: Heparin Sodium,Porcine 5,000 UNIT/ML VIAL 5000 UNIT SUBCUT ×3 (05:10→22:14)
[2020-11-06] MEDS: fentaNYL citrate/NS 1,000 MCG/100 ML PLAST..BAG 15 MCG IVCONT ×3 (05:10→19:21)
[2020-11-06] MEDS: methylPREDNISolone Sod Succ 125 MG/2 ML VIAL 80 MG IVPUSH ×4 (05:10→22:14)
[2020-11-06 05:19] LABS: VBG Base Excess 2.4 mmol/L; VBG HCO3 28 mmol/L (22-26); VBG pCO2 48 mmHg; VBG pH 7.36 (7.32-7.43); VBG pO2 60 mmHg
[2020-11-06 05:26] LABS: Glucose, Whole Blood 131 mg/dL (60-115)
[2020-11-06 05:51] LABS: Hematocrit 31.6 % (37-47); Mean Corpuscular HGB Conc 31.6 g/dl (31.0-35.0); Mean Corpuscular Volume 94.9 fL (80-98); Mean Platelet Volume 9.6 fL (9.4-12.3); Platelet Count 323 X10*3/uL (160-400); Red Blood Count 3.33 X10*6/uL (4.20-5.50); Red Cell Distribution Width 14.6 % (11.0-16.0); White Blood Count 15.5 X10*3/uL (4.8-10.8)
[2020-11-06] MEDS: Fluconazole in NaCl,Iso-Osm 200 MG/100 ML PIGGYBACK 100 MG IV (06:00)
[2020-11-06 06:06] LABS: Venous Blood Gas Refer to POC result
[2020-11-06 06:13] LABS: B Type Natriuretic Peptide 422 pg/mL (<100)
[2020-11-06 06:24] LABS: Albumin Level 2.9 g/dL (3.5-5.0); Anion Gap 13 (12-20); Blood Urea Nitrogen 33 mg/dL (9-16); Calcium 8.1 mg/dL (8.4-10.2); Carbon Dioxide 27 mmol/L (22-29); Chloride 110 mmol/L (96-108); Creatinine Clr Calc Pharmacy 81.4; Estimated Glomerular Filt Rate > 60; Glucose Random 145 mg/dL (60-115); Magnesium 2.7 mg/dL (1.6-2.6); Phosphorus 4.1 mg/dL (2.7-4.5); Sodium 145 mmol/L (135-145)
[2020-11-06] MEDS: Chlorhexidine Gluc Oral Rinse 15 ML MOUTHWASH BUCCAL ×3 (07:47→20:28)
[2020-11-06] MEDS: propofoL 1,000 MG/100 ML VIAL 15.53 MG IVCONT ×3 (08:00→19:30)
[2020-11-06] MEDS: Insulin Lispro 100 UNIT/ML 3 ML VIAL SUBCUT ×3 (12:02→23:39)
[2020-11-06 12:03] LABS: Glucose, Whole Blood 163 mg/dL (60-115)
[2020-11-06] MEDS: dexmedeTOMIDidine HCL/NS 400 MCG/100 ML INFUS..BTL 14.93 MCG IVCONT (16:27)
[2020-11-06 17:07] LABS: VBG Base Excess 3.3 mmol/L; VBG HCO3 30 mmol/L (22-26); VBG pCO2 58 mmHg; VBG pH 7.32 (7.32-7.43); VBG pO2 44 mmHg
--- NOTE | 2020-11-06 17:29 | PM.CCPN ---
Subjective Subjective Date of Service: 11/06/20 Critical Care Time (minutes): 80 Comment: Mrs. Lundberg was admitted to ICU on October 27 with acute hypoxemic respiratory failure presumed secondary to exacerbation of interstitial lung disease, +/- community-acquired pneumonia. The patient is a 70-year-old lady with underlying history of interstitial lung disease/pulmonary fibrosis, sarcoidosis, COPD on supplemental oxygen 2 L, diastolic dysfunction, afib, DM, and JOVANNY on CPAP. The patient presented to the ED on 10/26/2020 with two day h/o worsening chronic dyspnea, associated with fevers and nonproductive cough (i.e. symptom onset day was approx. 10/24).? In the ED she febrile to 102.7, tachypneic, and hypoxemic requiring HFNC.? COVID RANDALL negative.? CTPA demonstrated severe diffuse ground glass pulmonary infiltrates, similar to but quantitatively worse than seen on her prior chest CT from 04/17/20.? The CT also showed right heart enlargement but no PE.? She was started on empiric ceftriaxone and Zithromax and steroids and admitted to ICU. She had a negative COVID PCR test on 10/27.? She had negative COVID IgG tests on 10/31 and 11/04.? Echocardiogram on 10/27 showed normal LV size and systolic function, with mildly increased wall thickness, normal RV cavity size and function; mildly dilated left and right atria; mild , possible MS, mild TR, and normal IVC with > 50% insp collapse, with RVSP 58mm. FiO2 requirement shalom to 90% on the HFNC.? On 10/29, she was started on a 3-day steroid pulse, 250 mg qid.? On 11/01, FiO2 got down as low as 35% for a few hours.? She was restarted on Lasix and on the Provigil she?s on at home.? The pulse steroid dose was ended on 11/01, and the next day she was switched to Prednisone 80 mg (1mg/kg) daily. Subsequently, the patient?s oxygenation worsened and she became more SOB, cheryle with exertion, with Sat?s dropping into the 60?s.? FiO2 and High Flow rate had to be increased.? She required more opiate doses, cheryle w nursing maneuvers.? On 11/03, we changed the steroids back to Solu-Medrol 80mg qid.? Repeat chest CT that night showed much worse ground-glass airspace opacities diffusely throughout both lungs, with very little normal lung parenchyma visible. On 11/04, Dr. Espinoza and I spoke with the patient, her , and her daughter Jess (the HCP) about the seriousness of the patient?s situation, and we emphasized the significant chance that she would not survive.? I emphasized that mult times, and I confirmed with the patient?s daughter and the that they understood that.? I also spoke separately with them at great length about what we should do in case the patient's oxygenation deteriorates and she needs to be intubated and go on mechanical ventilation, and what that would mean prognostically.? I explained to them how they should reach their decision.? We continued full code status. Dr. Espinoza did a quick bronchoscopy to r/o DAH.? The airways were surprisingly clear:? No blood, no pus, no tracheobronchitis.? BAL spec was sent for PCP, and in the meantime, we started her on Bactrim.? She continued on Solu-Medrol 80mg qid. Overnite that night, her oxygenation deteriorated and her FiO2 on high-flow had to be bumped up to 100%.? Yesterday morning, her respiratory rate shalom to 40, HR was up to120, and she had to go on CPAP. ?She remained fully awake.? She was not happy with the mask, and in the afternoon, went back on high flow.? We started her on Precedex and fentanyl infusions.? I spoke with Jess and the and they confirmed that they understand that her chance of survival was low.? They affirmed to me that we should intubate if necessary. Last night, the patient?s WOB increased, despite the Precedex and fentanyl.? The patient was intubated and put on [facility] ventilation.? A CVL was placed. The patient is currently sedated on propofol @ 30ug, fentanyl at 100ug.? On PC with FiO2 60%/+5, Pplat was 36, Vt 400s, Sat 91-92%, ETCO2 high 30?s.? CVBG this morning showed 7.36/48/+2.? Hand ventilation demonstrated high peak airway pressures.? I started the patient on Precedex and trialed mult ventilator adjustments to achieve a lower plat pressure w higher PEEP.? We also tried PSV, but tidal vols were too high, even on PSV +5.? We left her on AC PC 24, pressures 22/10, 60%, I:E 1:2.? On that setting, RR 27, Vt 285, Ve 7.3L, PIP 33, Ppl 31, ETCO2 37, Sat up to 93-94%.? With the Precedex added, HR 76, BP 115/47.? She?s been afebrile her entire ICU course.? No JVD at 30-40?.? Chest is still clear to auscultation, with normal expiratory phase.? Regular rate and rhythm, normal-sounding S1 and S2, no murmur or gallops.? Abdomen is benign.? She has no peripheral edema. CVBG drawn in a blood gas syringe after about 15 minutes on that setting showed 7.32/58/66%/+3. Fluid balance net +1300cc x 24 hrs. LABORATORY DATA:? As below.? Notably, WBC down sl.? BUN/creat steady.? Potassium and phosphorus up slightly.? POCs in the 100?s.? BNP down to 422.? PCT on 11/04 was 0.1. MICROBIOLOGY:? Bronchoscopy BAL specimen from 11/04 showed 4+ polys, 1+ GPC.? Culture grew out low yield mixed carmel.? Sputum gram stain from early this morn showed 3+ polys, 3+ GPC.? Cx pending. IMPRESSION: 1. Severe bilateral diffuse acute ground-glass pulmonary infiltrates.? Most likely represents an exacerbation of interstitial lung disease and/or sarcoid.? She initially responded very well to the pulse steroids, but over the subseq days got worse.? We went back to Solumedrol 80 mg qid.? Repeat chest CT was shockingly worse. ??? Very unlikely that her pulmonary infiltrates were secondary to an infectious pneumonia.? If it was an infectious etiology, the patient would have been much sicker, certainly intubated right off the bat, and PCT would have been elevated.? Notwithstanding, she was given 5 days of ceftriaxone and Zithromax.? Those were discontinued 11/01.? Cannot definitively rule out COVID from her clinical course alone, but the CT is not typical, she has two negative COVID swabs, and now she has two negative [id number] IgGs, the last one of which was done on day# 11 post symptom onset. 2. Acute on chronic hypoxemic respiratory failure.? Secondary to above.? No surprise that she required intubation last night. She might require NMB for adequate ventilation and oxygenation. 3. H/o CHF.? No current clinical evidence of heart failure.? Given that her BNP was rising, we gave her a trial of Lasix, which she responded to nicely, with a drop in the BNP.? But her renal ratio shalom 11/04, so we stopped the diuresis, at least for now.? Furthermore, she has no systemic edema.? Recheck BNP periodically. 4. Afib.? Currently on diltiazem and metoprolol.? Now in SR. 5. DM.? Hyperglycemia was controlled on bid Lantus and sliding scale.? But she became hypoglycemic when we cut the steroids, so we held the Lantus.? Then we went back on high dose steroids, and her POCs shalom again.? Looks like we?ve now achieved a stable dose of Lantus again. 6. YULIANA.? Increased renal ratio, probably mild cardiorenal syndrome.? Her right heart is definitely enlarged on the CTPA (in contrast to what the radiologist read). 7. ID.? We started the patient on Bactrim empirically after the bronchoscopy, pending the PCP PCR.? Because of the sputum Gram stain this morning, I?ve started the patient on vancomycin, pending the sputum culture.? Notwithstanding, I am very doubtful she has any kind of real bacterial pneumonia, especially given with the bronchoscopy look like.? Furthermore, if she had bacterial pneumonia on top of the interstitial lung disease/pulmonary fibrosis that she has on CT scan, her hypoxemia would be much more severe and she would be much sicker and toxic. 7. Nutrition.? I put an OGT in and we?ve started her on Promote. Prognosis is very grave. Critical care time:? 80+ min. Physical Exam Vital Signs: Vital Signs: Last Vital Signs Temp 98.6 F 11/06/20 17:00 Pulse 72 11/06/20 17:00 Resp 20 11/06/20 17:00 BP 119/55 L 11/06/20 17:00 Pulse Ox 93 11/06/20 17:00 Oxygen Flow Rate 40 10/27/20 02:27 Body Mass Index 35.3 Objective Data Labs CBC & Chem 7: 11/06/20 05:08 11/06/20 05:08 Labs: Laboratory Results - last 24 hr 11/05/20 11/05/20 11/06/20 20:48 20:49 00:08 WBC RBC Hgb Hct MCV MCH MCHC RDW Plt Count MPV Absolute Nucleated RBC Nucleated RBC % (auto) VBG pH 7.25 L VBG pCO2 64 VBG pO2 65 VBG HCO3 28 H VBG O2 Saturation 83.0 VBG Base Excess 0.7 Sodium Potassium Chloride Carbon Dioxide Anion Gap BUN Creatinine Estim Creat Clear Calc Estimated GFR POC Glucose 96 145 H Random Glucose Calcium Phosphorus Magnesium B-Natriuretic Peptide Albumin 11/06/20 11/06/20 11/06/20 05:08 05:08 05:08 WBC 15.5 H RBC 3.33 L Hgb 10.0 L Hct 31.6 L MCV 94.9 MCH 30.0 MCHC 31.6 RDW 14.6 Plt Count 323 MPV 9.6 Absolute Nucleated RBC 0.000 Nucleated RBC % (auto) 0.0 VBG pH VBG pCO2 VBG pO2 VBG HCO3 VBG O2 Saturation VBG Base Excess Sodium 145 Potassium 5.0 Chloride 110 H Carbon Dioxide 27 Anion Gap 13 BUN 33 H Creatinine 0.67 Estim Creat Clear Calc 81.4 Estimated GFR > 60 POC Glucose Random Glucose 145 H D Calcium 8.1 L Phosphorus 4.1 Magnesium 2.7 H B-Natriuretic Peptide 422 H Albumin 2.9 L 11/06/20 11/06/20 11/06/20 05:11 05:23 12:00 WBC RBC Hgb Hct MCV MCH MCHC RDW Plt Count MPV Absolute Nucleated RBC Nucleated RBC % (auto) VBG pH 7.36 VBG pCO2 48 VBG pO2 60 VBG HCO3 28 H VBG O2 Saturation 85.0 VBG Base Excess 2.4 Sodium Potassium Chloride Carbon Dioxide Anion Gap BUN Creatinine Estim Creat Clear Calc Estimated GFR POC Glucose 131 H 163 H Random Glucose Calcium Phosphorus Magnesium B-Natriuretic Peptide Albumin 11/06/20 16:58 WBC RBC Hgb Hct MCV MCH MCHC RDW Plt Count MPV Absolute Nucleated RBC Nucleated RBC % (auto) VBG pH 7.32 VBG pCO2 58 VBG pO2 44 VBG HCO3 30 H VBG O2 Saturation 66.0 VBG Base Excess 3.3 Sodium Potassium Chloride Carbon Dioxide Anion Gap BUN Creatinine Estim Creat Clear Calc Estimated GFR POC Glucose Random Glucose Calcium Phosphorus Magnesium B-Natriuretic Peptide Albumin Microbiology Microbiology Results: Microbiology 11/04/20 16:18 Bronchial Washings Gram Stain - Final 11/04/20 16:18 Bronchial Washings Routine Culture - Final 11/06/20 04:20 Sputum - Suctioned Gram Stain - Final 10/26/20 22:43 Blood - Venous Blood Culture - Final No growth after 5 days. 10/26/20 22:26 Blood - Venous Blood Culture - Final No growth after 5 days. 10/27/20 Unknown Urine clean catch - Urine hernandez top Urine Culture - Final Quality Stroke Does the patient have a stroke diagnosis?: No VTE Prior VTE?: No VTE Risk Level:: Medical - moderate - high VTE Device Contraindication: Treatment Not Indicated VTE Drug Contraindication: N/A - Med Ordered Critical Care Time Critical Care Time (minutes): 90
[2020-11-06 17:55] LABS: Glucose, Whole Blood 160 mg/dL (60-115)
[2020-11-06] MEDS: vancomycin HCL 750 MG in 0.9 % Sodium Chloride 250 ML 265 MG IV (17:57)
--- NOTE | 2020-11-06 18:33 | PC.NURSE ---
Afebrile, VSS. Pt sedated on propofol and fentanyl per EMAR. Opens eyes to voice, occasionally nods head to questions. Vent settings changed to PC rate 14, PI 22, PEEP 10, FIO2 60%, pt satting 90%+. U/O wnl, OG placed by MD, tube feeds started- promote at 10ml/hr, pocs covered per Sliding scale. SR on tele. bath given, family updated at bedside.
[2020-11-06] MEDS: Albuterol/Iprat 2.5/0.5MG 3 ML AMPUL.NEB INHALE (20:17)
[2020-11-06 20:27] LABS: Glucose, Whole Blood 167 mg/dL (60-115)
[2020-11-06] MEDS: Insulin Glargine,Hum.rec.anlog 100 UNIT/ML 10 ML VIAL 30 UNIT SUBCUT (20:28)
[2020-11-06 22:17] LABS: Venous Blood Gas Refer to POC result
[2020-11-06 23:39] LABS: Glucose, Whole Blood 173 mg/dL (60-115)
[2020-11-07] VITALS (40 sets, daily range): BP systolic 99–172; BP diastolic 43–76; PULSE 88–125; RESP 13–21; TEMP 37.3–38.1; O2SAT 88–100; BMI 34.4
[2020-11-07] MEDS: Albuterol/Iprat 2.5/0.5MG 3 ML AMPUL.NEB INHALE ×7 (00:13→23:50)
[2020-11-07] MEDS: propofoL 1,000 MG/100 ML VIAL 20.71 MG IVCONT ×4 (00:27→13:55)
[2020-11-07] MEDS: fentaNYL citrate/NS 1,000 MCG/100 ML PLAST..BAG 15 MCG IVCONT ×3 (01:52→14:23)
[2020-11-07] MEDS: methylPREDNISolone Sod Succ 125 MG/2 ML VIAL 80 MG IVPUSH ×4 (04:22→22:19)
[2020-11-07] MEDS: vancomycin HCL 750 MG in 0.9 % Sodium Chloride 250 ML 250 MG IV (05:18)
[2020-11-07 05:19] LABS: Hematocrit 32.4 % (37-47); Mean Corpuscular HGB Conc 30.9 g/dl (31.0-35.0); Mean Corpuscular Hemoglobin 29.6 pg (27.0-33.0); Mean Corpuscular Volume 95.9 fL (80-98); Mean Platelet Volume 9.2 fL (9.4-12.3); Platelet Count 257 X10*3/uL (160-400); Red Blood Count 3.38 X10*6/uL (4.20-5.50); Red Cell Distribution Width 14.5 % (11.0-16.0); White Blood Count 20.5 X10*3/uL (4.8-10.8)
[2020-11-07] MEDS: Heparin Sodium,Porcine 5,000 UNIT/ML VIAL 5000 UNIT SUBCUT ×3 (05:19→22:19)
[2020-11-07 05:20] LABS: VBG HCO3 26 mmol/L (22-26); VBG pCO2 52 mmHg; VBG pH 7.31 (7.32-7.43); VBG pO2 52 mmHg
[2020-11-07 05:29] LABS: Glucose, Whole Blood 207 mg/dL (60-115)
[2020-11-07] MEDS: Insulin Lispro 100 UNIT/ML 3 ML VIAL SUBCUT ×4 (05:33→23:53)
[2020-11-07 05:40] LABS: Anion Gap 13 (12-20); Blood Urea Nitrogen 35 mg/dL (9-16); Calcium 8.2 mg/dL (8.4-10.2); Carbon Dioxide 26 mmol/L (22-29); Chloride 111 mmol/L (96-108); Creatinine Clr Calc Pharmacy 75.9; Estimated Glomerular Filt Rate > 60; Glucose Random 233 mg/dL (60-115); Potassium 5.1 mmol/L (3.3-5.1); Sodium 145 mmol/L (135-145)
[2020-11-07 06:06] LABS: Procalcitonin 0.04 ng/mL
[2020-11-07] MEDS: dilTIAZem HCL 50 MG/10 ML VIAL 10 MG IVPUSH (06:06)
[2020-11-07] MEDS: Pantoprazole Sodium 40 MG/10 ML VIAL IVPUSH (06:06)
[2020-11-07 06:13] LABS: Venous Blood Gas Refer to POC result
[2020-11-07] MEDS: dilTIAZem HCL 60 MG TABLET PO ×4 (07:30→23:52)
[2020-11-07] MEDS: Clopidogrel Bisulfate 75 MG TABLET PO (08:00)
[2020-11-07] MEDS: Metoprolol Tartrate 50 MG TABLET PO ×2 (08:00→20:21)
[2020-11-07] MEDS: Chlorhexidine Gluc Oral Rinse 15 ML MOUTHWASH BUCCAL ×3 (08:00→20:20)
[2020-11-07] MEDS: Insulin Glargine,Hum.rec.anlog 100 UNIT/ML 10 ML VIAL 30 UNIT SUBCUT ×2 (08:01→20:20)
[2020-11-07 09:01] LABS: Adenovirus PCR Not Detected (Not Detect.); Bordetella parapertussis PCR Not Detected (Not Detect.); Bordetella pertussis PCR Not Detected (Not Detect.); Chlamydia pneumoniae PCR Not Detected (Not Detect.); Coronavirus 229E PCR Not Detected (Not Detect.); Coronavirus HKU1 PCR Not Detected (Not Detect.); Coronavirus NL63 PCR Not Detected (Not Detect.); Coronavirus OC43 PCR Not Detected (Not Detect.); Human metapneumovirus PCR Not Detected (Not Detect.); Influenza A PCR Not Detected (Not Detect.); Influenza B PCR Not Detected (Not Detect.); Mycoplasma pneumoniae PCR Not Detected (Not Detect.); Parainfluenza 1 PCR Not Detected (Not Detect.); Parainfluenza 2 PCR Not Detected (Not Detect.); Parainfluenza 3 PCR Not Detected (Not Detect.); Parainfluenza 4 PCR Not Detected (Not Detect.); RSV PCR Not Detected (Not Detect.); Rhino/Enterovirus PCR Not Detected (Not Detect.); SARS-CoV-2 PCR Not Detected (Not Detect.)
[2020-11-07] MEDS: Furosemide 200 MG in 0.9 % Sodium Chloride 80 ML IVCONT (09:01)
[2020-11-07 09:55] LABS: Erythrocyte Sedimentation Rate 64 MM/HR (0-20)
--- NOTE | 2020-11-07 10:26 | MHC.CM.PN ---
Addendum entered by Payal Vera 11/07/20 10:29: Patient has not received any Covid vaccinations. This may make it difficult to find placement when patient is medically stable. Original Note: Patient remains in ICU. On 11/05 intubated/vented. Continue to monitor for d/c needs.
[2020-11-07 11:37] LABS: Glucose, Whole Blood 362 mg/dL (60-115)
--- NOTE | 2020-11-07 11:37 | PM.CCPN ---
Subjective Subjective Date of Service: 11/07/20 Interval History: 70-year-old moderately obese diabetic with vasculopathy and neuropathy presented with acute hypoxic respiratory failure superimposed on a background of sarcoid lung and developed extensive bilateral infiltrates and is COVID negative with no other positive pathogen was not on steroids at the time but currently is on high-dose steroids She has been here for over 12 days intubated several days ago and remains on an FiO2 of 60% but doing well with a permissive degree of hypercapnia with a pCO2 of 52 on a pressure control setting of 22/10 tidal volumes are averaging 400+ cc and basically synchronous with the ventilator Sedation with combined propofol and fentanyl and she had been on a bupropion or FENA program prior to all this Bronchoscopy at least visibly was unrevealing and serology studies and PCR studies as well as some culture results from that bronchoscopy are still pending but empirically on vancomycin and Bactrim and I did today added acyclovir Known to have normal systolic function but evidence of moderately severe pulmonary hypertension with PA systolic of 58 and some right ventricular dilatation and an EKG with nonspecific IVCD and clockwise rotation but evidence of diastolic dysfunction as well as pulmonary hypertension Critical Care Time (minutes): 45 Physical Exam Vital Signs: Vital Signs: Last Vital Signs Temp 100.2 F 11/07/20 10:55 Pulse 125 H 11/07/20 11:15 Resp 19 11/07/20 10:55 BP 148/59 H 11/07/20 11:15 Pulse Ox 96 11/07/20 10:55 Oxygen Flow Rate 40 10/27/20 02:27 Body Mass Index 34.4 Well sedated and intubated with no evidence of skin rash no evidence of any oral lesions Abdomen is benign soft no organomegaly and tolerating feedings Chest with a course bilateral ventilatory sounds no at other adventitious sounds Cardiac exam no neck vein distension and no gallops Skin otherwise intact with no livedo in no acrocyanosis Objective Data Labs CBC & Chem 7: 11/07/20 05:12 11/07/20 05:12 Labs: Laboratory Results - last 24 hr 11/06/20 11/06/20 11/06/20 12:00 16:58 17:51 WBC RBC Hgb Hct MCV MCH MCHC RDW Plt Count MPV Absolute Nucleated RBC Nucleated RBC % (auto) ESR VBG pH 7.32 VBG pCO2 58 VBG pO2 44 VBG HCO3 30 H VBG O2 Saturation 66.0 VBG Base Excess 3.3 Sodium Potassium Chloride Carbon Dioxide Anion Gap BUN Creatinine Estim Creat Clear Calc Estimated GFR POC Glucose 163 H 160 H Random Glucose Calcium Phosphorus Procalcitonin Respiratory Panel Verdin Adenovirus (Rapid PCR) B.pert (TEM-PCR) B.parapertussis DNA PCR C. pneumoniae DNA (PCR) Coronavirus OC43 (PCR) Coronavirus HKU1 (PCR) Coronavirus 229E (PCR) Coronavirus NL63 (PCR) Human Metapneumovir PCR Influenza A (RT-PCR) Influenza B (RT-PCR) M. pneumoniae (PCR) Parainfluenza 1 (PCR) Parainfluenza 2 (PCR) Parainfluenza 3 (PCR) Parainfluenza 4 (PCR) RSV (PCR) Entero/Rhino (PCR) SARS-CoV-2 RNA (RT-PCR) 11/06/20 11/06/20 11/07/20 20:23 23:35 05:11 WBC RBC Hgb Hct MCV MCH MCHC RDW Plt Count MPV Absolute Nucleated RBC Nucleated RBC % (auto) ESR VBG pH 7.31 L VBG pCO2 52 VBG pO2 52 VBG HCO3 26 VBG O2 Saturation 78.0 VBG Base Excess 0.0 Sodium Potassium Chloride Carbon Dioxide Anion Gap BUN Creatinine Estim Creat Clear Calc Estimated GFR POC Glucose 167 H 173 H Random Glucose Calcium Phosphorus Procalcitonin Respiratory Panel Verdin Adenovirus (Rapid PCR) B.pert (TEM-PCR) B.parapertussis DNA PCR C. pneumoniae DNA (PCR) Coronavirus OC43 (PCR) Coronavirus HKU1 (PCR) Coronavirus 229E (PCR) Coronavirus NL63 (PCR) Human Metapneumovir PCR Influenza A (RT-PCR) Influenza B (RT-PCR) M. pneumoniae (PCR) Parainfluenza 1 (PCR) Parainfluenza 2 (PCR) Parainfluenza 3 (PCR) Parainfluenza 4 (PCR) RSV (PCR) Entero/Rhino (PCR) SARS-CoV-2 RNA (RT-PCR) 11/07/20 11/07/20 11/07/20 05:12 05:12 05:12 WBC 20.5 H RBC 3.38 L Hgb 10.0 L Hct 32.4 L MCV 95.9 MCH 29.6 MCHC 30.9 L RDW 14.5 Plt Count 257 MPV 9.2 L Absolute Nucleated RBC 0.000 Nucleated RBC % (auto) 0.0 ESR VBG pH VBG pCO2 VBG pO2 VBG HCO3 VBG O2 Saturation VBG Base Excess Sodium 145 Potassium 5.1 Chloride 111 H Carbon Dioxide 26 Anion Gap 13 BUN 35 H Creatinine 0.71 Estim Creat Clear Calc 75.9 Estimated GFR > 60 POC Glucose Random Glucose 233 H D Calcium 8.2 L Phosphorus 3.0 Procalcitonin 0.04 Respiratory Panel Verdin Adenovirus (Rapid PCR) B.pert (TEM-PCR) B.parapertussis DNA PCR C. pneumoniae DNA (PCR) Coronavirus OC43 (PCR) Coronavirus HKU1 (PCR) Coronavirus 229E (PCR) Coronavirus NL63 (PCR) Human Metapneumovir PCR Influenza A (RT-PCR) Influenza B (RT-PCR) M. pneumoniae (PCR) Parainfluenza 1 (PCR) Parainfluenza 2 (PCR) Parainfluenza 3 (PCR) Parainfluenza 4 (PCR) RSV (PCR) Entero/Rhino (PCR) SARS-CoV-2 RNA (RT-PCR) 11/07/20 11/07/20 11/07/20 05:14 08:30 08:43 WBC RBC Hgb Hct MCV MCH MCHC RDW Plt Count MPV Absolute Nucleated RBC Nucleated RBC % (auto) ESR 64 H VBG pH VBG pCO2 VBG pO2 VBG HCO3 VBG O2 Saturation VBG Base Excess Sodium Potassium Chloride Carbon Dioxide Anion Gap BUN Creatinine Estim Creat Clear Calc Estimated GFR POC Glucose 207 H Random Glucose Calcium Phosphorus Procalcitonin Respiratory Panel Verdin See Note Adenovirus (Rapid PCR) Not Detected B.pert (TEM-PCR) Not Detected B.parapertussis DNA PCR Not Detected C. pneumoniae DNA (PCR) Not Detected Coronavirus OC43 (PCR) Not Detected Coronavirus HKU1 (PCR) Not Detected Coronavirus 229E (PCR) Not Detected Coronavirus NL63 (PCR) Not Detected Human Metapneumovir PCR Not Detected Influenza A (RT-PCR) Not Detected Influenza B (RT-PCR) Not Detected M. pneumoniae (PCR) Not Detected Parainfluenza 1 (PCR) Not Detected Parainfluenza 2 (PCR) Not Detected Parainfluenza 3 (PCR) Not Detected Parainfluenza 4 (PCR) Not Detected RSV (PCR) Not Detected Entero/Rhino (PCR) Not Detected SARS-CoV-2 RNA (RT-PCR) Not Detected Microbiology Microbiology Results: Microbiology 11/06/20 04:20 Sputum - Suctioned Gram Stain - Final 11/06/20 04:20 Sputum - Suctioned Sputum Culture - Preliminary Culture in progress. 11/04/20 16:18 Bronchial Washings Gram Stain - Final 11/04/20 16:18 Bronchial Washings Routine Culture - Final 10/26/20 22:43 Blood - Venous Blood Culture - Final No growth after 5 days. 10/26/20 22:26 Blood - Venous Blood Culture - Final No growth after 5 days. 10/27/20 Unknown Urine clean catch - Urine hernandez top Urine Culture - Final Quality Stroke Does the patient have a stroke diagnosis?: No VTE Prior VTE?: No VTE Risk Level:: Medical - moderate - high VTE Device Contraindication: Treatment Not Indicated VTE Drug Contraindication: N/A - Med Ordered Progress Note: A&P Assessment and plan (1) Afib: Status: Acute (2) HTN (hypertension): Status: Acute (3) Diabetes: Status: Acute (4) Acute exacerbation of CHF (congestive heart failure): Status: Acute (5) Atypical pneumonia: Status: Acute (6) Acute respiratory failure with hypoxemia: Status: Acute (7) Elevated troponin: Status: Acute (8) Vascular insufficiency of extremity: Status: Acute (9) Wound, open, finger, complicated: Status: Acute (10) History of adenomatous polyp of colon: Status: Acute (11) Leg edema: Status: Acute (12) CHF (congestive heart failure): Status: Acute (13) Chronic respiratory failure: Status: Acute (14) JOVANNY on CPAP: Status: Acute (15) ILD (interstitial lung disease): Status: Acute (16) Sarcoidosis: Status: Acute (17) COPD (chronic obstructive pulmonary disease): Status: Acute Assessment and Plan: Stable degree of hypoxic respiratory failure with continued ventilator dependence seemingly not making that much progress and if anything CT scan of the chest had worsened between the and the and by the way was negative for a thrombotic disease and so at this point with measured CVP approximating 10 or possibly even more and almost up to 15 when in the supine and level position and with intake and output being positive by 5 L and with a stable BUN and creatinine starting just a low-dose Lasix infusion and will follow both CVP and blood pressure as well as parameters of renal function and adding acyclovir until we get back in negative PCR from the sputum
--- NOTE | 2020-11-07 13:08 | PC.NURSE ---
Addendum entered by Tashia Moreno RN 11/07/20 18:40: Per osm Mercado (HCP), only people allowed to visit are pt's sons (2). herself and their father (ex ) Tmax 100.6, VSS. Sedated on propfol and fentanyl, awakens to noxious stimuli. Vent fio2 changed to 50% pt satting 88%+, MD aware. Sputum cx collected and sent. Lasix gtt started, u/o about 150-200/hr. HR ST on tele. Tube feedings increased to 35/hr. Pt repo q2hr at tolerated, family updated bedside. Original Note: Per pt daughter/HCP at bedside, she would like to be the only one to recieve updates and will pass on to family. Will pass on to next RN.
--- NOTE | 2020-11-07 13:49 | P.CNID_ITS ---
History of Present Illness Data of Consult Service Date: 11/07/20 Requesting physician: Ho Richardson Primary Care Provider: MD KIRAN Little Reason for consult: shortness of breath She presents to hospital with shortness of breath. She was intubated and in ICU on 10/27 after arrival She has interstitial infiltrates on CXR. She was on Ceftraxone and Azithromycin 10/27-11/01. She also received steroids 10/29. She was started on Vancomycin day 2,Bactrim day 2 and Acyclovir day 1. 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 Arrhythmia CHF (congestive heart failure) Chronic respiratory failure Constipation COPD (chronic obstructive pulmonary disease) Diabetes Diastolic CHF with preserved left ventricular function, NYHA class 2 History of adenomatous polyp of colon HTN (hypertension) Hx of flexible sigmoidoscopy ILD (interstitial lung disease) Leg edema Muscle spasm On anticoagulant therapy JOVANNY on CPAP Pre-op chest exam Sarcoidosis Family History Family History Other Diabetes Family history: reviewed and not pertinent Surgical History Surgical History H/O colonoscopy Hx of appendectomy Hx of section Hx of umbilical hernia repair Social History Social History Household Members: Family Housing: Apartment Alcohol intake: never Patient Tobacco Use Status: Former Tobacco user Tobacco use type: Cigarette Years Smoked: 32 years service: No Current occupational status: disabled Meds Allergies Allergy/AdvReac Type Severity Reaction Status Date / Time albuterol [ALBUTEROL] Allergy Severe TACHYCARDIA Verified 10/10/20 15:13 Active Medications: Current Medications Generic Name Dose Route Start Last Admin Trade Name Freq PRN Reason Stop Dose Admin Acetaminophen 650 mg 10/29/20 14:23 10/31/20 17:02 Acetaminophen 325 Mg Tablet PO 650 mg Q6H PRN Administration Pain, Mild (Pain Scale 1-3) Albuterol/Ipratropium 3 ml 11/06/20 20:00 11/07/20 11:02 Albuterol/Iprat 2.5/0.5mg 3 Ml Ampul.Neb INHALE 3 ml RQ4H BETTY Administration Bisacodyl 10 mg 11/03/20 10:23 11/03/20 12:45 Bisacodyl 5 Mg Tablet.Dr PO 10 mg DAILY PRN Administration Constipation Chlorhexidine Gluconate 15 ml 11/06/20 09:00 11/07/20 08:00 Chlorhexidine Gluc Oral Rinse 15 Ml Mouthwash BUCCAL 15 ml TID BETTY Administration Clopidogrel Bisulfate 75 mg 10/27/20 11:15 11/07/20 08:00 Clopidogrel Bisulfate 75 Mg Tablet PO 75 mg DAILY BETTY Administration Diltiazem HCl 60 mg 11/07/20 06:00 11/07/20 11:15 Diltiazem Hcl 60 Mg Tablet PO 60 mg Q6H BETTY Administration Protocol Fentanyl 50 mcg 11/03/20 10:21 11/05/20 09:06 Fentanyl Citrate/Pf 100 Mcg/2 Ml Vial IVPUSH 50 mcg Q5M PRN Administration Work of Breathing Protocol Fluticasone Propionate 1 spray 11/01/20 09:00 11/07/20 07:49 Fluticasone Propionate Nasal 16 Gm [place] NOSTRIL-B Not Given BID [facility] Heparin Sodium (Porcine) 5,000 unit 10/30/20 14:00 11/07/20 05:19 Heparin Sodium,Porcine 5,000 Unit/Ml Vial SUBCUT 5,000 unit Q8H BETTY Administration Hydromorphone HCl 1 mg 11/03/20 10:19 11/05/20 09:56 Hydromorphone Hcl 1 Mg/Ml Syringe IVPUSH 1 mg Q1H PRN Administration Work of Breathing Protocol Fentanyl 1,000 mcg in 100 mls @ 0 mls/hr 11/05/20 10:15 11/07/20 11:13 Sublimaze/Ns IVCONT 175 mcg/hr .Q0M BETTY 17.5 mls/hr Titration Protocol Per Protocol Propofol 1,000 mg in 100 mls @ 0 mls/hr 11/05/20 20:45 11/07/20 09:54 Diprivan IVCONT 40 mcg/kg/min .Q0M BETTY 20.71 mls/hr Administration Protocol Per Protocol Norepinephrine Bitartrate 8 mg in 250 mls @ 0 mls/hr 11/05/20 20:45 11/06/20 04:32 Levophed IVCONT 0 mcg/kg/min .Q0M BETTY 0 mls/hr Titration Protocol Per Protocol Vancomycin HCl 750 mg/ Sodium 265 mls @ 265 mls/hr 11/06/20 18:00 11/07/20 06:31 Chloride IV Infused Q12H BETTY Infusion Trimethoprim/Sulfamethoxazole 260 mls @ 173.333 mls/hr 11/07/20 17:00 160 mg/ Sodium Chloride IV 11/14/20 06:29 Q12H BETTY Furosemide 200 mg/ Sodium 100 mls @ 2.5 mls/hr 11/07/20 09:00 11/07/20 09:01 Chloride IVCONT 5 mg/hr .Q24H BETTY 2.5 mls/hr Administration 5 MG/HR Acyclovir Sodium 425 mg/ 108.5 mls @ 109.997 mls/hr 11/07/20 10:00 11/07/20 1 0:59 Dextrose IV Infused Q8H BETTY Infusion Insulin Glargine 30 unit 11/05/20 08:00 11/07/20 08:01 Insulin Glargine,Hum.Rec.Anlog 100 Unit/Ml 10 Ml Vial SUBCUT 30 unit Q12H BETTY Administration Insulin Human Lispro 0 unit 11/06/20 12:00 11/07/20 11:36 Insulin Lispro 100 Unit/Ml 3 Ml Vial SUBCUT 10 unit Q6H [facility] Administration Protocol Methylprednisolone Sodium Succinate 80 mg 11/03/20 17:00 11/07/20 11:16 Methylprednisolone Sod Succ 125 Mg/2 Ml Vial IVPUSH 80 mg Q6H BETTY Administration Metoprolol Tartrate 50 mg 11/07/20 08:00 11/07/20 08:00 Metoprolol Tartrate 50 Mg Tablet PO 50 mg Q12H BETTY Administration Protocol Naloxone HCl 0.2 mg 11/05/20 10:07 Naloxone Hcl 0.4 Mg/Ml Vial IVPUSH Q2M PRN Excessive sedation or RR < 8 Pantoprazole Sodium 40 mg 11/07/20 06:30 11/07/20 06:06 Pantoprazole Sodium 40 Mg/10 Ml Vial IVPUSH 40 mg DAILY@0630 [facility] Administration Pharmacy Consult 1 each 11/06/20 15:58 Consult Rx Vancomycin Dosing MISCELLANE DAILY PRN Consult order Home Medications Medication Instructions Recorded Confirmed Last Taken Type CPAP Mask DX: G47.33 Sleep Apnea #1 ea 01/25/20 11/01/20 Unknown History ezetimibe 10 mg tablet (Zetia) 10 mg PO DAILY 01/25/20 10/27/20 10/25/20 History rosuvastatin 10 mg tablet 10 mg PO DAILY 01/25/20 10/27/20 10/25/20 History bisacodyl 5 mg tablet,delayed 5 mg PO BID PRN 04/25/20 10/27/20 Unknown History release clonazepam 1 mg tablet 1 mg PO BID PRN 04/25/20 10/27/20 Unknown History diltiazem HCl 240 mg 240 mg PO BID 04/25/20 10/27/20 10/25/20 History capsule,extended release 24 hr doxycycline hyclate 100 mg tablet 100 mg PO BID 04/25/20 10/27/20 10/25/20 History duloxetine 60 mg capsule,delayed 60 mg PO DAILY 04/25/20 10/27/20 10/25/20 History release folic acid 1 mg tablet 1 mg PO DAILY 04/25/20 10/27/20 10/25/20 History furosemide 40 mg tablet 80 mg PO BID 04/25/20 10/27/20 10/25/20 History insulin aspart U-100 100 unit/mL 40 unit SUBCUT BIDAC 04/25/20 10/27/20 10/25/20 History (3 mL) subcutaneous pen (Novolog Flexpen U-100 Insulin aspart) insulin degludec 100 unit/mL (3 80 unit SUBCUT BEDTIME 04/25/20 10/27/20 10/25/20 History mL) subcutaneous pen (Tresiba FlexTouch U-100 insulin) ivabradine 5 mg tablet (Corlanor) 5 mg PO BID 04/25/20 10/27/20 10/25/20 History metoprolol tartrate 50 mg tablet 50 mg PO BID 04/25/20 10/27/20 10/25/20 History nortriptyline 25 mg capsule 25 mg PO DAILY 04/25/20 10/27/20 10/25/20 History potassium chloride 10 mEq 30 meq PO BIDAC 04/25/20 10/27/20 10/25/20 History capsule,extended release rivaroxaban 20 mg tablet (Xarelto) 20 mg PO DAILY 04/25/20 10/27/20 10/25/20 History sertraline 50 mg tablet 75 mg PO DAILY 04/25/20 10/27/20 10/25/20 History zolpidem 10 mg tablet 10 mg PO BEDTIME 04/25/20 10/27/20 10/25/20 History buprenorphine 5 mcg/hour weekly 1 patch TOPICAL QWEEK 06/22/20 10/27/20 10/25/20 History transdermal patch clopidogrel 75 mg tablet 75 mg PO DAILY 10/10/20 10/27/20 10/25/20 History fluticasone fur. 200 mcg-umeclid 1 inh INHALATION DAILY 10/10/20 10/27/20 10/25/20 History 62.5 mcg-vilant 25 mcg inhalat.powder atropine 1 % eye drops 1 drp BID 10/27/20 10/27/20 10/25/20 History baclofen 10 mg tablet 20 mg PO TID PRN 10/27/20 10/27/20 Unknown History dulaglutide 3 mg/0.5 mL 3 mg SUBCUT QWEEK 10/27/20 10/27/20 Unknown History subcutaneous pen injector (Trulicity) insulin degludec 100 unit/mL (3 10 unit SUBCUT DAILY 10/27/20 10/27/20 10/25/20 History mL) subcutaneous pen (Tresiba FlexTouch U-100 insulin) linaclotide 290 mcg capsule 1 cap PO DAILY 10/27/20 10/27/20 10/25/20 History (Linzess) oxycodone 5 mg tablet 5 mg PO Q8H PRN 10/27/20 10/27/20 Unknown History Physical Exam Vital Signs: Vital Signs: Last Vital Signs Temp 100.6 F H 11/07/20 13:00 Pulse 115 H 11/07/20 13:00 Resp 18 11/07/20 13:00 BP 139/57 L 11/07/20 13:00 Pulse Ox 90 L 11/07/20 13:00 Oxygen Flow Rate 40 10/27/20 02:27 Body Mass Index 34.4 Const: General: cooperative HENMT: Head: Yes normal to inspection Mouth: Normal oral and palatal mucosa present Eyes: General: appearance normal, both eyes and all related structures Pupils: Equal, round and reactive pupils present Resp: Other: ventilation GI: Palpation (GI): Soft to palpation and nontender Skin: General skin exam: no rashes or lesions noted Neuro: General: Unable to assess gait Cranial nerves: Yes Equal, round and reactive pupils present Gait exam (Neuro): Unable to assess gait Results Labs CBC & Chem 7: 11/19/20 05:10 11/19/20 14:16 Labs: Short CBC 11/07/20 Range/Units 05:12 WBC 20.5 H (4.8-10.8) X10*3/uL Hgb 10.0 L (12.0-16.0) g/dl Hct 32.4 L (37-47) % Plt Count 257 (160-400) X10*3/uL BMP 11/07/20 05:12 Sodium 145 Potassium 5.1 Chloride 111 H Carbon Dioxide 26 BUN 35 H Creatinine 0.71 Calcium 8.2 L Microbiology Microbiology Results: Microbiology 11/04/20 16:18 Bronchial Washings Fungal Identification - Preliminary Yeast 11/06/20 04:20 Sputum - Suctioned Gram Stain - Final 11/06/20 04:20 Sputum - Suctioned Sputum Culture - Preliminary Culture in progress. 11/04/20 16:18 Bronchial Washings Gram Stain - Final 11/04/20 16:18 Bronchial Washings Routine Culture - Final 10/26/20 22:43 Blood - Venous Blood Culture - Final No growth after 5 days. 10/26/20 22:26 Blood - Venous Blood Culture - Final No growth after 5 days. 10/27/20 Unknown Urine clean catch - Urine hernandez top Urine Culture - Final Assessment and Plan (1) Acute respiratory failure with hypoxemia: Status: Acute She has refractory hypoxia and bronch showing no specific organisms She is at risk for PJP and other organisms such as fungus/AFB There are no further cultures available Virus like HSV unusual unless HIV even though immunocompromised Would continue Vancomycin and Bactrim as no improvement with atypical treatment such as azithromycin Would also check HIV test Lung biopsy would be difficult here Check crypococcal antigen Prognosis is guarded
[2020-11-07 15:03] LABS: HIV AB/AG Nonreactive (Nonreactive); HIV Num 1 0.05 S/CO (0.00-0.99)
[2020-11-07] MEDS: Fluconazole in NaCl,Iso-Osm 200 MG/100 ML PIGGYBACK 100 MG IV (17:36)
[2020-11-07] MEDS: vancomycin HCL 750 MG in 0.9 % Sodium Chloride 250 ML 265 MG IV (17:47)
[2020-11-07 17:57] LABS: Glucose, Whole Blood 333 mg/dL (60-115)
[2020-11-07] MEDS: propofoL 1,000 MG/100 ML VIAL 15.53 MG IVCONT (19:52)
[2020-11-07] MEDS: fentaNYL citrate/NS 1,000 MCG/100 ML PLAST..BAG 12.5 MCG IVCONT (21:07)
[2020-11-07 23:52] LABS: Glucose, Whole Blood 370 mg/dL (60-115)
[2020-11-08] VITALS (42 sets, daily range): BP systolic 92–164; BP diastolic 41–65; PULSE 73–171; RESP 12–23; TEMP 36.7–38; O2SAT 87–100; BMI 34.1
[2020-11-08] MEDS: propofoL 1,000 MG/100 ML VIAL 15.53 MG IVCONT ×2 (01:02→08:00)
[2020-11-08] MEDS: methylPREDNISolone Sod Succ 125 MG/2 ML VIAL 80 MG IVPUSH ×2 (04:29→10:32)
[2020-11-08] MEDS: Albuterol/Iprat 2.5/0.5MG 3 ML AMPUL.NEB INHALE ×5 (04:36→23:28)
[2020-11-08] MEDS: fentaNYL citrate/NS 1,000 MCG/100 ML PLAST..BAG 12.5 MCG IVCONT ×2 (05:04→12:51)
[2020-11-08 05:22] LABS: Glucose, Whole Blood 398 mg/dL (60-115)
[2020-11-08 05:22] LABS: VBG Base Excess 5.9 mmol/L; VBG HCO3 33 mmol/L (22-26); VBG pCO2 61 mmHg; VBG pH 7.33 (7.32-7.43); VBG pO2 48 mmHg
[2020-11-08] MEDS: dilTIAZem HCL 60 MG TABLET PO ×2 (05:23→12:14)
[2020-11-08] MEDS: Heparin Sodium,Porcine 5,000 UNIT/ML VIAL 5000 UNIT SUBCUT ×3 (05:23→21:54)
[2020-11-08] MEDS: Insulin Lispro 100 UNIT/ML 3 ML VIAL SUBCUT ×2 (05:23→06:06)
[2020-11-08] MEDS: Pantoprazole Sodium 40 MG/10 ML VIAL IVPUSH (05:24)
[2020-11-08 05:25] LABS: Basophils Percent Auto 0.1 % (0-2); Hematocrit 31.9 % (37-47); Hemoglobin 9.8 g/dl (12.0-16.0); Imm Gran Abs Auto 0.13 X10*3/uL (0.00-0.03); Imm Gran Pct Auto 0.8 % (0.0-0.4); Lymphocytes Absolute Auto 0.2 X10*3/uL (1.2-4.9); Lymphocytes Percent Auto 1.4 % (20-40); MANUAL DIFF FLAG SCAN; Mean Corpuscular HGB Conc 30.7 g/dl (31.0-35.0); Mean Corpuscular Hemoglobin 29.3 pg (27.0-33.0); Mean Corpuscular Volume 95.2 fL (80-98); Mean Platelet Volume 9.5 fL (9.4-12.3); Monocytes Absolute Auto 0.7 X10*3/uL (0.1-1.2); Monocytes Percent Auto 4.4 % (2-11); Neutrophils Absolute Auto 14.8 X10*3/uL (2.0-8.3); Neutrophils Percent Auto 93.3 % (45-73); Platelet Count 257 X10*3/uL (160-400); Red Blood Count 3.35 X10*6/uL (4.20-5.50); Red Cell Distribution Width 14.6 % (11.0-16.0); SCAN SMEAR FLAG 1; White Blood Count 15.9 X10*3/uL (4.8-10.8)
[2020-11-08 05:30] LABS: Venous Blood Gas Refer to POC result
[2020-11-08 05:45] LABS: INTERNATIONAL NORM RATIO 1.1 (0.9-1.1)
[2020-11-08 05:48] LABS: Partial Thromboplastin Time 24.3 SEC (24.1-38.0)
[2020-11-08 05:50] LABS: SLIDE REVIEW VERIFIED
[2020-11-08 05:53] LABS: Alanine Aminotransferase 29 U/L (0-31); Alkaline Phosphatase 194 U/L (39-117); Anion Gap 12 (12-20); Aspartate Amino Transferase 12 U/L (5-31); Bilirubin Direct 0.2 mg/dL (0.0-0.5); Bilirubin Total 0.2 mg/dL (0.0-1.0); Blood Urea Nitrogen 30 mg/dL (9-16); Calcium 8.2 mg/dL (8.4-10.2); Carbon Dioxide 33 mmol/L (22-29); Chloride 105 mmol/L (96-108); Creatinine Clr Calc Pharmacy 65.3; Estimated Glomerular Filt Rate > 60; Glucose Random 447 mg/dL (60-115); Magnesium 2.5 mg/dL (1.6-2.6); Phosphorus 2.9 mg/dL (2.7-4.5); Potassium 5.1 mmol/L (3.3-5.1); Sodium 145 mmol/L (135-145); Total Protein 5.5 g/dL (6.5-8.0); Vancomycin Trough 7.1 mcg/mL (10.0-20.0)
[2020-11-08 05:58] LABS: D Dimer 2179 NG/ML
[2020-11-08] MEDS: Insulin Glargine,Hum.rec.anlog 100 UNIT/ML 10 ML VIAL 40 UNIT SUBCUT (06:05)
[2020-11-08] MEDS: vancomycin HCL 750 MG in 0.9 % Sodium Chloride 250 ML 166.7 MG IV (06:06)
[2020-11-08] MEDS: Chlorhexidine Gluc Oral Rinse 15 ML MOUTHWASH BUCCAL ×3 (08:54→20:13)
[2020-11-08] MEDS: Metoprolol Tartrate 50 MG TABLET PO ×2 (08:54→19:31)
[2020-11-08] MEDS: Clopidogrel Bisulfate 75 MG TABLET PO (08:54)
--- NOTE | 2020-11-08 09:27 | MHC.CLN ---
F/U PT REMAINS INTUBATED AND SEDATED PT RECEIVING PROMOTE AT MAX GOAL RATE 35ML/HR NOTED SEDATION DECREASED PT WITH INCREASED NUTRITION RISK R/T PRESSURE INJURY RECOMMEND INCREASING FORMULA TO 45ML/HR TO PROVIDE 1080KCALS (1490KCALS WITH SEDATION; 24KCALS/KG), 68G PROTEIN (1.09G/KG), 906CC FREE WATER FROM FORMULA MONITOR TOLERANCE, RESIDUALS AND LYTES
[2020-11-08] MEDS: propofoL 1,000 MG/100 ML VIAL 20.71 MG IVCONT ×2 (11:38→15:42)
[2020-11-08 11:58] LABS: Glucose, Whole Blood 341 mg/dL (60-115)
[2020-11-08] MEDS: Midazolam HCl/PF 2 MG/2 ML VIAL 10 MG IVPUSH (12:05)
[2020-11-08] MEDS: Insulin Regular/NS 100 UNIT/100 ML PLAST..BAG IVCONT (13:35)
[2020-11-08 14:22] LABS: Glucose, Whole Blood 387 mg/dL (60-115)
[2020-11-08 14:25] LABS: Glucose, Whole Blood 336 mg/dL (60-115)
[2020-11-08] MEDS: dilTIAZem HCL 125 MG in 0.9 % Sodium Chloride 100 ML 10 MG IVCONT ×2 (14:25→21:50)
[2020-11-08] MEDS: dilTIAZem HCL 50 MG/10 ML VIAL 25 MG IVPUSH (14:33)
[2020-11-08] MEDS: Metoprolol Tartrate 5 MG/5 ML VIAL IVPUSH (15:07)
[2020-11-08 15:34] LABS: Glucose, Whole Blood 328 mg/dL (60-115)
--- NOTE | 2020-11-08 15:42 | PM.CCPN ---
Subjective Subjective Date of Service: 11/08/20 Interval History: 70-year-old moderately obese type 2 diabetic female with underlying sarcoid lung disease and paroxysmal atrial fibrillation and also hypertensive with a history of chronic diastolic CHF presented with acute hypoxemic respiratory failure with with new extensive bilateral diffuse ground-glass infiltrates thus far all cultures of viral studies PCR etc. all negative and this is all derived from bronchoscopy of growing yeast and currently on acyclovir empirically Bactrim empirically vancomycin and fluconazole as well as steroids with persistent ventilator dependence with this persistent high FiO2 requirement and today I noticed that her pCO2 on blood gas grew crept up from 50 to 60 at the same minute ventilation heart rate went up sinus tachycardia with rates in the 125-130 range and I did chest x-ray and sure enough she had bilateral spontaneous pneumothorax with pneumomediastinum and pneumopericardium and I placed a right-sided chest tube which apparently drained bilaterally and she did better with lower peak airway pressures but went back into rapid atrial fibrillation requiring IV Cardizem 25 mg as well as 5 mg IV Lopressor Cardizem drip and then finally addition of propafenone at 150 mg q.8 hourly now heart rate 115-120 controlled AFib on Cardizem drip and twice she successfully cardioverted to sinus rhythm but did not hold so I am going to wait for her to develop a blood level in the course of the next 2 hours and then attempt cardioversion again Critical Care Time (minutes): 75 Physical Exam Vital Signs: Vital Signs: Last Vital Signs Temp 99.9 F 11/08/20 15:00 Pulse 143 H 11/08/20 15:07 Resp 16 11/08/20 15:00 BP 126/54 L 11/08/20 15:07 Pulse Ox 98 11/08/20 15:00 Oxygen Flow Rate 40 10/27/20 02:27 Body Mass Index 34.1 Remains sedated and intubated Controlled atrial fibrillation maintaining oxygen saturation 98% but on FiO2 of 100% with blood pressure 130/50 good urine output stable laboratory exam [place] a [place] [id number] Tolerating feedings with benign abdomen Bedside echo demonstrating normal IVC dimension with normal inspiratory collapse when she was in pressure control mode and basically normal LV and RV systolic function and no primary valve disease Objective Data Labs CBC & Chem 7: 11/08/20 05:17 11/08/20 05:17 Labs: Laboratory Results - last 24 hr 11/07/20 11/07/20 11/08/20 17:54 23:48 05:14 WBC RBC Hgb Hct MCV MCH MCHC RDW Plt Count MPV Immature Gran % (Auto) Neut % (Auto) Lymph % (Auto) [place] % (Auto) Eos % (Auto) Baso % (Auto) Lymph # (Auto) [place] # (Auto) Eos # (Auto) Baso # (Auto) Abs Immat Gran (auto) Absolute Neuts (auto) Absolute Nucleated RBC Nucleated RBC % (auto) Smear Tech's Comments PT INR APTT D-Dimer VBG pH 7.33 VBG pCO2 61 VBG pO2 48 VBG HCO3 33 H VBG O2 Saturation 72.0 VBG Base Excess 5.9 Sodium Potassium Chloride Carbon Dioxide Anion Gap BUN Creatinine Estim Creat Clear Calc Estimated GFR POC Glucose 333 H 370 H* Random Glucose Calcium Phosphorus Magnesium Total Bilirubin Direct Bilirubin AST ALT Alkaline Phosphatase Total Protein Albumin Vancomycin Trough 11/08/20 11/08/20 11/08/20 05:17 05:17 05:17 WBC 15.9 H RBC 3.35 L Hgb 9.8 L Hct 31.9 L MCV 95.2 MCH 29.3 MCHC 30.7 L RDW 14.6 Plt Count 257 MPV 9.5 Immature Gran % (Auto) 0.8 H Neut % (Auto) 93.3 H Lymph % (Auto) 1.4 L [place] % (Auto) 4.4 Eos % (Auto) 0.0 Baso % (Auto) 0.1 Lymph # (Auto) 0.2 L [place] # (Auto) 0.7 Eos # (Auto) 0.0 Baso # (Auto) 0.0 Abs Immat Gran (auto) 0.13 H Absolute Neuts (auto) 14.8 H Absolute Nucleated RBC 0.000 Nucleated RBC % (auto) 0.0 Smear Tech's Comments VERIFIED PT 12.0 INR 1.1 APTT 24.3 D-Dimer 2179 VBG pH VBG pCO2 VBG pO2 VBG HCO3 VBG O2 Saturation VBG Base Excess Sodium Potassium Chloride Carbon Dioxide Anion Gap BUN Creatinine Estim Creat Clear Calc Estimated GFR POC Glucose Random Glucose Calcium Phosphorus Magnesium Total Bilirubin Direct Bilirubin AST ALT Alkaline Phosphatase Total Protein Albumin Vancomycin Trough 7.1 L 11/08/20 11/08/20 11/08/20 05:17 05:19 11:55 WBC RBC Hgb Hct MCV MCH MCHC RDW Plt Count MPV Immature Gran % (Auto) Neut % (Auto) Lymph % (Auto) [place] % (Auto) Eos % (Auto) Baso % (Auto) Lymph # (Auto) [place] # (Auto) Eos # (Auto) Baso # (Auto) Abs Immat Gran (auto) Absolute Neuts (auto) Absolute Nucleated RBC Nucleated RBC % (auto) Smear Tech's Comments PT INR APTT D-Dimer VBG pH VBG pCO2 VBG pO2 VBG HCO3 VBG O2 Saturation VBG Base Excess Sodium 145 Potassium 5.1 Chloride 105 Carbon Dioxide 33 H Anion Gap 12 BUN 30 H Creatinine 0.82 Estim Creat Clear Calc 65.3 Estimated GFR > 60 POC Glucose 398 H* 341 H Random Glucose 447 H* Calcium 8.2 L Phosphorus 2.9 Magnesium 2.5 Total Bilirubin 0.2 Direct Bilirubin 0.2 AST 12 ALT 29 Alkaline Phosphatase 194 H Total Protein 5.5 L Albumin 3.0 L Vancomycin Trough 11/08/20 11/08/20 11/08/20 13:28 14:22 15:30 WBC RBC Hgb Hct MCV MCH MCHC RDW Plt Count MPV Immature Gran % (Auto) Neut % (Auto) Lymph % (Auto) [place] % (Auto) Eos % (Auto) Baso % (Auto) Lymph # (Auto) [place] # (Auto) Eos # (Auto) Baso # (Auto) Abs Immat Gran (auto) Absolute Neuts (auto) Absolute Nucleated RBC Nucleated RBC % (auto) Smear Tech's Comments PT INR APTT D-Dimer VBG pH VBG pCO2 VBG pO2 VBG HCO3 VBG O2 Saturation VBG Base Excess Sodium Potassium Chloride Carbon Dioxide Anion Gap BUN Creatinine Estim Creat Clear Calc Estimated GFR POC Glucose 387 H* 336 H 328 H Random Glucose Calcium Phosphorus Magnesium Total Bilirubin Direct Bilirubin AST ALT Alkaline Phosphatase Total Protein Albumin Vancomycin Trough Microbiology Microbiology Results: Microbiology 11/04/20 16:18 Bronchial Washings Fungal Identification - Preliminary Yeast 11/07/20 17:11 Sputum - Suctioned Gram Stain - Final 11/07/20 17:11 Sputum - Suctioned Sputum Culture - Preliminary Culture in progress. 11/06/20 04:20 Sputum - Suctioned Gram Stain - Final 11/06/20 04:20 Sputum - Suctioned Sputum Culture - Final 11/04/20 16:18 Bronchial Washings Gram Stain - Final 11/04/20 16:18 Bronchial Washings Routine Culture - Final 10/26/20 22:43 Blood - Venous Blood Culture - Final No growth after 5 days. 10/26/20 22:26 Blood - Venous Blood Culture - Final No growth after 5 days. 10/27/20 Unknown Urine clean catch - Urine hernandez top Urine Culture - Final Quality Stroke Does the patient have a stroke diagnosis?: No VTE Prior VTE?: No VTE Risk Level:: Medical - moderate - high VTE Device Contraindication: Treatment Not Indicated VTE Drug Contraindication: N/A - Med Ordered Progress Note: A&P Assessment and plan (1) Spontaneous pneumothorax: Status: Acute (2) Pneumomediastinum: Status: Acute (3) Afib: Status: Acute (4) HTN (hypertension): Status: Acute (5) Diabetes: Status: Acute (6) Acute exacerbation of CHF (congestive heart failure): Status: Acute (7) Atypical pneumonia: Status: Acute (8) Acute respiratory failure with hypoxemia: Status: Acute (9) Fever: Status: Acute (10) Elevated troponin: Status: Acute (11) Finger injury: Status: Acute (12) Vascular insufficiency of extremity: Status: Acute (13) Wound, open, finger, complicated: Status: Acute (14) Pre-op chest exam: Status: Acute (15) Constipation: Status: Acute (16) History of adenomatous polyp of colon: Status: Acute (17) Leg edema: Status: Acute (18) CHF (congestive heart failure): Status: Acute (19) Chronic respiratory failure: Status: Acute (20) JOVANNY on CPAP: Status: Acute (21) ILD (interstitial lung disease): Status: Acute (22) Sarcoidosis: Status: Acute (23) Muscle spasm: Status: Acute (24) COPD (chronic obstructive pulmonary disease): Status: Acute Assessment and Plan: So she now has a chest tube that I placed 2nd intercostal space in the midclavicular line without complication with resolution of bilateral pneumothoraces and atrial fibrillation is controlled on Cardizem drip and awaiting blood level from the oral propafenone and will attempt cardioversion again and we might have to increase anticoagulation if it seems that she is going to remain in atrial fibrillation for any length of time
[2020-11-08] MEDS: Fluconazole in NaCl,Iso-Osm 200 MG/100 ML PIGGYBACK 100 MG IV (15:43)
--- NOTE | 2020-11-08 15:52 | W.PM.CCHP ---
Procedures Date of Service Date of Service: 11/08/20 Chest Tube Chest Tube 1: Chest tube location: Anterior Chest Size of tube: 14 Chest tube procedure: Yes betadine prep and sterile drapes applied Tube sutured to skin: Yes Sterile dressing applied: Yes Anesthesia: 1% Lidocaine Incision made with: #11 blade Post procedure: sutured to skin and sterile dressing applied Oquendo of air heard: Yes Tube Drainage: fluid Post procedure CXR?: Yes Patient tolerated procedure: Yes Progress: After sterile preparation and draping utilizing 2nd intracostal space along the superior margin of the 2nd rib in the midclavicular line after 1% lidocaine with corroboration of a predominantly anterior air collection by CT scan easily placed a J tipped guidewire into the pleural space over which is single dilation and then a 14 English pigtail catheter with good red and oquendo of air into the Pleur-Evac and subsequent chest x-ray showing resolution of bilateral pneumothoraces as well as pneumomediastinum and I secured the tube to the chest wall and then sterilely dressed
--- NOTE | 2020-11-08 15:56 | W.PM.CCHP ---
Procedures Date of Service Date of Service: 11/08/20 Procedure Note Procedure Note: Due to conversion to rapid atrial fibrillation couple with her underlying diastolic CHF I gave an initial dose of IV Cardizem to slow heart rate by 15% and then placed pads in the heart stream configuration and utilizing a biphasic device at 120 joules she cardioverted to sinus rhythm successfully without complication Shortly thereafter due to reversion to atrial fibrillation I repeated the procedure again with 1st utilizing the slowing influence of IV Cardizem but I used 150 joules in the biphasic device and successfully cardioverted x1 back to sinus rhythm
[2020-11-08 16:32] LABS: Glucose, Whole Blood 259 mg/dL (60-115)
[2020-11-08] MEDS: Rocuronium Bromide 50 MG/5 ML VIAL IVPUSH ×4 (17:21→23:28)
--- NOTE | 2020-11-08 17:31 | PC.NURSE ---
Temp max 100.4, WBC down to 15.9, BC negative x2. Sedated on Propofol gtt & Fentanyl gtt. Positive cough, absent gag, pupils 1mm pinpoint - MD aware. CVP 6-7 this AM - MD at bedside for Echo - Lasix gtt discontinued. 1730 CVP 14 - Lasix gtt reordered. CCT obtained - see report. #14F chest tube placed to right anterior chest at -20cm to low continuos suction - serousanguinous drainage noted approx 110cc, no air leak. 1346 converted from SR to AFIB w/ rvr HR 180's when repositioning - Patient cardioverted @ 1356, 1406, & 1649. Cardizem 25mg IVP administered by MD and Lopressor 5mg IVP administered. Patient started on Cardizem gtt maxed out & Rhythmol through OGT. Patient successfully converted to SR HR 90's w/ third cardioversion at 1649. R IJ TLC patent - dressing changed. Generalized edema. LS rhonchi right upper lobe, dim throughout. Edema noted to bilateral neck. Scant thick amaral inline secretions. Vent settings changed from PC to AC per MD. Patient requiring Rocuronium 50mg IVP x1 for vent synchrony. Fio2 needs slowly increasing throughout shift - currently on 100% sating 92%. SC positive for yeast. Continued on Acyclovir, Diflucan, Bactrim, Vancomycin. Next vanco trough 11/09 & 0500. Solumedrol decreased from 80mg to 60mg. Abdomen large, soft, faint BS, no BM. POC high 300's - started on insulin gtt and titrated per protocol. Gran[place] patent - output decreased to approx 20cc/hr - MD aware. Stage 2 coccyx - foam C/D/I. Patient bathed, prevlon system and air loss bed in place. Patient unstable - unable to reposition - MD aware. HCP Jess updated by MD.
[2020-11-08 17:35] LABS: Glucose, Whole Blood 287 mg/dL (60-115)
[2020-11-08 17:40] LABS: Pneumocystis jir Ql PCR NOT DETECTED; Pneumocystis jir source SPUTUM
[2020-11-08] MEDS: vancomycin HCL 750 MG in 0.9 % Sodium Chloride 250 ML 265 MG IV (17:42)
[2020-11-08 18:31] LABS: Glucose, Whole Blood 273 mg/dL (60-115)
[2020-11-08] MEDS: Furosemide 200 MG in 0.9 % Sodium Chloride 80 ML IVCONT (18:44)
[2020-11-08] MEDS: methylPREDNISolone Sod Succ 125 MG/2 ML VIAL 60 MG IVPUSH ×2 (18:45→23:45)
[2020-11-08 19:33] LABS: Glucose, Whole Blood 254 mg/dL (60-115)
[2020-11-08] MEDS: propofoL 1,000 MG/100 ML VIAL 25.89 MG IVCONT ×2 (20:32→23:26)
[2020-11-08] MEDS: fentaNYL citrate/NS 1,000 MCG/100 ML PLAST..BAG 10 MCG IVCONT (20:36)
[2020-11-08 20:38] LABS: Glucose, Whole Blood 208 mg/dL (60-115)
[2020-11-08 21:35] LABS: Glucose, Whole Blood 181 mg/dL (60-115)
[2020-11-08 22:40] LABS: Glucose, Whole Blood 153 mg/dL (60-115)
[2020-11-08 23:38] LABS: Glucose, Whole Blood 134 mg/dL (60-115)
[2020-11-08] MEDS: Albuterol Sulfate (0.083%) 2.5 MG/3 ML VIAL.NEB 7.5 MG INHALE (23:56)
[2020-11-09] VITALS (46 sets, daily range): BP systolic 91–159; BP diastolic 36–73; PULSE 69–177; RESP 19–34; TEMP 36.2–37.9; O2SAT 86–100; BMI 35.3
[2020-11-09 00:32] LABS: Glucose, Whole Blood 141 mg/dL (60-115)
[2020-11-09] MEDS: Rocuronium Bromide 50 MG/5 ML VIAL IVPUSH (00:54)
[2020-11-09 01:35] LABS: Glucose, Whole Blood 148 mg/dL (60-115)
[2020-11-09 02:16] LABS: Herpes Simplex Type 2 IgG 4.07 index
[2020-11-09 02:40] LABS: Glucose, Whole Blood 169 mg/dL (60-115)
[2020-11-09] MEDS: propofoL 1,000 MG/100 ML VIAL 25.89 MG IVCONT ×2 (03:04→06:43)
[2020-11-09] MEDS: Insulin Regular/NS 100 UNIT/100 ML PLAST..BAG IVCONT (04:21)
[2020-11-09 04:40] LABS: Glucose, Whole Blood 176 mg/dL (60-115)
[2020-11-09 04:40] LABS: Glucose, Whole Blood 154 mg/dL (60-115)
[2020-11-09] MEDS: fentaNYL citrate/NS 1,000 MCG/100 ML PLAST..BAG 10 MCG IVCONT ×2 (05:06→22:02)
[2020-11-09] MEDS: methylPREDNISolone Sod Succ 125 MG/2 ML VIAL 60 MG IVPUSH ×3 (05:19→17:49)
[2020-11-09] MEDS: Heparin Sodium,Porcine 5,000 UNIT/ML VIAL 5000 UNIT SUBCUT ×3 (05:21→20:33)
[2020-11-09] MEDS: Pantoprazole Sodium 40 MG/10 ML VIAL IVPUSH (05:28)
[2020-11-09 05:30] LABS: Basophils Percent Auto 0.1 % (0-2); Hemoglobin 9.9 g/dl (12.0-16.0); Imm Gran Abs Auto 0.09 X10*3/uL (0.00-0.03); Imm Gran Pct Auto 0.5 % (0.0-0.4); Lymphocytes Absolute Auto 0.1 X10*3/uL (1.2-4.9); Lymphocytes Percent Auto 0.8 % (20-40); MANUAL DIFF FLAG SCAN; Mean Corpuscular Hemoglobin 29.3 pg (27.0-33.0); Mean Corpuscular Volume 97.6 fL (80-98); Mean Platelet Volume 9.4 fL (9.4-12.3); Monocytes Absolute Auto 0.2 X10*3/uL (0.1-1.2); Monocytes Percent Auto 1.5 % (2-11); Neutrophils Absolute Auto 15.9 X10*3/uL (2.0-8.3); Neutrophils Percent Auto 97.1 % (45-73); Platelet Count 233 X10*3/uL (160-400); Red Blood Count 3.38 X10*6/uL (4.20-5.50); Red Cell Distribution Width 14.3 % (11.0-16.0); SCAN SMEAR FLAG 1; White Blood Count 16.4 X10*3/uL (4.8-10.8)
[2020-11-09 05:31] LABS: VBG Base Excess 6.7 mmol/L; VBG HCO3 35 mmol/L (22-26); VBG pCO2 70 mmHg; VBG pO2 76 mmHg
[2020-11-09] MEDS: Albuterol/Iprat 2.5/0.5MG 3 ML AMPUL.NEB INHALE ×3 (05:35→19:42)
[2020-11-09 05:39] LABS: Glucose, Whole Blood 159 mg/dL (60-115)
[2020-11-09 05:49] LABS: SLIDE REVIEW VERIFIED
[2020-11-09 05:54] LABS: Prothrombin Time 11.2 SEC (9.9-13.0)
[2020-11-09 06:04] LABS: Vancomycin Trough 10.1 mcg/mL (10.0-20.0)
[2020-11-09 06:09] LABS: Alanine Aminotransferase 23 U/L (0-31); Alkaline Phosphatase 189 U/L (39-117); Anion Gap 10 (12-20); Aspartate Amino Transferase 10 U/L (5-31); Bilirubin Direct 0.2 mg/dL (0.0-0.5); Bilirubin Total 0.2 mg/dL (0.0-1.0); Blood Urea Nitrogen 29 mg/dL (9-16); Calcium 8.1 mg/dL (8.4-10.2); Carbon Dioxide 35 mmol/L (22-29); Chloride 105 mmol/L (96-108); Creatinine Clr Calc Pharmacy 77.9; Estimated Glomerular Filt Rate > 60; Glucose Random 178 mg/dL (60-115); Magnesium 2.2 mg/dL (1.6-2.6); Phosphorus 3.2 mg/dL (2.7-4.5); Potassium 4.7 mmol/L (3.3-5.1); Sodium 145 mmol/L (135-145); Total Protein 5.5 g/dL (6.5-8.0)
[2020-11-09 06:17] LABS: D Dimer 1995 NG/ML; Partial Thromboplastin Time 23.2 SEC (24.1-38.0)
[2020-11-09 06:39] LABS: Glucose, Whole Blood 173 mg/dL (60-115)
[2020-11-09 06:56] LABS: Venous Blood Gas Refer to POC result
[2020-11-09 07:24] LABS: Glucose, Whole Blood 158 mg/dL (60-115)
--- NOTE | 2020-11-09 07:26 | PC.NURSE ---
Assumed care of pt at 1900. Pt maintained on AC vent settings overnight. No resp difficulties noted. Right ant chest tube intact to -20 cm suction. Lung sounds clear to slightly dim. Good sedation effect on propofol and fentanyl. Pt was alarming high peak pressures and was receiving rocuronium with good effect but it didn't last long, 1-1/12 hrs so pt was started on nimbex drip at 2 mcg/kg/min with good effect. Prior to nimbex drip, a stat pCXR was done to r/o any other complication which was not seen as read by provider Suzy Gonzalez. Monitor showed NSR, rate 70's and cardizem drip which was at max 15 mg/hr was decreased to 10 mg/hr. Lasix drip infusing at 5 mg/hr. U/O good. CVP 12-13. Insulin drip per protocol.
[2020-11-09] MEDS: Cisatracurium Besylate 20 MG/10 ML VIAL IVPUSH (07:32)
--- NOTE | 2020-11-09 08:23 | HE.PHANOTE ---
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 Duration for encephalitis is 14 to 21 days and for meningitis is 10 to 14 days. Since the patient is obese (BMI 35.4), the dose was calculated using the adjusted body weight of 65.1kg. New dose is 65.1kg x 10mg/kg/dose = 650mg/dose Q8H to start when the next dose is due of the previous order. Imagining/further diagnostic testing to be performed today per ICU [facility]el [facility]. Thank you Evelyn Caruso Ext [phone]
[2020-11-09 08:27] LABS: Glucose, Whole Blood 145 mg/dL (60-115)
[2020-11-09] MEDS: Chlorhexidine Gluc Oral Rinse 15 ML MOUTHWASH BUCCAL ×3 (08:32→20:33)
[2020-11-09] MEDS: Metoprolol Tartrate 50 MG TABLET PO (08:32)
[2020-11-09] MEDS: Clopidogrel Bisulfate 75 MG TABLET PO (08:32)
[2020-11-09] MEDS: iohexoL 350 MG/ML 100 ML INFUS..BTL IV (08:36)
[2020-11-09] MEDS: Metoprolol Tartrate 5 MG/5 ML VIAL IVPUSH ×4 (08:38→11:12)
--- NOTE | 2020-11-09 08:50 | MHC.CLN ---
F/U TF ON HOLD R/T PARALYTIC PT PREVIOUSLY RECEIVING PROMOTE AT MAX GOAL RATE 45ML/HR NOTED SEDATION INCREASED IN ADDITION, PT WITH INCREASED NUTRITION RISK R/T PRESSURE INJURY RECOMMEND DECREASING FORMULA TO 30ML/HR TO PROVIDE 720KCALS (1403KCALS WITH SEDATION; 23KCALS/KG), 45G PROTEIN, 604CC FREE WATER FROM FORMULA RECOMMEND ADDING 30ML OF PROSOURCE Q DAY TO PROVIDE AN ADDITIONAL 15G PROTEIN, 60KCALS TO PROMOTE WOUND HEALING MONITOR TOLERANCE, RESIDUALS AND LYTES
[2020-11-09 09:30] LABS: Glucose, Whole Blood 157 mg/dL (60-115)
[2020-11-09] MEDS: dilTIAZem HCL 125 MG in 0.9 % Sodium Chloride 100 ML 15 MG IVCONT (09:45)
[2020-11-09 10:41] LABS: Glucose, Whole Blood 154 mg/dL (60-115)
[2020-11-09] MEDS: Digoxin 0.5 MG/2 ML AMPUL 0.25 MG IVPUSH ×2 (11:30→13:00)
[2020-11-09 11:37] LABS: Glucose, Whole Blood 160 mg/dL (60-115)
[2020-11-09] MEDS: Esmolol HCl/NaCl Iso 2,500 MG/250 ML IV.SOLN 26.31 MG IVCONT (11:37)
--- NOTE | 2020-11-09 12:07 | PC.NURSE ---
Addendum entered by Khadra Christiansen RN 11/09/20 18:09: 1617 BREAK THROUGH SEDATION, BUCKING THE VENT - INCREASED PROPOFOL TO 30 MCG/KG/MIN. 1620 LASIX GTT PAUSED PER MD DUE TO CVP 8. 1725 FI02 INCREASED TO 80% TO MAINTAIN 02 > 90%. 1800 CHEST TUBE OUTPUT FOR SHIFT = 140 ML SEROUS (YELLOW) FLUID. TMAX 100.2, VSS, SEE NOTE/EMAR FOR GTTS. BATHED, Q2HR REPO, PREVALON MATTRESS AND PILLOWS UTILIZED, HEELBOS, BARRIER CREAM AND PINK FOAM TO COCCYX C/D/I. Addendum entered by Khadra Christiansen RN 11/09/20 15:14: 1235 ESMOLOL INCREASED TO 125 MCG/KG/MIN PER MD, HR 121. POC 122 - DECREASED INSULIN TO 5 UNITS/HR. 1300 DIGOXIN .025 MG IVP, HR 122. 1327 ESMOLOL INCREASED TO 150 MCG/KG/MIN, HR 147. 1330 POC 103 - DECREASED INSULIN TO 4 UNITS/HR. 1355 SEDATION VACATION ENDED. HR REMAINS ELEVATED AND WOB INCREASED. PROPOFOL STARTED AT 25 MCG/KG/MIN, FENTANYL INCREASED TO 50 MCG/HR. 1405 VENT SETTINGS CHANGED TO: AC 22/400/5/80%. 1413 STACKING BREATHES NOTED, VENT CHANGED TO PC 25/5 RATE 20 80% 1414 CHEST TUBE SUTURES REMOVED BY MD, TUBING PULLED BACK BY MD AND OCCULSIVE DRESSING OF XEROFORM AND TEGADERM APPLIED BY MD. CXR TO CONFIRM PLACEMENT. 1421 VENT SETTINGS CHANGED PER MD TO PC 28/5. 1424 VERSED 2 MG IVP FOR CARDIOVERSION. ESMOLOL DECREASED TO 100 MCG/KG/MIN, CARDIZEM DECREASED TO 10 MG/HR. 1426 SYNC SHOCH 100 J - CARDIOVERSION SUCCESSFUL: SR WITH HR 68. 1438 POC 99 - MD NOTIFIED. DECREASED INSULIN TO 3 UNITS/HR. 1448 ESMOLOL DECREASED TO 75 MCG/KG/MIN AND CARDIZEM TO 7.5 MG/HR WITH HR 63. 1512 FI02 DECREASED TO 75% 1530 POC 78 - INSULIN TURNED OFF PER MD. TUBE FEEDS STARTED - PROMOTE 20 ML/HR AND 1 PACKET OF PROSOURCE. WILL CONTINUE TO MONITOR. Original Note: CT SCAN PERFORMED AT CHANGE OF SHIFT. 827 RHYTHM CHANGED FROM SR TO AFIB, HR 170S. 0838 LOPRESSOR 5 MG IVP. 0846 PACER PADS PLACED BY RN AND . 0848 SYNC SHOCK 120 J 0849 CARDIOVERSION SUCCESSFUL - CONVERTED TO SR HR 90S. 0850 FIO2 DECREASED TO 90% - GOAL OF 02 > 90% PER MD. 0918 SEDATION VACATION - PROPOFOL TURNED OFF, FENTANYL DECREASED TO 25 MCG/HR. 0920 FI02 DECREASED TO 80%. 0955 RHYTHM CHANGED FROM SR TO AFIB, HR 140S. 1045 LOPRESSOR 5 MG IVP, HR 170. 1103 LOPRESSOR 5 MG IVP, HR 145. 1109 VENT SETTING CHANGED TO PC 22/5, RATE 22, FI02 80% 1112 LOPRESSOR 5 MG IVP, HR 129. 1130 DIGOXIN 0.25 MG IVP, HR 130. 1137 ESMOLOL GTT STARTED AT 50 MCG/KG/MIN. 1156 ESMOLOL INCREASED TO 100 MCG/KG/MIN, HR 130. REMAINS IN AFIB. WILL CONTINUE TO MONITOR. FAMILY BEDSIDE.
[2020-11-09 12:35] LABS: Glucose, Whole Blood 122 mg/dL (60-115)
[2020-11-09 13:35] LABS: Glucose, Whole Blood 103 mg/dL (60-115)
[2020-11-09] MEDS: propofoL 1,000 MG/100 ML VIAL 12.95 MG IVCONT (13:55)
[2020-11-09] MEDS: Midazolam HCl/PF 2 MG/2 ML VIAL IVPUSH (14:24)
[2020-11-09 14:33] LABS: Glucose, Whole Blood 99 mg/dL (60-115)
[2020-11-09 15:32] LABS: Glucose, Whole Blood 78 mg/dL (60-115)
[2020-11-09] MEDS: Esmolol HCl/NaCl Iso 2,500 MG/250 ML IV.SOLN 39.47 MG IVCONT ×2 (15:53→20:33)
[2020-11-09] MEDS: Fluconazole in NaCl,Iso-Osm 200 MG/100 ML PIGGYBACK 100 MG IV (15:53)
--- NOTE | 2020-11-09 16:09 | PM.CCPN ---
Subjective Subjective Date of Service: 11/09/20 Interval History: 70-year-old type 2 diabetic and hypertensive with underlying sarcoid lung who had been on immunosuppressive therapy for quite some time including mycophenolate and today we receive confirmation of positivity to herpes simplex virus therefore probable varicella pneumonia and either we have a secondary infection with Aaliyah albicans which should be sensitive to fluconazole or or this is just simply a commensal but on going to maintain fluconazole as well as acyclovir and she did awaken on a sedation holiday appropriately and demonstrated cognitive function for myself for the family and in addition CT scan with contrast failed to reveal any enhancement so were not dealing with meningeal encephalitis Low-grade temperature persists but we stop Bactrim and vancomycin and we placed her back on a Lasix drip because of persistently elevated central venous pressure and subsequently because she return to atrial fibrillation I it required cardioversion combination of diltiazem as well as esmolol drips for heart rate control small loading dose of digoxin at 0.5 mg today in total successful cardioversion to sinus rhythm repositioned the pigtail chest tube to remove any irritation to the pericardium and we are able to wean FiO2 from 100 down to 70% today Critical Care Time (minutes): 60 Physical Exam Vital Signs: Vital Signs: Last Vital Signs Temp 99.3 F 11/09/20 15:45 Pulse 75 11/09/20 15:45 Resp 20 11/09/20 15:45 BP 113/43 L 11/09/20 15:45 Pulse Ox 92 11/09/20 15:45 Oxygen Flow Rate 40 10/27/20 02:27 Body Mass Index 35.3 Current normal sinus rhythm at 76 with current oxygen saturation approximately 90% with blood pressure 110/50 respiratory rate 22 on sedation stable cardiac exam and CVP measurement is is coming down so will stop the Lasix drip and stable abdominal exam so feedings were restored Objective Data Labs CBC & Chem 7: 11/09/20 05:15 11/09/20 05:15 Labs: Laboratory Results - last 24 hr 11/04/20 11/07/20 11/07/20 16:18 05:12 08:43 WBC RBC Hgb Hct MCV MCH MCHC RDW Plt Count MPV Immature Gran % (Auto) Neut % (Auto) Lymph % (Auto) [place] % (Auto) Eos % (Auto) Baso % (Auto) Lymph # (Auto) [place] # (Auto) Eos # (Auto) Baso # (Auto) Abs Immat Gran (auto) Absolute Neuts (auto) Absolute Nucleated RBC Nucleated RBC % (auto) Smear Tech's Comments PT INR APTT D-Dimer VBG pH VBG pCO2 VBG pO2 VBG HCO3 VBG O2 Saturation VBG Base Excess Sodium Potassium Chloride Carbon Dioxide Anion Gap BUN Creatinine Estim Creat Clear Calc Estimated GFR POC Glucose Random Glucose Calcium Phosphorus Magnesium Total Bilirubin Direct Bilirubin AST ALT Alkaline Phosphatase Total Protein Albumin Vancomycin Trough HSV I IgG Ab 49.30 H HSV II IgG 4.07 H Pneumocystis Source SPUTUM Pneumocyst jiroveci PCR NOT DETECTED Cryptococcal Ag SEE NOTE 11/08/20 11/08/20 11/08/20 16:28 17:31 18:27 WBC RBC Hgb Hct MCV MCH MCHC RDW Plt Count MPV Immature Gran % (Auto) Neut % (Auto) Lymph % (Auto) [place] % (Auto) Eos % (Auto) Baso % (Auto) Lymph # (Auto) [place] # (Auto) Eos # (Auto) Baso # (Auto) Abs Immat Gran (auto) Absolute Neuts (auto) Absolute Nucleated RBC Nucleated RBC % (auto) Smear Tech's Comments PT INR APTT D-Dimer VBG pH VBG pCO2 VBG pO2 VBG HCO3 VBG O2 Saturation VBG Base Excess Sodium Potassium Chloride Carbon Dioxide Anion Gap BUN Creatinine Estim Creat Clear Calc Estimated GFR POC Glucose 259 H 287 H 273 H Random Glucose Calcium Phosphorus Magnesium Total Bilirubin Direct Bilirubin AST ALT Alkaline Phosphatase Total Protein Albumin Vancomycin Trough HSV I IgG Ab HSV II IgG Pneumocystis Source Pneumocyst jiroveci PCR Cryptococcal Ag 11/08/20 11/08/20 11/08/20 19:29 20:34 21:31 WBC RBC Hgb Hct MCV MCH MCHC RDW Plt Count MPV Immature Gran % (Auto) Neut % (Auto) Lymph % (Auto) [place] % (Auto) Eos % (Auto) Baso % (Auto) Lymph # (Auto) [place] # (Auto) Eos # (Auto) Baso # (Auto) Abs Immat Gran (auto) Absolute Neuts (auto) Absolute Nucleated RBC Nucleated RBC % (auto) Smear Tech's Comments PT INR APTT D-Dimer VBG pH VBG pCO2 VBG pO2 VBG HCO3 VBG O2 Saturation VBG Base Excess Sodium Potassium Chloride Carbon Dioxide Anion Gap BUN Creatinine Estim Creat Clear Calc Estimated GFR POC Glucose 254 H 208 H 181 H Random Glucose Calcium Phosphorus Magnesium Total Bilirubin Direct Bilirubin AST ALT Alkaline Phosphatase Total Protein Albumin Vancomycin Trough HSV I IgG Ab HSV II IgG Pneumocystis Source Pneumocyst jiroveci PCR Cryptococcal Ag 11/08/20 11/08/20 11/09/20 22:36 23:33 00:29 WBC RBC Hgb Hct MCV MCH MCHC RDW Plt Count MPV Immature Gran % (Auto) Neut % (Auto) Lymph % (Auto) [place] % (Auto) Eos % (Auto) Baso % (Auto) Lymph # (Auto) [place] # (Auto) Eos # (Auto) Baso # (Auto) Abs Immat Gran (auto) Absolute Neuts (auto) Absolute Nucleated RBC Nucleated RBC % (auto) Smear Tech's Comments PT INR APTT D-Dimer VBG pH VBG pCO2 VBG pO2 VBG HCO3 VBG O2 Saturation VBG Base Excess Sodium Potassium Chloride Carbon Dioxide Anion Gap BUN Creatinine Estim Creat Clear Calc Estimated GFR POC Glucose 153 H 134 H 141 H Random Glucose Calcium Phosphorus Magnesium Total Bilirubin Direct Bilirubin AST ALT Alkaline Phosphatase Total Protein Albumin Vancomycin Trough HSV I IgG Ab HSV II IgG Pneumocystis Source Pneumocyst jiroveci PCR Cryptococcal Ag 11/09/20 11/09/20 11/09/20 01:31 02:37 03:48 WBC RBC Hgb Hct MCV MCH MCHC RDW Plt Count MPV Immature Gran % (Auto) Neut % (Auto) Lymph % (Auto) [place] % (Auto) Eos % (Auto) Baso % (Auto) Lymph # (Auto) [place] # (Auto) Eos # (Auto) Baso # (Auto) Abs Immat Gran (auto) Absolute Neuts (auto) Absolute Nucleated RBC Nucleated RBC % (auto) Smear Tech's Comments PT INR APTT D-Dimer VBG pH VBG pCO2 VBG pO2 VBG HCO3 VBG O2 Saturation VBG Base Excess Sodium Potassium Chloride Carbon Dioxide Anion Gap BUN Creatinine Estim Creat Clear Calc Estimated GFR POC Glucose 148 H 169 H 154 H Random Glucose Calcium Phosphorus Magnesium Total Bilirubin Direct Bilirubin AST ALT Alkaline Phosphatase Total Protein Albumin Vancomycin Trough HSV I IgG Ab HSV II IgG Pneumocystis Source Pneumocyst jiroveci PCR Cryptococcal Ag 11/09/20 11/09/20 11/09/20 04:35 05:15 05:15 WBC 16.4 H RBC 3.38 L Hgb 9.9 L Hct 33.0 L MCV 97.6 MCH 29.3 MCHC 30.0 L RDW 14.3 Plt Count 233 MPV 9.4 Immature Gran % (Auto) 0.5 H Neut % (Auto) 97.1 H Lymph % (Auto) 0.8 L [place] % (Auto) 1.5 L Eos % (Auto) 0.0 Baso % (Auto) 0.1 Lymph # (Auto) 0.1 L [place] # (Auto) 0.2 Eos # (Auto) 0.0 Baso # (Auto) 0.0 Abs Immat Gran (auto) 0.09 H Absolute Neuts (auto) 15.9 H Absolute Nucleated RBC 0.000 Nucleated RBC % (auto) 0.0 Smear Tech's Comments VERIFIED PT 11.2 INR 1.0 APTT 23.2 L D-Dimer 1995 VBG pH VBG pCO2 VBG pO2 VBG HCO3 VBG O2 Saturation VBG Base Excess Sodium Potassium Chloride Carbon Dioxide Anion Gap BUN Creatinine Estim Creat Clear Calc Estimated GFR POC Glucose 176 H Random Glucose Calcium Phosphorus Magnesium Total Bilirubin Direct Bilirubin AST ALT Alkaline Phosphatase Total Protein Albumin Vancomycin Trough HSV I IgG Ab HSV II IgG Pneumocystis Source Pneumocyst jiroveci PCR Cryptococcal Ag 11/09/20 11/09/20 11/09/20 05:15 05:15 05:23 WBC RBC Hgb Hct MCV MCH MCHC RDW Plt Count MPV Immature Gran % (Auto) Neut % (Auto) Lymph % (Auto) [place] % (Auto) Eos % (Auto) Baso % (Auto) Lymph # (Auto) [place] # (Auto) Eos # (Auto) Baso # (Auto) Abs Immat Gran (auto) Absolute Neuts (auto) Absolute Nucleated RBC Nucleated RBC % (auto) Smear Tech's Comments PT INR APTT D-Dimer VBG pH 7.30 L VBG pCO2 70 VBG pO2 76 VBG HCO3 35 H VBG O2 Saturation 91.0 VBG Base Excess 6.7 Sodium 145 Potassium 4.7 Chloride 105 Carbon Dioxide 35 H Anion Gap 10 L BUN 29 H Creatinine 0.70 Estim Creat Clear Calc 77.9 Estimated GFR > 60 POC Glucose Random Glucose 178 H D Calcium 8.1 L Phosphorus 3.2 Magnesium 2.2 Total Bilirubin 0.2 Direct Bilirubin 0.2 AST 10 ALT 23 Alkaline Phosphatase 189 H Total Protein 5.5 L Albumin 3.0 L Vancomycin Trough 10.1 HSV I IgG Ab HSV II IgG Pneumocystis Source Pneumocyst jiroveci PCR Cryptococcal Ag 11/09/20 11/09/20 11/09/20 05:35 06:36 07:21 WBC RBC Hgb Hct MCV MCH MCHC RDW Plt Count MPV Immature Gran % (Auto) Neut % (Auto) Lymph % (Auto) [place] % (Auto) Eos % (Auto) Baso % (Auto) Lymph # (Auto) [place] # (Auto) Eos # (Auto) Baso # (Auto) Abs Immat Gran (auto) Absolute Neuts (auto) Absolute Nucleated RBC Nucleated RBC % (auto) Smear Tech's Comments PT INR APTT D-Dimer VBG pH VBG pCO2 VBG pO2 VBG HCO3 VBG O2 Saturation VBG Base Excess Sodium Potassium Chloride Carbon Dioxide Anion Gap BUN Creatinine Estim Creat Clear Calc Estimated GFR POC Glucose 159 H 173 H 158 H Random Glucose Calcium Phosphorus Magnesium Total Bilirubin Direct Bilirubin AST ALT Alkaline Phosphatase Total Protein Albumin Vancomycin Trough HSV I IgG Ab HSV II IgG Pneumocystis Source Pneumocyst jiroveci PCR Cryptococcal Ag 11/09/20 11/09/20 11/09/20 08:24 09:26 10:38 WBC RBC Hgb Hct MCV MCH MCHC RDW Plt Count MPV Immature Gran % (Auto) Neut % (Auto) Lymph % (Auto) [place] % (Auto) Eos % (Auto) Baso % (Auto) Lymph # (Auto) [place] # (Auto) Eos # (Auto) Baso # (Auto) Abs Immat Gran (auto) Absolute Neuts (auto) Absolute Nucleated RBC Nucleated RBC % (auto) Smear Tech's Comments PT INR APTT D-Dimer VBG pH VBG pCO2 VBG pO2 VBG HCO3 VBG O2 Saturation VBG Base Excess Sodium Potassium Chloride Carbon Dioxide Anion Gap BUN Creatinine Estim Creat Clear Calc Estimated GFR POC Glucose 145 H 157 H 154 H Random Glucose Calcium Phosphorus Magnesium Total Bilirubin Direct Bilirubin AST ALT Alkaline Phosphatase Total Protein Albumin Vancomycin Trough HSV I IgG Ab HSV II IgG Pneumocystis Source Pneumocyst jiroveci PCR Cryptococcal Ag 11/09/20 11/09/20 11/09/20 11:34 12:32 13:32 WBC RBC Hgb Hct MCV MCH MCHC RDW Plt Count MPV Immature Gran % (Auto) Neut % (Auto) Lymph % (Auto) [place] % (Auto) Eos % (Auto) Baso % (Auto) Lymph # (Auto) [place] # (Auto) Eos # (Auto) Baso # (Auto) Abs Immat Gran (auto) Absolute Neuts (auto) Absolute Nucleated RBC Nucleated RBC % (auto) Smear Tech's Comments PT INR APTT D-Dimer VBG pH VBG pCO2 VBG pO2 VBG HCO3 VBG O2 Saturation VBG Base Excess Sodium Potassium Chloride Carbon Dioxide Anion Gap BUN Creatinine Estim Creat Clear Calc Estimated GFR POC Glucose 160 H 122 H 103 Random Glucose Calcium Phosphorus Magnesium Total Bilirubin Direct Bilirubin AST ALT Alkaline Phosphatase Total Protein Albumin Vancomycin Trough HSV I IgG Ab HSV II IgG Pneumocystis Source Pneumocyst jiroveci PCR Cryptococcal Ag 11/09/20 11/09/20 14:30 15:28 WBC RBC Hgb Hct MCV MCH MCHC RDW Plt Count MPV Immature Gran % (Auto) Neut % (Auto) Lymph % (Auto) [place] % (Auto) Eos % (Auto) Baso % (Auto) Lymph # (Auto) [place] # (Auto) Eos # (Auto) Baso # (Auto) Abs Immat Gran (auto) Absolute Neuts (auto) Absolute Nucleated RBC Nucleated RBC % (auto) Smear Tech's Comments PT INR APTT D-Dimer VBG pH VBG pCO2 VBG pO2 VBG HCO3 VBG O2 Saturation VBG Base Excess Sodium Potassium Chloride Carbon Dioxide Anion Gap BUN Creatinine Estim Creat Clear Calc Estimated GFR POC Glucose 99 78 Random Glucose Calcium Phosphorus Magnesium Total Bilirubin Direct Bilirubin AST ALT Alkaline Phosphatase Total Protein Albumin Vancomycin Trough HSV I IgG Ab HSV II IgG Pneumocystis Source Pneumocyst jiroveci PCR Cryptococcal Ag Microbiology Microbiology Results: Microbiology 11/07/20 17:11 Sputum - Suctioned Gram Stain - Final 11/07/20 17:11 Sputum - Suctioned Sputum Culture - Final 11/04/20 16:18 Bronchial Washings Fungal Identification - Preliminary Aaliyah albicans 11/06/20 04:20 Sputum - Suctioned Gram Stain - Final 11/06/20 04:20 Sputum - Suctioned Sputum Culture - Final 11/04/20 16:18 Bronchial Washings Gram Stain - Final 11/04/20 16:18 Bronchial Washings Routine Culture - Final 10/26/20 22:43 Blood - Venous Blood Culture - Final No growth after 5 days. 10/26/20 22:26 Blood - Venous Blood Culture - Final No growth after 5 days. 10/27/20 Unknown Urine clean catch - Urine hernandez top Urine Culture - Final Quality Stroke Does the patient have a stroke diagnosis?: No VTE Prior VTE?: No VTE Risk Level:: Medical - moderate - high VTE Device Contraindication: Treatment Not Indicated VTE Drug Contraindication: N/A - Med Ordered Progress Note: A&P Assessment and plan (1) Pneumomediastinum: Status: Acute (2) Spontaneous pneumothorax: Status: Acute (3) Afib: Status: Acute (4) HTN (hypertension): Status: Acute (5) Diabetes: Status: Acute (6) Acute exacerbation of CHF (congestive heart failure): Status: Acute (7) Acute respiratory failure with hypoxemia: Status: Acute (8) Elevated troponin: Status: Acute (9) History of adenomatous polyp of colon: Status: Acute (10) Leg edema: Status: Acute (11) CHF (congestive heart failure): Status: Acute (12) Chronic respiratory failure: Status: Acute (13) JOVANNY on CPAP: Status: Acute (14) ILD (interstitial lung disease): Status: Acute (15) Sarcoidosis: Status: Acute (16) COPD (chronic obstructive pulmonary disease): Status: Acute (17) Diastolic CHF with preserved left ventricular function, NYHA class 2: Status: Acute (18) Varicella pneumonia: Status: Acute Assessment and Plan: So all told we maintain ventilator at the lowest FiO2 possible possibly stop the Lasix drip at this point and reinstate her feedings we continue to titrate down on the combination of esmolol as well as IV diltiazem but maintain Rythmol and digoxin will be on a p.r.n. basis and possible discontinuation of chest tube in the morning if there is no persistent air leak and will continue both acyclovir as well as fluconazole
--- NOTE | 2020-11-09 16:11 | MHC.CM.PN ---
Pt now intubated in ICU - developed Afib non responsive to medications and adjustments: required cardioversion: chest tube d/t pneumothoraces. Family continues to support more aggressive care measures at this time. If pt is able to stabilize, she will likely need placement - this will depend on her ventilatory status and overall prognosis. CM to follow for finalization of d/c plan
[2020-11-09 16:35] LABS: Glucose, Whole Blood 109 mg/dL (60-115)
[2020-11-09 17:56] LABS: Glucose, Whole Blood 144 mg/dL (60-115)
[2020-11-09] MEDS: propofoL 1,000 MG/100 ML VIAL 15.53 MG IVCONT (19:11)
[2020-11-09 20:34] LABS: Glucose, Whole Blood 196 mg/dL (60-115)
[2020-11-09] MEDS: dilTIAZem HCL 125 MG in 0.9 % Sodium Chloride 100 ML 7.5 MG IVCONT (22:01)
[2020-11-09 22:06] LABS: Glucose, Whole Blood 225 mg/dL (60-115)
[2020-11-09 22:57] LABS: Glucose, Whole Blood 264 mg/dL (60-115)
[2020-11-10] VITALS (34 sets, daily range): BP systolic 92–155; BP diastolic 37–63; PULSE 73–86; RESP 12–28; TEMP 37–37.6; O2SAT 85–94; BMI 36.6
[2020-11-10] MEDS: Albuterol/Iprat 2.5/0.5MG 3 ML AMPUL.NEB INHALE ×7 (00:10→23:48)
[2020-11-10 00:30] LABS: Glucose, Whole Blood 229 mg/dL (60-115)
[2020-11-10] MEDS: propofoL 1,000 MG/100 ML VIAL 18.12 MG IVCONT (00:56)
[2020-11-10] MEDS: methylPREDNISolone Sod Succ 125 MG/2 ML VIAL 60 MG IVPUSH ×5 (00:56→23:54)
[2020-11-10 01:03] LABS: Glucose, Whole Blood 231 mg/dL (60-115)
[2020-11-10 02:33] LABS: Glucose, Whole Blood 263 mg/dL (60-115)
[2020-11-10 03:14] LABS: Glucose, Whole Blood 271 mg/dL (60-115)
[2020-11-10 04:03] LABS: Glucose, Whole Blood 258 mg/dL (60-115)
[2020-11-10] MEDS: Esmolol HCl/NaCl Iso 2,500 MG/250 ML IV.SOLN 39.47 MG IVCONT ×4 (04:35→23:54)
[2020-11-10 05:05] LABS: Glucose, Whole Blood 247 mg/dL (60-115)
[2020-11-10 05:31] LABS: Basophils Percent Auto 0.1 % (0-2); Hematocrit 28.9 % (37-47); Imm Gran Abs Auto 0.06 X10*3/uL (0.00-0.03); Imm Gran Pct Auto 0.4 % (0.0-0.4); Lymphocytes Absolute Auto 0.2 X10*3/uL (1.2-4.9); Lymphocytes Percent Auto 1.1 % (20-40); MANUAL DIFF FLAG SCAN; Mean Corpuscular HGB Conc 31.1 g/dl (31.0-35.0); Mean Corpuscular Hemoglobin 29.6 pg (27.0-33.0); Mean Corpuscular Volume 95.1 fL (80-98); Mean Platelet Volume 9.6 fL (9.4-12.3); Monocytes Absolute Auto 0.3 X10*3/uL (0.1-1.2); Monocytes Percent Auto 2.3 % (2-11); Neutrophils Absolute Auto 13.5 X10*3/uL (2.0-8.3); Neutrophils Percent Auto 96.1 % (45-73); Platelet Count 219 X10*3/uL (160-400); Red Blood Count 3.04 X10*6/uL (4.20-5.50); Red Cell Distribution Width 14.2 % (11.0-16.0); SCAN SMEAR FLAG 1; White Blood Count 14.1 X10*3/uL (4.8-10.8)
[2020-11-10 05:33] LABS: SLIDE REVIEW VERIFIED
[2020-11-10] MEDS: Pantoprazole Sodium 40 MG/10 ML VIAL IVPUSH (05:44)
[2020-11-10] MEDS: Heparin Sodium,Porcine 5,000 UNIT/ML VIAL 5000 UNIT SUBCUT ×3 (05:44→21:05)
[2020-11-10] MEDS: propofoL 1,000 MG/100 ML VIAL 20.71 MG IVCONT ×5 (05:45→23:54)
[2020-11-10 05:58] LABS: Alanine Aminotransferase 21 U/L (0-31); Albumin Level 2.7 g/dL (3.5-5.0); Alkaline Phosphatase 152 U/L (39-117); Anion Gap 10 (12-20); Aspartate Amino Transferase 17 U/L (5-31); Bilirubin Direct 0.2 mg/dL (0.0-0.5); Bilirubin Total 0.2 mg/dL (0.0-1.0); Blood Urea Nitrogen 37 mg/dL (9-16); Calcium 7.8 mg/dL (8.4-10.2); Carbon Dioxide 37 mmol/L (22-29); Chloride 100 mmol/L (96-108); Creatinine Clr Calc Pharmacy 77.4; Estimated Glomerular Filt Rate > 60; Glucose Random 243 mg/dL (60-115); Magnesium 2.2 mg/dL (1.6-2.6); Phosphorus 2.5 mg/dL (2.7-4.5); Potassium 4.9 mmol/L (3.3-5.1); Sodium 142 mmol/L (135-145); Total Protein 4.9 g/dL (6.5-8.0)
[2020-11-10 06:02] LABS: VBG Base Excess 15.3 mmol/L; VBG HCO3 42 mmol/L (22-26); VBG pCO2 65 mmHg; VBG pH 7.41 (7.32-7.43); VBG pO2 54 mmHg
[2020-11-10 06:04] LABS: Venous Blood Gas Refer to POC result
[2020-11-10 06:08] LABS: Glucose, Whole Blood 210 mg/dL (60-115)
[2020-11-10 06:11] LABS: INTERNATIONAL NORM RATIO 1.1 (0.9-1.1)
[2020-11-10 06:14] LABS: D Dimer 824 NG/ML
--- NOTE | 2020-11-10 06:18 | PC.NURSE ---
Tmax 100.0 core. NSR on tele, HR 70-80s, cardizem/esmolol running per order. SBP WNL. CVP 9-10. Sedated on propofol/fentanyl, titrated for vent synchrony. Responds for noxious stimuli, opens eyes, no tracking, folllows simple commands occasionally, +c/g. ETT #7.5, 21 cm at lip. PCV settings- f 20, 28/5, 80% FiO2. Suctioned inline for small amount of thick amaral secretions. LS rhonchi in upper lobes. Chest tube to R anterior chest, dsg C/D/I, 100 mL serous output, -20 cm suction, no air leak. Promote tf running at max rate of 30 mL/hr. UOP approx 30 mL/hr.Skin- stage 2 to buttocks, L great toe ulcer and R 4th digit ulcer. Insulin gtt titrated per protocol. CXR done this AM.
[2020-11-10 06:23] LABS: Partial Thromboplastin Time 23.8 SEC (24.1-38.0)
[2020-11-10 07:03] LABS: Glucose, Whole Blood 199 mg/dL (60-115)
[2020-11-10] MEDS: Clopidogrel Bisulfate 75 MG TABLET PO (07:50)
[2020-11-10] MEDS: Chlorhexidine Gluc Oral Rinse 15 ML MOUTHWASH BUCCAL ×3 (07:50→21:05)
[2020-11-10 08:04] LABS: Glucose, Whole Blood 183 mg/dL (60-115)
[2020-11-10] MEDS: fentaNYL citrate/NS 1,000 MCG/100 ML PLAST..BAG 10 MCG IVCONT ×2 (08:14→17:11)
[2020-11-10] MEDS: Insulin Regular/NS 100 UNIT/100 ML PLAST..BAG IVCONT (09:03)
[2020-11-10 09:09] LABS: Glucose, Whole Blood 209 mg/dL (60-115)
[2020-11-10] MEDS: Fluticasone Propionate Nasal 16 GM SPRAY 1 SPRAY NOSTRIL-B (09:25)
--- NOTE | 2020-11-10 09:32 | PC.NURSE ---
Skin/Wound assessment completed today. Patient has a stage 2 pressure ulcer on coccyx. Woundres' gel and foam applied. Also, has blanchable redness around wound. Patient has necrotic diabetic ulcer to right great toe-providine applied. 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 No other skin issues noted.
[2020-11-10 09:59] LABS: Glucose, Whole Blood 214 mg/dL (60-115)
[2020-11-10 11:04] LABS: Glucose, Whole Blood 211 mg/dL (60-115)
[2020-11-10 12:11] LABS: Glucose, Whole Blood 190 mg/dL (60-115)
[2020-11-10 12:26] LABS: TS Negative Control Passed; TS Panel A 0; TS Panel B 0; TS Positive Control Passed; TSpotTB Negative (SeeBelow)
[2020-11-10 13:08] LABS: Glucose, Whole Blood 185 mg/dL (60-115)
[2020-11-10 14:07] LABS: Glucose, Whole Blood 152 mg/dL (60-115)
[2020-11-10] MEDS: dilTIAZem HCL 125 MG in 0.9 % Sodium Chloride 100 ML 7.5 MG IVCONT (14:55)
[2020-11-10 14:58] LABS: Glucose, Whole Blood 143 mg/dL (60-115)
[2020-11-10 16:11] LABS: Glucose, Whole Blood 132 mg/dL (60-115)
--- NOTE | 2020-11-10 16:24 | P.PNCC_ITS ---
Subjective Subjective Date of Service: 11/10/20 Interval History: 70-year-old female diabetic with sarcoid lung who has been on long-term mycophenolate came in with acute hypoxemic respiratory failure with diffuse extensive bilateral ground-glass infiltrates and a syndrome of ARDS requiring intubation remaining ventilator dependent on high FiO2 of 90% and also has background of paroxysmal atrial fibrillation but now sinus rhythm after medicating with combination of esmolol and IV diltiazem as well as oral Rythmol and finally maintaining sinus rhythm but also had complication of bilateral spontaneous pneumothorax and pneumomediastinum and today chest tube was removed but turns out she has herpes viral pneumonia as the etiology and she remains on acyclovir and because bronchoscopic samples have been growing Aaliyah albicans she also remains on fluconazole I was able to discontinue the chest tube because after hours of it being clamped there was no evidence of a recurrent air leak and we have since had significant improvement in both peak and plateau pressures on the ventilator and she only has a 9 L minute ventilatory requirement with a comfortable degree of permissive hypercapnia but the big issue still is the very high FiO2 requirement Critical Care Time (minutes): 45 Physical Exam Vital Signs: Vital Signs: Last Vital Signs Temp 99.7 F 11/10/20 15:56 Pulse 83 11/10/20 15:56 Resp 18 11/10/20 15:56 BP 139/46 L 11/10/20 15:56 Pulse Ox 90 L 11/10/20 15:56 Oxygen Flow Rate 40 10/27/20 02:27 Body Mass Index 36.6 Remains sedated and intubated but we do note responsiveness sometimes just allowed voice and nonfocal neurologically CVP has been stable at a level of about 7-9 throughout the day but later on we started to see it to creep up in we may have to reinstate the Lasix in the face of significant positive intake and output put ratio Cardiac exam no gallops or murmurs good bilateral carotid upstrokes Skin is is intact no livedo Abdomen soft nontender with good bowel sounds and tolerating feedings And chest x-ray with extensive bilateral infiltrates relatively unchanged Objective Data Labs CBC & Chem 7: 11/11/20 05:10 11/11/20 05:10 Labs: Laboratory Results - last 24 hr 11/07/20 11/09/20 11/09/20 08:43 16:32 17:52 WBC RBC Hgb Hct MCV MCH MCHC RDW Plt Count MPV Immature Gran % (Auto) Neut % (Auto) Lymph % (Auto) [place] % (Auto) Eos % (Auto) Baso % (Auto) Lymph # (Auto) [place] # (Auto) Eos # (Auto) Baso # (Auto) Abs Immat Gran (auto) Absolute Neuts (auto) Absolute Nucleated RBC Nucleated RBC % (auto) Smear Tech's Comments PT INR APTT D-Dimer VBG pH VBG pCO2 VBG pO2 VBG HCO3 VBG O2 Saturation VBG Base Excess Sodium Potassium Chloride Carbon Dioxide Anion Gap BUN Creatinine Estim Creat Clear Calc Estimated GFR POC Glucose 109 144 H Random Glucose Calcium Phosphorus Magnesium Total Bilirubin Direct Bilirubin AST ALT Alkaline Phosphatase Total Protein Albumin TB Test (T-Spot) Com Negative TB Test Nil Control Passed TB Test Panel A 0 TB Test Panel B 0 TB Test Positive Cntr Passed 11/09/20 11/09/20 11/09/20 20:20 21:59 22:53 WBC RBC Hgb Hct MCV MCH MCHC RDW Plt Count MPV Immature Gran % (Auto) Neut % (Auto) Lymph % (Auto) [place] % (Auto) Eos % (Auto) Baso % (Auto) Lymph # (Auto) [place] # (Auto) Eos # (Auto) Baso # (Auto) Abs Immat Gran (auto) Absolute Neuts (auto) Absolute Nucleated RBC Nucleated RBC % (auto) Smear Tech's Comments PT INR APTT D-Dimer VBG pH VBG pCO2 VBG pO2 VBG HCO3 VBG O2 Saturation VBG Base Excess Sodium Potassium Chloride Carbon Dioxide Anion Gap BUN Creatinine Estim Creat Clear Calc Estimated GFR POC Glucose 196 H 225 H 264 H Random Glucose Calcium Phosphorus Magnesium Total Bilirubin Direct Bilirubin AST ALT Alkaline Phosphatase Total Protein Albumin TB Test (T-Spot) Com TB Test Nil Control TB Test Panel A TB Test Panel B TB Test Positive Cntr 11/10/20 11/10/20 11/10/20 00:27 00:58 02:29 WBC RBC Hgb Hct MCV MCH MCHC RDW Plt Count MPV Immature Gran % (Auto) Neut % (Auto) Lymph % (Auto) [place] % (Auto) Eos % (Auto) Baso % (Auto) Lymph # (Auto) [place] # (Auto) Eos # (Auto) Baso # (Auto) Abs Immat Gran (auto) Absolute Neuts (auto) Absolute Nucleated RBC Nucleated RBC % (auto) Smear Tech's Comments PT INR APTT D-Dimer VBG pH VBG pCO2 VBG pO2 VBG HCO3 VBG O2 Saturation VBG Base Excess Sodium Potassium Chloride Carbon Dioxide Anion Gap BUN Creatinine Estim Creat Clear Calc Estimated GFR POC Glucose 229 H 231 H 263 H Random Glucose Calcium Phosphorus Magnesium Total Bilirubin Direct Bilirubin AST ALT Alkaline Phosphatase Total Protein Albumin TB Test (T-Spot) Com TB Test Nil Control TB Test Panel A TB Test Panel B TB Test Positive [facility] 11/10/20 11/10/20 11/10/20 03:10 03:58 05:02 WBC RBC Hgb Hct MCV MCH MCHC RDW Plt Count MPV Immature Gran % (Auto) Neut % (Auto) Lymph % (Auto) [place] % (Auto) Eos % (Auto) Baso % (Auto) Lymph # (Auto) [place] # (Auto) Eos # (Auto) Baso # (Auto) Abs Immat Gran (auto) Absolute Neuts (auto) Absolute Nucleated RBC Nucleated RBC % (auto) Smear Tech's Comments PT INR APTT D-Dimer VBG pH VBG pCO2 VBG pO2 VBG HCO3 VBG O2 Saturation VBG Base Excess Sodium Potassium Chloride Carbon Dioxide Anion Gap BUN Creatinine Estim Creat Clear Calc Estimated GFR POC Glucose 271 H 258 H 247 H Random Glucose Calcium Phosphorus Magnesium Total Bilirubin Direct Bilirubin AST ALT Alkaline Phosphatase Total Protein Albumin TB Test (T-Spot) Com TB Test Nil Control TB Test Panel A TB Test Panel B TB Test Positive [facility] 11/10/20 11/10/20 11/10/20 05:18 05:18 05:18 WBC 14.1 H RBC 3.04 L Hgb 9.0 L Hct 28.9 L MCV 95.1 MCH 29.6 MCHC 31.1 RDW 14.2 Plt Count 219 MPV 9.6 Immature Gran % (Auto) 0.4 Neut % (Auto) 96.1 H Lymph % (Auto) 1.1 L [place] % (Auto) 2.3 Eos % (Auto) 0.0 Baso % (Auto) 0.1 Lymph # (Auto) 0.2 L [place] # (Auto) 0.3 Eos # (Auto) 0.0 Baso # (Auto) 0.0 Abs Immat Gran (auto) 0.06 H Absolute Neuts (auto) 13.5 H Absolute Nucleated RBC 0.000 Nucleated RBC % (auto) 0.0 Smear Tech's Comments VERIFIED PT 12.0 INR 1.1 APTT 23.8 L D-Dimer 824 VBG pH VBG pCO2 VBG pO2 VBG HCO3 VBG O2 Saturation VBG Base Excess Sodium 142 Potassium 4.9 Chloride 100 Carbon Dioxide 37 H Anion Gap 10 L BUN 37 H Creatinine 0.72 Estim Creat Clear Calc 77.4 Estimated GFR > 60 POC Glucose Random Glucose 243 H D Calcium 7.8 L Phosphorus 2.5 L Magnesium 2.2 Total Bilirubin 0.2 Direct Bilirubin 0.2 AST 17 D ALT 21 Alkaline Phosphatase 152 H Total Protein 4.9 L Albumin 2.7 L TB Test (T-Spot) Com TB Test Nil Control TB Test Panel A TB Test Panel B TB Test Positive [facility] 11/10/20 11/10/20 11/10/20 05:24 06:03 06:59 WBC RBC Hgb Hct MCV MCH MCHC RDW Plt Count MPV Immature Gran % (Auto) Neut % (Auto) Lymph % (Auto) [place] % (Auto) Eos % (Auto) Baso % (Auto) Lymph # (Auto) [place] # (Auto) Eos # (Auto) Baso # (Auto) Abs Immat Gran (auto) Absolute Neuts (auto) Absolute Nucleated RBC Nucleated RBC % (auto) Smear Tech's Comments PT INR APTT D-Dimer VBG pH 7.41 VBG pCO2 65 VBG pO2 54 VBG HCO3 42 H VBG O2 Saturation 81.0 VBG Base Excess 15.3 Sodium Potassium Chloride Carbon Dioxide Anion Gap BUN Creatinine Estim Creat Clear Calc Estimated GFR POC Glucose 210 H 199 H Random Glucose Calcium Phosphorus Magnesium Total Bilirubin Direct Bilirubin AST ALT Alkaline Phosphatase Total Protein Albumin TB Test (T-Spot) Com TB Test Nil Control TB Test Panel A TB Test Panel B TB Test Positive [facility] 11/10/20 11/10/20 11/10/20 08:01 09:06 09:57 WBC RBC Hgb Hct MCV MCH MCHC RDW Plt Count MPV Immature Gran % (Auto) Neut % (Auto) Lymph % (Auto) [place] % (Auto) Eos % (Auto) Baso % (Auto) Lymph # (Auto) [place] # (Auto) Eos # (Auto) Baso # (Auto) Abs Immat Gran (auto) Absolute Neuts (auto) Absolute Nucleated RBC Nucleated RBC % (auto) Smear Tech's Comments PT INR APTT D-Dimer VBG pH VBG pCO2 VBG pO2 VBG HCO3 VBG O2 Saturation VBG Base Excess Sodium Potassium Chloride Carbon Dioxide Anion Gap BUN Creatinine Estim Creat Clear Calc Estimated GFR POC Glucose 183 H 209 H 214 H Random Glucose Calcium Phosphorus Magnesium Total Bilirubin Direct Bilirubin AST ALT Alkaline Phosphatase Total Protein Albumin TB Test (T-Spot) Com TB Test Nil Control TB Test Panel A TB Test Panel B TB Test Positive [facility] 11/10/20 11/10/20 11/10/20 11:01 12:08 13:05 WBC RBC Hgb Hct MCV MCH MCHC RDW Plt Count MPV Immature Gran % (Auto) Neut % (Auto) Lymph % (Auto) [place] % (Auto) Eos % (Auto) Baso % (Auto) Lymph # (Auto) [place] # (Auto) Eos # (Auto) Baso # (Auto) Abs Immat Gran (auto) Absolute Neuts (auto) Absolute Nucleated RBC Nucleated RBC % (auto) Smear Tech's Comments PT INR APTT D-Dimer VBG pH VBG pCO2 VBG pO2 VBG HCO3 VBG O2 Saturation VBG Base Excess Sodium Potassium Chloride Carbon Dioxide Anion Gap BUN Creatinine Estim Creat Clear Calc Estimated GFR POC Glucose 211 H 190 H 185 H Random Glucose Calcium Phosphorus Magnesium Total Bilirubin Direct Bilirubin AST ALT Alkaline Phosphatase Total Protein Albumin TB Test (T-Spot) Com TB Test Nil Control TB Test Panel A TB Test Panel B TB Test Positive [facility] 11/10/20 11/10/20 11/10/20 14:03 14:53 16:07 WBC RBC Hgb Hct MCV MCH MCHC RDW Plt Count MPV Immature Gran % (Auto) Neut % (Auto) Lymph % (Auto) [place] % (Auto) Eos % (Auto) Baso % (Auto) Lymph # (Auto) [place] # (Auto) Eos # (Auto) Baso # (Auto) Abs Immat Gran (auto) Absolute Neuts (auto) Absolute Nucleated RBC Nucleated RBC % (auto) Smear Tech's Comments PT INR APTT D-Dimer VBG pH VBG pCO2 VBG pO2 VBG HCO3 VBG O2 Saturation VBG Base Excess Sodium Potassium Chloride Carbon Dioxide Anion Gap BUN Creatinine Estim Creat Clear Calc Estimated GFR POC Glucose 152 H 143 H 132 H Random Glucose Calcium Phosphorus Magnesium Total Bilirubin Direct Bilirubin AST ALT Alkaline Phosphatase Total Protein Albumin TB Test (T-Spot) Com TB Test Nil Control TB Test Panel A TB Test Panel B TB Test Positive [facility] Microbiology Microbiology Results: Microbiology 11/07/20 17:11 Sputum - Suctioned Gram Stain - Final 11/07/20 17:11 Sputum - Suctioned Sputum Culture - Final 11/04/20 16:18 Bronchial Washings Fungal Identification - Preliminary Aaliyah albicans 11/06/20 04:20 Sputum - Suctioned Gram Stain - Final 11/06/20 04:20 Sputum - Suctioned Sputum Culture - Final 11/04/20 16:18 Bronchial Washings Gram Stain - Final 11/04/20 16:18 Bronchial Washings Routine Culture - Final 10/26/20 22:43 Blood - Venous Blood Culture - Final No growth after 5 days. 10/26/20 22:26 Blood - Venous Blood Culture - Final No growth after 5 days. 10/27/20 Unknown Urine clean catch - Urine hernandez top Urine Culture - Final Quality Stroke Does the patient have a stroke diagnosis?: No VTE Prior VTE?: No VTE Risk Level:: Medical - moderate - high VTE Device Contraindication: Treatment Not Indicated VTE Drug Contraindication: N/A - Med Ordered Progress Note: A&P Assessment and plan (1) Varicella pneumonia: Status: Acute (2) Diastolic CHF with preserved left ventricular function, NYHA class 2: Status: Acute (3) Pneumomediastinum: Status: Acute (4) Spontaneous pneumothorax: Status: Acute (5) Afib: Status: Acute (6) HTN (hypertension): Status: Acute (7) Diabetes: Status: Acute (8) Acute exacerbation of CHF (congestive heart failure): Status: Acute (9) Atypical pneumonia: Status: Acute (10) Acute respiratory failure with hypoxemia: Status: Acute (11) Fever: Status: Acute (12) Elevated troponin: Status: Acute (13) Leg edema: Status: Acute (14) CHF (congestive heart failure): Status: Acute (15) Chronic respiratory failure: Status: Acute (16) JOVANNY on CPAP: Status: Acute (17) Sarcoidosis: Status: Acute (18) COPD (chronic obstructive pulmonary disease): Status: Acute Assessment and Plan: Will maintain the same FiO2 in and the same ventilator settings and particular will continue only acyclovir and fluconazole
--- NOTE | 2020-11-10 16:30 | PC.NURSE ---
Remains intubated, PC settings. Rate 16, Pi decreased to 22, FiO2 began at 80 and titrated up to 90% Min vols 8-11. PEEP 5 SpO2 ranging from 82-92%. Lower when flat for repositioning. Scant inline secretions thick to frothy cream colored. Right anterior CHest tube clamped this AM per MD. CXR done at 1400. Repeated an hour later d/t defib pad impeding clear view to Right apex. Dr. Spicer removed chest tube, petroleum gauze covered by folded 4x4 gauze dressing sealed with Large tegaderm. Lungs clear, with dim Right base. Sedation unchanged all day, see MAR. IV Insulin titrated per protocol based on POCs. Esmolol and Cardizem also infused at unchanging rates, see MAR. Scheduled meds as ordered. Remains responsive by opening eyes to tactile stim. Extremities flaccid, yet restraints continue to BUEs. Tube feeds continue at goal rate, [employer] as ordered. Granado draining 10-65mL/hr. Repositioned per ICU vent protocol, wedges and pillows used. Oral care done as well per protocol. Bruising to abdomen noted from SC anti-coag shots. Stage 2 to coccyx with dressing changed by wound RN. Left great toe and Right 4th digit with scabs noted. TLC intact and patent, dsg C+D. CVP 11 most of the day. Family, daughter Jess, updated in person during visit.
[2020-11-10] MEDS: Fluconazole in NaCl,Iso-Osm 200 MG/100 ML PIGGYBACK 100 MG IV (16:53)
[2020-11-10 17:11] LABS: Glucose, Whole Blood 121 mg/dL (60-115)
[2020-11-10 18:14] LABS: Glucose, Whole Blood 155 mg/dL (60-115)
[2020-11-10 18:56] LABS: Glucose, Whole Blood 135 mg/dL (60-115)
[2020-11-10 20:09] LABS: Glucose, Whole Blood 116 mg/dL (60-115)
[2020-11-10 21:10] LABS: Glucose, Whole Blood 140 mg/dL (60-115)
[2020-11-10 22:01] LABS: Glucose, Whole Blood 182 mg/dL (60-115)
[2020-11-10 23:01] LABS: Glucose, Whole Blood 184 mg/dL (60-115)
[2020-11-11] VITALS (32 sets, daily range): BP systolic 97–148; BP diastolic 37–57; PULSE 66–87; RESP 12–22; TEMP 36.4–37.2; O2SAT 82–911; BMI 37.5
[2020-11-11 00:23] LABS: Glucose, Whole Blood 244 mg/dL (60-115)
[2020-11-11 01:04] LABS: Glucose, Whole Blood 243 mg/dL (60-115)
[2020-11-11] MEDS: Albumin Human 25 % 50 ML 100 ML IV (01:11)
[2020-11-11 02:02] LABS: Glucose, Whole Blood 260 mg/dL (60-115)
[2020-11-11] MEDS: fentaNYL citrate/NS 1,000 MCG/100 ML PLAST..BAG 10 MCG IVCONT (02:58)
[2020-11-11 03:06] LABS: Glucose, Whole Blood 257 mg/dL (60-115)
[2020-11-11 04:03] LABS: Glucose, Whole Blood 218 mg/dL (60-115)
[2020-11-11] MEDS: Insulin Regular/NS 100 UNIT/100 ML PLAST..BAG 7 UNIT IVCONT (04:09)
[2020-11-11] MEDS: propofoL 1,000 MG/100 ML VIAL 25.89 MG IVCONT (04:10)
--- NOTE | 2020-11-11 04:15 | PC.NURSE ---
Patient stacking breathes, dropping volumes, high RR, desatting. FIO2 increased to 100%. Patient repositioned. Sedation increased.
[2020-11-11] MEDS: Albuterol/Iprat 2.5/0.5MG 3 ML AMPUL.NEB INHALE ×5 (04:31→19:42)
[2020-11-11] MEDS: Furosemide 200 MG in 0.9 % Sodium Chloride 80 ML IVCONT ×2 (05:00→21:36)
[2020-11-11 05:05] LABS: Glucose, Whole Blood 217 mg/dL (60-115)
[2020-11-11 05:18] LABS: VBG Base Excess 7.3 mmol/L; VBG HCO3 34 mmol/L (22-26); VBG pCO2 65 mmHg; VBG pH 7.33 (7.32-7.43); VBG pO2 61 mmHg
[2020-11-11 05:35] LABS: Basophils Percent Auto 0.1 % (0-2); Hematocrit 29.6 % (37-47); Imm Gran Abs Auto 0.08 X10*3/uL (0.00-0.03); Imm Gran Pct Auto 0.6 % (0.0-0.4); Lymphocytes Absolute Auto 0.1 X10*3/uL (1.2-4.9); Lymphocytes Percent Auto 0.8 % (20-40); MANUAL DIFF FLAG SCAN; Mean Corpuscular HGB Conc 30.4 g/dl (31.0-35.0); Mean Corpuscular Hemoglobin 28.9 pg (27.0-33.0); Mean Corpuscular Volume 95.2 fL (80-98); Mean Platelet Volume 9.7 fL (9.4-12.3); Monocytes Absolute Auto 0.3 X10*3/uL (0.1-1.2); Monocytes Percent Auto 1.9 % (2-11); Neutrophils Absolute Auto 13.7 X10*3/uL (2.0-8.3); Neutrophils Percent Auto 96.6 % (45-73); Platelet Count 202 X10*3/uL (160-400); Red Blood Count 3.11 X10*6/uL (4.20-5.50); SCAN SMEAR FLAG 1; White Blood Count 14.2 X10*3/uL (4.8-10.8)
[2020-11-11 05:41] LABS: Prothrombin Time 11.3 SEC (9.9-13.0)
[2020-11-11 05:43] LABS: D Dimer 593 NG/ML; SLIDE REVIEW VERIFIED
[2020-11-11] MEDS: Heparin Sodium,Porcine 5,000 UNIT/ML VIAL 5000 UNIT SUBCUT ×3 (05:48→21:45)
[2020-11-11] MEDS: Esmolol HCl/NaCl Iso 2,500 MG/250 ML IV.SOLN 39.47 MG IVCONT ×3 (05:48→18:35)
[2020-11-11] MEDS: methylPREDNISolone Sod Succ 125 MG/2 ML VIAL 60 MG IVPUSH ×4 (05:48→23:15)
[2020-11-11] MEDS: dilTIAZem HCL 125 MG in 0.9 % Sodium Chloride 100 ML 7.5 MG IVCONT ×2 (05:48→22:57)
[2020-11-11 05:50] LABS: Partial Thromboplastin Time 22.6 SEC (24.1-38.0)
[2020-11-11 06:02] LABS: Glucose, Whole Blood 197 mg/dL (60-115)
[2020-11-11 06:11] LABS: Alanine Aminotransferase 22 U/L (0-31); Albumin Level 3.1 g/dL (3.5-5.0); Alkaline Phosphatase 151 U/L (39-117); Anion Gap 11 (12-20); Aspartate Amino Transferase 16 U/L (5-31); Bilirubin Direct 0.3 mg/dL (0.0-0.5); Bilirubin Total 0.4 mg/dL (0.0-1.0); Blood Urea Nitrogen 41 mg/dL (9-16); Calcium 8.1 mg/dL (8.4-10.2); Carbon Dioxide 34 mmol/L (22-29); Chloride 100 mmol/L (96-108); Creatinine Clr Calc Pharmacy 82.9; Estimated Glomerular Filt Rate > 60; Glucose Random 221 mg/dL (60-115); Magnesium 2.6 mg/dL (1.6-2.6); Phosphorus 3.9 mg/dL (2.7-4.5); Potassium 5.2 mmol/L (3.3-5.1); Sodium 140 mmol/L (135-145); Total Protein 5.2 g/dL (6.5-8.0)
[2020-11-11 06:59] LABS: Glucose, Whole Blood 186 mg/dL (60-115)
[2020-11-11 07:40] LABS: Venous Blood Gas Refer to POC result
[2020-11-11] MEDS: Clopidogrel Bisulfate 75 MG TABLET PO (07:42)
[2020-11-11] MEDS: Fluticasone Propionate Nasal 16 GM SPRAY 1 SPRAY NOSTRIL-B (07:42)
[2020-11-11] MEDS: Chlorhexidine Gluc Oral Rinse 15 ML MOUTHWASH BUCCAL ×3 (07:42→21:47)
[2020-11-11 08:14] LABS: Glucose, Whole Blood 188 mg/dL (60-115)
[2020-11-11] MEDS: propofoL 1,000 MG/100 ML VIAL 20.71 MG IVCONT ×4 (08:41→22:59)
[2020-11-11 08:54] LABS: Glucose, Whole Blood 184 mg/dL (60-115)
--- NOTE | 2020-11-11 08:59 | MHC.CLN ---
F/U PT RECEIVING PROMOTE AT MAX GOAL RATE 30ML/HR WITH 30ML OF PROSOURCE Q DAY PROVIDES 780KCALS (1463KCALS WITH SEDATION; 23KCALS/KG), 60G PROTEIN (.96G/KG), 604CC FREE WATER FROM FORMULA MONITOR TOLERANCE, RESIDUALS AND LYTES
[2020-11-11] MEDS: fentaNYL citrate/NS 1,000 MCG/100 ML PLAST..BAG 15 MCG IVCONT ×3 (10:03→23:33)
[2020-11-11 10:05] LABS: Glucose, Whole Blood 146 mg/dL (60-115)
[2020-11-11 11:13] LABS: Glucose, Whole Blood 145 mg/dL (60-115)
[2020-11-11 12:41] LABS: Glucose, Whole Blood 161 mg/dL (60-115)
[2020-11-11 13:13] LABS: Glucose, Whole Blood 163 mg/dL (60-115)
[2020-11-11 14:11] LABS: Glucose, Whole Blood 149 mg/dL (60-115)
[2020-11-11 14:40] LABS: Viral Culture Source BRONCHIAL WASH
[2020-11-11 15:08] LABS: Glucose, Whole Blood 133 mg/dL (60-115)
--- NOTE | 2020-11-11 15:34 | PM.CCPN ---
Subjective Subjective Date of Service: 11/11/20 Interval History: 70-year-old female with HSV pneumonia superimposed on background of sarcoidosis for which she has been on mycophenolate for a long time and presented with acute hypoxic respiratory failure and she has very poor lung compliance with extensive ARDS bilateral spontaneous pneumothoraces with pneumomediastinum that resolved on a right-sided chest tube which is now out and paroxysmal atrial fibrillation with very rapid ventricular response also now with converted back to normal sinus rhythm still requiring high FiO2 of 90% and still has poor alveolar ventilation currently on IV diltiazem in and esmolol as well as Lasix drip because of elevated CVP in positive intake and output and has just been very comfortable with an 8 L minute ventilatory requirement and well sedated and of course remains intubated Critical Care Time (minutes): 45 Physical Exam Vital Signs: Vital Signs: Last Vital Signs Temp 98.2 F 11/11/20 15:00 Pulse 69 11/11/20 15:09 Resp 18 11/11/20 15:00 BP 117/49 L 11/11/20 15:00 Pulse Ox 90 L 11/11/20 15:00 Oxygen Flow Rate 40 10/27/20 02:27 Body Mass Index 37.5 Sedated and intubated CVP 8-10 in normal sinus rhythm pressure 115/44 with good bilateral carotid upstrokes Diminished bilateral breath sounds No gallops with intact skin and no livedo Objective Data Labs CBC & Chem 7: 11/11/20 05:10 11/11/20 05:10 Labs: Laboratory Results - last 24 hr 11/04/20 11/10/20 11/10/20 16:18 16:07 17:08 WBC RBC Hgb Hct MCV MCH MCHC RDW Plt Count MPV Immature Gran % (Auto) Neut % (Auto) Lymph % (Auto) [place] % (Auto) Eos % (Auto) Baso % (Auto) Lymph # (Auto) [place] # (Auto) Eos # (Auto) Baso # (Auto) Abs Immat Gran (auto) Absolute Neuts (auto) Absolute Nucleated RBC Nucleated RBC % (auto) Smear Tech's Comments PT INR APTT D-Dimer VBG pH VBG pCO2 VBG pO2 VBG HCO3 VBG O2 Saturation VBG Base Excess Sodium Potassium Chloride Carbon Dioxide Anion Gap BUN Creatinine Estim Creat Clear Calc Estimated GFR POC Glucose 132 H 121 H Random Glucose Calcium Phosphorus Magnesium Total Bilirubin Direct Bilirubin AST ALT Alkaline Phosphatase Total Protein Albumin Viral Specimen Source BRONCHIAL WASH Viral Culture Comments TNP 11/10/20 11/10/20 11/10/20 18:10 18:53 20:04 WBC RBC Hgb Hct MCV MCH MCHC RDW Plt Count MPV Immature Gran % (Auto) Neut % (Auto) Lymph % (Auto) [place] % (Auto) Eos % (Auto) Baso % (Auto) Lymph # (Auto) [place] # (Auto) Eos # (Auto) Baso # (Auto) Abs Immat Gran (auto) Absolute Neuts (auto) Absolute Nucleated RBC Nucleated RBC % (auto) Smear Tech's Comments PT INR APTT D-Dimer VBG pH VBG pCO2 VBG pO2 VBG HCO3 VBG O2 Saturation VBG Base Excess Sodium Potassium Chloride Carbon Dioxide Anion Gap BUN Creatinine Estim Creat Clear Calc Estimated GFR POC Glucose 155 H 135 H 116 H Random Glucose Calcium Phosphorus Magnesium Total Bilirubin Direct Bilirubin AST ALT Alkaline Phosphatase Total Protein Albumin Viral Specimen Source Viral Culture Comments 11/10/20 11/10/20 11/10/20 21:04 21:58 22:57 WBC RBC Hgb Hct MCV MCH MCHC RDW Plt Count MPV Immature Gran % (Auto) Neut % (Auto) Lymph % (Auto) [place] % (Auto) Eos % (Auto) Baso % (Auto) Lymph # (Auto) [place] # (Auto) Eos # (Auto) Baso # (Auto) Abs Immat Gran (auto) Absolute Neuts (auto) Absolute Nucleated RBC Nucleated RBC % (auto) Smear Tech's Comments PT INR APTT D-Dimer VBG pH VBG pCO2 VBG pO2 VBG HCO3 VBG O2 Saturation VBG Base Excess Sodium Potassium Chloride Carbon Dioxide Anion Gap BUN Creatinine Estim Creat Clear Calc Estimated GFR POC Glucose 140 H 182 H 184 H Random Glucose Calcium Phosphorus Magnesium Total Bilirubin Direct Bilirubin AST ALT Alkaline Phosphatase Total Protein Albumin Viral Specimen Source Viral Culture Comments 11/11/20 11/11/20 11/11/20 00:19 01:01 01:56 WBC RBC Hgb Hct MCV MCH MCHC RDW Plt Count MPV Immature Gran % (Auto) Neut % (Auto) Lymph % (Auto) [place] % (Auto) Eos % (Auto) Baso % (Auto) Lymph # (Auto) [place] # (Auto) Eos # (Auto) Baso # (Auto) Abs Immat Gran (auto) Absolute Neuts (auto) Absolute Nucleated RBC Nucleated RBC % (auto) Smear Tech's Comments PT INR APTT D-Dimer VBG pH VBG pCO2 VBG pO2 VBG HCO3 VBG O2 Saturation VBG Base Excess Sodium Potassium Chloride Carbon Dioxide Anion Gap BUN Creatinine Estim Creat Clear Calc Estimated GFR POC Glucose 244 H 243 H 260 H Random Glucose Calcium Phosphorus Magnesium Total Bilirubin Direct Bilirubin AST ALT Alkaline Phosphatase Total Protein Albumin Viral Specimen Source Viral Culture Comments 11/11/20 11/11/20 11/11/20 03:03 03:59 05:00 WBC RBC Hgb Hct MCV MCH MCHC RDW Plt Count MPV Immature Gran % (Auto) Neut % (Auto) Lymph % (Auto) [place] % (Auto) Eos % (Auto) Baso % (Auto) Lymph # (Auto) [place] # (Auto) Eos # (Auto) Baso # (Auto) Abs Immat Gran (auto) Absolute Neuts (auto) Absolute Nucleated RBC Nucleated RBC % (auto) Smear Tech's Comments PT INR APTT D-Dimer VBG pH VBG pCO2 VBG pO2 VBG HCO3 VBG O2 Saturation VBG Base Excess Sodium Potassium Chloride Carbon Dioxide Anion Gap BUN Creatinine Estim Creat Clear Calc Estimated GFR POC Glucose 257 H 218 H 217 H Random Glucose Calcium Phosphorus Magnesium Total Bilirubin Direct Bilirubin AST ALT Alkaline Phosphatase Total Protein Albumin Viral Specimen Source Viral Culture Comments 11/11/20 11/11/20 11/11/20 05:09 05:10 05:10 WBC 14.2 H RBC 3.11 L Hgb 9.0 L Hct 29.6 L MCV 95.2 MCH 28.9 MCHC 30.4 L RDW 14.0 Plt Count 202 MPV 9.7 Immature Gran % (Auto) 0.6 H Neut % (Auto) 96.6 H Lymph % (Auto) 0.8 L [place] % (Auto) 1.9 L Eos % (Auto) 0.0 Baso % (Auto) 0.1 Lymph # (Auto) 0.1 L [place] # (Auto) 0.3 Eos # (Auto) 0.0 Baso # (Auto) 0.0 Abs Immat Gran (auto) 0.08 H Absolute Neuts (auto) 13.7 H Absolute Nucleated RBC 0.000 Nucleated RBC % (auto) 0.0 Smear Tech's Comments VERIFIED PT 11.3 INR 1.0 APTT 22.6 L D-Dimer 593 VBG pH 7.33 VBG pCO2 65 VBG pO2 61 VBG HCO3 34 H VBG O2 Saturation 84.0 VBG Base Excess 7.3 Sodium Potassium Chloride Carbon Dioxide Anion Gap BUN Creatinine Estim Creat Clear Calc Estimated GFR POC Glucose Random Glucose Calcium Phosphorus Magnesium Total Bilirubin Direct Bilirubin AST ALT Alkaline Phosphatase Total Protein Albumin Viral Specimen Source Viral Culture Comments 11/11/20 11/11/20 11/11/20 05:10 05:58 06:55 WBC RBC Hgb Hct MCV MCH MCHC RDW Plt Count MPV Immature Gran % (Auto) Neut % (Auto) Lymph % (Auto) [place] % (Auto) Eos % (Auto) Baso % (Auto) Lymph # (Auto) [place] # (Auto) Eos # (Auto) Baso # (Auto) Abs Immat Gran (auto) Absolute Neuts (auto) Absolute Nucleated RBC Nucleated RBC % (auto) Smear Tech's Comments PT INR APTT D-Dimer VBG pH VBG pCO2 VBG pO2 VBG HCO3 VBG O2 Saturation VBG Base Excess Sodium 140 Potassium 5.2 H Chloride 100 Carbon Dioxide 34 H Anion Gap 11 L BUN 41 H Creatinine 0.68 Estim Creat Clear Calc 82.9 Estimated GFR > 60 POC Glucose 197 H 186 H Random Glucose 221 H Calcium 8.1 L Phosphorus 3.9 Magnesium 2.6 Total Bilirubin 0.4 Direct Bilirubin 0.3 AST 16 ALT 22 Alkaline Phosphatase 151 H Total Protein 5.2 L Albumin 3.1 L Viral Specimen Source Viral Culture Comments 11/11/20 11/11/20 11/11/20 08:10 08:49 10:01 WBC RBC Hgb Hct MCV MCH MCHC RDW Plt Count MPV Immature Gran % (Auto) Neut % (Auto) Lymph % (Auto) [place] % (Auto) Eos % (Auto) Baso % (Auto) Lymph # (Auto) [place] # (Auto) Eos # (Auto) Baso # (Auto) Abs Immat Gran (auto) Absolute Neuts (auto) Absolute Nucleated RBC Nucleated RBC % (auto) Smear Tech's Comments PT INR APTT D-Dimer VBG pH VBG pCO2 VBG pO2 VBG HCO3 VBG O2 Saturation VBG Base Excess Sodium Potassium Chloride Carbon Dioxide Anion Gap BUN Creatinine Estim Creat Clear Calc Estimated GFR POC Glucose 188 H 184 H 146 H Random Glucose Calcium Phosphorus Magnesium Total Bilirubin Direct Bilirubin AST ALT Alkaline Phosphatase Total Protein Albumin Viral Specimen Source Viral Culture Comments 11/11/20 11/11/20 11/11/20 11:09 12:11 13:09 WBC RBC Hgb Hct MCV MCH MCHC RDW Plt Count MPV Immature Gran % (Auto) Neut % (Auto) Lymph % (Auto) [place] % (Auto) Eos % (Auto) Baso % (Auto) Lymph # (Auto) [place] # (Auto) Eos # (Auto) Baso # (Auto) Abs Immat Gran (auto) Absolute Neuts (auto) Absolute Nucleated RBC Nucleated RBC % (auto) Smear Tech's Comments PT INR APTT D-Dimer VBG pH VBG pCO2 VBG pO2 VBG HCO3 VBG O2 Saturation VBG Base Excess Sodium Potassium Chloride Carbon Dioxide Anion Gap BUN Creatinine Estim Creat Clear Calc Estimated GFR POC Glucose 145 H 161 H 163 H Random Glucose Calcium Phosphorus Magnesium Total Bilirubin Direct Bilirubin AST ALT Alkaline Phosphatase Total Protein Albumin Viral Specimen Source Viral Culture Comments 11/11/20 11/11/20 14:07 15:02 WBC RBC Hgb Hct MCV MCH MCHC RDW Plt Count MPV Immature Gran % (Auto) Neut % (Auto) Lymph % (Auto) [place] % (Auto) Eos % (Auto) Baso % (Auto) Lymph # (Auto) [place] # (Auto) Eos # (Auto) Baso # (Auto) Abs Immat Gran (auto) Absolute Neuts (auto) Absolute Nucleated RBC Nucleated RBC % (auto) Smear Tech's Comments PT INR APTT D-Dimer VBG pH VBG pCO2 VBG pO2 VBG HCO3 VBG O2 Saturation VBG Base Excess Sodium Potassium Chloride Carbon Dioxide Anion Gap BUN Creatinine Estim Creat Clear Calc Estimated GFR POC Glucose 149 H 133 H Random Glucose Calcium Phosphorus Magnesium Total Bilirubin Direct Bilirubin AST ALT Alkaline Phosphatase Total Protein Albumin Viral Specimen Source Viral Culture Comments Microbiology Microbiology Results: Microbiology 11/07/20 17:11 Sputum - Suctioned Gram Stain - Final 11/07/20 17:11 Sputum - Suctioned Sputum Culture - Final 11/04/20 16:18 Bronchial Washings Fungal Identification - Preliminary Aaliyah albicans 11/06/20 04:20 Sputum - Suctioned Gram Stain - Final 11/06/20 04:20 Sputum - Suctioned Sputum Culture - Final 11/04/20 16:18 Bronchial Washings Gram Stain - Final 11/04/20 16:18 Bronchial Washings Routine Culture - Final 10/26/20 22:43 Blood - Venous Blood Culture - Final No growth after 5 days. 10/26/20 22:26 Blood - Venous Blood Culture - Final No growth after 5 days. 10/27/20 Unknown Urine clean catch - Urine hernandez top Urine Culture - Final Quality Stroke Does the patient have a stroke diagnosis?: No VTE Prior VTE?: No VTE Risk Level:: Medical - moderate - high VTE Device Contraindication: Treatment Not Indicated VTE Drug Contraindication: N/A - Med Ordered Progress Note: A&P Assessment and plan (1) Varicella pneumonia: Status: Acute (2) Diastolic CHF with preserved left ventricular function, NYHA class 2: Status: Acute (3) Pneumomediastinum: Status: Acute (4) Spontaneous pneumothorax: Status: Acute (5) Afib: Status: Acute (6) HTN (hypertension): Status: Acute (7) Diabetes: Status: Acute (8) Acute exacerbation of CHF (congestive heart failure): Status: Acute (9) Atypical pneumonia: Status: Acute (10) Acute respiratory failure with hypoxemia: Status: Acute (11) Elevated troponin: Status: Acute (12) History of adenomatous polyp of colon: Status: Acute (13) Chronic respiratory failure: Status: Acute (14) JOVANNY on CPAP: Status: Acute (15) ILD (interstitial lung disease): Status: Acute (16) Sarcoidosis: Status: Acute (17) COPD (chronic obstructive pulmonary disease): Status: Acute Assessment and Plan: So we keep her on ventilator management with a careful eye on driving pressure and plateau pressure given her poor lung compliance measured now at 14 no temperature and all surveillance sputum cultures have been negative for specific organism
[2020-11-11 16:02] LABS: Glucose, Whole Blood 137 mg/dL (60-115)
--- NOTE | 2020-11-11 16:09 | MHC.CM.PN ---
Pt remains intubated in ICU - still under infection surveillance for development of temp: D/C remains undetermined - MD feels pt will need vent management over the weekend and her status can be reassessed on Saturday for continuation of care or changes. CM will update family at that time.
[2020-11-11] MEDS: Fluconazole in NaCl,Iso-Osm 200 MG/100 ML PIGGYBACK 100 MG IV (16:48)
[2020-11-11] MEDS: Insulin Regular/NS 100 UNIT/100 ML PLAST..BAG 9 UNIT IVCONT (16:58)
[2020-11-11 17:06] LABS: Glucose, Whole Blood 134 mg/dL (60-115)
[2020-11-11 18:15] LABS: Glucose, Whole Blood 138 mg/dL (60-115)
--- NOTE | 2020-11-11 18:38 | PC.NURSE ---
Remains intubated on PC vent settings. Adjustments made to Pi and set rates today by RT to improve volumes and ventilation. Continues to stack breaths but less frequently. SpO2 remained in the low 90s today on unchanged FiO2 of 90% Sedation of Fentanyl and Propofol, See MAR. Limbs flaccid, opens eyes to stim. Minimal gag. Lungs clear. Occlusive dressing to Right anterior chest D/I. Lungs clear. Lasix continues at 5mg/hr, good urine output today. Tube feeds continue at goal. No BM today. Esmolol and Cardizem drips continue without rate change. Scheduled meds as ordered. Tele shows NSR. BPs stable. Skin with bruising to abdomen from anti-coag shots, edema improving slightly today, Stage 2 to coccyx with Foam dressing, changed today. Insulin drip adjusted per protocol from POCs. Currently running at 11units/hr. Family, daughter Jess, updated in person today during visit.
[2020-11-11 19:05] LABS: Glucose, Whole Blood 121 mg/dL (60-115)
[2020-11-11 20:03] LABS: Glucose, Whole Blood 103 mg/dL (60-115)
[2020-11-11 21:22] LABS: Glucose, Whole Blood 93 mg/dL (60-115)
[2020-11-11 22:14] LABS: Glucose, Whole Blood 78 mg/dL (60-115)
[2020-11-11 23:09] LABS: Glucose, Whole Blood 114 mg/dL (60-115)
[2020-11-12] VITALS (33 sets, daily range): BP systolic 100–137; BP diastolic 30–56; PULSE 66–90; RESP 16–23; TEMP 36.1–37.3; O2SAT 89–96; BMI 36.0
[2020-11-12 00:12] LABS: Glucose, Whole Blood 134 mg/dL (60-115)
[2020-11-12] MEDS: Albuterol/Iprat 2.5/0.5MG 3 ML AMPUL.NEB INHALE ×6 (00:13→20:12)
[2020-11-12] MEDS: Esmolol HCl/NaCl Iso 2,500 MG/250 ML IV.SOLN 39.47 MG IVCONT (01:00)
[2020-11-12 01:17] LABS: Glucose, Whole Blood 153 mg/dL (60-115)
[2020-11-12] MEDS: propofoL 1,000 MG/100 ML VIAL 20.71 MG IVCONT ×5 (02:48→20:30)
[2020-11-12 03:06] LABS: Glucose, Whole Blood 220 mg/dL (60-115)
[2020-11-12 05:08] LABS: Glucose, Whole Blood 203 mg/dL (60-115)
[2020-11-12 05:26] LABS: VBG Base Excess 11.8 mmol/L; VBG HCO3 39 mmol/L (22-26); VBG pCO2 70 mmHg; VBG pH 7.35 (7.32-7.43); VBG pO2 48 mmHg
[2020-11-12] MEDS: Heparin Sodium,Porcine 5,000 UNIT/ML VIAL 5000 UNIT SUBCUT ×3 (05:27→21:57)
[2020-11-12] MEDS: methylPREDNISolone Sod Succ 125 MG/2 ML VIAL 60 MG IVPUSH ×4 (05:29→23:26)
[2020-11-12 05:42] LABS: Hematocrit 27.1 % (37-47); Hemoglobin 8.3 g/dl (12.0-16.0); Imm Gran Abs Auto 0.06 X10*3/uL (0.00-0.03); Imm Gran Pct Auto 0.6 % (0.0-0.4); Lymphocytes Absolute Auto 0.1 X10*3/uL (1.2-4.9); Lymphocytes Percent Auto 1.1 % (20-40); MANUAL DIFF FLAG SCAN; Mean Corpuscular HGB Conc 30.6 g/dl (31.0-35.0); Mean Corpuscular Hemoglobin 29.2 pg (27.0-33.0); Mean Corpuscular Volume 95.4 fL (80-98); Mean Platelet Volume 9.9 fL (9.4-12.3); Monocytes Absolute Auto 0.2 X10*3/uL (0.1-1.2); Monocytes Percent Auto 1.8 % (2-11); Neutrophils Absolute Auto 9.3 X10*3/uL (2.0-8.3); Neutrophils Percent Auto 96.5 % (45-73); Platelet Count 155 X10*3/uL (160-400); Red Blood Count 2.84 X10*6/uL (4.20-5.50); Red Cell Distribution Width 13.5 % (11.0-16.0); SCAN SMEAR FLAG 1; White Blood Count 9.6 X10*3/uL (4.8-10.8)
[2020-11-12 05:48] LABS: Prothrombin Time 11.2 SEC (9.9-13.0)
[2020-11-12 05:50] LABS: D Dimer 643 NG/ML
[2020-11-12 05:51] LABS: Partial Thromboplastin Time 22.8 SEC (24.1-38.0)
[2020-11-12 06:01] LABS: SLIDE REVIEW VERIFIED
[2020-11-12 06:06] LABS: Alanine Aminotransferase 16 U/L (0-31); Albumin Level 2.8 g/dL (3.5-5.0); Alkaline Phosphatase 137 U/L (39-117); Anion Gap 11 (12-20); Aspartate Amino Transferase 13 U/L (5-31); Bilirubin Direct 0.4 mg/dL (0.0-0.5); Bilirubin Total 0.4 mg/dL (0.0-1.0); Blood Urea Nitrogen 43 mg/dL (9-16); Carbon Dioxide 36 mmol/L (22-29); Chloride 98 mmol/L (96-108); Creatinine Clr Calc Pharmacy 76.6; Estimated Glomerular Filt Rate > 60; Glucose Random 230 mg/dL (60-115); Magnesium 2.5 mg/dL (1.6-2.6); Phosphorus 4.2 mg/dL (2.7-4.5); Potassium 5.4 mmol/L (3.3-5.1); Sodium 140 mmol/L (135-145); Total Protein 4.8 g/dL (6.5-8.0)
[2020-11-12] MEDS: fentaNYL citrate/NS 1,000 MCG/100 ML PLAST..BAG 15 MCG IVCONT ×3 (06:16→19:04)
[2020-11-12] MEDS: Insulin Regular/NS 100 UNIT/100 ML PLAST..BAG 7 UNIT IVCONT (06:16)
--- NOTE | 2020-11-12 06:25 | PC.NURSE ---
BP starting to drop. Map in 50's. Kevin Gonzalez aware. Lasix drip put on hold per order of provider Suzy. also Cardizem drip decreased to 5 mg/hr (was 7) and Esmolol drip down to 25 mcg/kg/min (was 75). U/O good, 50-175 ml/hr. Maintained on pressure control vent settings with no complications. Monitor continues NSR, rate 70's.
[2020-11-12 06:39] LABS: Venous Blood Gas Refer to POC result
[2020-11-12 06:50] LABS: Glucose, Whole Blood 214 mg/dL (60-115)
[2020-11-12] MEDS: Esmolol HCl/NaCl Iso 2,500 MG/250 ML IV.SOLN 13.16 MG IVCONT (08:27)
[2020-11-12] MEDS: Chlorhexidine Gluc Oral Rinse 15 ML MOUTHWASH BUCCAL ×3 (08:28→20:30)
[2020-11-12] MEDS: Clopidogrel Bisulfate 75 MG TABLET PO (08:28)
[2020-11-12] MEDS: Fluticasone Propionate Nasal 16 GM SPRAY 1 SPRAY NOSTRIL-B ×2 (08:31→22:02)
[2020-11-12 09:10] LABS: Glucose, Whole Blood 186 mg/dL (60-115)
[2020-11-12 11:13] LABS: Glucose, Whole Blood 195 mg/dL (60-115)
[2020-11-12 13:07] LABS: Glucose, Whole Blood 203 mg/dL (60-115)
[2020-11-12 15:02] LABS: Glucose, Whole Blood 150 mg/dL (60-115)
--- NOTE | 2020-11-12 15:06 | PM.CCPN ---
Subjective Subjective Date of Service: 11/12/20 Interval History: 70-year-old female admitted with acute hypoxemic respiratory failure and has underlying sarcoid and had been immunosuppressed on mycophenolate and tested positive for herpes simplex viral pneumonia with extensive bilateral for alveolar infiltrates and ARDS and has been sedated and intubated on the ventilator now for over a week still FiO2 of 90% but in between had a spontaneous bilateral pneumothoraces along with pneumomediastinum and pneumopericardium and 1 chest tube basically drained everything and little over 48 hours later chest tube discontinued no signs of any recurrent or secondary infection and minute ventilatory requirements are still modest at about 8-9 L a minute and she also had paroxysmal atrial fibrillation with rapid ventricular response and she is now on minimal doses of combined IV esmolol and IV diltiazem and also on oral Rythmol and has been in sinus rhythm now consistently rate is approximately 80 respiratory rate 20 blood pressure 130/50 oxygen saturation 95% Critical Care Time (minutes): 35 Physical Exam Vital Signs: Vital Signs: Last Vital Signs Temp 99.0 F 11/12/20 14:00 Pulse 83 11/12/20 14:00 Resp 18 11/12/20 14:00 BP 133/48 L 11/12/20 14:00 Pulse Ox 95 11/12/20 14:00 Oxygen Flow Rate 40 10/27/20 02:27 Body Mass Index 36.0 Sedated and intubated and nonfocal neurologically and tomorrow I think will attempt sedation holiday again 1st time we did she demonstrated cognitive function CVP 8-9 and normal LV function with just modest right ventricular prominence on echo cardiac last chest x-ray relatively unchanged with bilateral infiltrates Abdomen is soft no organomegaly doing well with tube feedings Skin intact Objective Data Labs CBC & Chem 7: 11/12/20 05:15 11/12/20 05:15 Labs: Laboratory Results - last 24 hr 11/11/20 11/11/20 11/11/20 15:02 15:58 17:02 WBC RBC Hgb Hct MCV MCH MCHC RDW Plt Count MPV Immature Gran % (Auto) Neut % (Auto) Lymph % (Auto) [place] % (Auto) Eos % (Auto) Baso % (Auto) Lymph # (Auto) [place] # (Auto) Eos # (Auto) Baso # (Auto) Abs Immat Gran (auto) Absolute Neuts (auto) Absolute Nucleated RBC Nucleated RBC % (auto) Smear Tech's Comments PT INR APTT D-Dimer VBG pH VBG pCO2 VBG pO2 VBG HCO3 VBG O2 Saturation VBG Base Excess Sodium Potassium Chloride Carbon Dioxide Anion Gap BUN Creatinine Estim Creat Clear Calc Estimated GFR POC Glucose 133 H 137 H 134 H Random Glucose Calcium Phosphorus Magnesium Total Bilirubin Direct Bilirubin AST ALT Alkaline Phosphatase Total Protein Albumin 11/11/20 11/11/20 11/11/20 18:11 19:01 20:00 WBC RBC Hgb Hct MCV MCH MCHC RDW Plt Count MPV Immature Gran % (Auto) Neut % (Auto) Lymph % (Auto) [place] % (Auto) Eos % (Auto) Baso % (Auto) Lymph # (Auto) [place] # (Auto) Eos # (Auto) Baso # (Auto) Abs Immat Gran (auto) Absolute Neuts (auto) Absolute Nucleated RBC Nucleated RBC % (auto) Smear Tech's Comments PT INR APTT D-Dimer VBG pH VBG pCO2 VBG pO2 VBG HCO3 VBG O2 Saturation VBG Base Excess Sodium Potassium Chloride Carbon Dioxide Anion Gap BUN Creatinine Estim Creat Clear Calc Estimated GFR POC Glucose 138 H 121 H 103 Random Glucose Calcium Phosphorus Magnesium Total Bilirubin Direct Bilirubin AST ALT Alkaline Phosphatase Total Protein Albumin 11/11/20 11/11/20 11/11/20 21:19 22:05 23:06 WBC RBC Hgb Hct MCV MCH MCHC RDW Plt Count MPV Immature Gran % (Auto) Neut % (Auto) Lymph % (Auto) [place] % (Auto) Eos % (Auto) Baso % (Auto) Lymph # (Auto) [place] # (Auto) Eos # (Auto) Baso # (Auto) Abs Immat Gran (auto) Absolute Neuts (auto) Absolute Nucleated RBC Nucleated RBC % (auto) Smear Tech's Comments PT INR APTT D-Dimer VBG pH VBG pCO2 VBG pO2 VBG HCO3 VBG O2 Saturation VBG Base Excess Sodium Potassium Chloride Carbon Dioxide Anion Gap BUN Creatinine Estim Creat Clear Calc Estimated GFR POC Glucose 93 78 114 Random Glucose Calcium Phosphorus Magnesium Total Bilirubin Direct Bilirubin AST ALT Alkaline Phosphatase Total Protein Albumin 11/12/20 11/12/20 11/12/20 00:07 01:13 02:58 WBC RBC Hgb Hct MCV MCH MCHC RDW Plt Count MPV Immature Gran % (Auto) Neut % (Auto) Lymph % (Auto) [place] % (Auto) Eos % (Auto) Baso % (Auto) Lymph # (Auto) [place] # (Auto) Eos # (Auto) Baso # (Auto) Abs Immat Gran (auto) Absolute Neuts (auto) Absolute Nucleated RBC Nucleated RBC % (auto) Smear Tech's Comments PT INR APTT D-Dimer VBG pH VBG pCO2 VBG pO2 VBG HCO3 VBG O2 Saturation VBG Base Excess Sodium Potassium Chloride Carbon Dioxide Anion Gap BUN Creatinine Estim Creat Clear Calc Estimated GFR POC Glucose 134 H 153 H 220 H Random Glucose Calcium Phosphorus Magnesium Total Bilirubin Direct Bilirubin AST ALT Alkaline Phosphatase Total Protein Albumin 11/12/20 11/12/20 11/12/20 05:04 05:15 05:15 WBC 9.6 RBC 2.84 L Hgb 8.3 L Hct 27.1 L MCV 95.4 MCH 29.2 MCHC 30.6 L RDW 13.5 Plt Count 155 L MPV 9.9 Immature Gran % (Auto) 0.6 H Neut % (Auto) 96.5 H Lymph % (Auto) 1.1 L [place] % (Auto) 1.8 L Eos % (Auto) 0.0 Baso % (Auto) 0.0 Lymph # (Auto) 0.1 L [place] # (Auto) 0.2 Eos # (Auto) 0.0 Baso # (Auto) 0.0 Abs Immat Gran (auto) 0.06 H Absolute Neuts (auto) 9.3 H Absolute Nucleated RBC 0.000 Nucleated RBC % (auto) 0.0 Smear Tech's Comments VERIFIED PT 11.2 INR 1.0 APTT 22.8 L D-Dimer 643 VBG pH VBG pCO2 VBG pO2 VBG HCO3 VBG O2 Saturation VBG Base Excess Sodium Potassium Chloride Carbon Dioxide Anion Gap BUN Creatinine Estim Creat Clear Calc Estimated GFR POC Glucose 203 H Random Glucose Calcium Phosphorus Magnesium Total Bilirubin Direct Bilirubin AST ALT Alkaline Phosphatase Total Protein Albumin 11/12/20 11/12/20 11/12/20 05:15 05:15 05:17 WBC RBC Hgb Hct MCV MCH MCHC RDW Plt Count MPV Immature Gran % (Auto) Neut % (Auto) Lymph % (Auto) [place] % (Auto) Eos % (Auto) Baso % (Auto) Lymph # (Auto) [place] # (Auto) Eos # (Auto) Baso # (Auto) Abs Immat Gran (auto) Absolute Neuts (auto) Absolute Nucleated RBC Nucleated RBC % (auto) Smear Tech's Comments PT INR APTT D-Dimer VBG pH 7.35 VBG pCO2 70 VBG pO2 48 VBG HCO3 39 H VBG O2 Saturation 76.0 VBG Base Excess 11.8 Sodium 140 Potassium 5.4 H Chloride 98 Carbon Dioxide 36 H Anion Gap 11 L BUN 43 H Creatinine 0.72 Estim Creat Clear Calc 76.6 Estimated GFR > 60 POC Glucose Random Glucose 230 H Calcium 8.0 L Phosphorus 4.2 Magnesium 2.5 Total Bilirubin 0.4 Direct Bilirubin 0.4 AST 13 ALT 16 Alkaline Phosphatase 137 H Total Protein 4.8 L Albumin 2.8 L 11/12/20 11/12/20 11/12/20 06:45 09:03 11:10 WBC RBC Hgb Hct MCV MCH MCHC RDW Plt Count MPV Immature Gran % (Auto) Neut % (Auto) Lymph % (Auto) [place] % (Auto) Eos % (Auto) Baso % (Auto) Lymph # (Auto) [place] # (Auto) Eos # (Auto) Baso # (Auto) Abs Immat Gran (auto) Absolute Neuts (auto) Absolute Nucleated RBC Nucleated RBC % (auto) Smear Tech's Comments PT INR APTT D-Dimer VBG pH VBG pCO2 VBG pO2 VBG HCO3 VBG O2 Saturation VBG Base Excess Sodium Potassium Chloride Carbon Dioxide Anion Gap BUN Creatinine Estim Creat Clear Calc Estimated GFR POC Glucose 214 H 186 H 195 H Random Glucose Calcium Phosphorus Magnesium Total Bilirubin Direct Bilirubin AST ALT Alkaline Phosphatase Total Protein Albumin 11/12/20 11/12/20 13:04 14:58 WBC RBC Hgb Hct MCV MCH MCHC RDW Plt Count MPV Immature Gran % (Auto) Neut % (Auto) Lymph % (Auto) [place] % (Auto) Eos % (Auto) Baso % (Auto) Lymph # (Auto) [place] # (Auto) Eos # (Auto) Baso # (Auto) Abs Immat Gran (auto) Absolute Neuts (auto) Absolute Nucleated RBC Nucleated RBC % (auto) Smear Tech's Comments PT INR APTT D-Dimer VBG pH VBG pCO2 VBG pO2 VBG HCO3 VBG O2 Saturation VBG Base Excess Sodium Potassium Chloride Carbon Dioxide Anion Gap BUN Creatinine Estim Creat Clear Calc Estimated GFR POC Glucose 203 H 150 H Random Glucose Calcium Phosphorus Magnesium Total Bilirubin Direct Bilirubin AST ALT Alkaline Phosphatase Total Protein Albumin Microbiology Microbiology Results: Microbiology 11/07/20 17:11 Sputum - Suctioned Gram Stain - Final 11/07/20 17:11 Sputum - Suctioned Sputum Culture - Final 11/04/20 16:18 Bronchial Washings Fungal Identification - Preliminary Aaliyah albicans 11/06/20 04:20 Sputum - Suctioned Gram Stain - Final 11/06/20 04:20 Sputum - Suctioned Sputum Culture - Final 11/04/20 16:18 Bronchial Washings Gram Stain - Final 11/04/20 16:18 Bronchial Washings Routine Culture - Final 10/26/20 22:43 Blood - Venous Blood Culture - Final No growth after 5 days. 10/26/20 22:26 Blood - Venous Blood Culture - Final No growth after 5 days. 10/27/20 Unknown Urine clean catch - Urine hernandez top Urine Culture - Final Quality Stroke Does the patient have a stroke diagnosis?: No VTE Prior VTE?: No VTE Risk Level:: Medical - moderate - high VTE Device Contraindication: Treatment Not Indicated VTE Drug Contraindication: N/A - Med Ordered Progress Note: A&P Assessment and plan (1) Varicella pneumonia: Status: Acute (2) Diastolic CHF with preserved left ventricular function, NYHA class 2: Status: Acute (3) Pneumomediastinum: Status: Acute (4) Spontaneous pneumothorax: Status: Acute (5) Afib: Status: Acute (6) HTN (hypertension): Status: Acute (7) Diabetes: Status: Acute (8) Acute exacerbation of CHF (congestive heart failure): Status: Acute (9) Atypical pneumonia: Status: Acute (10) Acute respiratory failure with hypoxemia: Status: Acute (11) Fever: Status: Acute (12) Elevated troponin: Status: Acute (13) Leg edema: Status: Acute (14) History of adenomatous polyp of colon: Status: Acute (15) CHF (congestive heart failure): Status: Acute (16) Chronic respiratory failure: Status: Acute (17) JOVANNY on CPAP: Status: Acute (18) ILD (interstitial lung disease): Status: Acute (19) Sarcoidosis: Status: Acute (20) COPD (chronic obstructive pulmonary disease): Status: Acute Assessment and Plan: So we will continue ventilator support and probably in the morning speak to family in relation to the upcoming week and possible need for tracheostomy and PEG to give her longer period of time to heal and continue acyclovir and possibly after tomorrow discontinue the fluconazole
[2020-11-12] MEDS: Fluconazole in NaCl,Iso-Osm 200 MG/100 ML PIGGYBACK 100 MG IV (16:06)
[2020-11-12 16:59] LABS: Glucose, Whole Blood 148 mg/dL (60-115)
[2020-11-12] MEDS: Insulin Regular/NS 100 UNIT/100 ML PLAST..BAG IVCONT (17:18)
[2020-11-12 19:06] LABS: Glucose, Whole Blood 183 mg/dL (60-115)
[2020-11-12 21:37] LABS: Glucose, Whole Blood 170 mg/dL (60-115)
[2020-11-12 23:55] LABS: Glucose, Whole Blood 162 mg/dL (60-115)
[2020-11-13] VITALS (36 sets, daily range): BP systolic 106–170; BP diastolic 30–61; PULSE 82–111; RESP 17–25; TEMP 37–37.3; O2SAT 85–98; BMI 37.2
[2020-11-13] MEDS: Albuterol/Iprat 2.5/0.5MG 3 ML AMPUL.NEB INHALE ×6 (00:24→19:16)
[2020-11-13] MEDS: propofoL 1,000 MG/100 ML VIAL 20.71 MG IVCONT ×6 (01:26→22:10)
[2020-11-13] MEDS: fentaNYL citrate/NS 1,000 MCG/100 ML PLAST..BAG 20 MCG IVCONT ×5 (02:04→22:10)
[2020-11-13 02:07] LABS: Glucose, Whole Blood 186 mg/dL (60-115)
[2020-11-13] MEDS: Esmolol HCl/NaCl Iso 2,500 MG/250 ML IV.SOLN 13.16 MG IVCONT (02:09)
[2020-11-13 04:50] LABS: Glucose, Whole Blood 189 mg/dL (60-115)
[2020-11-13 05:15] LABS: VBG Base Excess 16.4 mmol/L; VBG HCO3 43 mmol/L (22-26); VBG pCO2 66 mmHg; VBG pH 7.42 (7.32-7.43); VBG pO2 45 mmHg
[2020-11-13] MEDS: methylPREDNISolone Sod Succ 125 MG/2 ML VIAL 60 MG IVPUSH ×4 (05:18→22:52)
[2020-11-13 05:21] LABS: Venous Blood Gas Refer to POC result
[2020-11-13] MEDS: Heparin Sodium,Porcine 5,000 UNIT/ML VIAL 5000 UNIT SUBCUT ×3 (05:21→20:09)
[2020-11-13 05:24] LABS: Basophils Percent Auto 0.1 % (0-2); Hematocrit 29.5 % (37-47); Hemoglobin 9.1 g/dl (12.0-16.0); Imm Gran Abs Auto 0.09 X10*3/uL (0.00-0.03); Imm Gran Pct Auto 0.7 % (0.0-0.4); Lymphocytes Absolute Auto 0.1 X10*3/uL (1.2-4.9); Lymphocytes Percent Auto 0.7 % (20-40); MANUAL DIFF FLAG SCAN; Mean Corpuscular HGB Conc 30.8 g/dl (31.0-35.0); Mean Corpuscular Hemoglobin 29.1 pg (27.0-33.0); Mean Corpuscular Volume 94.2 fL (80-98); Mean Platelet Volume 9.8 fL (9.4-12.3); Monocytes Absolute Auto 0.2 X10*3/uL (0.1-1.2); Monocytes Percent Auto 1.6 % (2-11); Neutrophils Absolute Auto 12.7 X10*3/uL (2.0-8.3); Neutrophils Percent Auto 96.9 % (45-73); Platelet Count 172 X10*3/uL (160-400); Red Blood Count 3.13 X10*6/uL (4.20-5.50); Red Cell Distribution Width 13.7 % (11.0-16.0); SCAN SMEAR FLAG 1; White Blood Count 13.1 X10*3/uL (4.8-10.8)
[2020-11-13 05:33] LABS: SLIDE REVIEW VERIFIED
[2020-11-13 05:34] LABS: Prothrombin Time 11.1 SEC (9.9-13.0)
[2020-11-13 05:37] LABS: D Dimer 678 NG/ML
[2020-11-13 05:38] LABS: Partial Thromboplastin Time 22.9 SEC (24.1-38.0)
[2020-11-13 05:51] LABS: Alanine Aminotransferase 19 U/L (0-31); Albumin Level 2.9 g/dL (3.5-5.0); Alkaline Phosphatase 140 U/L (39-117); Anion Gap 9 (12-20); Aspartate Amino Transferase 14 U/L (5-31); Bilirubin Direct 0.3 mg/dL (0.0-0.5); Bilirubin Total 0.4 mg/dL (0.0-1.0); Blood Urea Nitrogen 30 mg/dL (9-16); Calcium 8.2 mg/dL (8.4-10.2); Carbon Dioxide 38 mmol/L (22-29); Chloride 99 mmol/L (96-108); Creatinine Clr Calc Pharmacy 98.4; Estimated Glomerular Filt Rate > 60; Glucose Random 204 mg/dL (60-115); Magnesium 2.6 mg/dL (1.6-2.6); Phosphorus 2.7 mg/dL (2.7-4.5); Potassium 5.3 mmol/L (3.3-5.1); Sodium 141 mmol/L (135-145)
[2020-11-13 06:23] LABS: Glucose, Whole Blood 175 mg/dL (60-115)
[2020-11-13 08:12] LABS: Glucose, Whole Blood 173 mg/dL (60-115)
[2020-11-13] MEDS: Clopidogrel Bisulfate 75 MG TABLET PO (08:18)
[2020-11-13] MEDS: Chlorhexidine Gluc Oral Rinse 15 ML MOUTHWASH BUCCAL ×3 (08:18→20:09)
[2020-11-13] MEDS: Fluticasone Propionate Nasal 16 GM SPRAY 1 SPRAY NOSTRIL-B (08:19)
[2020-11-13 09:51] LABS: Glucose, Whole Blood 156 mg/dL (60-115)
[2020-11-13] MEDS: Insulin Regular/NS 100 UNIT/100 ML PLAST..BAG 7 UNIT IVCONT (10:01)
[2020-11-13 12:03] LABS: Glucose, Whole Blood 155 mg/dL (60-115)
[2020-11-13 14:13] LABS: Glucose, Whole Blood 142 mg/dL (60-115)
--- NOTE | 2020-11-13 15:25 | P.PNCC_ITS ---
Subjective Subjective Date of Service: 11/13/20 Interval History: 70-year-old female moderately obese type 2 diabetic with underlying sarcoid lung presents with acute hypoxemic respiratory failure and apparently due to herpes simplex viral pneumonia and she has been on acyclovir and because of subsequent sputum cultures growing Aaliyah we added fluconazole Longstanding history paroxysmal atrial fibrillation which became an issue specially after the chest tube was placed and that was treated with IV esmolol and diltiazem and oral Rythmol and then finally after several cardioversions she has remained in sinus rhythm for at least for the last 72 hours now off IV diltiazem and about to come off of the esmolol and switched to oral metoprolol in conjunction with the Rythmol which did not prolonged QT interval She has a history of diastolic CHF and we have treated her with the Lasix drip several times for rising CVP which seems to have worked out very well and she has stable renal function and metabolically stable 9 L minute ventilation requirement on the ventilator but high FiO2 currently at about 80% but when saturations dropped down into the mid 80s we res of back up to 90% She did have bilateral pneumothoraces which was spontaneous with pneumomediastinum pneumopericardium and a chest tube drained everything with good response that is been removed now 72 hours as well without recurrence Critical Care Time (minutes): 35 Physical Exam Vital Signs: Vital Signs: Last Vital Signs Temp 99.0 F 11/13/20 14:44 Pulse 96 11/13/20 14:44 Resp 25 H 11/13/20 14:44 BP 124/55 L 11/13/20 14:44 Pulse Ox 96 11/13/20 14:44 Oxygen Flow Rate 40 10/27/20 02:27 Body Mass Index 37.2 Sedated and intubated and nonfocal neurologically Normal sinus rhythm stable CVP 8-9 with good bilateral carotid upstrokes Chest with Coarse bilateral ventilatory sounds abdomen soft with no organomegaly and tolerating feedings Skin intact Objective Data Labs CBC & Chem 7: 11/13/20 05:05 11/13/20 05:05 Labs: Laboratory Results - last 24 hr 11/12/20 11/12/20 11/12/20 16:55 19:02 21:34 WBC RBC Hgb Hct MCV MCH MCHC RDW Plt Count MPV Immature Gran % (Auto) Neut % (Auto) Lymph % (Auto) [place] % (Auto) Eos % (Auto) Baso % (Auto) Lymph # (Auto) [place] # (Auto) Eos # (Auto) Baso # (Auto) Abs Immat Gran (auto) Absolute Neuts (auto) Absolute Nucleated RBC Nucleated RBC % (auto) Smear Tech's Comments PT INR APTT D-Dimer VBG pH VBG pCO2 VBG pO2 VBG HCO3 VBG O2 Saturation VBG Base Excess Sodium Potassium Chloride Carbon Dioxide Anion Gap BUN Creatinine Estim Creat Clear Calc Estimated GFR POC Glucose 148 H 183 H 170 H Random Glucose Calcium Phosphorus Magnesium Total Bilirubin Direct Bilirubin AST ALT Alkaline Phosphatase Total Protein Albumin 11/12/20 11/13/20 11/13/20 23:49 02:03 04:46 WBC RBC Hgb Hct MCV MCH MCHC RDW Plt Count MPV Immature Gran % (Auto) Neut % (Auto) Lymph % (Auto) [place] % (Auto) Eos % (Auto) Baso % (Auto) Lymph # (Auto) [place] # (Auto) Eos # (Auto) Baso # (Auto) Abs Immat Gran (auto) Absolute Neuts (auto) Absolute Nucleated RBC Nucleated RBC % (auto) Smear Tech's Comments PT INR APTT D-Dimer VBG pH VBG pCO2 VBG pO2 VBG HCO3 VBG O2 Saturation VBG Base Excess Sodium Potassium Chloride Carbon Dioxide Anion Gap BUN Creatinine Estim Creat Clear Calc Estimated GFR POC Glucose 162 H 186 H 189 H Random Glucose Calcium Phosphorus Magnesium Total Bilirubin Direct Bilirubin AST ALT Alkaline Phosphatase Total Protein Albumin 11/13/20 11/13/20 11/13/20 05:05 05:05 05:05 WBC 13.1 H RBC 3.13 L Hgb 9.1 L Hct 29.5 L MCV 94.2 MCH 29.1 MCHC 30.8 L RDW 13.7 Plt Count 172 MPV 9.8 Immature Gran % (Auto) 0.7 H Neut % (Auto) 96.9 H Lymph % (Auto) 0.7 L [place] % (Auto) 1.6 L Eos % (Auto) 0.0 Baso % (Auto) 0.1 Lymph # (Auto) 0.1 L [place] # (Auto) 0.2 Eos # (Auto) 0.0 Baso # (Auto) 0.0 Abs Immat Gran (auto) 0.09 H Absolute Neuts (auto) 12.7 H Absolute Nucleated RBC 0.000 Nucleated RBC % (auto) 0.0 Smear Tech's Comments VERIFIED PT 11.1 INR 1.0 APTT 22.9 L D-Dimer 678 VBG pH VBG pCO2 VBG pO2 VBG HCO3 VBG O2 Saturation VBG Base Excess Sodium 141 Potassium 5.3 H Chloride 99 Carbon Dioxide 38 H Anion Gap 9 L BUN 30 H Creatinine 0.57 Estim Creat Clear Calc 98.4 Estimated GFR > 60 POC Glucose Random Glucose 204 H Calcium 8.2 L Phosphorus 2.7 Magnesium 2.6 Total Bilirubin 0.4 Direct Bilirubin 0.3 AST 14 ALT 19 Alkaline Phosphatase 140 H Total Protein 5.0 L Albumin 2.9 L 11/13/20 11/13/20 11/13/20 05:05 05:07 06:19 WBC RBC Hgb Hct MCV MCH MCHC RDW Plt Count MPV Immature Gran % (Auto) Neut % (Auto) Lymph % (Auto) [place] % (Auto) Eos % (Auto) Baso % (Auto) Lymph # (Auto) [place] # (Auto) Eos # (Auto) Baso # (Auto) Abs Immat Gran (auto) Absolute Neuts (auto) Absolute Nucleated RBC Nucleated RBC % (auto) Smear Tech's Comments PT INR APTT D-Dimer VBG pH 7.42 VBG pCO2 66 VBG pO2 45 VBG HCO3 43 H VBG O2 Saturation 73.0 VBG Base Excess 16.4 Sodium Potassium Chloride Carbon Dioxide Anion Gap BUN Creatinine Estim Creat Clear Calc Estimated GFR POC Glucose 175 H Random Glucose Calcium Phosphorus Magnesium Total Bilirubin Cancelled Direct Bilirubin Cancelled AST Cancelled ALT Cancelled Alkaline Phosphatase Cancelled Total Protein Cancelled Albumin Cancelled 11/13/20 11/13/20 11/13/20 08:09 09:47 11:56 WBC RBC Hgb Hct MCV MCH MCHC RDW Plt Count MPV Immature Gran % (Auto) Neut % (Auto) Lymph % (Auto) [place] % (Auto) Eos % (Auto) Baso % (Auto) Lymph # (Auto) [place] # (Auto) Eos # (Auto) Baso # (Auto) Abs Immat Gran (auto) Absolute Neuts (auto) Absolute Nucleated RBC Nucleated RBC % (auto) Smear Tech's Comments PT INR APTT D-Dimer VBG pH VBG pCO2 VBG pO2 VBG HCO3 VBG O2 Saturation VBG Base Excess Sodium Potassium Chloride Carbon Dioxide Anion Gap BUN Creatinine Estim Creat Clear Calc Estimated GFR POC Glucose 173 H 156 H 155 H Random Glucose Calcium Phosphorus Magnesium Total Bilirubin Direct Bilirubin AST ALT Alkaline Phosphatase Total Protein Albumin 11/13/20 14:10 WBC RBC Hgb Hct MCV MCH MCHC RDW Plt Count MPV Immature Gran % (Auto) Neut % (Auto) Lymph % (Auto) [place] % (Auto) Eos % (Auto) Baso % (Auto) Lymph # (Auto) [place] # (Auto) Eos # (Auto) Baso # (Auto) Abs Immat Gran (auto) Absolute Neuts (auto) Absolute Nucleated RBC Nucleated RBC % (auto) Smear Tech's Comments PT INR APTT D-Dimer VBG pH VBG pCO2 VBG pO2 VBG HCO3 VBG O2 Saturation VBG Base Excess Sodium Potassium Chloride Carbon Dioxide Anion Gap BUN Creatinine Estim Creat Clear Calc Estimated GFR POC Glucose 142 H Random Glucose Calcium Phosphorus Magnesium Total Bilirubin Direct Bilirubin AST ALT Alkaline Phosphatase Total Protein Albumin Microbiology Microbiology Results: Microbiology 11/07/20 17:11 Sputum - Suctioned Gram Stain - Final 11/07/20 17:11 Sputum - Suctioned Sputum Culture - Final 11/04/20 16:18 Bronchial Washings Fungal Identification - Preliminary Aaliyah albicans 11/06/20 04:20 Sputum - Suctioned Gram Stain - Final 11/06/20 04:20 Sputum - Suctioned Sputum Culture - Final 11/04/20 16:18 Bronchial Washings Gram Stain - Final 11/04/20 16:18 Bronchial Washings Routine Culture - Final 10/26/20 22:43 Blood - Venous Blood Culture - Final No growth after 5 days. 10/26/20 22:26 Blood - Venous Blood Culture - Final No growth after 5 days. 10/27/20 Unknown Urine clean catch - Urine hernandez top Urine Culture - Final Quality Stroke Does the patient have a stroke diagnosis?: No VTE Prior VTE?: No VTE Risk Level:: Medical - moderate - high VTE Device Contraindication: Treatment Not Indicated VTE Drug Contraindication: N/A - Med Ordered Progress Note: A&P Assessment and plan (1) Varicella pneumonia: Status: Acute (2) Diastolic CHF with preserved left ventricular function, NYHA class 2: Status: Acute (3) Pneumomediastinum: Status: Acute (4) Spontaneous pneumothorax: Status: Acute (5) Afib: Status: Acute (6) HTN (hypertension): Status: Acute (7) Diabetes: Status: Acute (8) Acute exacerbation of CHF (congestive heart failure): Status: Acute (9) Atypical pneumonia: Status: Acute (10) Acute respiratory failure with hypoxemia: Status: Acute (11) Fever: Status: Acute (12) Elevated troponin: Status: Acute (13) Vascular insufficiency of extremity: Status: Acute (14) Constipation: Status: Acute (15) History of adenomatous polyp of colon: Status: Acute (16) Leg edema: Status: Acute (17) CHF (congestive heart failure): Status: Acute (18) Chronic respiratory failure: Status: Acute (19) JOVANNY on CPAP: Status: Acute (20) ILD (interstitial lung disease): Status: Acute (21) Sarcoidosis: Status: Acute (22) COPD (chronic obstructive pulmonary disease): Status: Acute Assessment and Plan: Will discontinue fluconazole at this point and IV esmolol start oral metoprolol possible sedation holiday in the morning and now that it has been about 8 days of intubation probably initiate discussion with the family about possible tracheostomy
[2020-11-13 15:58] LABS: Glucose, Whole Blood 149 mg/dL (60-115)
[2020-11-13 18:01] LABS: Glucose, Whole Blood 153 mg/dL (60-115)
[2020-11-13 20:08] LABS: Glucose, Whole Blood 135 mg/dL (60-115)
[2020-11-13] MEDS: Metoprolol Tartrate 25 MG TABLET PO (20:09)
[2020-11-13 22:10] LABS: Glucose, Whole Blood 107 mg/dL (60-115)
[2020-11-13] MEDS: Insulin Regular/NS 100 UNIT/100 ML PLAST..BAG 8 UNIT IVCONT (22:10)
[2020-11-13 23:57] LABS: Glucose, Whole Blood 93 mg/dL (60-115)
[2020-11-14] VITALS (30 sets, daily range): BP systolic 107–163; BP diastolic 36–89; PULSE 69–107; RESP 14–26; TEMP 36.5–38; O2SAT 86–99; BMI 37.3
[2020-11-14 02:22] LABS: Glucose, Whole Blood 118 mg/dL (60-115)
[2020-11-14] MEDS: propofoL 1,000 MG/100 ML VIAL 20.71 MG IVCONT (02:26)
[2020-11-14] MEDS: fentaNYL citrate/NS 1,000 MCG/100 ML PLAST..BAG 15 MCG IVCONT (03:54)
[2020-11-14 04:17] LABS: Glucose, Whole Blood 117 mg/dL (60-115)
[2020-11-14 05:19] LABS: VBG HCO3 44 mmol/L (22-26); VBG pCO2 57 mmHg; VBG pO2 46 mmHg
[2020-11-14] MEDS: methylPREDNISolone Sod Succ 125 MG/2 ML VIAL 60 MG IVPUSH ×2 (05:30→19:56)
[2020-11-14] MEDS: Heparin Sodium,Porcine 5,000 UNIT/ML VIAL 5000 UNIT SUBCUT ×3 (05:30→21:43)
[2020-11-14 05:52] LABS: Basophils Percent Auto 0.1 % (0-2); Hematocrit 32.6 % (37-47); Hemoglobin 10.2 g/dl (12.0-16.0); Imm Gran Abs Auto 0.13 X10*3/uL (0.00-0.03); Imm Gran Pct Auto 0.8 % (0.0-0.4); Lymphocytes Absolute Auto 0.2 X10*3/uL (1.2-4.9); MANUAL DIFF FLAG SCAN; Mean Corpuscular HGB Conc 31.3 g/dl (31.0-35.0); Mean Corpuscular Hemoglobin 29.4 pg (27.0-33.0); Mean Corpuscular Volume 93.9 fL (80-98); Mean Platelet Volume 9.8 fL (9.4-12.3); Monocytes Absolute Auto 0.4 X10*3/uL (0.1-1.2); Monocytes Percent Auto 2.3 % (2-11); Neutrophils Absolute Auto 16.5 X10*3/uL (2.0-8.3); Neutrophils Percent Auto 95.8 % (45-73); Platelet Count 213 X10*3/uL (160-400); Red Blood Count 3.47 X10*6/uL (4.20-5.50); Red Cell Distribution Width 13.8 % (11.0-16.0); SCAN SMEAR FLAG 1; White Blood Count 17.2 X10*3/uL (4.8-10.8)
[2020-11-14 05:58] LABS: SLIDE REVIEW VERIFIED
[2020-11-14 05:58] LABS: Venous Blood Gas Refer to POC result
[2020-11-14 05:59] LABS: Glucose, Whole Blood 168 mg/dL (60-115)
[2020-11-14 06:11] LABS: Anion Gap 10 (12-20); Blood Urea Nitrogen 24 mg/dL (9-16); Calcium 8.3 mg/dL (8.4-10.2); Carbon Dioxide 40 mmol/L (22-29); Chloride 99 mmol/L (96-108); Creatinine Clr Calc Pharmacy 110.3; Estimated Glomerular Filt Rate > 60; Glucose Random 162 mg/dL (60-115); Magnesium 2.8 mg/dL (1.6-2.6); Phosphorus 2.7 mg/dL (2.7-4.5); Potassium 5.6 mmol/L (3.3-5.1); Sodium 143 mmol/L (135-145)
[2020-11-14 06:14] LABS: Alanine Aminotransferase 18 U/L (0-31); Albumin Level 2.9 g/dL (3.5-5.0); Alkaline Phosphatase 143 U/L (39-117); Aspartate Amino Transferase 16 U/L (5-31); Bilirubin Direct 0.3 mg/dL (0.0-0.5); Bilirubin Total 0.5 mg/dL (0.0-1.0); Total Protein 5.2 g/dL (6.5-8.0)
[2020-11-14] MEDS: propofoL 1,000 MG/100 ML VIAL 25.89 MG IVCONT ×5 (06:30→21:43)
[2020-11-14 06:49] LABS: INTERNATIONAL NORM RATIO 0.9 (0.9-1.1); Prothrombin Time 10.3 SEC (9.9-13.0)
[2020-11-14 06:51] LABS: D Dimer 804 NG/ML
[2020-11-14 06:55] LABS: Partial Thromboplastin Time 23.7 SEC (24.1-38.0)
[2020-11-14 07:28] LABS: Glucose, Whole Blood 208 mg/dL (60-115)
[2020-11-14 07:55] LABS: Glucose, Whole Blood 230 mg/dL (60-115)
[2020-11-14] MEDS: Metoprolol Tartrate 25 MG TABLET PO (09:42)
[2020-11-14] MEDS: Clopidogrel Bisulfate 75 MG TABLET PO (09:42)
[2020-11-14] MEDS: Lactulose 20 GM/30 ML SOLUTION PO ×2 (09:47→19:56)
--- NOTE | 2020-11-14 09:47 | MHC.CM.PN ---
Pt remains in ICU on ventilatory support: feels trach and peg placement would not provide any benefit d/t her pre existing end stage lung conditions. is planning on a family discussion today for the possibility of [employer] status. CM to follow
[2020-11-14] MEDS: Chlorhexidine Gluc Oral Rinse 15 ML MOUTHWASH BUCCAL ×3 (09:49→19:56)
[2020-11-14 10:05] LABS: Glucose, Whole Blood 245 mg/dL (60-115)
--- NOTE | 2020-11-14 10:44 | MHC.CLN ---
F/U PT RECEIVING PROMOTE AT MAX GOAL RATE 30ML/HR WITH 30ML OF PROSOURCE Q DAY PROVIDES 780KCALS (1463KCALS WITH SEDATION; 24KCALS/KG), 60G PROTEIN (.99G/KG), 604CC FREE WATER FROM FORMULA. MONITOR TOLERANCE, RESIDUALS AND LYTES
--- NOTE | 2020-11-14 10:58 | PM.CCPN ---
Subjective Subjective Date of Service: 11/14/20 Interval History: 70-year-old lady with underlying history of interstitial lung disease/pulmonary fibrosis, sarcoidosis, COPD, on supplemental oxygen 2 L, diastolic dysfunction, JOVANNY on CPAP admitted on 10/26/2020 with chronic dyspnea, particularly worse two days prior to admission. At that time associated with fevers and nonproductive cough. On ER evaluation she was noted to be hypoxic requiring supplemental oxygen with high-flow nasal cannula, tachypneic, and febrile to 102.7. Her COVID test was negative. Her CT chest demonstrated acute pulmonary infiltrates on chronic interstitial lung disease. She has been started on empiric antibiotics and admitted to intensive care unit. Patient was initially isolated for the first 24 hours until her 2nd COVID test came back negative secondary to suspicion for initially false negative COVID test. Her 2D echocardiogram demonstrated no new wall motion changes or excessive intravascular fluid. She has been treated with high does systemic glucocorticoids for concern of exacerbation of underlying IPF with initial response, however with tapering of glucocorticoids her FiO2 requirements worsened significantly. Patient underwent bronchoscopy with bronchoalveolar lavage on 11/04/2020 with cultures growing Aaliyah and HSV (likely contaminant, but patient was treated with a course of fluconazole and acyclovir with significant improvement). Patient was intubated 11/05/2020 secondary to progressive hypoxemia. She has developed spontaneous bilateral pneumothoraces and pneumomediastinum requiring placement of a right-sided chest tube (resolved and removed 11/11/2020). She also had unstable AFib requiring cardioversion on 11/08/2020. Overall her hospital course is significant for progressive acute hypoxic respiratory failure, now essentially on maximum ventilatory support. No events overnight. Critical Care Time (minutes): 45 Physical Exam Vital Signs: Vital Signs: Last Vital Signs Temp 99.3 F 11/14/20 09:00 Pulse 85 11/14/20 10:00 Resp 20 11/14/20 10:00 BP 133/48 L 11/14/20 10:00 Pulse Ox 91 L 11/14/20 10:00 Oxygen Flow Rate 40 10/27/20 02:27 Body Mass Index 37.3 Const: General: no acute distress and other (Sedated on the vent, anasarca) Eyes: Sclerae: sclerae normal EOM: EOMs intact bilaterally Neck: Neck: Yes no lymphadenopathy, Yes trachea midline and Yes supple Resp: Auscultation: crackles (Diffuse bilateral) Cardio: Rate: regular rate Rhythm: regular rhythm Heart sounds: no gallops, no murmurs and no rubs GI: Palpation (GI): Soft to palpation and Other GI palpation findings present ( Nontender) Auscultation: normal bowel sounds Extrem: General: No clubbing, No cyanosis and Yes pedal edema (2+ bilateral) Objective Data Labs CBC & Chem 7: 11/14/20 05:15 11/14/20 05:15 Labs: Laboratory Results - last 24 hr 11/13/20 11/13/20 11/13/20 11:56 14:10 15:54 WBC RBC Hgb Hct MCV MCH MCHC RDW Plt Count MPV Immature Gran % (Auto) Neut % (Auto) Lymph % (Auto) [place] % (Auto) Eos % (Auto) Baso % (Auto) Lymph # (Auto) [place] # (Auto) Eos # (Auto) Baso # (Auto) Abs Immat Gran (auto) Absolute Neuts (auto) Absolute Nucleated RBC Nucleated RBC % (auto) Smear Tech's Comments PT INR APTT D-Dimer VBG pH VBG pCO2 VBG pO2 VBG HCO3 VBG O2 Saturation VBG Base Excess Sodium Potassium Chloride Carbon Dioxide Anion Gap BUN Creatinine Estim Creat Clear Calc Estimated GFR POC Glucose 155 H 142 H 149 H Random Glucose Calcium Phosphorus Magnesium Total Bilirubin Direct Bilirubin AST ALT Alkaline Phosphatase Total Protein Albumin 11/13/20 11/13/20 11/13/20 17:58 20:04 22:07 WBC RBC Hgb Hct MCV MCH MCHC RDW Plt Count MPV Immature Gran % (Auto) Neut % (Auto) Lymph % (Auto) [place] % (Auto) Eos % (Auto) Baso % (Auto) Lymph # (Auto) [place] # (Auto) Eos # (Auto) Baso # (Auto) Abs Immat Gran (auto) Absolute Neuts (auto) Absolute Nucleated RBC Nucleated RBC % (auto) Smear Tech's Comments PT INR APTT D-Dimer VBG pH VBG pCO2 VBG pO2 VBG HCO3 VBG O2 Saturation VBG Base Excess Sodium Potassium Chloride Carbon Dioxide Anion Gap BUN Creatinine Estim Creat Clear Calc Estimated GFR POC Glucose 153 H 135 H 107 Random Glucose Calcium Phosphorus Magnesium Total Bilirubin Direct Bilirubin AST ALT Alkaline Phosphatase Total Protein Albumin 11/13/20 11/14/20 11/14/20 23:53 02:09 04:06 WBC RBC Hgb Hct MCV MCH MCHC RDW Plt Count MPV Immature Gran % (Auto) Neut % (Auto) Lymph % (Auto) [place] % (Auto) Eos % (Auto) Baso % (Auto) Lymph # (Auto) [place] # (Auto) Eos # (Auto) Baso # (Auto) Abs Immat Gran (auto) Absolute Neuts (auto) Absolute Nucleated RBC Nucleated RBC % (auto) Smear Tech's Comments PT INR APTT D-Dimer VBG pH VBG pCO2 VBG pO2 VBG HCO3 VBG O2 Saturation VBG Base Excess Sodium Potassium Chloride Carbon Dioxide Anion Gap BUN Creatinine Estim Creat Clear Calc Estimated GFR POC Glucose 93 118 H 117 H Random Glucose Calcium Phosphorus Magnesium Total Bilirubin Direct Bilirubin AST ALT Alkaline Phosphatase Total Protein Albumin 11/14/20 11/14/20 11/14/20 05:11 05:15 05:15 WBC 17.2 H RBC 3.47 L Hgb 10.2 L Hct 32.6 L MCV 93.9 MCH 29.4 MCHC 31.3 RDW 13.8 Plt Count 213 MPV 9.8 Immature Gran % (Auto) 0.8 H Neut % (Auto) 95.8 H Lymph % (Auto) 1.0 L [place] % (Auto) 2.3 Eos % (Auto) 0.0 Baso % (Auto) 0.1 Lymph # (Auto) 0.2 L [place] # (Auto) 0.4 Eos # (Auto) 0.0 Baso # (Auto) 0.0 Abs Immat Gran (auto) 0.13 H Absolute Neuts (auto) 16.5 H Absolute Nucleated RBC 0.000 Nucleated RBC % (auto) 0.0 Smear Tech's Comments VERIFIED PT 10.3 INR 0.9 APTT 23.7 L D-Dimer 804 VBG pH 7.50 H VBG pCO2 57 VBG pO2 46 VBG HCO3 44 H VBG O2 Saturation 75.0 VBG Base Excess 19.0 Sodium Potassium Chloride Carbon Dioxide Anion Gap BUN Creatinine Estim Creat Clear Calc Estimated GFR POC Glucose Random Glucose Calcium Phosphorus Magnesium Total Bilirubin Direct Bilirubin AST ALT Alkaline Phosphatase Total Protein Albumin 11/14/20 11/14/20 11/14/20 05:15 05:15 05:51 WBC RBC Hgb Hct MCV MCH MCHC RDW Plt Count MPV Immature Gran % (Auto) Neut % (Auto) Lymph % (Auto) [place] % (Auto) Eos % (Auto) Baso % (Auto) Lymph # (Auto) [place] # (Auto) Eos # (Auto) Baso # (Auto) Abs Immat Gran (auto) Absolute Neuts (auto) Absolute Nucleated RBC Nucleated RBC % (auto) Smear Tech's Comments PT INR APTT D-Dimer VBG pH VBG pCO2 VBG pO2 VBG HCO3 VBG O2 Saturation VBG Base Excess Sodium 143 Potassium 5.6 H Chloride 99 Carbon Dioxide 40 H* Anion Gap 10 L BUN 24 H Creatinine 0.51 Estim Creat Clear Calc 110.3 Estimated GFR > 60 POC Glucose 168 H Random Glucose 162 H Calcium 8.3 L Phosphorus 2.7 Magnesium 2.8 H Total Bilirubin 0.5 Direct Bilirubin 0.3 AST 16 ALT 18 Alkaline Phosphatase 143 H Total Protein 5.2 L Albumin 2.9 L 11/14/20 11/14/20 11/14/20 07:22 07:50 10:01 WBC RBC Hgb Hct MCV MCH MCHC RDW Plt Count MPV Immature Gran % (Auto) Neut % (Auto) Lymph % (Auto) [place] % (Auto) Eos % (Auto) Baso % (Auto) Lymph # (Auto) [place] # (Auto) Eos # (Auto) Baso # (Auto) Abs Immat Gran (auto) Absolute Neuts (auto) Absolute Nucleated RBC Nucleated RBC % (auto) Smear Tech's Comments PT INR APTT D-Dimer VBG pH VBG pCO2 VBG pO2 VBG HCO3 VBG O2 Saturation VBG Base Excess Sodium Potassium Chloride Carbon Dioxide Anion Gap BUN Creatinine Estim Creat Clear Calc Estimated GFR POC Glucose 208 H 230 H 245 H Random Glucose Calcium Phosphorus Magnesium Total Bilirubin Direct Bilirubin AST ALT Alkaline Phosphatase Total Protein Albumin Microbiology Microbiology Results: Microbiology 11/04/20 16:18 Bronchial Washings Fungal Identification - Preliminary Aaliyah albicans 11/07/20 17:11 Sputum - Suctioned Gram Stain - Final 11/07/20 17:11 Sputum - Suctioned Sputum Culture - Final 11/06/20 04:20 Sputum - Suctioned Gram Stain - Final 11/06/20 04:20 Sputum - Suctioned Sputum Culture - Final 11/04/20 16:18 Bronchial Washings Gram Stain - Final 11/04/20 16:18 Bronchial Washings Routine Culture - Final 10/26/20 22:43 Blood - Venous Blood Culture - Final No growth after 5 days. 10/26/20 22:26 Blood - Venous Blood Culture - Final No growth after 5 days. 10/27/20 Unknown Urine clean catch - Urine hernandez top Urine Culture - Final Quality Stroke Does the patient have a stroke diagnosis?: No VTE Prior VTE?: No VTE Risk Level:: Medical - moderate - high VTE Device Contraindication: Treatment Not Indicated VTE Drug Contraindication: N/A - Med Ordered Progress Note: A&P Assessment and plan (1) Diastolic CHF with preserved left ventricular function, NYHA class 2: Status: Acute Assessment and Plan: Assessment: 70-year-old lady with underlying IPF, sarcoidosis, COPD, diastolic congestive heart failure, AFib, diabetes admitted with acute on chronic hypoxic respiratory failure Plan: Neuro: No acute issues. Sedated during ventilatory support. Cardiac: Underlying atrial fibrillation with [id number] ventricular response requiring cardioversion on 11/08/2020 Continue with propafenone. Underlying diastolic dysfunction, 2D echocardiogram without evidence of ongoing acute exacerbation. Pulmonary: Acute on chronic hypoxic respiratory failure secondary acute exacerbation of underlying interstitial pulmonary fibrosis. Poor response to high-dose systemic glucocorticoids. Overall progressively worsening hypoxemia. Continues on ventilatory support. Further complicated by pneumomediastinum and pneumothoraces, now status post placement of right-sided chest tube and removal. Unable to plan tracheostomy with high FiO2 requirements. Renal: No acute issues. Endo: No acute issues. Underlying diabetes mellitus. GI: No acute issues. ID: Initial community-acquired pneumonia, likely triggering factor for exacerbation of IPF. Now no evidence of HSV, acyclovir stopped. Infectious Disease service care appreciated. Empirically treated with fluconazole for Aaliyah in sputum, though it was likely and colonizer/contaminant. Heme/Onc: No acute issues. Psych: No acute issues. Miscellaneous: No acute issues. Overall very poor prognosis. Discussion of goals of care with family in progress. Prophylaxis: Heparin, ppi Diet: Tube feeds Critical care time spent: 45 minutes (2) Diabetes: Status: Acute (3) Acute respiratory failure with hypoxemia: Status: Acute (4) Vascular insufficiency of extremity: Status: Acute (5) Chronic respiratory failure: Status: Acute (6) ILD (interstitial lung disease): Status: Acute (7) Sarcoidosis: Status: Acute (8) COPD (chronic obstructive pulmonary disease): Status: Acute
[2020-11-14] MEDS: fentaNYL citrate/NS 1,000 MCG/100 ML PLAST..BAG 17.5 MCG IVCONT ×3 (11:05→21:43)
[2020-11-14] MEDS: acetaZOLAMIDE sodium 500 MG VIAL 375 MG IVPUSH ×2 (11:16→19:56)
[2020-11-14] MEDS: Albumin Human 25 % 100 ML IV ×3 (11:17→23:53)
[2020-11-14 12:04] LABS: Glucose, Whole Blood 246 mg/dL (60-115)
[2020-11-14 14:05] LABS: Glucose, Whole Blood 256 mg/dL (60-115)
--- NOTE | 2020-11-14 14:24 | PC.NURSE ---
Pt remained stable, sedate and on PC ventilation for this shift. Sats low 90s on 90% fio2. at bedside with family about 20 minutes ago discussing plans for comfort. Daughter and ex- alternating visitations at this time.
--- NOTE | 2020-11-14 14:42 | PC.NURSE ---
made aware of potassium level this am. No new orders at this time. Cardiac rhythm remains stable.
[2020-11-14 15:50] LABS: Glucose, Whole Blood 239 mg/dL (60-115)
[2020-11-14 17:51] LABS: Glucose, Whole Blood 206 mg/dL (60-115)
[2020-11-14] MEDS: Famotidine/PF 20 MG/2 ML VIAL IVPUSH (19:56)
[2020-11-14 20:19] LABS: Glucose, Whole Blood 210 mg/dL (60-115)
[2020-11-14 21:56] LABS: Glucose, Whole Blood 197 mg/dL (60-115)
[2020-11-15] VITALS (31 sets, daily range): BP systolic 111–153; BP diastolic 36–62; PULSE 92–124; RESP 17–32; TEMP 36.8–38.7; O2SAT 86–95; BMI 37.1
[2020-11-15 00:05] LABS: Glucose, Whole Blood 167 mg/dL (60-115)
[2020-11-15] MEDS: propofoL 1,000 MG/100 ML VIAL 25.89 MG IVCONT ×4 (00:40→11:33)
[2020-11-15] MEDS: Insulin Regular/NS 100 UNIT/100 ML PLAST..BAG IVCONT (01:42)
[2020-11-15 02:12] LABS: Glucose, Whole Blood 207 mg/dL (60-115)
[2020-11-15] MEDS: fentaNYL citrate/NS 1,000 MCG/100 ML PLAST..BAG 15 MCG IVCONT ×2 (03:44→11:32)
[2020-11-15 04:14] LABS: Glucose, Whole Blood 192 mg/dL (60-115)
[2020-11-15] MEDS: Albumin Human 25 % 100 ML IV (04:17)
[2020-11-15 05:30] LABS: VBG Base Excess 13.9 mmol/L; VBG HCO3 41 mmol/L (22-26); VBG pCO2 75 mmHg; VBG pH 7.35 (7.32-7.43); VBG pO2 48 mmHg
[2020-11-15 05:42] LABS: Venous Blood Gas Refer to POC result
[2020-11-15 05:45] LABS: Basophils Percent Auto 0.1 % (0-2); Eosinophils Absolute Auto 0.2 X10*3/uL (0.0-0.4); Eosinophils Percent Auto 1.3 % (0-4); Hematocrit 25.5 % (37-47); Hemoglobin 7.8 g/dl (12.0-16.0); Imm Gran Abs Auto 0.06 X10*3/uL (0.00-0.03); Imm Gran Pct Auto 0.5 % (0.0-0.4); Lymphocytes Absolute Auto 0.2 X10*3/uL (1.2-4.9); Lymphocytes Percent Auto 1.8 % (20-40); MANUAL DIFF FLAG SCAN; Mean Corpuscular HGB Conc 30.6 g/dl (31.0-35.0); Mean Corpuscular Hemoglobin 29.8 pg (27.0-33.0); Mean Corpuscular Volume 97.3 fL (80-98); Mean Platelet Volume 9.7 fL (9.4-12.3); Monocytes Absolute Auto 0.2 X10*3/uL (0.1-1.2); Monocytes Percent Auto 1.7 % (2-11); Neutrophils Absolute Auto 10.9 X10*3/uL (2.0-8.3); Neutrophils Percent Auto 94.6 % (45-73); Platelet Count 125 X10*3/uL (160-400); Red Blood Count 2.62 X10*6/uL (4.20-5.50); Red Cell Distribution Width 13.9 % (11.0-16.0); SCAN SMEAR FLAG 1; White Blood Count 11.5 X10*3/uL (4.8-10.8)
[2020-11-15 06:04] LABS: Glucose, Whole Blood 197 mg/dL (60-115)
[2020-11-15 06:05] LABS: SLIDE REVIEW VERIFIED
[2020-11-15 06:07] LABS: Alanine Aminotransferase 13 U/L (0-31); Albumin Level 3.8 g/dL (3.5-5.0); Alkaline Phosphatase 103 U/L (39-117); Anion Gap 9 (12-20); Aspartate Amino Transferase 12 U/L (5-31); Bilirubin Total 0.5 mg/dL (0.0-1.0); Blood Urea Nitrogen 23 mg/dL (9-16); Calcium 8.7 mg/dL (8.4-10.2); Carbon Dioxide 40 mmol/L (22-29); Chloride 101 mmol/L (96-108); Creatinine Clr Calc Pharmacy 104.2; Estimated Glomerular Filt Rate > 60; Glucose Random 202 mg/dL (60-115); Magnesium 2.8 mg/dL (1.6-2.6); Phosphorus 3.1 mg/dL (2.7-4.5); Potassium 4.7 mmol/L (3.3-5.1); Sodium 145 mmol/L (135-145); Total Protein 5.5 g/dL (6.5-8.0)
[2020-11-15] MEDS: Heparin Sodium,Porcine 5,000 UNIT/ML VIAL 5000 UNIT SUBCUT ×3 (06:11→22:22)
[2020-11-15] MEDS: Lactulose 20 GM/30 ML SOLUTION PO ×2 (07:42→21:00)
[2020-11-15] MEDS: acetaZOLAMIDE sodium 500 MG VIAL 375 MG IVPUSH ×2 (07:42→20:59)
[2020-11-15] MEDS: Chlorhexidine Gluc Oral Rinse 15 ML MOUTHWASH BUCCAL ×3 (07:42→21:00)
[2020-11-15] MEDS: Famotidine/PF 20 MG/2 ML VIAL IVPUSH ×2 (07:43→20:59)
[2020-11-15] MEDS: methylPREDNISolone Sod Succ 125 MG/2 ML VIAL 60 MG IVPUSH ×2 (07:43→20:59)
[2020-11-15] MEDS: Clopidogrel Bisulfate 75 MG TABLET PO (07:43)
[2020-11-15 08:08] LABS: Glucose, Whole Blood 156 mg/dL (60-115)
--- NOTE | 2020-11-15 09:46 | MHC.CLN ---
F/U PATIENT TOLERATING CURRENT TUBE FEEDING. CONTINUE PROMOTE AT MAX GOAL RATE 30 ML/HR WITH 30 ML OF PROSOURCE Q DAY PROVIDES 780 KCALS (1463 KCALS WITH SEDATION; 24 KCALS/KG), 60 G PROTEIN (.99 G/KG), 604 ML FREE WATER FROM FORMULA. MONITOR TOLERANCE, RESIDUALS AND LYTES
[2020-11-15 09:51] LABS: Glucose, Whole Blood 148 mg/dL (60-115)
--- NOTE | 2020-11-15 09:51 | P.PNCC_ITS ---
Subjective Subjective Date of Service: 11/15/20 Interval History: 70-year-old lady with underlying history of interstitial lung disease/pulmonary fibrosis, sarcoidosis, COPD, on supplemental oxygen 2 L, diastolic dysfunction, JOVANNY on CPAP admitted on 10/26/2020 with chronic dyspnea, particularly worse two days prior to admission. At that time associated with fevers and nonproductive cough. On ER evaluation she was noted to be hypoxic requiring supplemental oxygen with high-flow nasal cannula, tachypneic, and febrile to 102.7. Her COVID test was negative. Her CT chest demonstrated acute pulmonary infiltrates on chronic interstitial lung disease. She has been started on empiric antibiotics and admitted to intensive care unit. Patient was initially isolated for the first 24 hours until her 2nd COVID test came back negative secondary to suspicion for initially false negative COVID test. Her 2D echocardiogram demonstrated no new wall motion changes or excessive intravascular fluid. She has been treated with high does systemic glucocorticoids for concern of exacerbation of underlying IPF with initial response, however with tapering of glucocorticoids her FiO2 requirements worsened significantly. Patient underwent bronchoscopy with bronchoalveolar lavage on 11/04/2020 with cultures growing Aaliyah and HSV (likely contaminant, but patient was treated with a course of fluconazole and acyclovir with significant improvement). Patient was intubated 11/05/2020 secondary to progressive hypoxemia. She has developed spontaneous bilateral pneumothoraces and pneumomediastinum requiring placement of a right-sided chest tube (resolved and removed 11/11/2020). She also had unstable AFib requiring cardioversion on 11/08/2020. Overall her hospital course is significant for progressive acute hypoxic respiratory failure, now essentially on maximum ventilatory support. No events overnight. No significant changes over the last 24 hours Critical Care Time (minutes): 45 Physical Exam Vital Signs: Vital Signs: Last Vital Signs Temp 98.2 F 11/15/20 09:00 Pulse 94 11/15/20 09:00 Resp 18 11/15/20 09:00 BP 127/50 L 11/15/20 09:00 Pulse Ox 88 L 11/15/20 09:00 Oxygen Flow Rate 40 10/27/20 02:27 Body Mass Index 37.1 Const: General: no acute distress and other (Sedated on the vent) Nutritional Appearance: obese Eyes: Sclerae: sclerae normal EOM: EOMs intact bilaterally Neck: Neck: Yes no lymphadenopathy, Yes trachea midline and Yes supple Resp: Effort & Inspection: normal respiratory effort and no respiratory distress Auscultation: clear to auscultation bilaterally Cardio: Rate: regular rate Rhythm: regular rhythm Heart sounds: no gallops, no murmurs and no rubs GI: Palpation (GI): Soft to palpation and Other GI palpation findings present ( Nontender) Auscultation: normal bowel sounds Extrem: General: No clubbing, No cyanosis and Yes pedal edema (1+ bilateral) Objective Data Labs CBC & Chem 7: 11/15/20 05:25 11/15/20 05:25 Labs: Laboratory Results - last 24 hr 11/14/20 11/14/20 11/14/20 10:01 12:01 14:02 WBC RBC Hgb Hct MCV MCH MCHC RDW Plt Count MPV Immature Gran % (Auto) Neut % (Auto) Lymph % (Auto) [place] % (Auto) Eos % (Auto) Baso % (Auto) Lymph # (Auto) [place] # (Auto) Eos # (Auto) Baso # (Auto) Abs Immat Gran (auto) Absolute Neuts (auto) Absolute Nucleated RBC Nucleated RBC % (auto) Smear Tech's Comments VBG pH VBG pCO2 VBG pO2 VBG HCO3 VBG O2 Saturation VBG Base Excess Sodium Potassium Chloride Carbon Dioxide Anion Gap BUN Creatinine Estim Creat Clear Calc Estimated GFR POC Glucose 245 H 246 H 256 H Random Glucose Calcium Phosphorus Magnesium Total Bilirubin AST ALT Alkaline Phosphatase Total Protein Albumin 11/14/20 11/14/20 11/14/20 15:47 17:46 20:12 WBC RBC Hgb Hct MCV MCH MCHC RDW Plt Count MPV Immature Gran % (Auto) Neut % (Auto) Lymph % (Auto) [place] % (Auto) Eos % (Auto) Baso % (Auto) Lymph # (Auto) [place] # (Auto) Eos # (Auto) Baso # (Auto) Abs Immat Gran (auto) Absolute Neuts (auto) Absolute Nucleated RBC Nucleated RBC % (auto) Smear Tech's Comments VBG pH VBG pCO2 VBG pO2 VBG HCO3 VBG O2 Saturation VBG Base Excess Sodium Potassium Chloride Carbon Dioxide Anion Gap BUN Creatinine Estim Creat Clear Calc Estimated GFR POC Glucose 239 H 206 H 210 H Random Glucose Calcium Phosphorus Magnesium Total Bilirubin AST ALT Alkaline Phosphatase Total Protein Albumin 11/14/20 11/14/20 11/15/20 21:51 23:59 02:06 WBC RBC Hgb Hct MCV MCH MCHC RDW Plt Count MPV Immature Gran % (Auto) Neut % (Auto) Lymph % (Auto) [place] % (Auto) Eos % (Auto) Baso % (Auto) Lymph # (Auto) [place] # (Auto) Eos # (Auto) Baso # (Auto) Abs Immat Gran (auto) Absolute Neuts (auto) Absolute Nucleated RBC Nucleated RBC % (auto) Smear Tech's Comments VBG pH VBG pCO2 VBG pO2 VBG HCO3 VBG O2 Saturation VBG Base Excess Sodium Potassium Chloride Carbon Dioxide Anion Gap BUN Creatinine Estim Creat Clear Calc Estimated GFR POC Glucose 197 H 167 H 207 H Random Glucose Calcium Phosphorus Magnesium Total Bilirubin AST ALT Alkaline Phosphatase Total Protein Albumin 11/15/20 11/15/20 11/15/20 04:09 05:21 05:25 WBC 11.5 H RBC 2.62 L D Hgb 7.8 L D Hct 25.5 L D MCV 97.3 MCH 29.8 MCHC 30.6 L RDW 13.9 Plt Count 125 L D MPV 9.7 Immature Gran % (Auto) 0.5 H Neut % (Auto) 94.6 H Lymph % (Auto) 1.8 L [place] % (Auto) 1.7 L Eos % (Auto) 1.3 Baso % (Auto) 0.1 Lymph # (Auto) 0.2 L [place] # (Auto) 0.2 Eos # (Auto) 0.2 Baso # (Auto) 0.0 Abs Immat Gran (auto) 0.06 H Absolute Neuts (auto) 10.9 H Absolute Nucleated RBC 0.000 Nucleated RBC % (auto) 0.0 Smear Tech's Comments VERIFIED VBG pH 7.35 VBG pCO2 75 VBG pO2 48 VBG HCO3 41 H VBG O2 Saturation 73.0 VBG Base Excess 13.9 Sodium Potassium Chloride Carbon Dioxide Anion Gap BUN Creatinine Estim Creat Clear Calc Estimated GFR POC Glucose 192 H Random Glucose Calcium Phosphorus Magnesium Total Bilirubin AST ALT Alkaline Phosphatase Total Protein Albumin 11/15/20 11/15/20 11/15/20 05:25 06:00 07:59 WBC RBC Hgb Hct MCV MCH MCHC RDW Plt Count MPV Immature Gran % (Auto) Neut % (Auto) Lymph % (Auto) [place] % (Auto) Eos % (Auto) Baso % (Auto) Lymph # (Auto) [place] # (Auto) Eos # (Auto) Baso # (Auto) Abs Immat Gran (auto) Absolute Neuts (auto) Absolute Nucleated RBC Nucleated RBC % (auto) Smear Tech's Comments VBG pH VBG pCO2 VBG pO2 VBG HCO3 VBG O2 Saturation VBG Base Excess Sodium 145 Potassium 4.7 Chloride 101 Carbon Dioxide 40 H* Anion Gap 9 L BUN 23 H Creatinine 0.54 Estim Creat Clear Calc 104.2 Estimated GFR > 60 POC Glucose 197 H 156 H Random Glucose 202 H Calcium 8.7 Phosphorus 3.1 Magnesium 2.8 H Total Bilirubin 0.5 AST 12 ALT 13 Alkaline Phosphatase 103 D Total Protein 5.5 L Albumin 3.8 D Microbiology Microbiology Results: Microbiology 11/04/20 16:18 Bronchial Washings Fungal Identification - Preliminary Aaliyah albicans 11/07/20 17:11 Sputum - Suctioned Gram Stain - Final 11/07/20 17:11 Sputum - Suctioned Sputum Culture - Final 11/06/20 04:20 Sputum - Suctioned Gram Stain - Final 11/06/20 04:20 Sputum - Suctioned Sputum Culture - Final 11/04/20 16:18 Bronchial Washings Gram Stain - Final 11/04/20 16:18 Bronchial Washings Routine Culture - Final 10/26/20 22:43 Blood - Venous Blood Culture - Final No growth after 5 days. 10/26/20 22:26 Blood - Venous Blood Culture - Final No growth after 5 days. 10/27/20 Unknown Urine clean catch - Urine hernandez top Urine Culture - Final Quality Stroke Does the patient have a stroke diagnosis?: No VTE Prior VTE?: No VTE Risk Level:: Medical - moderate - high VTE Device Contraindication: Treatment Not Indicated VTE Drug Contraindication: N/A - Med Ordered Progress Note: A&P Assessment and plan (1) Diastolic CHF with preserved left ventricular function, NYHA class 2: Status: Acute Assessment and Plan: Assessment: 70-year-old lady with underlying IPF, sarcoidosis, COPD, diastolic congestive heart failure, AFib, diabetes admitted with acute on chronic hypoxic respiratory failure Plan: Neuro: No acute issues. Sedated during ventilatory support. Cardiac: Underlying atrial fibrillation with [id number] ventricular response requiring cardioversion on 11/08/2020 Continue with propafenone. Underlying diastolic dysfunction, 2D echocardiogram without evidence of ongoing acute exacerbation. Pulmonary: Acute on chronic hypoxic respiratory failure secondary acute exacerbation of underlying interstitial pulmonary fibrosis. Poor response to high-dose systemic glucocorticoids. Overall progressively worsening hypoxemia. Continues on ventilatory support. Further complicated by pneumomediastinum and pneumothoraces, now status post placement of right-sided chest tube and removal. Unable to plan tracheostomy with high FiO2 requirements. Renal: No acute issues. Endo: No acute issues. Underlying diabetes mellitus. GI: No acute issues. ID: Initial community-acquired pneumonia, likely a triggering factor for exacerbation of underlying IPF. Now no evidence of HSV, acyclovir stopped. Infectious Disease service care appreciated. Finished empiric treatment with fluconazole for Aaliyah in sputum, though it was likely a colonizer/contaminant. Heme/Onc: No acute issues. Psych: No acute issues. Miscellaneous: No acute issues. Overall very poor prognosis. Discussion of goals of care with family in progress. Prophylaxis: Heparin, ppi Diet: Tube feeds Critical care time spent: 45 minutes (2) Pneumomediastinum: Status: Acute (3) Afib: Status: Acute (4) HTN (hypertension): Status: Acute (5) Diabetes: Status: Acute (6) Acute respiratory failure with hypoxemia: Status: Acute (7) Vascular insufficiency of extremity: Status: Acute (8) Chronic respiratory failure: Status: Acute (9) ILD (interstitial lung disease): Status: Acute (10) Sarcoidosis: Status: Acute (11) COPD (chronic obstructive pulmonary disease): Status: Acute
[2020-11-15 12:05] LABS: Glucose, Whole Blood 147 mg/dL (60-115)
[2020-11-15 14:07] LABS: Glucose, Whole Blood 146 mg/dL (60-115)
[2020-11-15] MEDS: propofoL 1,000 MG/100 ML VIAL 15.53 MG IVCONT ×2 (15:27→22:29)
[2020-11-15 16:16] LABS: Glucose, Whole Blood 140 mg/dL (60-115)
[2020-11-15] MEDS: fentaNYL citrate/PF 100 MCG/2 ML VIAL 50 MCG IVPUSH (16:42)
--- NOTE | 2020-11-15 16:51 | PC.NURSE ---
Around 14:30 Patient's daughter and health care proxy, Jess, at bedside with MD requesting for patient's sedation to be decreased. Fentanyl drip decreased from 150 mcg/hr to 100 mcg/hr and Propofol drip decreased from 50 mcg/kg/min to 30 mcg/kg/min. Following titration, patient only opening eyes slightly to care but unable to track, follow commands or make purposeful movements. Around 15:50 fentanyl drip further decreased to 75 mcg/hr and propofol down to 20 mcg/kg/min per MD. At 16:50 patient became tachypneic with a RR of 26 and labored respiratory effort. HR increased to 108 and blood pressure increased to 163/63. Patient remains unable to track, follow commands, or make purposeful movements. Per MD, administered ordered Fentanyl 50 mcg IVP and increased Fentanyl drip to 100 mcg/hr. RR, HR and BP trending down. Per MD titrate Fentanyl to patient comfort and minimize Propofol. Will continue to monitor patients vitals signs, respiratory effort, and pain level.
[2020-11-15 18:03] LABS: Glucose, Whole Blood 131 mg/dL (60-115)
[2020-11-15] MEDS: fentaNYL citrate/NS 1,000 MCG/100 ML PLAST..BAG 10 MCG IVCONT (18:30)
[2020-11-15 20:04] LABS: Glucose, Whole Blood 131 mg/dL (60-115)
[2020-11-15] MEDS: Acetaminophen 325 MG TABLET 650 MG PO (21:00)
[2020-11-15] MEDS: Artificial Tears Ophth Oint 3.5 GM TUBE 1 APPL EYE-BOTH (21:07)
[2020-11-15 22:05] LABS: Glucose, Whole Blood 117 mg/dL (60-115)
[2020-11-16] VITALS (33 sets, daily range): BP systolic 102–198; BP diastolic 41–73; PULSE 91–122; RESP 16–34; TEMP 37.2–39; O2SAT 76–99; BMI 37.0
[2020-11-16 00:01] LABS: Glucose, Whole Blood 138 mg/dL (60-115)
[2020-11-16 02:13] LABS: Glucose, Whole Blood 155 mg/dL (60-115)
[2020-11-16] MEDS: propofoL 1,000 MG/100 ML VIAL 15.53 MG IVCONT ×4 (02:14→23:11)
[2020-11-16] MEDS: fentaNYL citrate/NS 1,000 MCG/100 ML PLAST..BAG 12.5 MCG IVCONT ×2 (02:16→12:45)
[2020-11-16] MEDS: Insulin Regular/NS 100 UNIT/100 ML PLAST..BAG IVCONT (02:17)
[2020-11-16 04:02] LABS: Glucose, Whole Blood 191 mg/dL (60-115)
[2020-11-16 05:21] LABS: VBG Base Excess 15.4 mmol/L; VBG HCO3 43 mmol/L (22-26); VBG pCO2 76 mmHg; VBG pH 7.36 (7.32-7.43); VBG pO2 55 mmHg
[2020-11-16 05:38] LABS: Basophils Percent Auto 0.1 % (0-2); Hemoglobin 8.3 g/dl (12.0-16.0); MANUAL DIFF FLAG SCAN; PLT CLUMP 1; SCAN SMEAR FLAG 1
[2020-11-16 05:40] LABS: Eosinophils Absolute Auto 0.3 X10*3/uL (0.0-0.4); Eosinophils Percent Auto 2.3 % (0-4); Hematocrit 27.3 % (37-47); Imm Gran Abs Auto 0.07 X10*3/uL (0.00-0.03); Imm Gran Pct Auto 0.6 % (0.0-0.4); Lymphocytes Absolute Auto 0.3 X10*3/uL (1.2-4.9); Lymphocytes Percent Auto 2.4 % (20-40); Mean Corpuscular HGB Conc 30.4 g/dl (31.0-35.0); Mean Corpuscular Hemoglobin 29.6 pg (27.0-33.0); Mean Corpuscular Volume 97.5 fL (80-98); Mean Platelet Volume 10.2 fL (9.4-12.3); Monocytes Absolute Auto 0.2 X10*3/uL (0.1-1.2); Monocytes Percent Auto 1.6 % (2-11); Neutrophils Absolute Auto 10.4 X10*3/uL (2.0-8.3); Platelet Count 145 X10*3/uL (160-400); White Blood Count 11.2 X10*3/uL (4.8-10.8)
[2020-11-16 05:43] LABS: SLIDE REVIEW VERIFIED
[2020-11-16 06:07] LABS: Albumin Level 3.3 g/dL (3.5-5.0); Anion Gap 8 (12-20); Blood Urea Nitrogen 25 mg/dL (9-16); Calcium 8.7 mg/dL (8.4-10.2); Carbon Dioxide 40 mmol/L (22-29); Chloride 101 mmol/L (96-108); Creatinine Clr Calc Pharmacy 103.7; Estimated Glomerular Filt Rate > 60; Glucose Random 204 mg/dL (60-115); Magnesium 2.9 mg/dL (1.6-2.6); Phosphorus 3.4 mg/dL (2.7-4.5); Potassium 4.6 mmol/L (3.3-5.1); Sodium 144 mmol/L (135-145)
[2020-11-16 06:09] LABS: Glucose, Whole Blood 181 mg/dL (60-115)
[2020-11-16] MEDS: Heparin Sodium,Porcine 5,000 UNIT/ML VIAL 5000 UNIT SUBCUT ×3 (06:12→21:34)
[2020-11-16 06:47] LABS: Venous Blood Gas Refer to POC result
[2020-11-16] MEDS: Clopidogrel Bisulfate 75 MG TABLET PO (07:39)
[2020-11-16] MEDS: Artificial Tears Ophth Oint 3.5 GM TUBE 1 APPL EYE-BOTH ×2 (07:39→20:27)
[2020-11-16] MEDS: Famotidine/PF 20 MG/2 ML VIAL IVPUSH ×2 (07:39→20:27)
[2020-11-16] MEDS: Chlorhexidine Gluc Oral Rinse 15 ML MOUTHWASH BUCCAL ×3 (07:39→20:26)
[2020-11-16] MEDS: acetaZOLAMIDE sodium 500 MG VIAL 375 MG IVPUSH ×2 (07:39→20:27)
[2020-11-16] MEDS: methylPREDNISolone Sod Succ 125 MG/2 ML VIAL 60 MG IVPUSH (07:39)
[2020-11-16 08:01] LABS: Glucose, Whole Blood 153 mg/dL (60-115)
--- NOTE | 2020-11-16 10:01 | MHC.CM.PN ---
Pt continues in ICU on 90% FiO2 vent support: No plans for trach/peg d/t high O2 needs. MD has had daily conversations with family and the goals of care remain to aggressively support at this time. Call placed to dtr/HCP Jess to answer questions and discuss potential d/c plans: If pt were to have a trach/peg, she would need to transfer to [facility] for LTAC care. Jess verbalized understanding. CM to follow for finalization of d/c planning.
[2020-11-16 10:02] LABS: Glucose, Whole Blood 146 mg/dL (60-115)
--- NOTE | 2020-11-16 11:40 | MHC.CLN ---
F/U SEDATION DECREASED, WITH CURRENT SEDATION PROVIDING 409 KCAL. CONTINUE CURRENT TUBE FEED ORDER AND CONTINUE TO FOLLOW.
[2020-11-16 12:03] LABS: Glucose, Whole Blood 127 mg/dL (60-115)
[2020-11-16] MEDS: Lactulose 20 GM/30 ML SOLUTION PO (12:05)
--- NOTE | 2020-11-16 13:16 | P.PNCC_ITS ---
Subjective Subjective Date of Service: 11/16/20 Interval History: 70-year-old lady with underlying history of interstitial lung disease/pulmonary fibrosis, sarcoidosis, COPD, on supplemental oxygen 2 L, diastolic dysfunction, JOVANNY on CPAP admitted on 10/26/2020 with chronic dyspnea, particularly worse two days prior to admission. At that time associated with fevers and nonproductive cough. On ER evaluation she was noted to be hypoxic requiring supplemental oxygen with high-flow nasal cannula, tachypneic, and febrile to 102.7. Her COVID test was negative. Her CT chest demonstrated acute pulmonary infiltrates on chronic interstitial lung disease. She has been started on empiric antibiotics and admitted to intensive care unit. Patient was initially isolated for the first 24 hours until her 2nd COVID test came back negative secondary to suspicion for initially false negative COVID test. Her 2D echocardiogram demonstrated no new wall motion changes or excessive intravascular fluid. She has been treated with high does systemic glucocorticoids for concern of exacerbation of underlying IPF with initial response, however with tapering of glucocorticoids her FiO2 requirements worsened significantly. Patient underwent bronchoscopy with bronchoalveolar lavage on 11/04/2020 with cultures growing Aaliyah and HSV (likely contaminant, but patient was treated with a course of fluconazole and acyclovir with significant improvement). Patient was intubated 11/05/2020 secondary to progressive hypoxemia. She has developed spontaneous bilateral pneumothoraces and pneumomediastinum requiring placement of a right-sided chest tube (resolved and removed 11/11/2020). She also had unstable AFib requiring cardioversion on 11/08/2020. Overall her hospital course is significant for progressive acute hypoxic respiratory failure, now essentially on maximum ventilatory support. This a.m. with no arousal with sedation vacation. CT head this a.m. without acute intracranial process. Critical Care Time (minutes): 45 Physical Exam Vital Signs: Vital Signs: Last Vital Signs Temp 101.1 F H 11/16/20 13:00 Pulse 104 H 11/16/20 13:00 Resp 18 11/16/20 13:00 BP 121/53 L 11/16/20 13:00 Pulse Ox 93 11/16/20 13:00 Oxygen Flow Rate 40 10/27/20 02:27 Body Mass Index 37.0 Const: General: no acute distress and other (Sedated on the vent, no arousal with sedation vacation.) Eyes: Sclerae: scleral abnormal (Right greater than left scleral edema with mild hemorrhagic blistering) Neck: Neck: Yes no lymphadenopathy, Yes trachea midline and Yes supple Resp: Effort & Inspection: normal respiratory effort and no respiratory distress Auscultation: clear to auscultation bilaterally Cardio: Rate: tachycardic Rhythm: regular rhythm Heart sounds: no gallops, no murmurs and no rubs GI: Palpation (GI): Soft to palpation and Other GI palpation findings present ( Nontender) Auscultation: normal bowel sounds Extrem: General: Yes no pedal edema, No clubbing and No cyanosis Objective Data Labs CBC & Chem 7: 11/16/20 05:10 11/16/20 05:10 Labs: Laboratory Results - last 24 hr 11/15/20 11/15/20 11/15/20 14:03 16:11 17:58 WBC RBC Hgb Hct MCV MCH MCHC RDW Plt Count MPV Immature Gran % (Auto) Neut % (Auto) Lymph % (Auto) [place] % (Auto) Eos % (Auto) Baso % (Auto) Lymph # (Auto) [place] # (Auto) Eos # (Auto) Baso # (Auto) Abs Immat Gran (auto) Absolute Neuts (auto) Absolute Nucleated RBC Nucleated RBC % (auto) Smear Tech's Comments VBG pH VBG pCO2 VBG pO2 VBG HCO3 VBG O2 Saturation VBG Base Excess Sodium Potassium Chloride Carbon Dioxide Anion Gap BUN Creatinine Estim Creat Clear Calc Estimated GFR POC Glucose 146 H 140 H 131 H Random Glucose Calcium Phosphorus Magnesium Albumin 11/15/20 11/15/20 11/15/20 20:00 22:02 23:56 WBC RBC Hgb Hct MCV MCH MCHC RDW Plt Count MPV Immature Gran % (Auto) Neut % (Auto) Lymph % (Auto) [place] % (Auto) Eos % (Auto) Baso % (Auto) Lymph # (Auto) [place] # (Auto) Eos # (Auto) Baso # (Auto) Abs Immat Gran (auto) Absolute Neuts (auto) Absolute Nucleated RBC Nucleated RBC % (auto) Smear Tech's Comments VBG pH VBG pCO2 VBG pO2 VBG HCO3 VBG O2 Saturation VBG Base Excess Sodium Potassium Chloride Carbon Dioxide Anion Gap BUN Creatinine Estim Creat Clear Calc Estimated GFR POC Glucose 131 H 117 H 138 H Random Glucose Calcium Phosphorus Magnesium Albumin 11/16/20 11/16/20 11/16/20 02:08 03:58 05:10 WBC 11.2 H RBC 2.80 L Hgb 8.3 L Hct 27.3 L MCV 97.5 MCH 29.6 MCHC 30.4 L RDW 14.0 Plt Count 145 L MPV 10.2 Immature Gran % (Auto) 0.6 H Neut % (Auto) 93.0 H Lymph % (Auto) 2.4 L [place] % (Auto) 1.6 L Eos % (Auto) 2.3 Baso % (Auto) 0.1 Lymph # (Auto) 0.3 L [place] # (Auto) 0.2 Eos # (Auto) 0.3 Baso # (Auto) 0.0 Abs Immat Gran (auto) 0.07 H Absolute Neuts (auto) 10.4 H Absolute Nucleated RBC 0.000 Nucleated RBC % (auto) 0.0 Smear Tech's Comments VERIFIED VBG pH VBG pCO2 VBG pO2 VBG HCO3 VBG O2 Saturation VBG Base Excess Sodium Potassium Chloride Carbon Dioxide Anion Gap BUN Creatinine Estim Creat Clear Calc Estimated GFR POC Glucose 155 H 191 H Random Glucose Calcium Phosphorus Magnesium Albumin 11/16/20 11/16/20 11/16/20 05:10 05:13 06:04 WBC RBC Hgb Hct MCV MCH MCHC RDW Plt Count MPV Immature Gran % (Auto) Neut % (Auto) Lymph % (Auto) [place] % (Auto) Eos % (Auto) Baso % (Auto) Lymph # (Auto) [place] # (Auto) Eos # (Auto) Baso # (Auto) Abs Immat Gran (auto) Absolute Neuts (auto) Absolute Nucleated RBC Nucleated RBC % (auto) Smear Tech's Comments VBG pH 7.36 VBG pCO2 76 VBG pO2 55 VBG HCO3 43 H VBG O2 Saturation 81.0 VBG Base Excess 15.4 Sodium 144 Potassium 4.6 Chloride 101 Carbon Dioxide 40 H* Anion Gap 8 L BUN 25 H Creatinine 0.54 Estim Creat Clear Calc 103.7 Estimated GFR > 60 POC Glucose 181 H Random Glucose 204 H Calcium 8.7 Phosphorus 3.4 Magnesium 2.9 H Albumin 3.3 L 11/16/20 11/16/20 11/16/20 07:57 09:58 11:59 WBC RBC Hgb Hct MCV MCH MCHC RDW Plt Count MPV Immature Gran % (Auto) Neut % (Auto) Lymph % (Auto) [place] % (Auto) Eos % (Auto) Baso % (Auto) Lymph # (Auto) [place] # (Auto) Eos # (Auto) Baso # (Auto) Abs Immat Gran (auto) Absolute Neuts (auto) Absolute Nucleated RBC Nucleated RBC % (auto) Smear Tech's Comments VBG pH VBG pCO2 VBG pO2 VBG HCO3 VBG O2 Saturation VBG Base Excess Sodium Potassium Chloride Carbon Dioxide Anion Gap BUN Creatinine Estim Creat Clear Calc Estimated GFR POC Glucose 153 H 146 H 127 H Random Glucose Calcium Phosphorus Magnesium Albumin Microbiology Microbiology Results: Microbiology 11/04/20 16:18 Bronchial Washings Fungal Identification - Preliminary Aaliyah albicans 11/07/20 17:11 Sputum - Suctioned Gram Stain - Final 11/07/20 17:11 Sputum - Suctioned Sputum Culture - Final 11/06/20 04:20 Sputum - Suctioned Gram Stain - Final 11/06/20 04:20 Sputum - Suctioned Sputum Culture - Final 11/04/20 16:18 Bronchial Washings Gram Stain - Final 11/04/20 16:18 Bronchial Washings Routine Culture - Final 10/26/20 22:43 Blood - Venous Blood Culture - Final No growth after 5 days. 10/26/20 22:26 Blood - Venous Blood Culture - Final No growth after 5 days. 10/27/20 Unknown Urine clean catch - Urine hernandez top Urine Culture - Final Quality Stroke Does the patient have a stroke diagnosis?: No VTE Prior VTE?: No VTE Risk Level:: Medical - moderate - high VTE Device Contraindication: Treatment Not Indicated VTE Drug Contraindication: N/A - Med Ordered Progress Note: A&P Assessment and plan (1) COPD (chronic obstructive pulmonary disease): Status: Acute Assessment and Plan: Assessment: 70-year-old lady with underlying IPF, sarcoidosis, COPD, diastolic congestive heart failure, AFib, diabetes admitted with acute on chronic hypoxic respiratory failure Plan: Neuro: Poor arousal with sedation vacation. CT head this a.m. with no acute findings, will consider MRI, if not improves. Cardiac: Underlying atrial fibrillation with [id number] ventricular response requiring cardioversion on 11/08/2020 Continue with propafenone. Underlying diastolic dysfunction, 2D echocardiogram without evidence of ongoing acute exacerbation. Pulmonary: Acute on chronic hypoxic respiratory failure secondary acute exacerbation of underlying interstitial pulmonary fibrosis. Poor response to h igh-dose systemic glucocorticoids. Continue to titrate down Solu-Medrol. Overall progressively worsening hypoxemia. Continues on ventilatory support. Further complicated by pneumomediastinum and pneumothoraces, now status post placement of right-sided chest tube and removal. Unable to plan tracheostomy with high FiO2 requirements. Renal: No acute issues. Endo: No acute issues. Underlying diabetes mellitus. GI: No acute issues. ID: Initial community-acquired pneumonia, likely a triggering factor for exacerbation of underlying IPF. Now no evidence of HSV, acyclovir stopped. Infectious Disease service care appreciated. Finished empiric treatment with fluconazole for Aaliyah in sputum, though it was likely a colonizer/contaminant. Heme/Onc: No acute issues. Psych: No acute issues. Miscellaneous: No acute issues. Overall very poor prognosis. Discussion of goals of care with family in progress. Prophylaxis: Heparin, ppi Diet: Tube feeds Critical care time spent: 45 minutes (2) Sarcoidosis: Status: Acute (3) ILD (interstitial lung disease): Status: Acute (4) JOVANNY on CPAP: Status: Acute (5) Chronic respiratory failure: Status: Acute (6) CHF (congestive heart failure): Status: Acute (7) Vascular insufficiency of extremity: Status: Acute (8) Acute respiratory failure with hypoxemia: Status: Acute (9) Diabetes: Status: Acute (10) HTN (hypertension): Status: Acute (11) Afib: Status: Acute (12) Pneumomediastinum: Status: Acute
[2020-11-16 14:02] LABS: Glucose, Whole Blood 120 mg/dL (60-115)
[2020-11-16 16:04] LABS: Glucose, Whole Blood 123 mg/dL (60-115)
[2020-11-16] MEDS: Acetaminophen 325 MG TABLET 650 MG PO (16:21)
--- NOTE | 2020-11-16 17:45 | PC.NURSE ---
Remains intubated and sedated in the ICU. Sedation vacation failed today for increased HR, RR, BP with desaturation noted. Eyes opened but unable to track, no grimace to painful stim. Head CT ordered and done. Dr. Richardson updated daughter in person during her visit. Vent settings PC rate 20, FiO2 90% IP 28, PEEP 5. Min vols 9, PIPs 34-37. SpO2 remains low 90s with evident major desaturation noted when lying flat to reposition. Small amounts of inline secretions, thin cream in color. Temps 99-102. Tylenol given via OGT. Fair effect. ST throughout the day 100s-120s. Since sedation turned back on after sedation vacation, BP has been stable. Feeds running at goal. Insulin per protocol based on POCs. Small BM this shift. Edema unchanged, 2+ pitting. Dressing to coccyx changed, see assessment doc. Scleredema to Right eye blood filled and unchanged. MD aware. Bruising to abdomen from anti-coag shots. Small amounts of coffee grounds when aspirating tube feed residual. MD also aware. Scheduled meds as ordered. Position changed, wedge pillows used. Barrier cream to buttocks after incontinence. Prevalon boots on bilat. Oral care per vent protocol.
[2020-11-16 18:16] LABS: Glucose, Whole Blood 110 mg/dL (60-115)
[2020-11-16 20:20] LABS: Glucose, Whole Blood 99 mg/dL (60-115)
[2020-11-16] MEDS: fentaNYL citrate/NS 1,000 MCG/100 ML PLAST..BAG 10 MCG IVCONT (21:32)
[2020-11-16 22:07] LABS: Glucose, Whole Blood 125 mg/dL (60-115)
[2020-11-16 23:46] LABS: Glucose, Whole Blood 131 mg/dL (60-115)
[2020-11-17] VITALS (33 sets, daily range): BP systolic 84–171; BP diastolic 29–68; PULSE 72–204; RESP 14–28; TEMP 36.8–39.2; O2SAT 89–98; BMI 36.0
[2020-11-17 01:50] LABS: Glucose, Whole Blood 130 mg/dL (60-115)
[2020-11-17] MEDS: Insulin Regular/NS 100 UNIT/100 ML PLAST..BAG IVCONT ×2 (03:21→14:44)
[2020-11-17 04:21] LABS: Glucose, Whole Blood 150 mg/dL (60-115)
[2020-11-17 05:16] LABS: VBG Base Excess 15.2 mmol/L; VBG HCO3 42 mmol/L (22-26); VBG pCO2 68 mmHg; VBG pH 7.39 (7.32-7.43); VBG pO2 45 mmHg
[2020-11-17 05:24] LABS: Venous Blood Gas Refer to POC result
[2020-11-17 05:26] LABS: PLT CLUMP 1; Red Cell Distribution Width 14.5 % (11.0-16.0); SCAN SMEAR FLAG 1
[2020-11-17 05:28] LABS: Eosinophils Absolute Auto 1.2 X10*3/uL (0.0-0.4); Eosinophils Percent Auto 13.4 % (0-4); Hematocrit 24.2 % (37-47); Hemoglobin 7.5 g/dl (12.0-16.0); Imm Gran Abs Auto 0.09 X10*3/uL (0.00-0.03); Lymphocytes Absolute Auto 0.7 X10*3/uL (1.2-4.9); Lymphocytes Percent Auto 8.1 % (20-40); Mean Corpuscular Hemoglobin 30.2 pg (27.0-33.0); Mean Corpuscular Volume 97.6 fL (80-98); Mean Platelet Volume 10.5 fL (9.4-12.3); Monocytes Absolute Auto 0.2 X10*3/uL (0.1-1.2); Monocytes Percent Auto 2.2 % (2-11); Neutrophils Absolute Auto 6.7 X10*3/uL (2.0-8.3); Neutrophils Percent Auto 75.3 % (45-73); Platelet Count 137 X10*3/uL (160-400); Red Blood Count 2.48 X10*6/uL (4.20-5.50); White Blood Count 8.9 X10*3/uL (4.8-10.8)
[2020-11-17 05:31] LABS: MANUAL DIFF FLAG NO
[2020-11-17] MEDS: propofoL 1,000 MG/100 ML VIAL 15.53 MG IVCONT ×4 (05:42→20:37)
[2020-11-17] MEDS: fentaNYL citrate/NS 1,000 MCG/100 ML PLAST..BAG 10 MCG IVCONT ×3 (05:44→22:16)
[2020-11-17] MEDS: Heparin Sodium,Porcine 5,000 UNIT/ML VIAL 5000 UNIT SUBCUT ×3 (05:45→22:12)
[2020-11-17 05:59] LABS: Albumin Level 2.8 g/dL (3.5-5.0); Anion Gap 7 (12-20); Blood Urea Nitrogen 27 mg/dL (9-16); Calcium 8.2 mg/dL (8.4-10.2); Carbon Dioxide 39 mmol/L (22-29); Chloride 101 mmol/L (96-108); Estimated Glomerular Filt Rate > 60; Glucose Random 149 mg/dL (60-115); Magnesium 2.6 mg/dL (1.6-2.6); Phosphorus 3.1 mg/dL (2.7-4.5); Potassium 4.2 mmol/L (3.3-5.1); Sodium 143 mmol/L (135-145)
[2020-11-17 07:22] LABS: Glucose, Whole Blood 143 mg/dL (60-115)
[2020-11-17] MEDS: acetaZOLAMIDE sodium 500 MG VIAL IVPUSH ×2 (08:30→20:25)
[2020-11-17] MEDS: Albumin Human 25 % 100 ML IV ×3 (08:30→20:40)
[2020-11-17 09:01] LABS: Glucose, Whole Blood 152 mg/dL (60-115)
[2020-11-17] MEDS: Acetaminophen 325 MG TABLET 650 MG PO (10:08)
[2020-11-17] MEDS: methylPREDNISolone Sod Succ 125 MG/2 ML VIAL 60 MG IVPUSH (10:08)
[2020-11-17] MEDS: Chlorhexidine Gluc Oral Rinse 15 ML MOUTHWASH BUCCAL ×3 (10:08→20:29)
[2020-11-17] MEDS: Lactulose 20 GM/30 ML SOLUTION PO ×2 (10:08→20:29)
[2020-11-17] MEDS: Clopidogrel Bisulfate 75 MG TABLET PO (10:08)
[2020-11-17] MEDS: Famotidine/PF 20 MG/2 ML VIAL IVPUSH ×2 (10:09→20:28)
[2020-11-17] MEDS: Artificial Tears Ophth Oint 3.5 GM TUBE 1 APPL EYE-BOTH ×2 (10:10→20:29)
[2020-11-17 11:04] LABS: Glucose, Whole Blood 145 mg/dL (60-115)
[2020-11-17] MEDS: dilTIAZem HCL 50 MG/10 ML VIAL 10 MG IVPUSH (11:50)
[2020-11-17] MEDS: dilTIAZem HCL 50 MG/10 ML VIAL 15 MG IVPUSH (11:58)
[2020-11-17] MEDS: dilTIAZem HCL 125 MG in 0.9 % Sodium Chloride 100 ML 10 MG IVCONT ×2 (12:11→18:08)
--- NOTE | 2020-11-17 12:27 | MHC.CLN ---
F/U PATIENT TOLERATING CURRENT TUBE FEEDING. NO RESIDUALS REPORTS TODAY. CONTINUE PROMOTE AT MAX GOAL RATE 30 ML/HR WITH 30 ML OF PROSOURCE Q DAY PROVIDES 780 KCALS (1190 KCALS WITH SEDATION; 19.5 KCALS/KG), 60 G PROTEIN (.99 G/KG), 604 ML FREE WATER FROM FORMULA. MONITOR TOLERANCE, RESIDUALS AND LYTES
[2020-11-17 13:01] LABS: Glucose, Whole Blood 140 mg/dL (60-115)
--- NOTE | 2020-11-17 13:43 | P.PNCC_ITS ---
Subjective Subjective Date of Service: 11/17/20 Interval History: 70-year-old lady with underlying history of interstitial lung disease/pulmonary fibrosis, sarcoidosis, COPD, on supplemental oxygen 2 L, diastolic dysfunction, JOVANNY on CPAP admitted on 10/26/2020 with chronic dyspnea, particularly worse two days prior to admission. At that time associated with fevers and nonproductive cough. On ER evaluation she was noted to be hypoxic requiring supplemental oxygen with high-flow nasal cannula, tachypneic, and febrile to 102.7. Her COVID test was negative. Her CT chest demonstrated acute pulmonary infiltrates on chronic interstitial lung disease. She has been started on empiric antibiotics and admitted to intensive care unit. Patient was initially isolated for the first 24 hours until her 2nd COVID test came back negative secondary to suspicion for initially false negative COVID test. Her 2D echocardiogram demonstrated no new wall motion changes or excessive intravascular fluid. She has been treated with high does systemic glucocorticoids for concern of exacerbation of underlying IPF with initial response, however with tapering of glucocorticoids her FiO2 requirements worsened significantly. Patient underwent bronchoscopy with bronchoalveolar lavage on 11/04/2020 with cultures growing Aaliyah and HSV (likely contaminant, but patient was treated with a course of fluconazole and acyclovir with significant improvement). Patient was intubated 11/05/2020 secondary to progressive hypoxemia. She has developed spontaneous bilateral pneumothoraces and pneumomediastinum requiring placement of a right-sided chest tube (resolved and removed 11/11/2020). She also had unstable AFib requiring cardioversion on 11/08/2020. Overall her hospital course is significant for progressive acute hypoxic respiratory failure, now essentially on maximum ventilatory support. No events overnight. Still with poor arousal with sedation vacation. Remains on maximum ventilatory support. Critical Care Time (minutes): 45 Physical Exam Vital Signs: Vital Signs: Last Vital Signs Temp 102.2 F H 11/17/20 12:00 Pulse 130 H 11/17/20 12:55 Resp 23 H 11/17/20 12:55 BP 84/38 L 11/17/20 12:55 Pulse Ox 93 11/17/20 12:55 Oxygen Flow Rate 40 10/27/20 02:27 Body Mass Index 36.0 Const: General: no acute distress and other (Sedated on the vent, poor arousal with sedation vacation.) Eyes: Sclerae: scleral abnormal (Scleral edema) Neck: Neck: Yes no lymphadenopathy, Yes trachea midline and Yes supple Resp: Effort & Inspection: normal respiratory effort and no respiratory distress Auscultation: clear to auscultation bilaterally Cardio: Rate: tachycardic Rhythm: regular rhythm Heart sounds: no lyle ps, no murmurs and no rubs GI: Palpation (GI): Soft to palpation and Other GI palpation findings present ( Nontender) Auscultation: normal bowel sounds Extrem: General: No clubbing, No cyanosis and Yes pedal edema (1+ bilateral) Objective Data Labs CBC & Chem 7: 11/17/20 05:10 11/17/20 05:10 Labs: Laboratory Results - last 24 hr 11/16/20 11/16/20 11/16/20 13:58 16:01 18:12 WBC RBC Hgb Hct MCV MCH MCHC RDW Plt Count MPV Immature Gran % (Auto) Neut % (Auto) Lymph % (Auto) [place] % (Auto) Eos % (Auto) Baso % (Auto) Lymph # (Auto) [place] # (Auto) Eos # (Auto) Baso # (Auto) Abs Immat Gran (auto) Absolute Neuts (auto) Absolute Nucleated RBC Nucleated RBC % (auto) VBG pH VBG pCO2 VBG pO2 VBG HCO3 VBG O2 Saturation VBG Base Excess Sodium Potassium Chloride Carbon Dioxide Anion Gap BUN Creatinine Estim Creat Clear Calc Estimated GFR POC Glucose 120 H 123 H 110 Random Glucose Calcium Phosphorus Magnesium Albumin 11/16/20 11/16/20 11/16/20 20:17 22:04 23:39 WBC RBC Hgb Hct MCV MCH MCHC RDW Plt Count MPV Immature Gran % (Auto) Neut % (Auto) Lymph % (Auto) [place] % (Auto) Eos % (Auto) Baso % (Auto) Lymph # (Auto) [place] # (Auto) Eos # (Auto) Baso # (Auto) Abs Immat Gran (auto) Absolute Neuts (auto) Absolute Nucleated RBC Nucleated RBC % (auto) VBG pH VBG pCO2 VBG pO2 VBG HCO3 VBG O2 Saturation VBG Base Excess Sodium Potassium Chloride Carbon Dioxide Anion Gap BUN Creatinine Estim Creat Clear Calc Estimated GFR POC Glucose 99 125 H 131 H Random Glucose Calcium Phosphorus Magnesium Albumin 11/17/20 11/17/20 11/17/20 01:47 04:18 05:07 WBC RBC Hgb Hct MCV MCH MCHC RDW Plt Count MPV Immature Gran % (Auto) Neut % (Auto) Lymph % (Auto) [place] % (Auto) Eos % (Auto) Baso % (Auto) Lymph # (Auto) [place] # (Auto) Eos # (Auto) Baso # (Auto) Abs Immat Gran (auto) Absolute Neuts (auto) Absolute Nucleated RBC Nucleated RBC % (auto) VBG pH 7.39 VBG pCO2 68 VBG pO2 45 VBG HCO3 42 H VBG O2 Saturation 72.0 VBG Base Excess 15.2 Sodium Potassium Chloride Carbon Dioxide Anion Gap BUN Creatinine Estim Creat Clear Calc Estimated GFR POC Glucose 130 H 150 H Random Glucose Calcium Phosphorus Magnesium Albumin 11/17/20 11/17/20 11/17/20 05:10 05:10 07:18 WBC 8.9 RBC 2.48 L Hgb 7.5 L Hct 24.2 L MCV 97.6 MCH 30.2 MCHC 31.0 RDW 14.5 Plt Count 137 L MPV 10.5 Immature Gran % (Auto) 1.0 H Neut % (Auto) 75.3 H Lymph % (Auto) 8.1 L [place] % (Auto) 2.2 Eos % (Auto) 13.4 H Baso % (Auto) 0.0 Lymph # (Auto) 0.7 L [place] # (Auto) 0.2 Eos # (Auto) 1.2 H Baso # (Auto) 0.0 Abs Immat Gran (auto) 0.09 H Absolute Neuts (auto) 6.7 Absolute Nucleated RBC 0.000 Nucleated RBC % (auto) 0.0 VBG pH VBG pCO2 VBG pO2 VBG HCO3 VBG O2 Saturation VBG Base Excess Sodium 143 Potassium 4.2 Chloride 101 Carbon Dioxide 39 H Anion Gap 7 L BUN 27 H Creatinine 0.53 Estim Creat Clear Calc 104.0 Estimated GFR > 60 POC Glucose 143 H Random Glucose 149 H Calcium 8.2 L Phosphorus 3.1 Magnesium 2.6 Albumin 2.8 L 11/17/20 11/17/20 11/17/20 08:58 11:01 12:58 WBC RBC Hgb Hct MCV MCH MCHC RDW Plt Count MPV Immature Gran % (Auto) Neut % (Auto) Lymph % (Auto) [place] % (Auto) Eos % (Auto) Baso % (Auto) Lymph # (Auto) [place] # (Auto) Eos # (Auto) Baso # (Auto) Abs Immat Gran (auto) Absolute Neuts (auto) Absolute Nucleated RBC Nucleated RBC % (auto) VBG pH VBG pCO2 VBG pO2 VBG HCO3 VBG O2 Saturation VBG Base Excess Sodium Potassium Chloride Carbon Dioxide Anion Gap BUN Creatinine Estim Creat Clear Calc Estimated GFR POC Glucose 152 H 145 H 140 H Random Glucose Calcium Phosphorus Magnesium Albumin Microbiology Microbiology Results: Microbiology 11/04/20 16:18 Bronchial Washings Fungal Identification - Preliminary Aaliyah albicans 11/07/20 17:11 Sputum - Suctioned Gram Stain - Final 11/07/20 17:11 Sputum - Suctioned Sputum Culture - Final 11/06/20 04:20 Sputum - Suctioned Gram Stain - Final 11/06/20 04:20 Sputum - Suctioned Sputum Culture - Final 11/04/20 16:18 Bronchial Washings Gram Stain - Final 11/04/20 16:18 Bronchial Washings Routine Culture - Final 10/26/20 22:43 Blood - Venous Blood Culture - Final No growth after 5 days. 10/26/20 22:26 Blood - Venous Blood Culture - Final No growth after 5 days. 10/27/20 Unknown Urine clean catch - Urine hernandez top Urine Culture - Final Quality Stroke Does the patient have a stroke diagnosis?: No VTE Prior VTE?: No VTE Risk Level:: Medical - moderate - high VTE Device Contraindication: Treatment Not Indicated VTE Drug Contraindication: N/A - Med Ordered Progress Note: A&P Assessment and plan (1) Diastolic CHF with preserved left ventricular function, NYHA class 2: Status: Acute Assessment and Plan: Assessment: 70-year-old lady with underlying IPF, sarcoidosis, COPD, diastolic congestive heart failure, AFib, diabetes admitted with acute on chronic hypoxic respiratory failure Plan: Neuro: Poor arousal with sedation vacation. CT head years today with no acute findings, will obtain MRI head today. Cardiac: Underlying atrial fibrillation with [id number] ventricular response requiring cardioversion on 11/08/2020 Continue with propafenone. Underlying diastolic dysfunction, 2D echocardiogram without evidence of ongoing acute exacerbation. Pulmonary: Acute on chronic hypoxic respiratory failure secondary acute exacerbation of underlying interstitial pulmonary fibrosis. Poor response to high-dose systemic glucocorticoids. Continue to titrate down Solu-Medrol. O verall progressively worsening hypoxemia. Continues on ventilatory support. Further complicated by pneumomediastinum and pneumothoraces, now status post placement of right-sided chest tube and removal. Unable to plan tracheostomy with high FiO2 requirements. Renal: No acute issues. Endo: No acute issues. Underlying diabetes mellitus. GI: No acute issues. ID: Initial community-acquired pneumonia, likely a triggering factor for exacerbation of underlying IPF. Now no evidence of HSV, acyclovir stopped. Infectious Disease service care appreciated. Finished empiric treatment with fluconazole for Aaliyah in sputum, though it was likely a colonizer/contaminant. Heme/Onc: No acute issues. Psych: No acute issues. Miscellaneous: No acute issues. Overall very poor prognosis. Ongoing discussion of goals of care with family. Prophylaxis: Heparin, ppi Diet: Tube feeds Critical care time spent: 45 minutes (2) Pneumomediastinum: Status: Acute (3) Afib: Status: Acute (4) HTN (hypertension): Status: Acute (5) Diabetes: Status: Acute (6) Acute respiratory failure with hypoxemia: Status: Acute (7) Vascular insufficiency of extremity: Status: Acute (8) Chronic respiratory failure: Status: Acute (9) JOVANNY on CPAP: Status: Acute (10) ILD (interstitial lung disease): Status: Acute (11) Sarcoidosis: Status: Acute (12) COPD (chronic obstructive pulmonary disease): Status: Acute
[2020-11-17 14:45] LABS: Glucose, Whole Blood 158 mg/dL (60-115)
[2020-11-17 17:15] LABS: Glucose, Whole Blood 158 mg/dL (60-115)
--- NOTE | 2020-11-17 17:38 | PC.NURSE ---
S/E Temp max 102.2 - down to 100.2 after PRN Tylenol Sedated on Propofol & Fentanyl Failed sedation vacation - flaccid, not following commands, RR 30's, tachycardic, SBP 180s' Unable to obtain head MRI - O2 down to 82% w/ portable vent Plan to reattempt MRI tomorrow 11/18 Converted between AFib RVR HR up to 180's and SR multiple times IVP Cardizem administered and gtt started R IJ TLC patent Albumin 2.8 - Albumin 100cc x4 ordered LS rhonchi throughout, scant clear inline secretions #7.5 ETT, 22cm @ lip Vent settings: PC 28/5 rate 20 100% Hypoactive BS, no BM, continued on Lactulose Tolerating tube feeds well - Promote maxed @ 30cc/hr Urine output low approx 15-30cc/hr, concentrated Stg 2 coccyx - traid & foam dressing applied Patient bathed twice, repo q2hr, prevlon system & air loss bed in place Family Updated
[2020-11-17 18:38] LABS: Glucose, Whole Blood 131 mg/dL (60-115)
[2020-11-17 21:59] LABS: Glucose, Whole Blood 125 mg/dL (60-115)
[2020-11-18] VITALS (33 sets, daily range): BP systolic 84–148; BP diastolic 38–62; PULSE 26–160; RESP 15–27; TEMP 36–37.5; O2SAT 85–98; BMI 35.6
[2020-11-18] LABS: Glucose, Whole Blood 133 mg/dL (60-115)
--- NOTE | 2020-11-18 | ECG_ITS ---
Test Reason : CARDIAC ARREST Blood Pressure : / mmHG Vent. Rate : 134 BPM Atrial Rate : 174 BPM P-R Int : 000 ms QRS Dur : 144 ms QT Int : 330 ms P-R-T Axes : 000 -82 018 degrees QTc Int : 492 ms Atrial fibrillation with rapid ventricular response Right bundle branch block Left anterior fascicular block Bifascicular block Abnormal ECG When compared with ECG of 28-OCT-2020 13:16, Atrial fibrillation has replaced Sinus rhythm (RBBB and left anterior fascicular block) is now Present Referred By: Ho Richardson Electronically Signed By:RENY CABRERA
--- NOTE | 2020-11-18 | EEG_ITS ---
This is a 16-channel EEG with an EKG lead. The patient is reported unresponsive and intubated during the tracing. Background EEG rhythm is low amplitude, mixed theta, beta with no obvious asymmetry or paroxysmal tendency. Photic stimulation does not produce any significant driving and hyperventilation was not performed. Cardiac lead revealed tachycardia. No obvious epileptic activity was noted. IMPRESSION: Diffuse slowing suggestive of severe metabolic or similar type of encephalopathy. MD ERIKA Mcconnell/DALILA / [phone]
[2020-11-18] MEDS: propofoL 1,000 MG/100 ML VIAL 15.53 MG IVCONT ×3 (03:02→13:16)
[2020-11-18] MEDS: Albumin Human 25 % 100 ML IV (03:04)
[2020-11-18 03:42] LABS: Glucose, Whole Blood 135 mg/dL (60-115)
[2020-11-18 05:28] LABS: VBG Base Excess 10.5 mmol/L; VBG HCO3 39 mmol/L (22-26); VBG pCO2 88 mmHg; VBG pH 7.25 (7.32-7.43); VBG pO2 46 mmHg
[2020-11-18 05:38] LABS: MANUAL DIFF FLAG SCAN; Mean Corpuscular Hemoglobin 29.8 pg (27.0-33.0); PLT CLUMP 1; Red Blood Count 2.28 X10*6/uL (4.20-5.50); Red Cell Distribution Width 14.7 % (11.0-16.0); SCAN SMEAR FLAG 1
[2020-11-18 05:39] LABS: Eosinophils Absolute Auto 0.1 X10*3/uL (0.0-0.4); Eosinophils Percent Auto 2.3 % (0-4); Hematocrit 23.1 % (37-47); Imm Gran Abs Auto 0.05 X10*3/uL (0.00-0.03); Imm Gran Pct Auto 0.9 % (0.0-0.4); Lymphocytes Absolute Auto 0.5 X10*3/uL (1.2-4.9); Lymphocytes Percent Auto 8.9 % (20-40); Mean Corpuscular HGB Conc 29.4 g/dl (31.0-35.0); Mean Corpuscular Volume 101.3 fL (80-98); Mean Platelet Volume 11.1 fL (9.4-12.3); Monocytes Absolute Auto 0.2 X10*3/uL (0.1-1.2); Monocytes Percent Auto 4.3 % (2-11); NRBC Pct Auto 0.4 /100WBC (0.0-0.2); Neutrophils Absolute Auto 4.4 X10*3/uL (2.0-8.3); Neutrophils Percent Auto 83.6 % (45-73); Platelet Count 112 X10*3/uL (160-400); White Blood Count 5.3 X10*3/uL (4.8-10.8)
[2020-11-18 05:44] LABS: Venous Blood Gas Refer to POC result
[2020-11-18 05:50] LABS: Hemoglobin 6.8 g/dl (12.0-16.0)
[2020-11-18 06:05] LABS: Anion Gap 12 (12-20); Blood Urea Nitrogen 46 mg/dL (9-16); Calcium 8.4 mg/dL (8.4-10.2); Carbon Dioxide 36 mmol/L (22-29); Chloride 100 mmol/L (96-108); Estimated Glomerular Filt Rate 54; Glucose Random 138 mg/dL (60-115); Magnesium 2.8 mg/dL (1.6-2.6); Phosphorus 5.6 mg/dL (2.7-4.5); Potassium 4.8 mmol/L (3.3-5.1); Sodium 143 mmol/L (135-145)
[2020-11-18 06:20] LABS: Glucose, Whole Blood 117 mg/dL (60-115)
[2020-11-18] MEDS: Heparin Sodium,Porcine 5,000 UNIT/ML VIAL 5000 UNIT SUBCUT ×2 (06:23→14:02)
--- NOTE | 2020-11-18 07:02 | PC.NURSE ---
Cared for pt [id number]. Pt maintained on pressure control vent settings with no complications. Monitor showed NSR, rate 70's. Bp soft 90's-100's systolic, Map high 50's-60's. Urine output almost nil, about 60 ml for the past 12 hours. Provider Jose Antonio aware of u/o and Bp. Cardizem drip shut off. Propofol and fentanyl drips for sedation. Pt has no cough or gag reflex and no response to pain. Plan to have MRI today.
[2020-11-18 07:21] LABS: SLIDE REVIEW VERIFIED
[2020-11-18] MEDS: fentaNYL citrate/NS 1,000 MCG/100 ML PLAST..BAG 10 MCG IVCONT ×2 (07:52→15:55)
[2020-11-18] MEDS: Clopidogrel Bisulfate 75 MG TABLET PO (08:01)
[2020-11-18] MEDS: acetaZOLAMIDE sodium 500 MG VIAL IVPUSH (08:01)
[2020-11-18] MEDS: Famotidine/PF 20 MG/2 ML VIAL IVPUSH (08:01)
[2020-11-18] MEDS: Lactulose 20 GM/30 ML SOLUTION PO (08:01)
[2020-11-18] MEDS: methylPREDNISolone Sod Succ 125 MG/2 ML VIAL 60 MG IVPUSH (08:01)
[2020-11-18] MEDS: Chlorhexidine Gluc Oral Rinse 15 ML MOUTHWASH BUCCAL ×2 (08:01→14:02)
[2020-11-18] MEDS: Artificial Tears Ophth Oint 3.5 GM TUBE 1 APPL EYE-BOTH (08:02)
[2020-11-18 08:09] LABS: Glucose, Whole Blood 126 mg/dL (60-115)
[2020-11-18 10:07] LABS: Glucose, Whole Blood 136 mg/dL (60-115)
[2020-11-18 10:54] LABS: Glucose, Whole Blood 144 mg/dL (60-115)
[2020-11-18] MEDS: Insulin Glargine,Hum.rec.anlog 100 UNIT/ML 10 ML VIAL 15 UNIT SUBCUT (10:55)
--- NOTE | 2020-11-18 10:57 | MHC.CLN ---
F/U PATIENT TOLERATING CURRENT TUBE FEEDING. NO RESIDUALS REPORTED TODAY. CONTINUE PROMOTE AT MAX GOAL RATE 30 ML/HR WITH 30 ML OF PROSOURCE Q DAY PROVIDES 780 KCALS (1190 KCALS WITH SEDATION; 19.5 KCALS/KG), 60 G PROTEIN (.99 G/KG), 604 ML FREE WATER FROM FORMULA. MONITOR TOLERANCE, RESIDUALS AND LYTES
--- NOTE | 2020-11-18 11:17 | PM.CCPN ---
Subjective Subjective Date of Service: 11/18/20 Interval History: 70-year-old lady with underlying history of interstitial lung disease/pulmonary fibrosis, sarcoidosis, COPD, on supplemental oxygen 2 L, diastolic dysfunction, JOVANNY on CPAP admitted on 10/26/2020 with chronic dyspnea, particularly worse two days prior to admission. At that time associated with fevers and nonproductive cough. On ER evaluation she was noted to be hypoxic requiring supplemental oxygen with high-flow nasal cannula, tachypneic, and febrile to 102.7. Her COVID test was negative. Her CT chest demonstrated acute pulmonary infiltrates on chronic interstitial lung disease. She has been started on empiric antibiotics and admitted to intensive care unit. Patient was initially isolated for the first 24 hours until her 2nd COVID test came back negative secondary to suspicion for initially false negative COVID test. Her 2D echocardiogram demonstrated no new wall motion changes or excessive intravascular fluid. She has been treated with high does systemic glucocorticoids for concern of exacerbation of underlying IPF with initial response, however with tapering of glucocorticoids her FiO2 requirements worsened significantly. Patient underwent bronchoscopy with bronchoalveolar lavage on 11/04/2020 with cultures growing Aaliyah and HSV (likely contaminant, but patient was treated with a course of fluconazole and acyclovir with significant improvement). Patient was intubated 11/05/2020 secondary to progressive hypoxemia. She has developed spontaneous bilateral pneumothoraces and pneumomediastinum requiring placement of a right-sided chest tube (resolved and removed 11/11/2020). She also had unstable AFib requiring cardioversion on 11/08/2020. Overall her hospital course is significant for progressive acute hypoxic respiratory failure, now essentially on maximum ventilatory support. No events overnight. Still with poor arousal with sedation vacation. Remains on maximum ventilatory support. Unable to tolerate transportation ventilator resulting in significant desaturation. Critical Care Time (minutes): 45 Physical Exam Vital Signs: Vital Signs: Last Vital Signs Temp 97 F 11/18/20 11:00 Pulse 80 11/18/20 11:00 Resp 20 11/18/20 11:00 BP 118/55 L 11/18/20 11:00 Pulse Ox 94 11/18/20 11:00 Oxygen Flow Rate 40 10/27/20 02:27 Body Mass Index 35.6 Const: General: no acute distress and other (Sedated on the vent, no arousal with sedation vacation) Eyes: Sclerae: sclerae normal (Scleral edema) Neck: Neck: Yes no lymphadenopathy, Yes trachea midline and Yes supple Resp: Auscultation: crackles (Diffuse inspiratory) Cardio: Rate: regular rate Rhythm: regular rhythm Heart sounds: no gallops, no murmurs and no rubs GI: Palpation (GI): Soft to palpation and Other GI palpation findings present ( Nontender) Auscultation: normal bowel sounds Extrem: General: No clubbing, No cyanosis and Yes pedal edema (1+ bilateral) Objective Data Labs CBC & Chem 7: 11/18/20 05:25 11/18/20 05:25 Labs: Laboratory Results - last 24 hr 11/17/20 11/17/20 11/17/20 12:58 14:41 17:11 WBC RBC Hgb Hct MCV MCH MCHC RDW Plt Count MPV Immature Gran % (Auto) Neut % (Auto) Lymph % (Auto) [place] % (Auto) Eos % (Auto) Baso % (Auto) Lymph # (Auto) [place] # (Auto) Eos # (Auto) Baso # (Auto) Abs Immat Gran (auto) Absolute Neuts (auto) Absolute Nucleated RBC Nucleated RBC % (auto) Smear Tech's Comments VBG pH VBG pCO2 VBG pO2 VBG HCO3 VBG O2 Saturation VBG Base Excess Sodium Potassium Chloride Carbon Dioxide Anion Gap BUN Creatinine Estim Creat Clear Calc Estimated GFR POC Glucose 140 H 158 H 158 H Random Glucose Calcium Phosphorus Magnesium Albumin Blood Type Antibody Screen Crossmatch 11/17/20 11/17/20 11/17/20 18:35 21:51 23:55 WBC RBC Hgb Hct MCV MCH MCHC RDW Plt Count MPV Immature Gran % (Auto) Neut % (Auto) Lymph % (Auto) [place] % (Auto) Eos % (Auto) Baso % (Auto) Lymph # (Auto) [place] # (Auto) Eos # (Auto) Baso # (Auto) Abs Immat Gran (auto) Absolute Neuts (auto) Absolute Nucleated RBC Nucleated RBC % (auto) Smear Tech's Comments VBG pH VBG pCO2 VBG pO2 VBG HCO3 VBG O2 Saturation VBG Base Excess Sodium Potassium Chloride Carbon Dioxide Anion Gap BUN Creatinine Estim Creat Clear Calc Estimated GFR POC Glucose 131 H 125 H 133 H Random Glucose Calcium Phosphorus Magnesium Albumin Blood Type Antibody Screen Crossmatch 11/18/20 11/18/20 11/18/20 03:38 05:19 05:25 WBC 5.3 RBC 2.28 L Hgb 6.8 L* Hct 23.1 L MCV 101.3 H MCH 29.8 MCHC 29.4 L RDW 14.7 Plt Count 112 L MPV 11.1 Immature Gran % (Auto) 0.9 H Neut % (Auto) 83.6 H Lymph % (Auto) 8.9 L [place] % (Auto) 4.3 Eos % (Auto) 2.3 Baso % (Auto) 0.0 Lymph # (Auto) 0.5 L [place] # (Auto) 0.2 Eos # (Auto) 0.1 Baso # (Auto) 0.0 Abs Immat Gran (auto) 0.05 H Absolute Neuts (auto) 4.4 Absolute Nucleated RBC 0.020 H Nucleated RBC % (auto) 0.4 H Smear Tech's Comments VERIFIED VBG pH 7.25 L VBG pCO2 88 VBG pO2 46 VBG HCO3 39 H VBG O2 Saturation 70.0 VBG Base Excess 10.5 Sodium Potassium Chloride Carbon Dioxide Anion Gap BUN Creatinine Estim Creat Clear Calc Estimated GFR POC Glucose 135 H Random Glucose Calcium Phosphorus Magnesium Albumin Blood Type Antibody Screen Crossmatch 11/18/20 11/18/20 11/18/20 05:25 06:17 06:19 WBC RBC Hgb Hct MCV MCH MCHC RDW Plt Count MPV Immature Gran % (Auto) Neut % (Auto) Lymph % (Auto) [place] % (Auto) Eos % (Auto) Baso % (Auto) Lymph # (Auto) [place] # (Auto) Eos # (Auto) Baso # (Auto) Abs Immat Gran (auto) Absolute Neuts (auto) Absolute Nucleated RBC Nucleated RBC % (auto) Smear Tech's Comments VBG pH VBG pCO2 VBG pO2 VBG HCO3 VBG O2 Saturation VBG Base Excess Sodium 143 Potassium 4.8 Chloride 100 Carbon Dioxide 36 H Anion Gap 12 BUN 46 H D Creatinine 1.02 Estim Creat Clear Calc 54.0 Estimated GFR 54 POC Glucose 117 H Random Glucose 138 H Calcium 8.4 Phosphorus 5.6 H Magnesium 2.8 H Albumin 4.0 D Blood Type O Positive Antibody Screen NEGATIVE Crossmatch See Detail 11/18/20 11/18/20 11/18/20 08:05 10:04 10:51 WBC RBC Hgb Hct MCV MCH MCHC RDW Plt Count MPV Immature Gran % (Auto) Neut % (Auto) Lymph % (Auto) [place] % (Auto) Eos % (Auto) Baso % (Auto) Lymph # (Auto) [place] # (Auto) Eos # (Auto) Baso # (Auto) Abs Immat Gran (auto) Absolute Neuts (auto) Absolute Nucleated RBC Nucleated RBC % (auto) Smear Tech's Comments VBG pH VBG pCO2 VBG pO2 VBG HCO3 VBG O2 Saturation VBG Base Excess Sodium Potassium Chloride Carbon Dioxide Anion Gap BUN Creatinine Estim Creat Clear Calc Estimated GFR POC Glucose 126 H 136 H 144 H Random Glucose Calcium Phosphorus Magnesium Albumin Blood Type Antibody Screen Crossmatch Microbiology Microbiology Results: Microbiology 11/04/20 16:18 Bronchial Washings Fungal Identification - Preliminary Aaliyah albicans 11/07/20 17:11 Sputum - Suctioned Gram Stain - Final 11/07/20 17:11 Sputum - Suctioned Sputum Culture - Final 11/06/20 04:20 Sputum - Suctioned Gram Stain - Final 11/06/20 04:20 Sputum - Suctioned Sputum Culture - Final 11/04/20 16:18 Bronchial Washings Gram Stain - Final 11/04/20 16:18 Bronchial Washings Routine Culture - Final 10/26/20 22:43 Blood - Venous Blood Culture - Final No growth after 5 days. 10/26/20 22:26 Blood - Venous Blood Culture - Final No growth after 5 days. 10/27/20 Unknown Urine clean catch - Urine hernandez top Urine Culture - Final Quality Stroke Does the patient have a stroke diagnosis?: No VTE Prior VTE?: No VTE Risk Level:: Medical - moderate - high VTE Device Contraindication: Treatment Not Indicated VTE Drug Contraindication: N/A - Med Ordered Progress Note: A&P Assessment and plan (1) YULIANA (acute kidney injury): Status: Acute Assessment and Plan: Assessment: 70-year-old lady with underlying IPF, sarcoidosis, COPD, diastolic congestive heart failure, AFib, diabetes admitted with acute on chronic hypoxic respiratory failure Plan: Neuro: Poor arousal with sedation vacation. CT head on 11/16/2020 y with no acute findings, unable to obtain MRI, as patient does not tolerate being transported on transfer ventilator. Will obtain an EEG. Cardiac: Underlying atrial fibrillation with [id number] ventricular response requiring cardioversion on 11/08/2020 Continue with propafenone. Underlying diastolic dysfunction, 2D echocardiogram without evidence of ongoing acute exacerbation. Pulmonary: Acute on chronic hypoxic respiratory failure secondary acute exacerbation of underlying interstitial pulmonary fibrosis. Poor response to high-dose systemic glucocorticoids. Continue Solu-Medrol a 60 mg daily. Overall progressively worsening hypoxemia. Continues on ventilatory support. Further complicated by pneumomediastinum and pneumothoraces, now status post placement of right-sided chest tube and removal. Unable to plan tracheostomy with high FiO2 requirements. Renal: Now with development of new acute kidney injury. Non oliguric. Continue to monitor renal indices and urine output. Endo: No acute issues. Underlying diabetes mellitus. GI: No acute issues. ID: Initial community-acquired pneumonia, likely a triggering factor for exacerbation of underlying IPF. Now no evidence of HSV, acyclovir stopped. Infectious Disease service care appreciated. Finished empiric treatment with fluconazole for Aaliyah in sputum, though it was likely a colonizer/contaminant. Heme/Onc: No acute issues. Psych: No acute issues. Miscellaneous: No acute issues. Overall very poor prognosis. Ongoing discussion of goals of care with family. Prophylaxis: Heparin, ppi Diet: Tube feeds Critical care time spent: 45 minutes (2) Diastolic CHF with preserved left ventricular function, NYHA class 2: Status: Acute (3) Pneumomediastinum: Status: Acute (4) Afib: Status: Acute (5) HTN (hypertension): Status: Acute (6) Diabetes: Status: Acute (7) Acute respiratory failure with hypoxemia: Status: Acute (8) Vascular insufficiency of extremity: Status: Acute (9) Chronic respiratory failure: Status: Acute (10) JOVANNY on CPAP: Status: Acute (11) ILD (interstitial lung disease): Status: Acute (12) Sarcoidosis: Status: Acute (13) COPD (chronic obstructive pulmonary disease): Status: Acute
--- NOTE | 2020-11-18 11:40 | MHC.CM.PN ---
PATIENT STILL INTUBATED, SEDATED, AND ON MECHANICAL VENT. DC PLAN UNCERTAIN AT THIS TIME. CASE MANAGEMENT CONTINUING TO FOLLOW
[2020-11-18 12:01] LABS: Glucose, Whole Blood 166 mg/dL (60-115)
[2020-11-18] MEDS: Insulin Lispro 100 UNIT/ML 3 ML VIAL SUBCUT ×2 (12:04→18:29)
--- NOTE | 2020-11-18 12:50 | PC.NURSE ---
Addendum entered by Ara Goodwin RN 11/18/20 17:30: End tidal up to 56 - MD aware and at bedside. Vent settings changed by MD. PC 25/5, rate 20, Fio2 100% - BP 115/44, HR 80's, RR 22-25, 93% on 100% Fio2, TV 360-400, MV 6-8, End tidal 55. Original Note: Patient repositioned with right lung up for 1200 - O2 sat prior to repo 90-91% on 100% Fio2. After repositioning o2 sat down to 82% - patient placed supine and O2 sat did not improve. Bilateral breath sounds auscultated, no inline secretions. ETT at same position no cuff leak noted. RT at bedside and patient manually bagged with 100% oxygen - O2 sat improved to only 86%. MD notified and at bedside. CXR ordered and completed. BP 121/53, HR 85, SR no ectopy, RR 21-23, TV 520-540's, 87% on 100% Fio2. Family at bedside and updated. Plan for EEG - unable to transport for MRI.
[2020-11-18 18:07] LABS: Glucose, Whole Blood 264 mg/dL (60-115)
[2020-11-18] MEDS: Metoprolol Tartrate 5 MG/5 ML VIAL IVPUSH (20:01)
[2020-11-18 22:11] LABS: VBG Base Excess -6.2 mmol/L; VBG HCO3 23 mmol/L (22-26); VBG pCO2 73 mmHg; VBG pO2 54 mmHg
--- NOTE | 2020-11-18 22:23 | PM.CCN ---
Critical Care Event Note Summary Date of Service: 11/18/20 Code activated: Yes Narrative: Patient suddenly became bradycardic rapidly deteriorating to cardiac arrest at 2014. CPR immediately started, follow ACLS guidelines. ROSC achieved at 2033. Post code patient hypoxic to the 70s unable to bring saturations higher than 80. Family was contacted, goals of care conversations help with daughter Bebo and Austyn and located on poor patient outcome but would like for patient to continue to be full code. Plan: Obtain VBG EKG Continue full code as family wishes Critical Care Time (minutes): 60
[2020-11-18 23:07] LABS: Venous Blood Gas Refer to POC result
[2020-11-18] MEDS: propofoL 1,000 MG/100 ML VIAL 10.36 MG IVCONT (23:07)
[2020-11-18 23:51] LABS: Glucose, Whole Blood 233 mg/dL (60-115)
[2020-11-19] VITALS (31 sets, daily range): BP systolic 87–132; BP diastolic 23–50; PULSE 46–115; RESP 18–34; TEMP 37.4–38.4; O2SAT 81–98
[2020-11-19] MEDS: Insulin Lispro 100 UNIT/ML 3 ML VIAL SUBCUT ×3 (00:08→11:52)
[2020-11-19] MEDS: EPINEPHrine 1 MG/10 ML SYRINGE IVPUSH (02:50)
[2020-11-19] MEDS: Amiodarone/Dextrose 150 MG/100 ML PLAST..BAG 600 MG IV (02:53)
--- NOTE | 2020-11-19 04:42 | PC.NURSE ---
At approx 2017- HR down to 30s, no pulse palpated, PEA on tele. Code blue initiated- see paper documentation. +ROSC at 2033. Family called and to bedside, made aware of event/pt status- remains full code. SpO2 remains 80s despite 100% FiO2. At 0247, HR 30s, EtCO2 70s, 1 mg epi x1. At 0251, pt having runs of NSVT up to 180s, 150mg IVP amiodarone x1 with good effect. Became bradycardiac again to 30s, pulse palpated. Remains junctional on tele, HR 40-50s. EtCO2 40-50s. SpO2 80s on PCV 28 25/16 100%. Levophed gtt running at max rate. DBP 20-30s. Pt flaccid, unarousable, propofol titrated down.
[2020-11-19 05:15] LABS: VBG Base Excess -4.7 mmol/L; VBG HCO3 26 mmol/L (22-26); VBG pCO2 90 mmHg; VBG pH 7.07 (7.32-7.43); VBG pO2 53 mmHg
[2020-11-19 05:35] LABS: Hematocrit 32.3 % (37-47); Hemoglobin 9.3 g/dl (12.0-16.0); Mean Corpuscular HGB Conc 28.8 g/dl (31.0-35.0); Mean Corpuscular Hemoglobin 30.1 pg (27.0-33.0); Mean Corpuscular Volume 104.5 fL (80-98); Mean Platelet Volume 11.4 fL (9.4-12.3); NRBC Pct Auto 0.5 /100WBC (0.0-0.2); Platelet Count 148 X10*3/uL (160-400); Red Blood Count 3.09 X10*6/uL (4.20-5.50); Red Cell Distribution Width 15.3 % (11.0-16.0); White Blood Count 15.2 X10*3/uL (4.8-10.8)
[2020-11-19 05:44] LABS: Glucose, Whole Blood 203 mg/dL (60-115)
[2020-11-19 06:26] LABS: Albumin Level 3.8 g/dL (3.5-5.0); Anion Gap 25 (12-20); Blood Urea Nitrogen 80 mg/dL (9-16); Calcium 8.2 mg/dL (8.4-10.2); Carbon Dioxide 25 mmol/L (22-29); Chloride 97 mmol/L (96-108); Creatinine Clr Calc Pharmacy 26.9; Estimated Glomerular Filt Rate 24; Glucose Random 223 mg/dL (60-115); Magnesium 3.4 mg/dL (1.6-2.6); Sodium 140 mmol/L (135-145)
[2020-11-19 06:28] LABS: Band Neutrophils Percent 4 % (3-5); Lymphocytes Absolute Manual 0.3 X10*3/uL (0.6-4.8); Lymphocytes Percent Manual 2 % (20-40); Macrocytosis 1+ (5-14) /OIF; Monocytes Absolute Manual 1.2 X10*3/uL (0.0-1.2); Monocytes Percent Manual 8 % (2-11); Neutrophils Absolute Manual 13.7 X10*3/uL (2.2-7.9); Neutrophils Percent Manual 86 % (45-73); Nucleated Red Blood Cells 1 /100WBC (0-0); RBC Morphology NOTED
[2020-11-19 06:29] LABS: Acanthocytes 1+ (0-2) /OIF; Basophilic Stippling 1+ (0-2) /OIF; Burr Cells 3+ (>5) /OIF; Large Platelet PRESENT; Platelet Estimate SLIGHTLY DECREASED (NORMAL); Platelet Morphology Comment NOTED; Polychromasia 2+ (3-5) /OIF
[2020-11-19 06:30] LABS: Dohle Bodies PRESENT; Toxic Vacuolation PRESENT; Venous Blood Gas Refer to POC result; WBC Morphology Comment DYSMORPHIC
[2020-11-19] MEDS: Chlorhexidine Gluc Oral Rinse 15 ML MOUTHWASH BUCCAL ×3 (07:39→20:52)
[2020-11-19] MEDS: Artificial Tears Ophth Oint 3.5 GM TUBE 1 APPL EYE-BOTH ×2 (07:39→20:52)
[2020-11-19] MEDS: Lactulose 20 GM/30 ML SOLUTION 30 GM PO (07:39)
[2020-11-19] MEDS: methylPREDNISolone Sod Succ 125 MG/2 ML VIAL 60 MG IVPUSH (07:40)
[2020-11-19] MEDS: Insulin Glargine,Hum.rec.anlog 100 UNIT/ML 10 ML VIAL 15 UNIT SUBCUT (07:40)
[2020-11-19] MEDS: Famotidine/PF 20 MG/2 ML VIAL IVPUSH ×2 (07:40→20:52)
[2020-11-19] MEDS: Clopidogrel Bisulfate 75 MG TABLET PO (07:42)
[2020-11-19] MEDS: propofoL 1,000 MG/100 ML VIAL 5.18 MG IVCONT (11:03)
[2020-11-19 11:50] LABS: Glucose, Whole Blood 156 mg/dL (60-115)
--- NOTE | 2020-11-19 13:21 | MHC.CM.PN ---
Pt required CPR last night d/t progressive bradycardia - O2 sats in the 70's after despite 100% FiO2 via vent. Family updated and continues to support full measures at this time. Overall prognosis is poor per providers. CM to follow
--- NOTE | 2020-11-19 13:32 | PM.CCN ---
Critical Care Event Note Summary Date of Service: 11/19/20 Code activated: No Narrative: Family meeting with patient's daughter about goals of care held. Overnight events and terminal prognosis reviewed. Decision has been reached to switch goals of care to no heroic measures/no escalation of care. Code status changed to no CPR/no escalation of care. Critical Care Time (minutes): 20
--- NOTE | 2020-11-19 13:35 | P.PNCC_ITS ---
Subjective Subjective Date of Service: 11/19/20 Interval History: 70-year-old lady with underlying history of interstitial lung disease/pulmonary fibrosis, sarcoidosis, COPD, on supplemental oxygen 2 L, diastolic dysfunction, JOVANNY on CPAP admitted on 10/26/2020 with chronic dyspnea, particularly worse two days prior to admission. At that time associated with fevers and nonproductive cough. On ER evaluation she was noted to be hypoxic requiring supplemental oxygen with high-flow nasal cannula, tachypneic, and febrile to 102.7. Her COVID test was negative. Her CT chest demonstrated acute pulmonary infiltrates on chronic interstitial lung disease. She has been started on empiric antibiotics and admitted to intensive care unit. Patient was initially isolated for the first 24 hours until her 2nd COVID test came back negative secondary to suspicion for initially false negative COVID test. Her 2D echocardiogram demonstrated no new wall motion changes or excessive intravascular fluid. She has been treated with high does systemic glucocorticoids for concern of exacerbation of underlying IPF with initial response, however with tapering of glucocorticoids her FiO2 requirements worsened significantly. Patient underwent bronchoscopy with bronchoalveolar lavage on 11/04/2020 with cultures growing Aaliyah and HSV (likely contaminant, but patient was treated with a course of fluconazole and acyclovir with significant improvement). Patient was intubated 11/05/2020 secondary to progressive hypoxemia. She has developed spontaneous bilateral pneumothoraces and pneumomediastinum requiring placement of a right-sided chest tube (resolved and removed 11/11/2020). She also had unstable AFib requiring cardioversion on 11/08/2020. Overall her hospital course is significant for progressive acute hypoxic respiratory failure, now essentially on maximum ventilatory support. Bradycardia/assisted early cardiac arrest overnight, return of spontaneous circulation in approximately 20 minutes. EEG with diffuse slowing. Critical Care Time (minutes): 60 Physical Exam Vital Signs: Vital Signs: Last Vital Signs Temp 99.7 F 11/19/20 13:00 Pulse 54 11/19/20 13:00 Resp 29 H 11/19/20 13:00 BP 132/33 L 11/19/20 13:00 Pulse Ox 96 11/19/20 13:00 Oxygen Flow Rate 40 10/27/20 02:27 Body Mass Index 35.6 Const: General: no acute distress Eyes: Sclerae: scleral abnormal (Scleral edema) Neck: Neck: Yes no lymphadenopathy, Yes trachea midline and Yes supple Resp: Auscultation: crackles (Bilateral inspiratory) Cardio: Rate: bradycardic Rhythm: regular rhythm Heart sounds: no gallops, no murmurs and no rubs GI: Palpation (GI): Soft to palpation and Other GI palpation findings present ( Nontender) Auscultation: normal bowel sounds Extrem: General: No clubbing, No cyanosis and Yes pedal edema (1+ bilateral) Objective Data Labs CBC & Chem 7: 11/19/20 05:10 11/19/20 05:10 Labs: Laboratory Results - last 24 hr 11/18/20 11/18/20 11/18/20 18:04 22:01 23:46 WBC RBC Hgb Hct MCV MCH MCHC RDW Plt Count MPV Immature Gran % (Auto) Neut % (Auto) Lymph % (Auto) [place] % (Auto) Eos % (Auto) Baso % (Auto) Lymph # (Auto) [place] # (Auto) Eos # (Auto) Baso # (Auto) Abs Immat Gran (auto) Absolute Neuts (auto) Absolute Nucleated RBC Nucleated RBC % (auto) Neutrophils % (Manual) Band Neutrophils % Lymphocytes % (Manual) Monocytes % (Manual) Abs Neuts (Manual) Lymphocytes # (Manual) Monocytes # (Manual) Nucleated RBCs Toxic Vacuolation Dohle Bodies WBC Morphology Comment Platelet Estimate Large Platelets Plt Morphology Comment RBC Morphology Polychromasia Basophilic Stippling Macrocytosis [place] Cells Acanthocytes (Spur) VBG pH 7.10 L* VBG pCO2 73 VBG pO2 54 VBG HCO3 23 VBG O2 Saturation 74.0 VBG Base Excess -6.2 Sodium Potassium Chloride Carbon Dioxide Anion Gap BUN Creatinine Estim Creat Clear Calc Estimated GFR POC Glucose 264 H 233 H Random Glucose Calcium Phosphorus Magnesium Albumin 11/19/20 11/19/20 11/19/20 05:06 05:10 05:10 WBC 15.2 H RBC 3.09 L D Hgb 9.3 L D Hct 32.3 L D MCV 104.5 H MCH 30.1 MCHC 28.8 L RDW 15.3 Plt Count 148 L D MPV 11.4 Immature Gran % (Auto) Cancelled Neut % (Auto) Cancelled Lymph % (Auto) Cancelled [place] % (Auto) Cancelled Eos % (Auto) Cancelled Baso % (Auto) Cancelled Lymph # (Auto) Cancelled [place] # (Auto) Cancelled Eos # (Auto) Cancelled Baso # (Auto) Cancelled Abs Immat Gran (auto) Cancelled Absolute Neuts (auto) Cancelled Absolute Nucleated RBC 0.070 H Nucleated RBC % (auto) 0.5 H Neutrophils % (Manual) 86 H Band Neutrophils % 4 Lymphocytes % (Manual) 2 L Monocytes % (Manual) 8 Abs Neuts (Manual) 13.7 H Lymphocytes # (Manual) 0.3 L Monocytes # (Manual) 1.2 Nucleated RBCs 1 H Toxic Vacuolation PRESENT Dohle Bodies PRESENT WBC Morphology Comment DYSMORPHIC Platelet Estimate SLIGHTLY DECREASED Large Platelets PRESENT Plt Morphology Comment NOTED RBC Morphology NOTED Polychromasia 2+ (3-5) Basophilic Stippling 1+ (0-2) Macrocytosis 1+ (5-14) [place] Cells 3+ (>5) Acanthocytes (Spur) 1+ (0-2) VBG pH 7.07 L* VBG pCO2 90 VBG pO2 53 VBG HCO3 26 VBG O2 Saturation 70.0 VBG Base Excess -4.7 Sodium 140 Potassium 7.0 H* D Chloride 97 Carbon Dioxide 25 Anion Gap 25 H BUN 80 H* D Creatinine 2.03 H Estim Creat Clear Calc 26.9 Estimated GFR 24 POC Glucose Random Glucose 223 H D Calcium 8.2 L Phosphorus 11.0 H Magnesium 3.4 H Albumin 3.8 11/19/20 11/19/20 05:39 11:46 WBC RBC Hgb Hct MCV MCH MCHC RDW Plt Count MPV Immature Gran % (Auto) Neut % (Auto) Lymph % (Auto) [place] % (Auto) Eos % (Auto) Baso % (Auto) Lymph # (Auto) [place] # (Auto) Eos # (Auto) Baso # (Auto) Abs Immat Gran (auto) Absolute Neuts (auto) Absolute Nucleated RBC Nucleated RBC % (auto) Neutrophils % (Manual) Band Neutrophils % Lymphocytes % (Manual) Monocytes % (Manual) Abs Neuts (Manual) Lymphocytes # (Manual) Monocytes # (Manual) Nucleated RBCs Toxic Vacuolation Dohle Bodies WBC Morphology Comment Platelet Estimate Large Platelets Plt Morphology Comment RBC Morphology Polychromasia Basophilic Stippling Macrocytosis [place] Cells Acanthocytes (Spur) VBG pH VBG pCO2 VBG pO2 VBG HCO3 VBG O2 Saturation VBG Base Excess Sodium Potassium Chloride Carbon Dioxide Anion Gap BUN Creatinine Estim Creat Clear Calc Estimated GFR POC Glucose 203 H 156 H Random Glucose Calcium Phosphorus Magnesium Albumin Microbiology Microbiology Results: Microbiology 11/04/20 16:18 Bronchial Washings Fungal Identification - Preliminary Aaliyah albicans 11/07/20 17:11 Sputum - Suctioned Gram Stain - Final 11/07/20 17:11 Sputum - Suctioned Sputum Culture - Final 11/06/20 04:20 Sputum - Suctioned Gram Stain - Final 11/06/20 04:20 Sputum - Suctioned Sputum Culture - Final 11/04/20 16:18 Bronchial Washings Gram Stain - Final 11/04/20 16:18 Bronchial Washings Routine Culture - Final 10/26/20 22:43 Blood - Venous Blood Culture - Final No growth after 5 days. 10/26/20 22:26 Blood - Venous Blood Culture - Final No growth after 5 days. 10/27/20 Unknown Urine clean catch - Urine hernandez top Urine Culture - Final Quality Stroke Does the patient have a stroke diagnosis?: No VTE Prior VTE?: No VTE Risk Level:: Medical - moderate - high VTE Device Contraindication: Treatment Not Indicated VTE Drug Contraindication: N/A - Med Ordered Progress Note: A&P Assessment and plan (1) YULIANA (acute kidney injury): Status: Acute Assessment and Plan: Assessment:? 70-year-old lady with underlying IPF, sarcoidosis, COPD, diastolic congestive heart failure, AFib, diabetes admitted with acute on chronic hypoxic respiratory failure Plan: Neuro:? Poor arousal with sedation vacation.? CT head on 11/16/2020 y with no acute findings, unable to obtain MRI, as patient does not tolerate being transported on transfer ventilator.? EEG with diffuse slowing and no changes with sensory stimulation, concern for diffuse anoxic injury. Cardiac:? PE/bradycardia arrest with returned spontaneous circulation in lukasz roximately 20 minutes. Underlying atrial fibrillation with [id number]-alrbnxy ventricular response requiring cardioversion on 11/08/2020? Continue with propafenone.? Underlying diastolic dysfunction, 2D echocardiogram without evidence of ongoing acute exacerbation. Pulmonary:? Acute on chronic hypoxic respiratory failure secondary acute exacerbation of underlying interstitial pulmonary fibrosis.? Poor response to high-dose systemic glucocorticoids.? Continue Solu-Medrol a 60 mg daily.? Overal l progressively worsening hypoxemia with terminal prognosis Continues on ventilatory support.? Further complicated by pneumomediastinum and pneumothoraces, now status post placement of right-sided chest tube and removal.? Renal:? Acute kidney injury with anuria likely secondary to ATN from cardiac arrest. Endo:? No acute issues.? Underlying diabetes mellitus. GI:? No acute issues. ID:? Initial community-acquired pneumonia, likely a triggering factor for exacerbation of underlying IPF.? Now no evidence of HSV, acyclovir stopped.? Infectious Disease service care appreciated.? Finished empiric treatment with fluconazole for Aaliyah in sputum, though it was likely a colonizer/contaminant. Heme/Onc:? No acute issues. Psych:? No acute issues. Miscellaneous:? No acute issues. Overall terminal prognosis discussed with patient's daughter and goals of care has been changed to no further escalation of care/DNR. Prophylaxis:? Heparin, ppi Diet:? Tube feeds Critical care time spent:? 60 minutes (2) ATN (acute tubular necrosis): Status: Acute (3) Diastolic CHF with preserved left ventricular function, NYHA class 2: Status: Acute (4) Spontaneous pneumothorax: Status: Acute (5) Afib: Status: Acute (6) HTN (hypertension): Status: Acute (7) Diabetes: Status: Acute (8) Acute respiratory failure with hypoxemia: Status: Acute (9) Vascular insufficiency of extremity: Status: Acute (10) Chronic respiratory failure: Status: Acute (11) JOVANNY on CPAP: Status: Acute (12) ILD (interstitial lung disease): Status: Acute (13) Sarcoidosis: Status: Acute (14) COPD (chronic obstructive pulmonary disease): Status: Acute
[2020-11-19 14:24] LABS: VBG Base Excess -6.6 mmol/L; VBG HCO3 27 mmol/L (22-26); VBG pCO2 116 mmHg; VBG pH 6.96 (7.32-7.43); VBG pO2 51 mmHg
[2020-11-19 15:06] LABS: Albumin Level 3.8 g/dL (3.5-5.0); Alkaline Phosphatase 409 U/L (39-117); Anion Gap 27 (12-20); Bilirubin Total 5.1 mg/dL (0.0-1.0); Blood Urea Nitrogen 87 mg/dL (9-16); Calcium 7.8 mg/dL (8.4-10.2); Carbon Dioxide 23 mmol/L (22-29); Chloride 100 mmol/L (96-108); Creatinine Clr Calc Pharmacy 22.4; Estimated Glomerular Filt Rate 20; Glucose Random 178 mg/dL (60-115); Potassium 6.7 mmol/L (3.3-5.1); Sodium 143 mmol/L (135-145); Total Protein 5.7 g/dL (6.5-8.0)
[2020-11-19 15:13] LABS: Venous Blood Gas Refer to POC result
[2020-11-19 15:19] LABS: Alanine Aminotransferase 4681 U/L (0-31)
[2020-11-19 15:20] LABS: Aspartate Amino Transferase 7224 U/L (5-31)
[2020-11-19] MEDS: Heparin Sodium,Porcine 5,000 UNIT/ML VIAL 5000 UNIT SUBCUT ×2 (15:59→20:52)
[2020-11-19 17:56] LABS: Glucose, Whole Blood 124 mg/dL (60-115)
[2020-11-20] VITALS (11 sets, daily range): BP systolic 59–105; BP diastolic 18–30; PULSE 53–80; RESP 18–30; TEMP 38.4–39; O2SAT 83–94; BMI 36.3
[2020-11-20 00:17] LABS: Glucose, Whole Blood 90 mg/dL (60-115)
[2020-11-20 04:59] LABS: VBG Base Excess -7.2 mmol/L; VBG HCO3 24 mmol/L (22-26); VBG pCO2 87 mmHg; VBG pH 7.04 (7.32-7.43); VBG pO2 47 mmHg
[2020-11-20 05:29] LABS: NRBC Pct Auto 0.4 /100WBC (0.0-0.2); Red Cell Distribution Width 15.9 % (11.0-16.0)
[2020-11-20 05:31] LABS: Hematocrit 28.2 % (37-47); Hemoglobin 8.4 g/dl (12.0-16.0); Mean Corpuscular HGB Conc 29.8 g/dl (31.0-35.0); Mean Corpuscular Hemoglobin 30.8 pg (27.0-33.0); Mean Corpuscular Volume 103.3 fL (80-98); Mean Platelet Volume 13.5 fL (9.4-12.3); Red Blood Count 2.73 X10*6/uL (4.20-5.50); White Blood Count 13.6 X10*3/uL (4.8-10.8)
[2020-11-20 05:41] LABS: Venous Blood Gas Refer to POC result
[2020-11-20 05:54] LABS: PLT ABN DIST 1; Platelet Count 58 X10*3/uL (160-400)
[2020-11-20 06:01] LABS: Magnesium 3.4 mg/dL (1.6-2.6); Phosphorus 11.4 mg/dL (2.7-4.5)
[2020-11-20 06:02] LABS: Glucose, Whole Blood 35 mg/dL (60-115)
[2020-11-20 06:02] LABS: Glucose, Whole Blood 67 mg/dL (60-115)
[2020-11-20 06:07] LABS: Band Neutrophils Percent 9 % (3-5); Lymphocytes Absolute Manual 0.1 X10*3/uL (0.6-4.8); Lymphocytes Percent Manual 1 % (20-40); Monocytes Absolute Manual 0.7 X10*3/uL (0.0-1.2); Monocytes Percent Manual 5 % (2-11); Myelocytes Absolute 0.1 X10*/uL; Myelocytes Percent 1 %; Neutrophils Absolute Manual 12.6 X10*3/uL (2.2-7.9); Neutrophils Percent Manual 84 % (45-73)
[2020-11-20 06:08] LABS: Macrocytosis 1+ (5-14) /OIF; RBC Morphology NOTED
[2020-11-20 06:09] LABS: Acanthocytes 2+ (3-5) /OIF; Large Platelet PRESENT; Platelet Estimate DECREASED (NORMAL); Platelet Morphology Comment NOTED
[2020-11-20 06:10] LABS: Basophilic Stippling 1+ (0-2) /OIF; Burr Cells 3+ (>5) /OIF; Dohle Bodies PRESENT; Ovalocytes 1+ (5-14) /OIF; Polychromasia 1+ (0-2) /OIF; Toxic Granulation PRESENT; Toxic Vacuolation PRESENT
[2020-11-20 06:11] LABS: WBC Morphology Comment DYSMORPHIC
[2020-11-20] MEDS: Heparin Sodium,Porcine 5,000 UNIT/ML VIAL 5000 UNIT SUBCUT (06:14)
[2020-11-20 06:23] LABS: Glucose, Whole Blood 136 mg/dL (60-115)
[2020-11-20 06:25] LABS: Alanine Aminotransferase 5194 U/L (0-31); Albumin Level 3.5 g/dL (3.5-5.0); Alkaline Phosphatase 532 U/L (39-117); Anion Gap 26 (12-20); Bilirubin Total 6.1 mg/dL (0.0-1.0); Blood Urea Nitrogen 100 mg/dL (9-16); Calcium 6.7 mg/dL (8.4-10.2); Carbon Dioxide 23 mmol/L (22-29); Chloride 100 mmol/L (96-108); Creatinine Clr Calc Pharmacy 17.9; Estimated Glomerular Filt Rate 15; Glucose Random 176 mg/dL (60-115); Potassium 7.3 mmol/L (3.3-5.1); Sodium 142 mmol/L (135-145); Total Protein 5.2 g/dL (6.5-8.0)
[2020-11-20 06:45] LABS: Aspartate Amino Transferase 8118 U/L (5-31)
[2020-11-20] MEDS: Artificial Tears Ophth Oint 3.5 GM TUBE 1 APPL EYE-BOTH (07:27)
[2020-11-20] MEDS: Chlorhexidine Gluc Oral Rinse 15 ML MOUTHWASH BUCCAL (07:27)
[2020-11-20] MEDS: Lactulose 20 GM/30 ML SOLUTION 30 GM PO (07:27)
[2020-11-20] MEDS: methylPREDNISolone Sod Succ 125 MG/2 ML VIAL 60 MG IVPUSH (07:27)
[2020-11-20] MEDS: Famotidine/PF 20 MG/2 ML VIAL IVPUSH (07:28)
[2020-11-20] MEDS: Clopidogrel Bisulfate 75 MG TABLET PO (07:28)
--- NOTE | 2020-11-20 09:34 | PM.CCN ---
Critical Care Event Note Summary Date of Service: 11/20/20 Code activated: No Narrative: Patient with refractory hypoxemia and resultant multiorgan failure in DNR code status with abrupt progression of bradycardia rapidly deteriorating to asystole at 9:10 a.m., with brief self-resuscitation, again deteriorating to asystole and passing at 9:24 a.m. On my exam, no pulse, spontaneous respiration, no corneal or gag reflex. Time of 9:24 a.m. Family notified. Critical Care Time (minutes): 0
--- NOTE | 2020-11-20 11:53 | MHC.CM.PN ---
Patient remains intubated/vented in ICU. Patient is from home with [employer]. Patient's prognosis is poor. Continue to monitor for d/c needs.
--- NOTE | 2020-11-20 12:15 | P.DN_ITS ---
Discharge Sum: Prov Provider Primary care physician: Josephine Rangel MD Consults: 11/07/20 08:11 Consult to Infectious Diseases Stat Consulting Provider: Jenise Barrera Reason for consultation: atypical pneumonia/sarcoidosis Has provider been notified: Yes Pronouncing clinician: Ho Richardson Discharge Sum: Diag Contributing Factors (1) Acute respiratory failure with hypoxemia: Discharge Sum: Summary Date and Time Date of admission: 10/27/20 02:27 Date of : 11/20/20 Time of : 09:24 Summary Details: 70-year-old lady with underlying history of interstitial lung disease/pulmonary fibrosis, sarcoidosis, COPD, on supplemental oxygen 2 L, diastolic dysfunction, JOVANNY on CPAP admitted on 10/26/2020 with chronic dyspnea, particularly worse two days prior to admission. At that time associated with fevers and nonproductive cough. On ER evaluation she was noted to be hypoxic requiring supplemental oxygen with high-flow nasal cannula, tachypneic, and febrile to 102.7. Her COVID test was negative. Her CT chest demonstrated acute pulmonary infiltrates on chronic interstitial lung disease. She has been started on empiric antibiotics and admitted to intensive care unit. Patient was initially isolated for the first 24 hours until her 2nd COVID test came back negative secondary to suspicion for initially false negative COVID test. Her 2D echocardiogram demonstrated no new wall motion changes or excessive intravascular fluid. She has been treated with high does systemic glucocorticoids for concern of exacerbation of underlying IPF with initial response, however with tapering of glucocorticoids her FiO2 requirements worsened significantly and did not improve with increasing glucocorticoids does. Patient underwent bronchoscopy with bronchoalveolar lavage on 11/04/2020 with cultures growing Aaliyah and HSV (likely contaminant, but patient was treated with a course of fluconazole and acyclovir without significant improvement). Patient was intubated 11/05/2020 secondary to progressive hypoxemia. She has developed spontaneous bilateral pneumothoraces and pneumomediastinum requiring placement of a right-sided chest tube (resolved and removed 11/11/2020). She also had unstable AFib requiring cardioversion on 11/08/2020. Overall her hospital course is significant for progressive acute hypoxic respiratory failure, despite maximum ventilatory support, progressive development of multiorgan dysfunction including acute kidney injury, likely anoxic encephalopathy (unable to obtain MRI as patient was not tolerating being moved on transport ventilator), and liver injury. Patient had bradycardic/asystole cardiac arrest on 11/18/2020, CPR was started immediately and returned spontan eous circulation was achieved after approximately 20 minutes of CPR. Goals of care conversation was ongoing with the family considering essentially no chance for recovery on 11/19/2020 goals of care has been changed to no further escalation/no CPR. On 11/20/2020 patient developed abrupt progression of bradycardia rapidly deteriorating to asystole at 9:10 a.m., with initial brief self-resuscitation, again deteriorating to asystole and passing at 9:24 a.m. Additional Data Attending physician: Ho Richardson MD
== END 2020-11-20 15:24 | disposition expired | DRG 981 ==
LOC: HO.ED 10-27 02:10 → HO.EDOVER 10-27 02:36 → HO.ICU 10-27 02:37
PROVIDERS: Anesthesiology; Hospitalist; Internal Medicine; Internal Medicine Cardiovascular Disease; Physician Assistant; Physician Assistant Medical; Admitting Provider Registered Nurse Community Health; Emergency Provider Emergency Medicine Emergency Medical Services; PCP Internal Medicine Geriatric Medicine; Visit Provider Internal Medicine Pulmonary Disease
DX: J96.01 Acute respiratory failure with hypoxia (principal); J18.9 Pneumonia, unspecified organism; N17.0 Acute kidney failure with tubular necrosis; J84.9 Interstitial pulmonary disease, unspecified; I50.32 Chronic diastolic (congestive) heart failure; J93.83 Other pneumothorax; J44.0 Chronic obstructive pulmonary disease with (acute) lower respiratory infection; G93.1 Anoxic brain damage, not elsewhere classified; I11.0 Hypertensive heart disease with heart failure; E11.42 Type 2 diabetes mellitus with diabetic polyneuropathy; D86.0 Sarcoidosis of lung; G47.33 Obstructive sleep apnea (adult) (pediatric); I87.2 Venous insufficiency (chronic) (peripheral); Z20.822 Contact with and (suspected) exposure to COVID-19; I46.9 Cardiac arrest, cause unspecified; E11.51 Type 2 diabetes mellitus with diabetic peripheral angiopathy without gangrene; Z87.891 Personal history of nicotine dependence; I48.0 Paroxysmal atrial fibrillation; Z99.81 Dependence on supplemental oxygen; Z79.4 Long term (current) use of insulin; Z79.02 Long term (current) use of antithrombotics/antiplatelets; Z79.51 Long term (current) use of inhaled steroids; Z79.899 Other long term (current) drug therapy; Z66 Do not resuscitate
CPT/HCPCS: 0241U; 36415; 70450; 70470; 71045; 71250; 71275; 80048; 80053; 80076; 80202; 81001; 82040; 82140; 82803; 82947; 83605; 83735; 83880; 84100; 84145; 84300; 84484; 85007; 85025; 85027; 85379; 85610; 85652; 85730; 86403; 86481; 86695; 86696; 86769; 86850; 86900; 86901; 86923; 87040; 87070; 87071; 87086; 87102; 87106; 87205; 87252; 87389; 87633; 87635; 87798; 88112; 93005; 93306; 94002; 94003; 94640; 94644; 94660; 94799; 95816; 96361; 96365; 96366; 96375; 99285; 99291; 99292; C1758; J0133; J0171; J0282; J0330; J0456; J0696; J1160; J1170; J1450; J1940; J2060; J2250; J2270; J2370; J2405; J2920; J2930; J3010; J3370; P9016; P9047; Q9967